=== PATIENT | female | born 1945 | race Caucasian/White ===

== ENCOUNTER 2016-04-24 08:49 | Outpatient (RCR) | payer MEDICARE ==
[~2016-04-24 08:49] MED LIST: CALC-404 PO; CALC-879 PO; D50KC PO; ERGO2000 PO; GABA-488 PO; Gabapentin; HYDR-3714 PO; LEVO137T2 PO; MAGN400C PO; MELO-195 PO; MELO15TA14 PO; Mobic; PANT40TA PO; PANT40TA2 PO; PNT40TEC PO; POTA10TA86 PO; SUCR1TAB36 PO; SULF-222 PO; SULF1TAB38 PO; SULF500T5 PO; levaquin
[2016-04-24 09:12] LABS: BASOPHILS # (AUTO) 0.1 10^3/uL (0.0-0.1); BASOPHILS % (AUTO) 1 % (0-10); EOSINOPHILS # (AUTO) 0.3 10^3/uL (0.0-0.3); EOSINOPHILS % (AUTO) 3 % (0-10); LYMPHOCYTES # (AUTO) 3.8 X 10^3 (1.0-4.0); LYMPHOCYTES % (AUTO) 42 % (12-44); MEAN CORPUSCULAR HEMOGLOBIN 30 PG (25-34); MEAN CORPUSCULAR HGB CONC 33 G/DL (32-36); MEAN CORPUSCULAR VOLUME 91 FL (80-99); MEAN PLATELET VOLUME 8.9 FL (7.4-10.4); MONOCYTES # (AUTO) 0.6 X 10^3 (0.0-1.0); MONOCYTES % (AUTO) 6 % (0-12); NEUTROPHILS # (AUTO) 4.3 X 10^3 (1.8-7.8); NEUTROPHILS % (AUTO) 48 % (42-75); PLATELET COUNT 310 10^3/uL (130-400); RED CELL DISTRIBUTION WIDTH 13.6 % (10.0-14.5)
[2016-04-24 10:24] LABS: ALANINE AMINOTRANSFERASE 36 U/L (0-55); ALBUMIN 3.9 G/DL (3.2-4.5); ANION GAP 6 MMOL/L (5-14); ASPARTATE AMINO TRANSFERASE 24 U/L (5-34); BILIRUBIN,TOTAL 0.2 MG/DL (0.1-1.0); BLOOD UREA NITROGEN 18 MG/DL (7-18); BUN/CREATININE RATIO 27; CALCIUM 8.3 MG/DL (8.5-10.1); CARBON DIOXIDE 28 MMOL/L (21-32); CHLORIDE 106 MMOL/L (98-107); CREATININE SERUM 0.67 MG/DL (0.60-1.30); GFR ESTIMATED > 60; GLUCOSE 92 MG/DL (70-105); LACTATE DEHYDROGENASE 243 U/L (125-220); POTASSIUM 4.3 MMOL/L (3.6-5.0); SODIUM 140 MMOL/L (135-145); TOTAL PROTEIN 6.8 G/DL (6.4-8.2)
== END 2016-07-23 | disposition home or self-care (01) ==
LOC: ONC 08:49
PROVIDERS: ATTEND Internal Medicine Hematology & Oncology
DX: C85.99 Non-Hodgkin lymphoma, unspecified, extranodal and solid organ sites (principal); C73 Malignant neoplasm of thyroid gland; Z79.899 Other long term (current) drug therapy
CPT/HCPCS: 36415; 80053; 83615; 85025; 99213

== ENCOUNTER 2016-10-22 08:43 | Outpatient (RCR) | payer MEDICARE ==
[2016-10-22 09:00] LABS: BASOPHILS # (AUTO) 0.1 10^3/uL (0.0-0.1); BASOPHILS % (AUTO) 1 % (0-10); EOSINOPHILS # (AUTO) 0.2 10^3/uL (0.0-0.3); EOSINOPHILS % (AUTO) 3 % (0-10); LYMPHOCYTES # (AUTO) 3.7 X 10^3 (1.0-4.0); LYMPHOCYTES % (AUTO) 42 % (12-44); MEAN CORPUSCULAR HEMOGLOBIN 30 PG (25-34); MEAN CORPUSCULAR HGB CONC 33 G/DL (32-36); MEAN CORPUSCULAR VOLUME 92 FL (80-99); MEAN PLATELET VOLUME 8.9 FL (7.4-10.4); MONOCYTES # (AUTO) 0.5 X 10^3 (0.0-1.0); MONOCYTES % (AUTO) 5 % (0-12); NEUTROPHILS # (AUTO) 4.3 X 10^3 (1.8-7.8); NEUTROPHILS % (AUTO) 49 % (42-75); PLATELET COUNT 284 10^3/uL (130-400); RED BLOOD COUNT 4.61 10^6/uL (4.35-5.85); RED CELL DISTRIBUTION WIDTH 14.4 % (10.0-14.5); WHITE BLOOD COUNT 8.8 10^3/uL (4.3-11.0)
[2016-10-22 09:42] LABS: ALANINE AMINOTRANSFERASE 37 U/L (0-55); ALBUMIN 3.9 G/DL (3.2-4.5); ANION GAP 8 MMOL/L (5-14); ASPARTATE AMINO TRANSFERASE 23 U/L (5-34); BILIRUBIN,TOTAL 0.3 MG/DL (0.1-1.0); BLOOD UREA NITROGEN 18 MG/DL (7-18); BUN/CREATININE RATIO 20; CALCIUM 8.5 MG/DL (8.5-10.1); CARBON DIOXIDE 29 MMOL/L (21-32); CHLORIDE 105 MMOL/L (98-107); CREATININE SERUM 0.88 MG/DL (0.60-1.30); GFR ESTIMATED > 60; GLUCOSE 103 MG/DL (70-105); LACTATE DEHYDROGENASE 221 U/L (125-220); POTASSIUM 4.4 MMOL/L (3.6-5.0); SODIUM 142 MMOL/L (135-145)
[2016-10-22 10:03] LABS: THYROID STIMULATING HORMONE 0.55 UIU/ML (0.35-4.94)
[2016-10-24 08:18] LABS: THYROGLOBULIN AUTOANTIBODY PT 0.03 Units (0.00-0.50); THYROGLOBULIN LEVELC <0.20 ng/mL (1.60-59.90)
== END 2017-01-20 | disposition home or self-care (01) ==
LOC: ONC 08:43
PROVIDERS: ATTEND Internal Medicine Hematology & Oncology
DX: C85.99 Non-Hodgkin lymphoma, unspecified, extranodal and solid organ sites (principal); C73 Malignant neoplasm of thyroid gland; Z79.899 Other long term (current) drug therapy
CPT/HCPCS: 36415; 80053; 83615; 84432; 84443; 85025; 86800; 99213

== ENCOUNTER 2017-07-08 09:45 | Outpatient (RCR) | payer MEDICARE ==
[2017-04-29 08:59] LABS: BASOPHILS # (AUTO) 0.1 10^3/uL (0.0-0.1); BASOPHILS % (AUTO) 1 % (0-10); EOSINOPHILS # (AUTO) 0.2 10^3/uL (0.0-0.3); EOSINOPHILS % (AUTO) 2 % (0-10); HEMATOCRIT 43 % (35-52); HEMOGLOBIN 14.4 G/DL (11.5-16.0); LYMPHOCYTES # (AUTO) 4.1 X 10^3 (1.0-4.0); LYMPHOCYTES % (AUTO) 37 % (12-44); MEAN CORPUSCULAR HEMOGLOBIN 30 PG (25-34); MEAN CORPUSCULAR HGB CONC 33 G/DL (32-36); MEAN CORPUSCULAR VOLUME 91 FL (80-99); MEAN PLATELET VOLUME 9.4 FL (7.4-10.4); MONOCYTES # (AUTO) 0.4 X 10^3 (0.0-1.0); MONOCYTES % (AUTO) 4 % (0-12); NEUTROPHILS # (AUTO) 6.2 X 10^3 (1.8-7.8); NEUTROPHILS % (AUTO) 57 % (42-75); PLATELET COUNT 248 10^3/uL (130-400); RED BLOOD COUNT 4.79 10^6/uL (4.35-5.85); RED CELL DISTRIBUTION WIDTH 14.2 % (10.0-14.5)
[2017-04-29 09:18] LABS: ALANINE AMINOTRANSFERASE 23 U/L (0-55); ALBUMIN 4.2 GM/DL (3.2-4.5); ALKALINE PHOSPHATASE 91 U/L (40-136); BILIRUBIN,TOTAL 0.4 MG/DL (0.1-1.0); BUN/CREATININE RATIO 17; CALCIUM 8.6 MG/DL (8.5-10.1); CARBON DIOXIDE 29 MMOL/L (21-32); CHLORIDE 101 MMOL/L (98-107); CREATININE SERUM 0.76 MG/DL (0.60-1.30); GFR ESTIMATED > 60; GLUCOSE 96 MG/DL (70-105); SODIUM 141 MMOL/L (135-145); TOTAL PROTEIN 7.3 GM/DL (6.4-8.2)
== END 2017-07-28 | disposition home or self-care (01) ==
LOC: ONC 09:45
PROVIDERS: ATTEND Internal Medicine Hematology & Oncology
DX: C85.99 Non-Hodgkin lymphoma, unspecified, extranodal and solid organ sites (principal); C73 Malignant neoplasm of thyroid gland; Z79.899 Other long term (current) drug therapy
CPT/HCPCS: 36415; 80053; 83615; 84443; 85025; 99213

== ENCOUNTER → 2017-07-25 | Outpatient (CLI) | payer MEDICARE ==
[2017-07-25 12:46] LABS: BASOPHILS # (AUTO) 0.1 10^3/uL (0.0-0.1); BASOPHILS % (AUTO) 1 % (0-10); EOSINOPHILS # (AUTO) 0.2 10^3/uL (0.0-0.3); EOSINOPHILS % (AUTO) 3 % (0-10); HEMATOCRIT 39 % (35-52); LYMPHOCYTES # (AUTO) 2.3 X 10^3 (1.0-4.0); LYMPHOCYTES % (AUTO) 39 % (12-44); MEAN CORPUSCULAR HEMOGLOBIN 30 PG (25-34); MEAN CORPUSCULAR HGB CONC 34 G/DL (32-36); MEAN CORPUSCULAR VOLUME 90 FL (80-99); MONOCYTES # (AUTO) 0.6 X 10^3 (0.0-1.0); MONOCYTES % (AUTO) 10 % (0-12); NEUTROPHILS # (AUTO) 2.7 X 10^3 (1.8-7.8); NEUTROPHILS % (AUTO) 47 % (42-75); PLATELET COUNT 211 10^3/uL (130-400); RED BLOOD COUNT 4.28 10^6/uL (4.35-5.85); RED CELL DISTRIBUTION WIDTH 14.9 % (10.0-14.5); WHITE BLOOD COUNT 5.8 10^3/uL (4.3-11.0)
[2017-07-25 13:12] LABS: ALANINE AMINOTRANSFERASE 39 U/L (0-55); ALBUMIN 3.8 GM/DL (3.2-4.5); ALKALINE PHOSPHATASE 82 U/L (40-136); BILIRUBIN,TOTAL 0.3 MG/DL (0.1-1.0); BUN/CREATININE RATIO 22; CALCIUM 8.5 MG/DL (8.5-10.1); CARBON DIOXIDE 30 MMOL/L (21-32); CHLORIDE 102 MMOL/L (98-107); CREATININE SERUM 0.76 MG/DL (0.60-1.30); GFR ESTIMATED > 60; GLUCOSE 95 MG/DL (70-105); POTASSIUM 4.1 MMOL/L (3.6-5.0); SODIUM 138 MMOL/L (135-145); TOTAL PROTEIN 7.3 GM/DL (6.4-8.2)
--- NOTE | 2017-07-25 13:53 | Diagnostic Imaging Report ---
INDICATION: DYSPNEA RO600, CHEST PAIN RO7.9 COMPARISON: None. FINDINGS: Frontal and lateral views of the chest demonstrate normal heart size and pulmonary vascularity. The lungs are clear. There are no signs of infiltrate, pleural effusions or pneumothoraces. The visualized osseous structures show no acute abnormalities. There is calcified aortic atherosclerosis. IMPRESSION: 1. No acute process. No signs of infiltrates, effusions or pneumothoraces. Report was called to Namita/front office director of Dr. Lovett by kathleen at 1:52 p.m. Dictated by: Dictated on workstation # [id number]
== END ==
LOC: LAB 12:28
PROVIDERS: ATTEND Internal Medicine
DX: R06.00 Dyspnea, unspecified (principal); R07.9 Chest pain, unspecified
CPT/HCPCS: 36415; 71046; 80053; 83880; 84443; 84484; 85025; 85379

== ENCOUNTER → 2017-07-25 | Outpatient (CLI) | payer MEDICARE ==
[~2017-07-25] MED LIST changes: +CATHETER FLUSH 10 ML SYR IV PRN; +IOHEXOL 350 MG/ML 150 ML (OMNIPAQUE 350) VIAL IV ONE; +NS 250 ML (IVPB) BAG IV ONE
--- NOTE | 2017-07-25 18:40 | Diagnostic Imaging Report ---
PROCEDURE: CT angiography of the chest with contrast. TECHNIQUE: Multiple contiguous axial images were obtained through the chest after uneventful bolus administration of intravenous contrast. Reconstructed CTA MIP acquisitions were also performed. INDICATION: Weakness for 2-3 weeks. COMPARISON: None available. FINDINGS: Vasculature: No pulmonary emboli. No CT evidence of pulmonary hypertension or right ventricular strain. Thoracic aorta is normal in caliber. No aortic dissection or pseudoaneurysm. Heart and mediastinum: Thyroidectomy. No supraclavicular lymphadenopathy. There are a few borderline enlarged bilateral axillary lymph nodes. The largest is on the right measuring 1.1 x 1.9 cm. Heart is enlarged without pericardial effusion. Pleura: No pleural effusion or pneumothorax. Lungs and airway: No endoluminal lesion in the trachea or central bronchi. No pulmonary mass, nodule or consolidation. Upper abdomen: Diffuse hypoattenuation of the liver suggests hepatic steatosis. There is a moderate-sized hiatus hernia that is unchanged since CT abdomen and pelvis of 02/04/2014. Musculoskeletal: No concerning osseous lesion. IMPRESSION: 1. No acute cardiopulmonary process. Specifically, no pulmonary emboli or acute aortic syndrome. 2. Incidental mode of borderline enlarged bilateral axillary lymph nodes which are likely reactive in nature. There is no intrathoracic lymphadenopathy. 3. Mild cardiomegaly. 4. Stable moderate-sized hiatus hernia and hepatic steatosis. Findings of no acute process were called to [facility] by Dr. Behzad Springer at 6:34 p.m. on 07/25/2017. Dictated by: Dictated on workstation # [id number]
== END ==
LOC: RAD 17:44
PROVIDERS: ATTEND Internal Medicine
DX: K44.9 Diaphragmatic hernia without obstruction or gangrene (principal); K76.0 Fatty (change of) liver, not elsewhere classified; I51.7 Cardiomegaly; R79.1 Abnormal coagulation profile
CPT/HCPCS: 71275

== ENCOUNTER → 2017-07-28 | Outpatient (CLI) | payer MEDICARE ==
[~2017-07-28] VITALS: Ht 167.6 cm; Wt 105.2 kg
[~2017-07-28] MED LIST changes: -IOHEXOL 350 MG/ML 150 ML (OMNIPAQUE 350) VIAL IV ONE; -NS 250 ML (IVPB) BAG IV ONE; +REGADENOSON 0.4 MG/5 ML SYR (LEXISCAN) IV ONE
[2017-07-28 08:02] VITALS: BP 128/66
--- NOTE | 2017-07-28 18:33 | STRESS TEST ---
DATE OF SERVICE: 07/28/2017 PROCEDURE: Resting and post regadenoson technetium-99m Tetrofosmin SPECT CT imaging. ORDERING PHYSICIAN: Gillian Epps APRN. PRIMARY PHYSICIAN: Dr. Lovett. CLINICAL DIAGNOSIS: Chest discomfort, shortness of breath. Baseline images were carried out after injection of 10.91 mCi of technetium-99m Tetrofosmin. This was followed by 0.4 mg regadenoson and 28.1 mCi of technetium-99m Tetrofosmin. The electrocardiographic portion of the study is reported separately by Dr. Lovett. Review of images at rest and following stress does not indicate significant perfusion defects consistent with significant myocardial ischemia or infarction. Gated images show normal global left ventricular systolic function with normal regional wall motion. Left ventricular ejection fraction is calculated to be 61%. Left ventricular end diastolic volume is 61 mL. TID is absent (1.08). CONCLUSIONS: 1. No evidence of significant myocardial ischemia or infarction on this study. 2. Normal regional wall motion with a calculated ejection fraction of 61%. Job ID: [id number] DocumentID: [id number] Dictated Date: 07/28/2017 13:06:54 Spreader Date: 07/28/2017 18:33:09 Dictated By: FELICIA HODGES MD, MA, FACP, FACC,
== END ==
LOC: CARD 06:50
PROVIDERS: ATTEND Nurse Practitioner Family
DX: R07.9 Chest pain, unspecified (principal); R06.00 Dyspnea, unspecified
CPT/HCPCS: 78452; 93017

== ENCOUNTER 2017-11-26 22:30 | Inpatient (IN) | payer MEDICARE ==
[~2017-11-26] VITALS: Ht 170.2 cm; Wt 105.2 kg
[~2017-11-26 22:30] MED LIST changes: -CATHETER FLUSH 10 ML SYR IV PRN; -REGADENOSON 0.4 MG/5 ML SYR (LEXISCAN) IV ONE
--- OUTSIDE RECORDS SUMMARY | 2017-11-26 22:42 | XMS REPORT | Continuity of Care Document ---
Author Author [facility] Organization [facility] Address Unknown Phone Unavailable Allergies Active Description Code Type Severity Reaction Onset Reported/Identified Relationship to Patient Clinical Status Yes promethazine [id number] Drug Allergy Unknown N/A 01/01/2006 Medications There is no data. Problems Date Dx Coded Attending Type Code Diagnosis Diagnosed By 12/29/2013 VANDANA CLARK MD Ot 530.11 REFLUX ESOPHAGITIS 12/29/2013 VANDANA CLARK MD Ot 535.50 UNSP GASTRITIS GASTRODUODENITIS W/O ME 12/29/2013 VANDANA CLARK MD Ot 553.3 DIAPHRAGMATIC HERNIA 02/09/2014 MARI PATEL MD Ot 719.06 JOINT EFFUSION-L/LEG 02/09/2014 MARI PATEL MD Ot 719.46 JOINT PAIN-L/LEG 02/10/2014 BENNETT VILLANUEVA, GALO Joshua Ot 193 MALIGN NEOPL THYROID 02/10/2014 BENNETT VILLANUEVA, GALO Joshua Ot 241.1 NONTOX MULTINODUL GOITER 02/10/2014 BENNETT VILLANUEVA, GALO Joshua Ot 266.2 B-COMPLEX DEFIC NEC 02/10/2014 BENNETT VILLANUEVA, GALO Joshua Ot 401.9 HYPERTENSION NOS 02/10/2014 BENNETT VILLANUEVA, GALO Joshua Ot 715.90 OSTEOARTHROS NOS-UNSPEC 02/10/2014 BENNETT VILLANUEVA, GALO Joshua Ot V03.82 PROPHYLACTIC VACC AGAINST STREPTOCOCCUS 02/10/2014 BENNETT VILLANUEVA, GALO Joshua Ot V15.82 HISTORY OF TOBACCO USE 03/31/2014 PASCUAL ALARCON DO Ot V76.12 05/02/2014 Ot 241.1 05/02/2014 Ot V49.81 05/02/2014 Ot V82.81 05/02/2014 Ot 241.0 05/02/2014 Ot 389.16 05/02/2014 Ot 553.3 05/02/2014 Ot 562.10 05/02/2014 Ot 571.8 05/02/2014 Ot 599.70 05/02/2014 Ot 789.09 05/02/2014 Ot 789.1 05/02/2014 Ot 721.2 05/02/2014 Ot 721.3 05/02/2014 Ot 737.8 05/02/2014 Ot 785.9 05/02/2014 Ot 789.00 05/02/2014 Ot 793.7 05/02/2014 Ot 724.9 05/02/2014 Ot V76.12 05/02/2014 Ot 610.0 05/02/2014 Ot 715.37 05/02/2014 IRIS JUWAN C CUPOLA REPAIRER Ot 719.41 05/02/2014 JOSÉ VILLANUEVA, AUDI Chung Ot 724.02 05/02/2014 EDUARDO VILLANUEVA, VANDANA Ot V72.84 05/02/2014 BENNETT VILLANUEVA, GALO Jsohua Ot 241.0 05/02/2014 BENNETT VILLANUEVA, GALO Joshua Ot V72.63 05/02/2014 BENNETT VILLANUEVA, GALO Joshua Ot V74.8 05/02/2014 DORI ALARCONIA L SIGNALS COLLECTOR/ANALYST Ot 562.10 05/02/2014 ALARCONDORI RINGIA L SIGNALS COLLECTOR/ANALYST Ot 571.8 05/02/2014 DORI ALARCONIA L SIGNALS COLLECTOR/ANALYST Ot 599.70 05/02/2014 DORI ALARCONIA L SIGNALS COLLECTOR/ANALYST Ot 724.5 05/02/2014 BENNETT VILLANUEVA, GALO Joshua Ot 242.90 05/02/2014 BENNETT VILLANUEVA, GALO Joshua Ot V67.09 05/02/2014 PASCUAL ALARCON DO Ot V76.12 05/02/2014 BRANDY HOOPER N Ot 202.80 05/02/2014 BRANDY HOOPER N Ot 623.8 05/02/2014 BRANDY HOOPER N Ot 627.1 05/02/2014 JOSE MORALES MD Ot 721.3 05/02/2014 JOSE MORALES MD Ot 722.52 05/02/2014 JOSE MORALES MD Ot 737.30 05/02/2014 JOSE MORALES MD Ot V58.69 05/02/2014 JOSE MORALES MD Ot 721.3 05/02/2014 JOSE MORALES MD Ot 722.52 05/02/2014 JOSE MORALES MD Ot 737.30 05/02/2014 JOSE MORALES MD Ot V58.69 05/03/2014 BRANDY HOOPER N Ot 202.80 05/03/2014 BRANDY HOOPER N Ot 623.8 05/03/2014 BRANDY HOOPER N Ot 627.1 05/03/2014 JOSE MORALES MD Ot 721.3 05/03/2014 JOSE MORALES MD Ot 722.52 05/03/2014 JOSE MORALES MD Ot 737.30 05/03/2014 JOSE MORALES MD Ot V58.69 05/09/2014 BIPIN HOOPERAN N Ot 202.80 05/09/2014 BRANDY HOOPER N Ot 623.8 05/09/2014 BRANDY HOOPER N Ot 627.1 06/02/2014 BIPIN HOOPERAN N Ot 729.81 06/06/2014 BIPIN HOOPERAN N Ot 202.80 06/06/2014 SANDIE, BOBAN N Ot 729.81 06/18/2014 SANDIE, BOBAN N Ot 202.80 06/18/2014 SANDIEBIPIN WERNERAN N Ot 729.81 06/29/2014 SANDEI, BOBAN N Ot 202.80 06/29/2014 SANDIE BOBAN N Ot 729.81 07/31/2014 SANDIE BOBAN N Ot 202.80 OTH LYMPHOMAS EXTRANODAL SOLID ORGAN U 07/31/2014 SANDIE BOBKAYCE N Ot 729.81 SWELLING OF LIMB 08/12/2014 Ot 721.3 08/12/2014 Ot 722.52 08/12/2014 Ot 737.30 08/12/2014 Ot V58.69 08/19/2014 Ot 721.3 08/19/2014 Ot 722.52 08/19/2014 Ot 737.30 08/19/2014 Ot V58.69 10/15/2014 JOSE MORALES MD Ot 721.3 10/15/2014 JOSE MORALES MD Ot 721.3 11/01/2014 Ot 241.1 11/01/2014 Ot V49.81 11/01/2014 Ot V82.81 11/01/2014 Ot 241.0 11/01/2014 Ot 389.16 11/01/2014 Ot 553.3 11/01/2014 Ot 562.10 11/01/2014 Ot 571.8 11/01/2014 Ot 599.70 11/01/2014 Ot 789.09 11/01/2014 Ot 789.1 11/01/2014 Ot 721.2 11/01/2014 Ot 721.3 11/01/2014 Ot 737.8 11/01/2014 Ot 785.9 11/01/2014 Ot 789.00 11/01/2014 Ot 793.7 11/01/2014 Ot 724.9 11/01/2014 Ot V76.12 11/01/2014 Ot 610.0 11/01/2014 Ot 715.37 11/01/2014 JUWAN SIMMONS APRN Ot 719.41 11/01/2014 JOSÉ VILLANUEVA, ADUI Chung Ot 724.02 11/01/2014 EDUARDO VILLANUEVA, VANDANA Ot V72.84 11/01/2014 BENNETT VILLANUEVA, GALO Joshua Ot 241.0 11/01/2014 BENNETT VILLANUEVA, GALO Joshua Ot V72.63 11/01/2014 BENNETT VILLANUEVA, GALO Joshua Ot V74.8 11/01/2014 JUWAN ALARCON L SIGNALS COLLECTOR/ANALYST Ot 562.10 11/01/2014 DORI ALARCONIA L SIGNALS COLLECTOR/ANALYST Ot 571.8 11/01/2014 DORI ALARCONIA L SIGNALS COLLECTOR/ANALYST Ot 599.70 11/01/2014 JUWAN ALARCON L SIGNALS COLLECTOR/ANALYST Ot 724.5 11/01/2014 BENNETT VILLANUEVA, GALO Joshua Ot 242.90 11/01/2014 BENNETT VILLANUEVA, GALO Joshua Ot V67.09 11/01/2014 PASCUAL ALARCON DO Ot V76.12 11/01/2014 BRANDY HOOPER Ot 202.80 11/01/2014 BRANDY HOOPER Ot 623.8 11/01/2014 BRANDY HOOPER Ot 627.1 11/01/2014 JOSE MORALES MD Ot 721.3 11/01/2014 JOSE MORALES MD Ot 722.52 11/01/2014 JOSE MORALES MD Ot 737.30 11/01/2014 JOSE MORALES MD Ot V58.69 11/01/2014 BRANDY HOOPER Víctor Ot 729.81 11/01/2014 Ot 721.3 11/01/2014 Ot 722.52 11/01/2014 Ot 737.30 11/01/2014 Ot V58.69 11/01/2014 SANDIEBIPINKAYCE Renee Ot 202.80 11/01/2014 SANDIEBIPINKAYCE Renee Ot 729.81 11/01/2014 JOSE MORALES MD Ot 721.3 11/01/2014 ANDREW ZHOU SIGNALS COLLECTOR/ANALYST Ot 202.80 11/21/2014 ANDREW ZHOU SIGNALS COLLECTOR/ANALYST Ot 202.80 11/24/2014 ZHOUANDREW Rodriguez SIGNALS COLLECTOR/ANALYST Ot 202.80 11/25/2014 PASCUAL ALARCON DO Ot 719.06 11/25/2014 PASCUAL ALARCON DO Ot 719.46 12/02/2014 PASCUAL ALARCON DO Ot 719.06 12/02/2014 PASCUAL ALARCON DO Ot 719.46 01/06/2015 BRANDY HOOPER Ot 202.80 01/06/2015 SANDIE BIPINKAYCE Renee Ot 729.81 01/09/2015 SANDIEBRANDY WERNER N Ot 202.80 01/09/2015 SANDIEBRANDY WERNER Ot 729.81 03/28/2015 SANDIEBRANDY WERNER Ot 202.80 03/28/2015 BRANDY HOOPER Ot 729.81 04/25/2015 MJ DAVALOS DO Ot K21.0 GASTRO-ESOPHAGEAL REFLUX DISEASE WITH ES 04/25/2015 MJ DAVALOS DO Ot K31.7 POLYP OF STOMACH AND DUODENUM 04/25/2015 MJ DAVALOS DO Ot K44.9 DIAPHRAGMATIC HERNIA WITHOUT OBSTRUCTION 04/25/2015 MJ DAVALOS DO Ot K57.90 DVRTCLOS OF INTEST, PART UNSP, W/O PERF 04/25/2015 MJ DAVALOS DO Ot Z12.11 ENCOUNTER FOR SCREENING FOR MALIGNANT NE 04/25/2015 MJ DAVALOS DO Ot Z86.010 PERSONAL HISTORY OF COLONIC POLYPS 04/26/2015 MJ DAVALOS DO Ot Z01.818 05/04/2015 BRANDY HOOPER Ot 202.80 05/04/2015 BRANDY HOOPER Ot 729.81 05/24/2015 BRANDY HOOPER Ot C85.99 05/24/2015 BRANDY HOOPER N Ot C85.99 07/02/2015 BRANDY HOOPER Ot 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, UNSP, EXTRANODAL A 09/28/2015 BRANDY HOOPER Ot 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, UNSP, EXTRANODAL A 10/06/2015 ANDREW ZHOU SIGNALS COLLECTOR/ANALYST Ot C73 MALIGNANT NEOPLASM OF THYROID GLAND 10/06/2015 ANDREW ZHOU S SIGNALS COLLECTOR/ANALYST Ot 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, UNSP, EXTRANODAL A 10/06/2015 ANDREW ZHOU S SIGNALS COLLECTOR/ANALYST Ot Z79.899 OTHER GROUP HOME (CURRENT) DRUG THERAPY 10/27/2015 ANDREW ZHOU SIGNALS COLLECTOR/ANALYST Ot C73 MALIGNANT NEOPLASM OF THYROID GLAND 10/27/2015 ANDREW ZHOU S SIGNALS COLLECTOR/ANALYST Ot 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, UNSP, EXTRANODAL A 10/27/2015 ANDREW ZHOU S SIGNALS COLLECTOR/ANALYST Ot Z79.899 OTHER READING ASSISTANT (CURRENT) DRUG THERAPY 11/08/2015 ANDREW ZHOU SIGNALS COLLECTOR/ANALYST Ot C73 MALIGNANT NEOPLASM OF THYROID GLAND 11/08/2015 ANDREW ZHOU S SIGNALS COLLECTOR/ANALYST Ot 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, UNSP, EXTRANODAL A 11/08/2015 ANDREW ZHOU S SIGNALS COLLECTOR/ANALYST Ot Z79.899 OTHER GROUP HOME (CURRENT) DRUG THERAPY 03/25/2016 Ot 241.1 NONTOX MULTINODUL GOITER 03/25/2016 Ot V49.81 ASYMPT POSTMENOPAUSAL STATUS (AGE-RELATE 03/25/2016 Ot V82.81 SCREENING FOR OSTEOPOROSIS 03/25/2016 Ot 241.0 NONTOX UNINODULAR GOITER 03/25/2016 Ot 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, ASYMMETRICAL 03/25/2016 Ot 553.3 DIAPHRAGMATIC HERNIA 03/25/2016 Ot 562.10 DIVERTICULOSIS COLON (W/O MENT OF HEMORR 03/25/2016 Ot 571.8 CHRONIC LIVER DIS NEC 03/25/2016 Ot 599.70 HEMATURIA, UNSPECIFIED 03/25/2016 Ot 789.09 ABDOMINAL PAIN, OTHER SPECIFIED SITE 03/25/2016 Ot 789.1 HEPATOMEGALY 03/25/2016 Ot 721.2 THORACIC SPONDYLOSIS 03/25/2016 Ot 721.3 LUMBOSACRAL SPONDYLOSIS 03/25/2016 Ot 737.8 CURVATURE OF SPINE NEC 03/25/2016 Ot 785.9 CARDIOVAS SYS SYMP NEC 03/25/2016 Ot 789.00 ABDOMINAL PAIN, UNSPECIFIED SITE 03/25/2016 Ot 793.7 NOSP (ABN) FINDINGS ON RADIOLOGICAL OT 03/25/2016 Ot 724.9 BACK DISORDER NOS 03/25/2016 Ot V76.12 OTH SCREEN MAMMO-MALIGN NEOPLASM OF ADONIS 03/25/2016 Ot 610.0 SOLITARY CYST OF BREAST 03/25/2016 Ot 715.37 LOC OSTEOARTH NOS-ANKLE 03/25/2016 JUWAN SIMMONS CUPOLA REPAIRER Ot 719.41 JOINT PAIN-SHLDER 03/25/2016 JOSÉ VILLANUEVA, AUDI Chung Ot 724.02 SPINAL STENOSIS, LUMBAR REG, W/OUT NEURO 03/25/2016 EDUARDO VILLANUEVA, VANDANA Ot V72.84 EXAM PRE-OPERATIVE NOS 03/25/2016 BENNETT VILLANUEVA, GALO Joshua Ot 241.0 NONTOX UNINODULAR GOITER 03/25/2016 BENNETT VILLANUEVA, GALO Joshua Ot V72.63 PRE-PROCEDURAL LABORATORY EXAMINATION 03/25/2016 BENNETT VILLANUEVA, GALO Joshua Ot V74.8 SCREEN-BACTERIAL DIS NEC 03/25/2016 JUWAN ALARCON SIGNALS COLLECTOR/ANALYST Ot 562.10 DIVERTICULOSIS COLON (W/O MENT OF HEMORR 03/25/2016 JUWAN ALARCON SIGNALS COLLECTOR/ANALYST Ot 571.8 CHRONIC LIVER DIS NEC 03/25/2016 JUWAN ALARCON SIGNALS COLLECTOR/ANALYST Ot 599.70 HEMATURIA, UNSPECIFIED 03/25/2016 JUWAN ALARCON SIGNALS COLLECTOR/ANALYST Ot 724.5 BACKACHE NOS 03/25/2016 BENNETT VILLANUEVA, GALO Joshua Ot 242.90 THYROTOX NOS NO CRISIS 03/25/2016 BENNETT VILLANUEVA, GALO Joshua Ot V67.09 SURGERY FOLLOW-UP, OTHER SURGERY 03/25/2016 PASCUAL ALARCON DO Ot V76.12 OTH SCREEN MAMMO-MALIGN NEOPLASM OF ADONIS 03/25/2016 BRANDY HOOPER Ot 202.80 OTH LYMPHOMAS EXTRANODAL SOLID ORGAN U 03/25/2016 BRANDY HOOPER N Ot 623.8 NONINFLAM DIS VAGINA NEC 03/25/2016 SANDIEBRANDY WERNER Ot 627.1 POSTMENOPAUSAL BLEEDING 03/25/2016 JOSE MORALES MD Ot 721.3 LUMBOSACRAL SPONDYLOSIS 03/25/2016 JOSE MORALES MD Ot 722.52 LUMB/LUMBOSAC DISC DEGEN 03/25/2016 JOSE MORALES MD Ot 737.30 IDIOPATHIC SCOLIOSIS 03/25/2016 JOSE MORALES MD Ot V58.69 OTH MED,LT,CURRENT USE 03/25/2016 SANDIE BRANDY Renee Ot 729.81 SWELLING OF LIMB 03/25/2016 Ot 721.3 LUMBOSACRAL SPONDYLOSIS 03/25/2016 Ot 722.52 LUMB/ LUMBOSAC DISC DEGEN 03/25/2016 Ot 737.30 IDIOPATHIC SCOLIOSIS 03/25/2016 Ot V58.69 OTH MED,LT, CURRENT USE 03/25/2016 JOSE MORALES MD Ot 721.3 LUMBOSACRAL SPONDYLOSIS 03/25/2016 ANDREW ZHOU Ot 202.80 OTH LYMPHOMAS EXTRANODAL SOLID ORGAN U 03/25/2016 PASCUAL ALARCON DO Ot 719.06 JOINT EFFUSION-L/LEG 03/25/2016 PASCUAL ALARCON DO Ot 719.46 JOINT PAIN-L/LEG 03/25/2016 MJ DAVALOS DO Ot Z01.818 ENCOUNTER FOR OTHER PREPROCEDURAL EXAMIN 03/25/2016 BRANDY HOOPER Ot 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, UNSP, EXTRANODAL A 03/25/2016 ANDREW ZHOU Ot C73 MALIGNANT NEOPLASM OF THYROID GLAND 03/25/2016 ANDREW ZHOU Ot 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, UNSP, EXTRANODAL A 03/25/2016 ANDREW ZHOU Ot Z79.899 OTHER GROUP HOME (CURRENT) DRUG THERAPY 03/26/2016 PASCUAL ALARCON DO Ot R07.9 CHEST PAIN, UNSPECIFIED 03/26/2016 PASCUAL ALARCON DO Ot Z12.31 ENCNTR SCREEN MAMMOGRAM FOR MALIGNANT NE 03/26/2016 PASCUAL ALARCON DO Ot R07.9 CHEST PAIN, UNSPECIFIED 03/26/2016 ALARCON DO, PASCUAL J Ot Z12.31 ENCNTR SCREEN MAMMOGRAM FOR MALIGNANT NE 04/16/2016 ALARCON DO, PASCUAL Chung Ot R07.9 CHEST PAIN, UNSPECIFIED 04/16/2016 ALARCON DO, PASCUAL J Ot Z12.31 ENCNTR SCREEN MAMMOGRAM FOR MALIGNANT NE 04/17/2016 ALARCON DO, PASCUAL J Ot R07.9 CHEST PAIN, UNSPECIFIED 04/17/2016 ALARCON DO, PASCUAL J Ot Z12.31 ENCNTR SCREEN MAMMOGRAM FOR MALIGNANT NE 04/23/2016 BIPIN HOOPERAN N Ot 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, UNSP, EXTRANODAL A 04/25/2016 SANDIE, BOBAN N Ot 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, UNSP, EXTRANODAL A 07/02/2016 SANDIE BIPINKAYCE N Ot C73 MALIGNANT NEOPLASM OF THYROID GLAND 07/02/2016 SANDIE BRANDY N Ot 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, UNSP, EXTRANODAL A 07/02/2016 SANDIE, BOBAN N Ot Z79.899 OTHER READING ASSISTANT (CURRENT) DRUG THERAPY 07/03/2016 SANDIE, BOBAN N Ot C73 MALIGNANT NEOPLASM OF THYROID GLAND 07/03/2016 SANDIE, BOBAN N Ot 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, UNSP, EXTRANODAL A 07/03/2016 SANDIE BOBAN N Ot Z79.899 OTHER GROUP HOME (CURRENT) DRUG THERAPY 07/23/2016 SANDIE, BRANDY N Ot C73 MALIGNANT NEOPLASM OF THYROID GLAND 07/23/2016 SANDIE, BOBAN N Ot 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, UNSP, EXTRANODAL A 07/23/2016 SANDIE, BOBAN N Ot Z79.899 OTHER READING ASSISTANT (CURRENT) DRUG THERAPY 10/06/2016 ANDREW ZHOU SIGNALS COLLECTOR/ANALYST Ot C73 MALIGNANT NEOPLASM OF THYROID GLAND 10/06/2016 ANDREW ZHOU SIGNALS COLLECTOR/ANALYST Ot 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, UNSP, EXTRANODAL A 10/06/2016 ANDREW ZHOU SIGNALS COLLECTOR/ANALYST Ot Z79.899 OTHER READING ASSISTANT (CURRENT) DRUG THERAPY 10/06/2016 ANDREW ZHOU SIGNALS COLLECTOR/ANALYST Ot C73 MALIGNANT NEOPLASM OF THYROID GLAND 10/06/2016 ANDREW ZHOU SIGNALS COLLECTOR/ANALYST Ot 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, UNSP, EXTRANODAL A 10/06/2016 ZHOUANDREW Rodriguez SIGNALS COLLECTOR/ANALYST Ot Z79.899 OTHER READING ASSISTANT (CURRENT) DRUG THERAPY 10/06/2016 ANDREW ZHOU SIGNALS COLLECTOR/ANALYST Ot C73 MALIGNANT NEOPLASM OF THYROID GLAND 10/06/2016 ANDREW ZHOU SIGNALS COLLECTOR/ANALYST Ot 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, UNSP, EXTRANODAL A 10/06/2016 ZHOUANDREW Rodriguez SIGNALS COLLECTOR/ANALYST Ot Z79.899 OTHER READING ASSISTANT (CURRENT) DRUG THERAPY 10/06/2016 ANDREW ZHOU SIGNALS COLLECTOR/ANALYST Ot C73 MALIGNANT NEOPLASM OF THYROID GLAND 10/06/2016 ANDREW ZHOU SIGNALS COLLECTOR/ANALYST Ot 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, UNSP, EXTRANODAL A 10/06/2016 ZHOUANDREW Rodriguez SIGNALS COLLECTOR/ANALYST Ot Z79.899 OTHER GROUP HOME (CURRENT) DRUG THERAPY 10/06/2016 ANDREW ZHOU SIGNALS COLLECTOR/ANALYST Ot C73 MALIGNANT NEOPLASM OF THYROID GLAND 10/06/2016 ANDREW ZHOU SIGNALS COLLECTOR/ANALYST Ot 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, UNSP, EXTRANODAL A 10/06/2016 ZHOUANDREW Rodriguez S SIGNALS COLLECTOR/ANALYST Ot Z79.899 OTHER GROUP HOME (CURRENT) DRUG THERAPY 11/21/2016 SANDIEBRANDY WERNER N Ot C73 MALIGNANT NEOPLASM OF THYROID GLAND 11/21/2016 SANDIE, BOBAN N Ot 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, UNSP, EXTRANODAL A 11/21/2016 SANDIE BOBAN N Ot Z79.899 OTHER GROUP HOME (CURRENT) DRUG THERAPY 12/13/2016 SANDIE, BOBAN N Ot C73 MALIGNANT NEOPLASM OF THYROID GLAND 12/13/2016 SANDIE, BOBAN N Ot 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, UNSP, EXTRANODAL A 12/13/2016 SANDIE BOBAN N Ot Z79.899 OTHER GROUP HOME (CURRENT) DRUG THERAPY 12/19/2016 SANDIE, BOBAN N Ot C73 MALIGNANT NEOPLASM OF THYROID GLAND 12/19/2016 SANDIE, BOBAN N Ot 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, UNSP, EXTRANODAL A 12/19/2016 SANDIE, BOBAN N Ot Z79.899 OTHER GROUP HOME (CURRENT) DRUG THERAPY 01/20/2017 BRANDY HOOPER N Ot C73 MALIGNANT NEOPLASM OF THYROID GLAND 01/20/2017 SANDIEBRANDY N Ot 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, UNSP, EXTRANODAL A 01/20/2017 SANDIEBRANDY N Ot Z79.899 OTHER READING ASSISTANT (CURRENT) DRUG THERAPY 05/01/2017 BRANDY HOOPER N Ot C73 MALIGNANT NEOPLASM OF THYROID GLAND 05/01/2017 SANDIEBRANDY N Ot 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, UNSP, EXTRANODAL A 05/01/2017 SANDIEBRANDY N Ot Z79.899 OTHER GROUP HOME (CURRENT) DRUG THERAPY 06/12/2017 BRANDY HOOPER N Ot C73 MALIGNANT NEOPLASM OF THYROID GLAND 06/12/2017 SANDIE BOBKAYCE N Ot 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, UNSP, EXTRANODAL A 06/12/2017 SANDIEBRANDY N Ot Z79.899 OTHER GROUP HOME (CURRENT) DRUG THERAPY 06/18/2017 BRANDY HOOPER N Ot C73 MALIGNANT NEOPLASM OF THYROID GLAND 06/18/2017 SANDIEBRANDY N Ot 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, UNSP, EXTRANODAL A 06/18/2017 SANDIEBRANDY N Ot Z79.899 OTHER READING ASSISTANT (CURRENT) DRUG THERAPY 07/26/2017 Ot V49.81 ASYMPT POSTMENOPAUSAL STATUS (AGE-RELATE 07/26/2017 Ot V82.81 SCREENING FOR OSTEOPOROSIS 07/26/2017 Ot 553.3 DIAPHRAGMATIC HERNIA 07/26/2017 Ot 562.10 DIVERTICULOSIS COLON (W/O MENT OF HEMORR 07/26/2017 Ot 571.8 CHRONIC LIVER DIS NEC 07/26/2017 Ot 599.70 HEMATURIA, UNSPECIFIED 07/26/2017 Ot 789.09 ABDOMINAL PAIN, OTHER SPECIFIED SITE 07/26/2017 Ot 789.1 HEPATOMEGALY 07/26/2017 Ot 721.2 THORACIC SPONDYLOSIS 07/26/2017 Ot 721.3 LUMBOSACRAL SPONDYLOSIS 07/26/2017 Ot 737.8 CURVATURE OF SPINE NEC 07/26/2017 Ot 785.9 CARDIOVAS SYS SYMP NEC 07/26/2017 Ot 789.00 ABDOMINAL PAIN, UNSPECIFIED SITE 07/26/2017 Ot 793.7 NOSP (ABN) FINDINGS ON RADIOLOGICAL OT 07/26/2017 Ot 724.9 BACK DISORDER NOS 07/26/2017 Ot V76.12 OTH SCREEN MAMMO-MALIGN NEOPLASM OF ADONIS 07/26/2017 Ot 610.0 SOLITARY CYST OF BREAST 07/26/2017 Ot 715.37 LOC OSTEOARTH NOS-ANKLE 07/26/2017 RIDINGS, JUWAN C CUPOLA REPAIRER Ot 719.41 JOINT PAIN-SHLDER 07/26/2017 JOSÉ VILLANUEVA, AUDI Chung Ot 724.02 SPINAL STENOSIS, LUMBAR REG, W/OUT NEURO 07/26/2017 EDUARDO VILLANUEVA, VANDANA Ot V72.84 EXAM PRE-OPERATIVE NOS 07/26/2017 BENNETT VILLANUEVA, GALO Joshua Ot 241.0 NONTOX UNINODULAR GOITER 07/26/2017 BENNETT VILLANUEVA, GALO Joshua Ot V72.63 PRE-PROCEDURAL LABORATORY EXAMINATION 07/26/2017 BENNETT VILLANUEVA, GALO Joshua Ot V74.8 SCREEN-BACTERIAL DIS NEC 07/26/2017 JUWAN ALARCON L SIGNALS COLLECTOR/ANALYST Ot 562.10 DIVERTICULOSIS COLON (W/O MENT OF HEMORR 07/26/2017 ALARCON, JUWAN L SIGNALS COLLECTOR/ANALYST Ot 571.8 CHRONIC LIVER DIS NEC 07/26/2017 DORI ALARCONIA L SIGNALS COLLECTOR/ANALYST Ot 599.70 HEMATURIA, UNSPECIFIED 07/26/2017 MANDEEP ALARCONRICIA L SIGNALS COLLECTOR/ANALYST Ot 724.5 BACKACHE NOS 07/26/2017 BENNETT VILLANUEVA, GALO Joshua Ot 242.90 THYROTOX NOS NO CRISIS 07/26/2017 BENNETT VILLANUEVA, GALO Joshua Ot V67.09 SURGERY FOLLOW-UP, OTHER SURGERY 07/26/2017 PASCUAL ALARCON DO Ot V76.12 OTH SCREEN MAMMO-MALIGN NEOPLASM OF ADONIS 07/26/2017 BRANDY HOOPER Ot 202.80 OTH LYMPHOMAS EXTRANODAL SOLID ORGAN U 07/26/2017 BRANDY HOOPER Ot 623.8 NONINFLAM DIS VAGINA NEC 07/26/2017 BRANDY HOOPER Ot 627.1 POSTMENOPAUSAL BLEEDING 07/26/2017 JOSE MORALES MD Ot 721.3 LUMBOSACRAL SPONDYLOSIS 07/26/2017 JOSE MORALES MD Ot 722.52 LUMB/LUMBOSAC DISC DEGEN 07/26/2017 JOSE MORALES MD Ot 737.30 IDIOPATHIC SCOLIOSIS 07/26/2017 JOSE MORALES MD Ot V58.69 OTH MED,LT,CURRENT USE 07/26/2017 BRANDY HOOPER Ot 729.81 SWELLING OF LIMB 07/26/2017 Ot 721.3 LUMBOSACRAL SPONDYLOSIS 07/26/2017 Ot 722.52 LUMB/ LUMBOSAC DISC DEGEN 07/26/2017 Ot 737.30 IDIOPATHIC SCOLIOSIS 07/26/2017 Ot V58.69 OTH MED,LT, CURRENT USE 07/26/2017 CARMEN VILLANUEVA, JOSE Chung Ot 721.3 LUMBOSACRAL SPONDYLOSIS 07/26/2017 ANDREW ZHOU Ot 202.80 OTH LYMPHOMAS EXTRANODAL SOLID ORGAN U 07/26/2017 PASCUAL ALARCON DO Ot 719.06 JOINT EFFUSION-L/LEG 07/26/2017 PASCUAL ALARCON DO Ot 719.46 JOINT PAIN-L/LEG 07/26/2017 MJ DAVALOS DO Ot Z01.818 ENCOUNTER FOR OTHER PREPROCEDURAL EXAMIN 07/26/2017 ANDREW ZHOU Ot C73 MALIGNANT NEOPLASM OF THYROID GLAND 07/26/2017 ANDREW ZHOU Ot 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, UNSP, EXTRANODAL A 07/26/2017 ANDREW ZHOU Ot Z79.899 OTHER GROUP HOME (CURRENT) DRUG THERAPY 07/26/2017 PASCUAL ALARCON DO Ot R07.9 CHEST PAIN, UNSPECIFIED 07/26/2017 PASCUAL ALARCON DO Ot Z12.31 ENCNTR SCREEN MAMMOGRAM FOR MALIGNANT NE 07/26/2017 BRANDY HOOPER Ot C73 MALIGNANT NEOPLASM OF THYROID GLAND 07/26/2017 BRANDY HOOPER Ot 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, UNSP, EXTRANODAL A 07/26/2017 BRANDY HOOPER Ot Z79.899 OTHER READING ASSISTANT (CURRENT) DRUG THERAPY 07/26/2017 PASCUAL ALARCON DO Ot R06.00 DYSPNEA, UNSPECIFIED 07/26/2017 Ot V49.81 ASYMPT POSTMENOPAUSAL STATUS (AGE-RELATE 07/26/2017 Ot V82.81 SCREENING FOR OSTEOPOROSIS 07/26/2017 Ot 553.3 DIAPHRAGMATIC HERNIA 07/26/2017 Ot 562.10 DIVERTICULOSIS COLON (W/O MENT OF HEMORR 07/26/2017 Ot 571.8 CHRONIC LIVER DIS NEC 07/26/2017 Ot 599.70 HEMATURIA, UNSPECIFIED 07/26/2017 Ot 789.09 ABDOMINAL PAIN, OTHER SPECIFIED SITE 07/26/2017 Ot 789.1 HEPATOMEGALY 07/26/2017 Ot 721.2 THORACIC SPONDYLOSIS 07/26/2017 Ot 721.3 LUMBOSACRAL SPONDYLOSIS 07/26/2017 Ot 737.8 CURVATURE OF SPINE NEC 07/26/2017 Ot 785.9 CARDIOVAS SYS SYMP NEC 07/26/2017 Ot 789.00 ABDOMINAL PAIN, UNSPECIFIED SITE 07/26/2017 Ot 793.7 NOSP (ABN) FINDINGS ON RADIOLOGICAL OT 07/26/2017 Ot 724.9 BACK DISORDER NOS 07/26/2017 Ot V76.12 OTH SCREEN MAMMO-MALIGN NEOPLASM OF ADONIS 07/26/2017 Ot 610.0 SOLITARY CYST OF BREAST 07/26/2017 Ot 715.37 LOC OSTEOARTH NOS-ANKLE 07/26/2017 RIDINGS, JUWAN C CUPOLA REPAIRER Ot 719.41 JOINT PAIN-SHLDER 07/26/2017 JOSÉ VILLANUEVA, AUDI Chung Ot 724.02 SPINAL STENOSIS, LUMBAR REG, W/OUT NEURO 07/26/2017 EDUARDO VILLANUEVA, VANDANA Ot V72.84 EXAM PRE-OPERATIVE NOS 07/26/2017 BENNETT VILLANUEVA, GALO Joshua Ot 241.0 NONTOX UNINODULAR GOITER 07/26/2017 BENNETT VILLANUEVA, GALO Joshua Ot V72.63 PRE-PROCEDURAL LABORATORY EXAMINATION 07/26/2017 BENNETT VILLANUEVA, GALO Joshua Ot V74.8 SCREEN-BACTERIAL DIS NEC 07/26/2017 ALARCON, JUWAN L SIGNALS COLLECTOR/ANALYST Ot 562.10 DIVERTICULOSIS COLON (W/O MENT OF HEMORR 07/26/2017 ALARCON, JUWAN L SIGNALS COLLECTOR/ANALYST Ot 571.8 CHRONIC LIVER DIS NEC 07/26/2017 ALARCON, JUWAN L SIGNALS COLLECTOR/ANALYST Ot 599.70 HEMATURIA, UNSPECIFIED 07/26/2017 ALARCON JUWAN L SIGNALS COLLECTOR/ANALYST Ot 724.5 BACKACHE NOS 07/26/2017 BENNETT VILLANUEVA, GALO Joshua Ot 242.90 THYROTOX NOS NO CRISIS 07/26/2017 BENNETT VILLANUEVA, GALO Joshua Ot V67.09 SURGERY FOLLOW-UP, OTHER SURGERY 07/26/2017 PASCUAL ALARCON DO Ot V76.12 OTH SCREEN MAMMO-MALIGN NEOPLASM OF ADONIS 07/26/2017 BRANDY HOOPER Ot 202.80 OTH LYMPHOMAS EXTRANODAL SOLID ORGAN U 07/26/2017 BRANDY HOOPER Ot 623.8 NONINFLAM DIS VAGINA NEC 07/26/2017 BRANDY HOOPER Ot 627.1 POSTMENOPAUSAL BLEEDING 07/26/2017 JOSE MORALES MD Ot 721.3 LUMBOSACRAL SPONDYLOSIS 07/26/2017 JOSE MORALES MD Ot 722.52 LUMB/LUMBOSAC DISC DEGEN 07/26/2017 JOSE MORALES MD Ot 737.30 IDIOPATHIC SCOLIOSIS 07/26/2017 JOSE MORALES MD Ot V58.69 OTH MED,LT,CURRENT USE 07/26/2017 BRANDY HOOPER Ot 729.81 SWELLING OF LIMB 07/26/2017 Ot 721.3 LUMBOSACRAL SPONDYLOSIS 07/26/2017 Ot 722.52 LUMB/ LUMBOSAC DISC DEGEN 07/26/2017 Ot 737.30 IDIOPATHIC SCOLIOSIS 07/26/2017 Ot V58.69 OTH MED,LT, CURRENT USE 07/26/2017 JOSE MORALES MD Ot 721.3 LUMBOSACRAL SPONDYLOSIS 07/26/2017 ANDREW ZHOU Ot 202.80 OTH LYMPHOMAS EXTRANODAL SOLID ORGAN U 07/26/2017 PASCUAL ALARCON DO Ot 719.06 JOINT EFFUSION-L/LEG 07/26/2017 PASCUAL ALARCON DO Ot 719.46 JOINT PAIN-L/LEG 07/26/2017 MJ DAVALOS DO Ot Z01.818 ENCOUNTER FOR OTHER PREPROCEDURAL EXAMIN 07/26/2017 ANDREW ZHOU Ot C73 MALIGNANT NEOPLASM OF THYROID GLAND 07/26/2017 ANDREW ZHOU Ot 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, UNSP, EXTRANODAL A 07/26/2017 ANDREW ZHOU Ot Z79.899 OTHER READING ASSISTANT (CURRENT) DRUG THERAPY 07/26/2017 ALARCON DO, PASCUAL Juliet Ot R07.9 CHEST PAIN, UNSPECIFIED 07/26/2017 ALARCON DO, PASCUAL Chung Ot Z12.31 ENCNTR SCREEN MAMMOGRAM FOR MALIGNANT NE 07/26/2017 BRANDY HOOPER Víctor Ot C73 MALIGNANT NEOPLASM OF THYROID GLAND 07/26/2017 BRANDY HOOPER Víctor Ot 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, UNSP, EXTRANODAL A 07/26/2017 BRANDY HOOPER Víctor Ot Z79.899 OTHER GROUP HOME (CURRENT) DRUG THERAPY 07/26/2017 ALARCON , PASCUAL Juliet Ot R06.00 DYSPNEA, UNSPECIFIED 07/28/2017 BRANDY HOOPER Víctor Ot C73 MALIGNANT NEOPLASM OF THYROID GLAND 07/28/2017 BRANDY HOOPER N Ot 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, UNSP, EXTRANODAL A 07/28/2017 BRANDY HOOPER Víctor Ot Z79.899 OTHER GROUP HOME (CURRENT) DRUG THERAPY 07/28/2017 ALARCON , PASCUAL Chung Ot R06.00 DYSPNEA, UNSPECIFIED 07/28/2017 ALARCON DO, PASCUAL Chung Ot R07.9 CHEST PAIN, UNSPECIFIED 07/28/2017 ALARCON DO, PASCUAL Chung Ot I51.7 CARDIOMEGALY 07/28/2017 ALARCONPASCUAL RING DO Ot K44.9 DIAPHRAGMATIC HERNIA WITHOUT OBSTRUCTION 07/28/2017 PASCUAL ALARCON DO Ot K76.0 FATTY (CHANGE OF) LIVER, NOT ELSEWHERE C 07/28/2017 ALARCONPASCUAL RING DO Ot R79.1 ABNORMAL COAGULATION PROFILE 07/28/2017 ALARCONPASCUAL COUCH DO Ot I51.7 CARDIOMEGALY 07/28/2017 ALARCON DOPASCUAL Ot K44.9 DIAPHRAGMATIC HERNIA WITHOUT OBSTRUCTION 07/28/2017 ALARCONPASCUAL COUCH DO Ot K76.0 FATTY (CHANGE OF) LIVER, NOT ELSEWHERE C 07/28/2017 PASCUAL ALARCON DO Ot R79.1 ABNORMAL COAGULATION PROFILE 07/28/2017 ALARCON DOPASCUAL Ot I51.7 CARDIOMEGALY 07/28/2017 ALARCONPASCUAL COUCH DO Ot K44.9 DIAPHRAGMATIC HERNIA WITHOUT OBSTRUCTION 07/28/2017 PASCUAL ALARCON DO Ot K76.0 FATTY (CHANGE OF) LIVER, NOT ELSEWHERE C 07/28/2017 PASCUAL ALARCON DO Ot R79.1 ABNORMAL COAGULATION PROFILE 07/29/2017 JUWAN ALARCON SIGNALS COLLECTOR/ANALYST Ot R06.00 DYSPNEA, UNSPECIFIED 07/29/2017 ALARCONDORI COUCHIA Theodora SIGNALS COLLECTOR/ANALYST Ot R07.9 CHEST PAIN, UNSPECIFIED 07/29/2017 BRANDY HOOPER Ot C73 MALIGNANT NEOPLASM OF THYROID GLAND 07/29/2017 BRANDY HOOPER Ot 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, UNSP, EXTRANODAL A 07/29/2017 BRANDY HOOPER Ot Z79.899 OTHER GROUP HOME (CURRENT) DRUG THERAPY 08/18/2017 PASCUAL ALARCON DO Ot R06.00 DYSPNEA, UNSPECIFIED 08/18/2017 PASCUAL ALARCON DO Ot R07.9 CHEST PAIN, UNSPECIFIED 08/19/2017 JUWAN ALARCONP Ot R06.00 DYSPNEA, UNSPECIFIED 08/19/2017 JUWAN ALARCONP Ot R07.9 CHEST PAIN, UNSPECIFIED 08/20/2017 PASCUAL ALARCON DO Ot I51.7 CARDIOMEGALY 08/20/2017 PASCUAL ALARCON DO Ot K44.9 DIAPHRAGMATIC HERNIA WITHOUT OBSTRUCTION 08/20/2017 PASCUAL ALARCON DO Ot K76.0 FATTY (CHANGE OF) LIVER, NOT ELSEWHERE C 08/20/2017 PASCUAL ALARCON DO Ot R79.1 ABNORMAL COAGULATION PROFILE 08/20/2017 PASCUAL ALARCON DO Ot R06.00 DYSPNEA, UNSPECIFIED 08/20/2017 PASCUAL ALARCON DO Ot R07.9 CHEST PAIN, UNSPECIFIED 08/21/2017 JUWAN ALARCON SIGNALS COLLECTOR/ANALYST Ot R06.00 DYSPNEA, UNSPECIFIED 08/21/2017 DORI ALARCONIA Theodora SIGNALS COLLECTOR/ANALYST Ot R07.9 CHEST PAIN, UNSPECIFIED 11/11/2017 JUWAN ALARCON SIGNALS COLLECTOR/ANALYST Ot Z12.31 ENCNTR SCREEN MAMMOGRAM FOR MALIGNANT NE Procedures Code Description Performed By Performed On 00.94 INTRA-OPERATIVE NEUROPHYSIOLOGIC MONITOR 02/09/2014 06.4 COMPLETE THYROIDECTOMY 02/09/2014 Results Test Result Range Complete blood count (CBC) with automated white blood cell (WBC) differential - 07/25/17 12:40 Blood leukocytes automated count (number/volume) 5.8 10*3/uL 4.3-11.0 Blood erythrocytes automated count (number/volume) 4.28 10*6/uL 4.35-5.85 Venous blood hemoglobin measurement (mass/volume) 13.0 g/dL 11.5-16.0 Blood hematocrit (volume fraction) 39 % 35-52 Automated erythrocyte mean corpuscular volume 90 [foz_us] 80-99 Automated erythrocyte mean corpuscular hemoglobin (mass per erythrocyte) 30 pg 25-34 Automated erythrocyte mean corpuscular hemoglobin concentration measurement ( mass/volume) 34 g/dL 32-36 Automated erythrocyte distribution width ratio 14.9 % 10.0-14.5 Automated blood platelet count (count/volume) 211 10*3/uL 130-400 Automated blood platelet mean volume measurement 9.0 [foz_us] 7.4-10.4 Automated blood neutrophils/100 leukocytes 47 % 42-75 Automated blood lymphocytes/100 leukocytes 39 % 12-44 Blood monocytes/100 leukocytes 10 % 0-12 Automated blood eosinophils/100 leukocytes 3 % 0-10 Automated blood basophils/100 leukocytes 1 % 0-10 Blood neutrophils automated count (number/volume) 2.7 10*3 1.8-7.8 Blood lymphocytes automated count (number/volume) 2.3 10*3 1.0-4.0 Blood monocytes automated count (number/volume) 0.6 10*3 0.0-1.0 Automated eosinophil count 0.2 10*3/uL 0.0-0.3 Automated blood basophil count (count/volume) 0.1 10*3/uL 0.0-0.1 Fibrin D-dimer FEU measurement in platelet poor plasma (mass/volume) - 12:40 Fibrin D-dimer FEU measurement in platelet poor plasma (mass/volume) 2.26 ug/mL 0.00-0.49 Comprehensive metabolic panel - 07/25/17 12:40 Serum or plasma sodium measurement (moles/volume) 138 mmol/L 135-145 Serum or plasma potassium measurement (moles/volume) 4.1 mmol/L 3.6-5.0 Serum or plasma chloride measurement (moles/volume) 102 mmol/L 98-107 Carbon dioxide 30 mmol/L 21-32 Serum or plasma anion gap determination (moles/volume) 6 mmol/L 5-14 Serum or plasma urea nitrogen measurement (mass/volume) 17 mg/dL 7-18 Serum or plasma creatinine measurement (mass/volume) 0.76 mg/dL 0.60-1.30 Serum or plasma urea nitrogen/creatinine mass ratio 22 NRG Serum or plasma creatinine measurement with calculation of estimated glomerular filtration rate > NRG Serum or plasma glucose measurement (mass/volume) 95 mg/dL 70-105 Serum or plasma calcium measurement (mass/volume) 8.5 mg/dL 8.5-10.1 Serum or plasma total bilirubin measurement (mass/volume) 0.3 mg/dL 0.1-1.0 Serum or plasma alkaline phosphatase measurement (enzymatic activity/volume) 82 U/L 40-136 Serum or plasma aspartate aminotransferase measurement (enzymatic activity/ volume) 26 U/L 5-34 Serum or plasma alanine aminotransferase measurement (enzymatic activity/volume ) 39 U/L 0-55 Serum or plasma protein measurement (mass/volume) 7.3 g/dL 6.4-8.2 Serum or plasma albumin measurement (mass/volume) 3.8 g/dL 3.2-4.5 Serum or plasma lithium measurement (moles/volume) - 07/25/17 12:40 BNP level 22.3 pg/mL <100.0 Serum or plasma troponin i.cardiac measurement (mass/volume) - 07/25/17 12:40 Serum or plasma troponin i.cardiac measurement (mass/volume) < ng/ mL <0.30 THYROID STIMULATING HORMONE - 07/25/17 12:40 THYROID STIMULATING HORMONE 4.00 u[iU]/mL 0.35-4.94 Encounters ACCT No. Visit Date/Time Discharge Status Pt. Type Provider Facility Loc./Unit Complaint [id number] 05/24/2014 08:31:05 05/24/2014 23:59:59 CLS Outpatient Alen Dee [facility] 11/03/2014 16:21:02 ACT Document Registration [id number] 11/10/2017 09:00:00 11/10/2017 23:59:59 CLS Outpatient JUWAN ALARCONP [facility] RAD SCREENING [id number] 07/29/2017 00:26:00 07/29/2017 23:59:59 CLS Preadmit BRANDY HOOPER Víctor [facility] ONC [id number] 07/28/2017 06:50:00 07/28/2017 23:59:59 CLS Outpatient JUWAN ALARCON [facility] CARD CHEST PAIN [id number] 07/08/2017 09:45:00 07/28/2017 00:01:00 DIS Outpatient BRANDY HOOPER Víctor [facility] ONC [id number] 07/25/2017 17:44:00 07/25/2017 23:59:59 CLS Outpatient AGNES AZAR PASCUAL Juliet [facility] RAD R06.00,R09.02,R79.1 [id number] 07/25/2017 12:28:00 07/25/2017 23:59:59 CLS Outpatient PASCUAL ALARCON DO [facility] RAD R06.00 [id number] 10/22/2016 08:43:00 01/20/2017 00:01:00 DIS Outpatient BRANDY HOOPER Víctor [facility] ONC [id number] 04/24/2016 08:49:00 07/23/2016 00:01:00 DIS Outpatient BRANDY HOOPER [facility] ONC [id number] 03/25/2016 06:48:00 03/25/2016 23:59:59 CLS Outpatient AGNES AZAR PASCUAL Juliet [facility] CARD R07.9 [id number] 10/05/2015 10:10:00 10/05/2015 23:59:59 CLS Outpatient ANDREW ZHOU [facility] ONC [id number] 04/03/2015 09:12:00 07/02/2015 00:01:00 DIS Outpatient BRANDY HOOPER Víctor [facility] ONC [id number] 04/25/2015 08:21:00 04/25/2015 11:00:00 DIS Outpatient MJ DAVALOS DO [facility] SDC SCREENING; REFLUX [id number] 04/24/2015 05:42:00 04/24/2015 23:59:59 CLS Outpatient MJ DAVALOS DO [facility] PREOP SCREENING; REFLUX [id number] 11/03/2014 16:20:00 11/03/2014 23:59:59 CLS Outpatient PASCUAL ALARCON DO [facility] RAD SWELLING, PAINFUL KNEE [id number] 10/24/2014 08:46:00 10/24/2014 23:59:59 CLS Outpatient ZHOU ANDREW Rodriguez SIGNALS COLLECTOR/ANALYST [facility] ONC [id number] 09/02/2014 07:53:00 09/02/2014 23:59:59 CLS Outpatient JOSE MORALSE MD [facility] CARD LUMBAR SPONDOLOYSIS [id number] 05/02/2014 11:02:00 05/02/2014 23:59:59 CLS Outpatient BRANDY HOOPER [facility] RAD SWELLING LEFT LOWER EXT [id number] 05/02/2014 08:59:00 05/02/2014 23:59:59 CLS Outpatient BRANDY HOOPER [facility] ONC [id number] 04/05/2014 07:43:00 04/05/2014 23:59:59 CLS Outpatient BRANDY HOOPER [facility] RAD LYMPHOMA [id number] 04/01/2014 08:52:00 04/01/2014 23:59:59 CLS Outpatient JOSE MORALES MD [facility] CARD DDD [id number] 03/09/2014 14:54:00 03/09/2014 23:59:59 CLS Outpatient PASCUAL ALARCON DO [facility] RAD SCREENING [id number] 03/03/2014 10:12:00 03/03/2014 23:59:59 CLS Outpatient GALO GUAJARDO MD [facility] LAB THY/HYPERTHYROID [id number] 02/09/2014 06:00:00 02/10/2014 14:20:00 DIS Inpatient GALO GUAJARDO MD [facility] SURGICAL THYROID NODULES [id number] 02/09/2014 04:35:00 02/09/2014 05:50:00 DIS Emergency MARI PATEL MD [facility] ER LEFT KNEE PAIN [id number] 02/04/2014 08:26:00 02/04/2014 23:59:59 CLS Outpatient ALARCONJUWAN COUCH SIGNALS COLLECTOR/ANALYST [facility] RAD BACK PAIN, HEMATURIA [id number] 02/03/2014 09:25:00 02/03/2014 23:59:59 CLS Outpatient GALO GUAJARDO MD [facility] PREOP THYROID NODULES [id number] 12/29/2013 08:47:00 12/29/2013 12:10:00 DIS Outpatient VANDANA CLARK MD [facility] SDC HISTORY BARRETTS [id number] 12/23/2013 07:35:00 12/23/2013 23:59:59 CLS Outpatient VANDANA CLARK MD [facility] PREOP HISTORY BARRETTS [id number] 11/04/2013 12:56:00 11/04/2013 23:59:59 CLS Outpatient AUDI KUMAR MD [facility] RAD LUMBAR STENOSIS [id number] 01/12/2013 10:34:00 01/12/2013 23:59:59 CLS Outpatient RIDINGSMANDEEPJUWANSHELLY Ashford APRN [facility] RAD LT SHOULDER PAIN [id number] 12/14/2012 18:03:00 12/14/2012 23:59:59 CLS Outpatient [id number] 11/26/2017 22:36:00 ACT Emergency MARI PATEL MD [facility] ER SYNCOPE [id number] 07/18/2014 13:53:00 Document Registration [id number] 08/14/2012 15:32:00 Document Registration [id number] 05/13/2012 10:00:00 Document Registration [id number] 04/06/2012 15:33:00 Document Registration [id number] 02/25/2012 16:42:00 Document Registration [id number] 02/13/2012 06:57:00 Document Registration [id number] 02/07/2012 11:00:00 Document Registration [id number] 02/05/2012 15:55:00 Document Registration [id number] 01/23/2012 08:30:00 Document Registration [id number] 01/22/2012 10:02:00 Document Registration [id number] 01/01/2012 15:53:00 Document Registration
[2017-11-26] MEDS ORDERED: NS IV 1000 ML 1,000 ML IV ONE (22:48)
[2017-11-26] MEDS ORDERED: ONDANSETRON 4 MG/2 ML (SDV) Z0FRAN ONE (22:57)
[2017-11-26 23:01] LABS: BASOPHILS % (AUTO) 0 % (0-10); EOSINOPHILS % (AUTO) 0 % (0-10); HEMATOCRIT 43 % (35-52); HEMOGLOBIN 14.1 G/DL (11.5-16.0); LYMPHOCYTES # (AUTO) 3.1 X 10^3 (1.0-4.0); LYMPHOCYTES % (AUTO) 39 % (12-44); MEAN CORPUSCULAR HEMOGLOBIN 30 PG (25-34); MEAN CORPUSCULAR HGB CONC 33 G/DL (32-36); MEAN CORPUSCULAR VOLUME 91 FL (80-99); MEAN PLATELET VOLUME 9.6 FL (7.4-10.4); MONOCYTES # (AUTO) 0.3 X 10^3 (0.0-1.0); MONOCYTES % (AUTO) 3 % (0-12); NEUTROPHILS # (AUTO) 4.5 X 10^3 (1.8-7.8); NEUTROPHILS % (AUTO) 57 % (42-75); PLATELET COUNT 255 10^3/uL (130-400); RED BLOOD COUNT 4.73 10^6/uL (4.35-5.85); RED CELL DISTRIBUTION WIDTH 14.6 % (10.0-14.5); WHITE BLOOD COUNT 7.9 10^3/uL (4.3-11.0)
[2017-11-26 23:13] LABS: ALANINE AMINOTRANSFERASE 20 U/L (0-55); ALBUMIN 4.3 GM/DL (3.2-4.5); ALKALINE PHOSPHATASE 85 U/L (40-136); BILIRUBIN,TOTAL 0.4 MG/DL (0.1-1.0); BUN/CREATININE RATIO 27; CALCIUM 8.7 MG/DL (8.5-10.1); CARBON DIOXIDE 26 MMOL/L (21-32); CHLORIDE 103 MMOL/L (98-107); CREATININE SERUM 0.91 MG/DL (0.60-1.30); GFR ESTIMATED > 60; GLUCOSE 140 MG/DL (70-105); MAGNESIUM 2.1 MG/DL (1.8-2.4); POTASSIUM 4.2 MMOL/L (3.6-5.0); SODIUM 141 MMOL/L (135-145); TOTAL PROTEIN 7.5 GM/DL (6.4-8.2)
[2017-11-26 23:34] LABS: FREE T4 (FREE THYROXINE) 1.23 NG/DL (0.70-1.48)
--- NOTE | 2017-11-26 23:43 | ED Syncope ---
General Chief Complaint: Dizziness/Syncope Stated Complaint: SYNCOPE Nursing Triage Note: PT BROUGHT TO ED VIA EMS. PT STATES SHE HAD EATEN AN UNRIPE PEACH AND THEN DEVELOPED SEVERE STOMACH PAIN AND FELT VERY SICK TO HER STOMACH. PT STATES SHE WENT TO THE BATHROOM AND TRIED TO THROW UP WHEN SHE PASSED OUT. PT STATES SHE WAS ON THE TOILET WHEN SHE PASSED OUT AND STATES THE PT HIT HER HEAD ON THE TILE FLOOR. PT BIT TONGUE DURING FALL. PT HAD POSITIVE LOC. EMS GAVE FENTANYL 50 MCG EN ROUTE. PT HAS HEMATOMA TO R SIDE OF HEAD. History of Present Illness Date Seen by Provider: Nov 26, 2017 Time Seen by Provider: 22:32 Initial Comments This 72-year-old woman presents to the emergency room via EMS after having a syncopal episode and fall in her home. She reports having nausea with a small amount of vomiting as well as some diarrhea just prior to the syncopal episode. She was on the stool in the bathroom when she fell and struck her forehead on the tile floor. She has a hematoma on the right frontal scalp. EMS reports blood sugar was 142. Patient is noted to have atrial fibrillation with RVR on the monitor during initial assessment. She denies any history of heart problems or arrhythmia. She is alert and oriented at this time. She arrives in c-collar and she does have some neck pain as well. Patient reports hypertension and recently starting medications for treatment of her blood pressure. Timing/Prior Episodes: No Prior History Symptoms Prior to Episode: Lightheadedness, Nausea Loss of Consciousness: Brief (Seconds) Allergies and Home Medications Allergies Coded Allergies: promethazine (Verified Allergy, Unknown, 01/01/06) Home Medications Calcium Cit/Mag/D3/Zn/Direct Marketing Analyst/Lanre 1 Each Tablet, 1 EACH PO DAILY, (Reported) Ergocalciferol 50,000 Units Cap, 50,000 UNITS PO WEEKLY, (Reported) TAKES ON WEDNESDAYS Levothyroxine Sodium 137 Mcg Tablet, 137 MCG PO DAILY, (Reported) Magnesium Oxide 400 Mg Capsule, 400 MG PO DAILY, (Reported) Meloxicam 15 Mg Tablet, 15 MG PO DAILY, (Reported) Pantoprazole Sodium 40 Mg Tablet.dr, 40 MG PO DAILY, (Reported) Sucralfate 1 Gm Tablet, 1 GM PO QID Prescribed by: MJ DAVALOS on 04/25/15 [id number] Patient Home Medication List Home Medication List Reviewed: Yes Constitutional: no symptoms reported EENTM: no symptoms reported Respiratory: no symptoms reported Cardiovascular: see HPI Gastrointestinal: see HPI Genitourinary: no symptoms reported : No Musculoskeletal: see HPI Skin: see HPI Psychiatric/Neurological: See HPI Past Fcgudxq-Zoixys-Ipzski Hx Past Med/Social Hx: Reviewed and Corrections made Patient Social History Recent Foreign Travel: No Contact w/Someone Who Travel: No Recent Infectious Disease Expo: No Past Medical History Surgeries: Yes (hemorrhoidectomy) Abdominal (Annabella fundoplication), Joint Replacement (bilateral knees), Orthopedic (left knee arthroscopically), Thyroidectomy Respiratory: No Cardiac: Yes Hypertension Neurological: No : No 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 Disorders: No Genitourinary: Yes Bladder Infection Gastrointestinal: Yes Gastroesophageal Reflux, Hartman's Esophagus Musculoskeletal: Yes Osteoporosis, Arthritis Endocrine: Yes Hypothyroidsim HEENT: Yes Cataract Cancer: Yes Skin, Thyroid Did You Recieve Any Treatments: Yes What Type of Treatment Did You: Surgical Intervention Psychosocial: No Integumentary: No Blood Disorders: No Adverse Reaction/Blood Tranf: No Family Medical History Abdominal aortic aneurysm 19 MOTHER G8 BROTHER Alzheimer's disease G8 SISTER Arthritis G8 SISTER Cardiovascular disease 19 MOTHER FH: lung cancer 19 FATHER FH: ovarian cancer G8 SISTER Hypertension G8 SISTER Prostate cancer G8 BROTHER Psychosocial problem Thyroid disease G8 SISTER No Family History of: AIDS [place]'s disease Alcoholism Colon cancer Completed stroke Dementia Diabetes mellitus Drug abuse Myocardial infarction Parkinson's disease Respiratory disorder Seizure disorder Severe allergy Physical Exam Vital Signs Vital Signs - First Documented 11/26/17 22:35 Temp 99.0 Pulse 117 Resp 33 B/P (MAP) 124/103 (110) Pulse Ox 87 O2 Delivery Room Air Capillary Refill : Less Than 3 Seconds Height, Weight, BMI Height: 5'7.00" Weight: 233lbs.0.0oz.105.367432yg; 37.5 BMI Method:Stated General Appearance: No Apparent Distress, WD/WN HEENT: PERRL/EOMI, Normal ENT Inspection, Pharynx Normal, Other (contusion to the tip of the tongue) Neck: Normal Inspection, Non Tender, Supple, Other (c-collar in place) Cardiovascular: No Edema, No Murmur, Irregularly Irregular, Tachycardia Respiratory: Lungs Clear, Normal Breath Sounds, No Accessory Muscle Use, No Respiratory Distress Gastrointestinal: Normal Bowel Sounds, Non Tender, Soft Extremities: Normal Capillary Refill, Normal Inspection, No Pedal Edema Neurologic/Psychiatric: Alert, Oriented x3, No Motor/Sensory Deficits, Normal Mood/Affect, grade setter II-XII Norm as Tested Cranial Nerves: Normal Hearing, Normal Speech, PERRL Motor/Sensory: No Motor Deficit, No Sensory Deficit Skin: Normal Color, Warm/Dry Progress/Results/Core Measures Results/Orders Lab Results Laboratory Tests Test 11/26/17 22:42 Range/Units White Blood Count 7.9 4.3-11.0 10^3/uL Red Blood Count 4.73 4.35-5.85 10^6/uL Hemoglobin 14.1 11.5-16.0 G/DL Hematocrit 43 35-52 % Mean Corpuscular Volume 91 80-99 FL Mean Corpuscular Hemoglobin 30 25-34 PG Mean Corpuscular Hemoglobin Concent 33 32-36 G/DL Red Cell Distribution Width 14.6 H 10.0-14.5 % Platelet Count 255 130-400 10^3/uL Mean Platelet Volume 9.6 7.4-10.4 FL Neutrophils (%) (Auto) 57 42-75 % Lymphocytes (%) (Auto) 39 12-44 % Monocytes (%) (Auto) 3 0-12 % Eosinophils (%) (Auto) 0 0-10 % Basophils (%) (Auto) 0 0-10 % Neutrophils # (Auto) 4.5 1.8-7.8 X 10^3 Lymphocytes # (Auto) 3.1 1.0-4.0 X 10^3 Monocytes # (Auto) 0.3 0.0-1.0 X 10^3 Eosinophils # (Auto) 0.0 0.0-0.3 10^3/uL Basophils # (Auto) 0.0 0.0-0.1 10^3/uL Sodium Level 141 135-145 MMOL/L Potassium Level 4.2 3.6-5.0 MMOL/L Chloride Level 103 98-107 MMOL/L Carbon Dioxide Level 26 21-32 MMOL/L Anion Gap 12 5-14 MMOL/L Blood Urea Nitrogen 25 H 7-18 MG/DL Creatinine 0.91 0.60-1.30 MG/DL Estimat Glomerular Filtration Rate > 60 BUN/Creatinine Ratio 27 Glucose Level 140 H 70-105 MG/DL Calcium Level 8.7 8.5-10.1 MG/DL Magnesium Level 2.1 1.8-2.4 MG/DL Total Bilirubin 0.4 0.1-1.0 MG/DL Aspartate Amino Transf (AST/SGOT) 18 5-34 U/L Alanine Aminotransferase (ALT/SGPT) 20 0-55 U/L Alkaline Phosphatase 85 40-136 U/L Troponin I < 0.30 <0.30 NG/ML Total Protein 7.5 6.4-8.2 GM/DL Albumin 4.3 3.2-4.5 GM/DL Thyroid Stimulating Hormone (TSH) 5.31 H 0.35-4.94 UIU/ML Free Thyroxine 1.23 0.70-1.48 NG/DL My Orders Orders - MARI PATEL MD Cbc With Automated Diff (11/26/17 22:48) Comprehensive Metabolic Panel (11/26/17 22:48) Magnesium (11/26/17 22:48) Thyroid Stimulating Hormone (11/26/17 22:48) Troponin I (11/26/17 22:48) Ua Culture If Indicated (11/26/17 22:48) Saline Lock/Iv-Start (11/26/17 22:48) Ekg Tracing (11/26/17 22:48) Monitor-Rhythm Ecg Trace Only (11/26/17 22:48) Ct Head/Cervical Spine Wo (11/26/17 22:48) Chest 1 View, Ap/Pa Only (11/26/17 22:48) Free T4 (Free Thyroxine) (11/26/17 22:48) Saline Lock/Iv-Start (11/26/17 22:48) Ns Iv 1000 Ml (Sodium Chloride 0.9%) (11/26/17 22:48) Ondansetron Injection (Zofran Injectio (11/26/17 22:57) D5w 100 Ml Ivpb (De... W/Diltiazem Injec (11/26/17 23:15) Enoxaparin Injection (Lovenox Injection) (11/27/17 00:45) Medications Given in ED Current Medications Medications Dose Ordered Sig/Josephine Route Start Time Stop Time Status Last Admin Dose Admin Enoxaparin Sodium 100 mg ONCE ONCE SC 11/27/17 00:45 11/27/17 00:46 DC 11/27/17 01:03 100 MG Ondansetron HCl 4 mg STK-MED ONCE .ROUTE 11/26/17 22:57 11/26/17 22:58 DC 11/26/17 22:58 4 MG Sodium Chloride 1,000 ml @ 0 mls/hr Q0M ONCE IV 11/26/17 22:48 11/26/17 22:52 DC 11/26/17 23:01 1,000 MLS/HR Vital Signs/I&O 11/26/17 22:35 Temp 99.0 Pulse 117 Resp 33 B/P (MAP) 124/103 (110) Pulse Ox 87 O2 Delivery Room Air Blood Pressure Mean: 110 Progress Progress Note #1: Time: 23:38 Progress Note Patient was seen and examined upon arrival. Report was received from EMS. Patient was noted to be in atrial fibrillation with RVR. At approximately 22: 57 patient began to retch from nausea. She was then noted to develop bradycardia on the monitor. Physical assessment was immediately performed. Patient was unresponsive and she was found to have no palpable radial or carotid pulse for 10-20 seconds. Patient appeared to be in PEA on the monitor at that time. Monitor did read "asystole" very briefly during this episode. I laid the patient's bed back in preparation for chest compressions when she suddenly regained consciousness. Rhythm was again noted to be atrial fibrillation with RVR and pulse returned. Case was discussed with Dr. peguero who recommended a Cardizem drip at no greater than 2.5 mg per hour. He believes patient should be assessed for possible pacemaker placement and recommended admission to the cardiac step down unit. He requested clearance from a trauma perspective a CT of the head and neck. If clear of bleed, he recommended Lovenox. He also requested a 2-D echocardiogram to be performed in the morning. Patient did spontaneously convert to normal sinus rhythm at 23: 09. Dr. Joiner was updated upon conversion to sinus rhythm. Atropine will remain at bedside in the code cart and pacing patches have been applied. C- collar did need to be removed while patient was retching to accommodate impending emesis. Manual C-spine precautions were observed. C-collar was reapplied when she was stable. Progress Note #2: Progress Note Patient remained in sinus rhythm throughout the rest of her ER stay. She did receive a Lovenox injection. She also received a liter of IV fluids. No further interventions were required in the ER. EKG #1: EKG Time: 22:47 Rate: 126 Rhythm: V.Fib ECG Impression: Atrial Fibrillation w/RVR Comment Atrial fibrillation with RVR with borderline ST depression. EKG #2: EKG Time: 22:59 Rate: 128 Rhythm: V.Fib ECG Impression: Atrial Fibrillation w/RVR Comment Atrial fibrillation with RVR. Borderline ST depression. No ST elevation. EKG #3: EKG Time: 23:09 Rate: 70 Rhythm: Normal Sinus Intervals: Normal ECG Impression: Normal Comment Normal sinus rhythm with no ST elevation or depression. No abnormal intervals or notable axis deviation. Diagnostic Imaging Diagonstic Imaging: Xray Plain Films/CT/US/NM/MRI: chest Comments Chest x-ray viewed by me. Report not yet available. There is borderline cardiomegaly with no other acute abnormalities appreciated. Diagonstic Imaging: CT Plain Films/CT/US/NM/MRI: c-spine, head Comments CT head and cervical spine viewed by me and [employer] report reviewed. No acute injuries were identified. Departure Communication (Admissions) Time/Spoke to Admitting Phy: 00:40 Dr. Batista Time/Spoke to Consulting Phy: 23:10 Dr. Joiner Impression Primary Impression: PEA (Pulseless electrical activity) Additional Impressions: Atrial fibrillation with RVR Syncope and collapse Scalp hematoma Qualified Codes: S00.03XA - Contusion of scalp, initial encounter Disposition: ADMITTED INPATIENT Condition: Improved Admissions Decision to Admit Reason: Admit from ER (General) Decision to Admit/Date: Nov 26, 2017 Time/Decision to Admit Time: 22:40 Departure-Patient Inst. Referrals: PASCUAL ALARCON DO (PCP) Primary Care Physician JUWAN ALARCON DNP (Family) Primary Care Physician MARI PATEL MD Nov 26, 2017 23:43
[2017-11-27] VITALS (23 sets, daily range): BP systolic 100–143; BP diastolic 46–89
[2017-11-27] MEDS ORDERED: ENOXAPARIN 100 MG/1 ML (LOVENOX) SYR SC ONE (00:45)
--- OUTSIDE RECORDS SUMMARY | 2017-11-27 01:31 | XMS REPORT | Continuity of Care Document ---
Author Author [facility] Organization [facility] Address Unknown Phone Unavailable Allergies Active Description Code Type Severity Reaction Onset Reported/Identified Relationship to Patient Clinical Status Yes promethazine [id number] Drug Allergy Unknown N/A 01/01/2006 Medications There [...] 05/02/2014 Ot 715.37 05/02/2014 IRIS JUWAN C GLYCERIN OPERATOR Ot 719.41 05/02/2014 JOSÉ VILLANUEVA, AUDI Chung Ot 724.02 05/02/2014 EDUARDO VILLANUEVA, VANDANA Ot V72.84 05/02/2014 BENNETT VILLANUEVA, GALO Joshua Ot 241.0 05/02/2014 BENNETT VILLANUEVA, GALO Joshua Ot V72.63 05/02/2014 BENNETT VILLANUEVA, GALO Joshua Ot V74.8 05/02/2014 DORI ALARCONIA L GUNCOTTON PACKER Ot 562.10 05/02/2014 ALARCONDORI RINGIA L [employer]OTTON PACKER Ot 571.8 05/02/2014 DORI ALARCONIA L GUNCOTTON PACKER Ot 599.70 05/02/2014 DORI ALARCONIA L GUNCOTTON PACKER Ot 724.5 05/02/2014 BENNETT VILLANUEVA, GALO Joshua [...] 06/18/2014 SANDIEBIPIN WERNERAN N Ot 729.81 06/29/2014 SANDIE, BOBAN N Ot 202.80 06/29/2014 SANDIE BOBAN [...] SIMMONS APRN Ot 719.41 11/01/2014 JOSÉ VILLANUEVA, AUDI Chung Ot 724.02 11/01/2014 EDUARDO VILLANUEVA, VANDANA Ot V72.84 11/01/2014 BENNETT VILLANUEVA, GALO Joshua Ot 241.0 11/01/2014 BENNETT VILLANUEVA, GALO Joshua Ot V72.63 11/01/2014 BENNETT VILLANUEVA, GALO Joshua Ot V74.8 11/01/2014 JUWAN ALARCON L GUNCOTTON PACKER Ot 562.10 11/01/2014 DORI ALARCONIA L GUNCOTTON PACKER Ot 571.8 11/01/2014 DORI ALARCONIA L GUNCOTTON PACKER Ot 599.70 11/01/2014 JUWAN ALARCON L GUNCOTTON PACKER Ot 724.5 11/01/2014 BENNETT VILLANUEVA, GALO Joshua [...] MORALES MD Ot 721.3 11/01/2014 ANDREW ZHOU GUNCOTTON PACKER Ot 202.80 11/21/2014 ANDREW ZHOU GUNCOTTON PACKER Ot 202.80 11/24/2014 ZHOUANDREW Rodriguez GUNCOTTON PACKER Ot 202.80 11/25/2014 PASCUAL ALARCON DO Ot [...] LYMPHOMA, UNSP, EXTRANODAL A 10/06/2015 ANDREW ZHOU GUNCOTTON PACKER Ot C73 MALIGNANT NEOPLASM OF THYROID GLAND 10/06/2015 ANDREW ZHOU S GUNCOTTON PACKER Ot 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, UNSP, EXTRANODAL A 10/06/2015 ANDREW ZHOU S GUNCOTTON PACKER Ot Z79.899 OTHER [facility] (CURRENT) DRUG THERAPY 10/27/2015 ANDREW ZHOU GUNCOTTON PACKER Ot C73 MALIGNANT NEOPLASM OF THYROID GLAND 10/27/2015 ANDREW ZHOU S GUNCOTTON PACKER Ot 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, UNSP, EXTRANODAL A 10/27/2015 ANDREW ZHOU S GUNCOTTON PACKER Ot Z79.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 THERAPY 11/08/2015 ANDREW ZHOU GUNCOTTON PACKER Ot C73 MALIGNANT NEOPLASM OF THYROID GLAND 11/08/2015 ANDREW ZHOU S GUNCOTTON PACKER Ot 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, UNSP, EXTRANODAL A 11/08/2015 ANDREW ZHOU S GUNCOTTON PACKER Ot Z79.899 OTHER [facility] (CURRENT) DRUG THERAPY 03/25/2016 Ot 241.1 NONTOX [...] 715.37 LOC OSTEOARTH NOS-ANKLE 03/25/2016 JUWAN SIMMONS GLYCERIN OPERATOR Ot 719.41 JOINT PAIN-SHLDER 03/25/2016 JOSÉ VILLANUEVA, AUDI Chung Ot 724.02 SPINAL STENOSIS, LUMBAR REG, W/OUT NEURO 03/25/2016 EDUARDO VILLANUEVA, VANDANA Ot V72.84 EXAM PRE-OPERATIVE NOS 03/25/2016 BENNETT VILLANUEVA, GAOL Joshua Ot 241.0 NONTOX UNINODULAR GOITER 03/25/2016 BENNETT VILLANUEVA, GALO Joshua Ot V72.63 PRE-PROCEDURAL LABORATORY EXAMINATION 03/25/2016 BENNETT VILLANUEVA, GALO Joshua Ot V74.8 SCREEN-BACTERIAL DIS NEC 03/25/2016 JUWAN ALARCON GUNCOTTON PACKER Ot 562.10 DIVERTICULOSIS COLON (W/O MENT OF HEMORR 03/25/2016 JUWAN ALARCON GUNCOTTON PACKER Ot 571.8 CHRONIC LIVER DIS NEC 03/25/2016 JUWAN ALARCON GUNCOTTON PACKER Ot 599.70 HEMATURIA, UNSPECIFIED 03/25/2016 JUWAN ALARCON GUNCOTTON PACKER Ot 724.5 BACKACHE NOS 03/25/2016 BENNETT VILLANUEVA, [...] A 03/25/2016 ANDREW ZHOU Ot Z79.899 OTHER [facility] (CURRENT) DRUG THERAPY 03/26/2016 PASCUAL ALARCON DO Ot R07.9 CHEST PAIN, UNSPECIFIED 03/26/2016 PASCUAL ALARCON DO Ot Z12.31 ENCNTR SCREEN MAMMOGRAM FOR MALIGNANT NE 03/26/2016 PASCUAL ALARCON DO Ot R07.9 CHEST PAIN, UNSPECIFIED 03/26/2016 ALARCON DO, PASCUAL J Ot Z12.31 ENCNTR SCREEN MAMMOGRAM FOR MALIGNANT NE 04/16/2016 ALARCON DO, PASCUAL Chung Ot R07.9 CHEST PAIN, UNSPECIFIED 04/16/2016 ALARCON DO, PACSUAL J Ot Z12.31 ENCNTR SCREEN MAMMOGRAM FOR [...] 07/02/2016 SANDIE, BOBAN N Ot Z79.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, UNSP, EXTRANODAL A 10/06/2016 ANDREW ZHOU GUNCOTTON PACKER Ot Z79.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 THERAPY 10/06/2016 ANDREW ZHOU GUNCOTTON PACKER Ot C73 MALIGNANT NEOPLASM OF THYROID GLAND 10/06/2016 ANDREW ZHOU GUNCOTTON PACKER Ot 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, UNSP, EXTRANODAL A 10/06/2016 ZHOUANDREW Rodriguez GUNCOTTON PACKER Ot Z79.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 THERAPY 10/06/2016 ANDREW ZHOU GUNCOTTON PACKER Ot C73 MALIGNANT NEOPLASM OF THYROID GLAND 10/06/2016 ANDREW ZHOU GUNCOTTON PACKER Ot 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, UNSP, EXTRANODAL A 10/06/2016 ZHOUANDREW Rodriguez GUNCOTTON PACKER Ot Z79.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 THERAPY 10/06/2016 ANDREW ZHOU GUNCOTTON PACKER Ot C73 MALIGNANT NEOPLASM OF THYROID GLAND 10/06/2016 ANDREW ZHOU GUNCOTTON PACKER Ot 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, UNSP, EXTRANODAL A 10/06/2016 ZHOUANDREW Rodriguez GUNCOTTON PACKER Ot Z79.899 OTHER [facility] (CURRENT) DRUG THERAPY 10/06/2016 ANDREW ZHOU GUNCOTTON PACKER Ot C73 MALIGNANT NEOPLASM OF THYROID GLAND 10/06/2016 ANDREW ZHOU GUNCOTTON PACKER Ot 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, UNSP, EXTRANODAL A 10/06/2016 ZHOUANDREW Rodriguez S GUNCOTTON PACKER Ot Z79.899 OTHER [facility] (CURRENT) DRUG THERAPY 11/21/2016 SANDIEBRANDY WERNER N Ot C73 MALIGNANT NEOPLASM OF THYROID GLAND 11/21/2016 SANDIE, BOBAN N Ot 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, UNSP, EXTRANODAL A 11/21/2016 SANDIE BOBAN N Ot Z79.899 OTHER [facility] (CURRENT) DRUG THERAPY 12/13/2016 SANDIE, BOBAN N Ot C73 MALIGNANT NEOPLASM OF THYROID GLAND 12/13/2016 SANDIE, BOBAN N Ot 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, UNSP, EXTRANODAL A 12/13/2016 SANDIE BOBAN N Ot Z79.899 OTHER [facility] (CURRENT) DRUG THERAPY 12/19/2016 SANDIE, BOBAN N Ot C73 MALIGNANT NEOPLASM OF THYROID GLAND 12/19/2016 SANDIE, BOBAN N Ot 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, UNSP, EXTRANODAL A 12/19/2016 SANDIE, BOBAN N Ot Z79.899 OTHER [facility] (CURRENT) DRUG THERAPY 01/20/2017 BRNADY HOOPER N Ot C73 MALIGNANT NEOPLASM OF THYROID GLAND 01/20/2017 SANDIEBRANDY N Ot 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, UNSP, EXTRANODAL A 01/20/2017 SANDIEBRANDY N Ot Z79.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 THERAPY 05/01/2017 BRANDY HOOPER N Ot C73 MALIGNANT NEOPLASM OF THYROID GLAND 05/01/2017 SANDIEBRANDY N Ot 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, UNSP, EXTRANODAL A 05/01/2017 SANDIEBRANDY N Ot Z79.899 OTHER [facility] (CURRENT) DRUG THERAPY 06/12/2017 BRANDY HOOPER N Ot C73 MALIGNANT NEOPLASM OF THYROID GLAND 06/12/2017 SANDIE BOBKAYCE N Ot 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, UNSP, EXTRANODAL A 06/12/2017 SANDIEBRANDY N Ot Z79.899 OTHER [facility] (CURRENT) DRUG THERAPY 06/18/2017 BRANDY HOOPER N Ot C73 MALIGNANT NEOPLASM OF THYROID GLAND 06/18/2017 SANDIEBRANDY N Ot 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, UNSP, EXTRANODAL A 06/18/2017 SANDIEBRANDY N Ot Z79.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 THERAPY 07/26/2017 Ot V49.81 ASYMPT [...] LOC OSTEOARTH NOS-ANKLE 07/26/2017 RIDINGS, JUWAN C GLYCERIN OPERATOR Ot 719.41 JOINT PAIN-SHLDER 07/26/2017 JOSÉ VILLANUEVA, AUDI Chung Ot 724.02 SPINAL STENOSIS, LUMBAR REG, W/OUT NEURO 07/26/2017 EDUARDO VILLANUEVA, VANDANA Ot V72.84 EXAM PRE-OPERATIVE NOS 07/26/2017 BENNETT VILLANUEVA, GALO Joshua Ot 241.0 NONTOX UNINODULAR GOITER 07/26/2017 BENNETT VILLANUEVA, GALO Joshua Ot V72.63 PRE-PROCEDURAL LABORATORY EXAMINATION 07/26/2017 BENNETT VILLANUEVA, GALO Joshua Ot V74.8 SCREEN-BACTERIAL DIS NEC 07/26/2017 JUWAN ALARCON L GUNCOTTON PACKER Ot 562.10 DIVERTICULOSIS COLON (W/O MENT OF HEMORR 07/26/2017 ALARCON, JUWAN L GUNCOTTON PACKER Ot 571.8 CHRONIC LIVER DIS NEC 07/26/2017 DORI ALARCONIA L GUNCOTTON PACKER Ot 599.70 HEMATURIA, UNSPECIFIED 07/26/2017 MANDEEP ALARCONRICIA L GUNCOTTON PACKER Ot 724.5 BACKACHE NOS 07/26/2017 BENNETT VILLANUEVA, GAOL Joshua Ot 242.90 THYROTOX NOS NO CRISIS [...] A 07/26/2017 ANDREW ZHOU Ot Z79.899 OTHER [facility] (CURRENT) DRUG THERAPY 07/26/2017 PASCUAL ALARCON DO Ot R07.9 CHEST PAIN, UNSPECIFIED 07/26/2017 PASCUAL ALARCON DO Ot Z12.31 ENCNTR SCREEN MAMMOGRAM FOR MALIGNANT NE 07/26/2017 BRANDY HOOPER Ot C73 MALIGNANT NEOPLASM OF THYROID GLAND 07/26/2017 BRANDY HOOPER Ot 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, UNSP, EXTRANODAL A 07/26/2017 BRANDY HOOPER Ot Z79.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 THERAPY 07/26/2017 PASCUAL ALARCON DO [...] LOC OSTEOARTH NOS-ANKLE 07/26/2017 RIDINGS, JUWAN C GLYCERIN OPERATOR Ot 719.41 JOINT PAIN-SHLDER 07/26/2017 JOSÉ VILLANUEVA, AUDI Chung Ot 724.02 SPINAL STENOSIS, LUMBAR REG, W/OUT NEURO 07/26/2017 EDUARDO VILLANUEVA, VANDANA Ot V72.84 EXAM PRE-OPERATIVE NOS 07/26/2017 BENNETT VILLANUEVA, GALO Joshua Ot 241.0 NONTOX UNINODULAR GOITER 07/26/2017 BENNETT VILLANUEVA, GALO Joshua Ot V72.63 PRE-PROCEDURAL LABORATORY EXAMINATION 07/26/2017 BENNETT VILLANUEVA, GALO Joshua Ot V74.8 SCREEN-BACTERIAL DIS NEC 07/26/2017 ALARCON, JUWAN L GUNCOTTON PACKER Ot 562.10 DIVERTICULOSIS COLON (W/O MENT OF HEMORR 07/26/2017 ALARCON, JUWAN L GUNCOTTON PACKER Ot 571.8 CHRONIC LIVER DIS NEC 07/26/2017 ALARCON, JUWAN L GUNCOTTON PACKER Ot 599.70 HEMATURIA, UNSPECIFIED 07/26/2017 ALARCON JUWAN L GUNCOTTON PACKER Ot 724.5 BACKACHE NOS 07/26/2017 BENNETT VILLANUEVA, [...] A 07/26/2017 ANDREW ZHOU Ot Z79.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 THERAPY 07/26/2017 ALARCON DO, PASCUAL Juliet Ot R07.9 CHEST PAIN, UNSPECIFIED 07/26/2017 ALARCON DO, PASCUAL Chung Ot Z12.31 ENCNTR SCREEN MAMMOGRAM FOR MALIGNANT NE 07/26/2017 BRANDY HOOPER Víctor Ot C73 MALIGNANT NEOPLASM OF THYROID GLAND 07/26/2017 BRANDY HOOPER Víctor Ot 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, UNSP, EXTRANODAL A 07/26/2017 BRANDY HOOPER Víctor Ot Z79.899 OTHER [facility] (CURRENT) DRUG THERAPY 07/26/2017 ALARCON , PASCUAL Juliet Ot R06.00 DYSPNEA, UNSPECIFIED 07/28/2017 BRANDY HOOPER Víctor Ot C73 MALIGNANT NEOPLASM OF THYROID GLAND 07/28/2017 BRANDY HOOPER N Ot 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, UNSP, EXTRANODAL A 07/28/2017 BRANDY HOOPER Víctor Ot Z79.899 OTHER [facility] (CURRENT) DRUG THERAPY 07/28/2017 ALARCON , PASCUAL [...] (CHANGE OF) LIVER, NOT ELSEWHERE C 07/28/2017 ALARCON DO, PASCUAL Juliet Ot R79.1 ABNORMAL COAGULATION PROFILE 07/29/2017 ALARCON, JUWAN L GUNCOTTON PACKER Ot R06.00 DYSPNEA, UNSPECIFIED 07/29/2017 ALARCON, JUWAN L GUNCOTTON PACKER Ot R07.9 CHEST PAIN, UNSPECIFIED 07/29/2017 BRANDY HOOPER Ot C73 MALIGNANT NEOPLASM OF THYROID GLAND 07/29/2017 BRANDY HOOPER Ot 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, UNSP, EXTRANODAL A 07/29/2017 BRANDY HOOPER Ot Z79.899 OTHER [facility] (CURRENT) DRUG THERAPY 08/18/2017 ALARCONPASCUAL RING DO Ot R06.00 DYSPNEA, UNSPECIFIED 08/18/2017 ALARCON DO, PASCUAL Juliet Ot R07.9 CHEST PAIN, UNSPECIFIED 08/19/2017 ALARCON, JUWAN L GUNCOTTON PACKER Ot R06.00 DYSPNEA, UNSPECIFIED 08/19/2017 ALARCONMANDEEP RINGRICIA L GUNCOTTON PACKER Ot R07.9 CHEST PAIN, UNSPECIFIED 08/20/2017 AGNES AZAR, PASCUAL Juliet Ot I51.7 CARDIOMEGALY 08/20/2017 AGNES AZAR PASCUAL Juliet Ot K44.9 DIAPHRAGMATIC HERNIA WITHOUT OBSTRUCTION 08/20/2017 AGNES AZAR PASCUAL Juliet Ot K76.0 FATTY (CHANGE OF) LIVER, NOT ELSEWHERE C 08/20/2017 AGNES AZAR PASCUAL Juliet Ot R79.1 ABNORMAL COAGULATION PROFILE 08/20/2017 ALARCON DO, PASCUAL Juliet Ot R06.00 DYSPNEA, UNSPECIFIED 08/20/2017 ALARCON DO, PASCUAL Juliet Ot R07.9 CHEST PAIN, UNSPECIFIED 08/21/2017 ALARCON, JUWAN L GUNCOTTON PACKER Ot R06.00 DYSPNEA, UNSPECIFIED 08/21/2017 ALARCON JUWAN L GUNCOTTON PACKER Ot R07.9 CHEST PAIN, UNSPECIFIED 11/11/2017 ALARCON, JUWAN L GUNCOTTON PACKER Ot Z12.31 ENCNTR SCREEN MAMMOGRAM FOR MALIGNANT NE 11/27/2017 Ot 715.37 LOC OSTEOARTH NOS-ANKLE 11/27/2017 JUWAN SIMMONS GLYCERIN OPERATOR Ot 719.41 JOINT PAIN-SHLDER 11/27/2017 AUDI KUMAR MD Ot 724.02 SPINAL STENOSIS, LUMBAR REG, W/OUT NEURO 11/27/2017 EDUARDO VILLANUEVA, VANDANA Ot V72.84 EXAM PRE-OPERATIVE NOS 11/27/2017 BENNETT VILLANUEVA, GALO Joshua Ot 241.0 NONTOX UNINODULAR GOITER 11/27/2017 BENNETT VILLANUEVA, GALO Joshua Ot V72.63 PRE-PROCEDURAL LABORATORY EXAMINATION 11/27/2017 BENNETT VILLANUEVA, GALO Joshua Ot V74.8 SCREEN-BACTERIAL DIS NEC 11/27/2017 JUWAN ALARCON GUNCOTTON PACKER Ot 562.10 DIVERTICULOSIS COLON (W/O MENT OF HEMORR 11/27/2017 JUWAN ALARCON GUNCOTTON PACKER Ot 571.8 CHRONIC LIVER DIS NEC 11/27/2017 JUWAN ALARCON GUNCOTTON PACKER Ot 599.70 HEMATURIA, UNSPECIFIED 11/27/2017 JUWAN ALARCON GUNCOTTON PACKER Ot 724.5 BACKACHE NOS 11/27/2017 BENNETT VILLANUEVA, GALO Joshua Ot 242.90 THYROTOX NOS NO CRISIS 11/27/2017 BENNETT VILLANUEVA, GALO Joshua Ot V67.09 SURGERY FOLLOW-UP, OTHER SURGERY 11/27/2017 PASCUAL ALARCON DO Ot V76.12 OTH SCREEN MAMMO-MALIGN NEOPLASM OF ADONIS 11/27/2017 BRANDY HOOPER Ot 202.80 OTH LYMPHOMAS EXTRANODAL SOLID ORGAN U 11/27/2017 BRANDY HOOPER Ot 623.8 NONINFLAM DIS VAGINA NEC 11/27/2017 BRANDY HOOPER Ot 627.1 POSTMENOPAUSAL BLEEDING 11/27/2017 JOSE MORALES MD Ot 721.3 LUMBOSACRAL SPONDYLOSIS 11/27/2017 JOSE MORALES MD Ot 722.52 LUMB/LUMBOSAC DISC DEGEN 11/27/2017 JOSE MORALES MD Ot 737.30 IDIOPATHIC SCOLIOSIS 11/27/2017 JOSE MORALES MD Ot V58.69 OTH MED,LT,CURRENT USE 11/27/2017 BRANDY HOOPER Ot 729.81 SWELLING OF LIMB 11/27/2017 Ot 721.3 LUMBOSACRAL SPONDYLOSIS 11/27/2017 Ot 722.52 LUMB/ LUMBOSAC DISC DEGEN 11/27/2017 Ot 737.30 IDIOPATHIC SCOLIOSIS 11/27/2017 Ot V58.69 OTH MED,LT, CURRENT USE 11/27/2017 JOSE MORALES MD Ot 721.3 LUMBOSACRAL SPONDYLOSIS 11/27/2017 ANDREW ZHOU Ot 202.80 OTH LYMPHOMAS EXTRANODAL SOLID ORGAN U 11/27/2017 PASCUAL ALARCON DO Ot 719.06 JOINT EFFUSION-L/LEG 11/27/2017 PASCUAL ALARCON DO Ot 719.46 JOINT PAIN-L/LEG 11/27/2017 MJ DAVALOS DO Ot Z01.818 ENCOUNTER FOR OTHER PREPROCEDURAL EXAMIN 11/27/2017 ANDREW ZHOU Ot C73 MALIGNANT NEOPLASM OF THYROID GLAND 11/27/2017 ANDREW ZHOU Ot 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, UNSP, EXTRANODAL A 11/27/2017 ANDREW ZHOU Ot Z79.899 OTHER [facility] (CURRENT) DRUG THERAPY 11/27/2017 PASCUAL ALARCON DO Ot R07.9 CHEST PAIN, UNSPECIFIED 11/27/2017 PASCUAL ALARCON DO Ot Z12.31 ENCNTR SCREEN MAMMOGRAM FOR MALIGNANT NE 11/27/2017 JUWAN ALARCON Ot R06.00 DYSPNEA, UNSPECIFIED 11/27/2017 JUWAN ALARCON Ot R07.9 CHEST PAIN, UNSPECIFIED 11/27/2017 PASCUAL ALARCON DO Ot R06.00 DYSPNEA, UNSPECIFIED 11/27/2017 PASCUAL ALARCON DO Ot R07.9 CHEST PAIN, UNSPECIFIED 11/27/2017 PASCUAL ALARCON DO Ot I51.7 CARDIOMEGALY 11/27/2017 PASCUAL ALARCON DO Ot K44.9 DIAPHRAGMATIC HERNIA WITHOUT OBSTRUCTION 11/27/2017 PASCUAL ALARCON DO Ot K76.0 FATTY (CHANGE OF) LIVER, NOT ELSEWHERE C 11/27/2017 PASCUAL ALARCON DO Ot R79.1 ABNORMAL COAGULATION PROFILE 11/27/2017 BRANDY HOOPER Ot C73 MALIGNANT NEOPLASM OF THYROID GLAND 11/27/2017 BRANDY HOOPER Ot 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, UNSP, EXTRANODAL A 11/27/2017 BRANDY HOOPER Víctor Ot Z79.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 11/27/2017 ALARCONJUWAN Theodora AUGUSTINEP Ot Z12.31 ENCNTR SCREEN MAMMOGRAM FOR MALIGNANT [...] 12:40 THYROID STIMULATING HORMONE 4.00 u[iU]/mL 0.35-4.94 Complete blood count (CBC) with automated white blood cell (WBC) differential - 11/26/17 22:42 Blood leukocytes automated count (number/volume) 7.9 10*3/uL 4.3-11.0 Blood erythrocytes automated count (number/volume) 4.73 10*6/uL 4.35-5.85 Venous blood hemoglobin measurement (mass/volume) 14.1 g/dL 11.5-16.0 Blood hematocrit (volume fraction) 43 % 35-52 Automated erythrocyte mean corpuscular volume 91 [foz_us] 80-99 Automated erythrocyte mean corpuscular hemoglobin (mass per erythrocyte) 30 pg 25-34 Automated erythrocyte mean corpuscular hemoglobin concentration measurement ( mass/volume) 33 g/dL 32-36 Automated erythrocyte distribution width ratio 14.6 % 10.0-14.5 Automated blood platelet count (count/volume) 255 10*3/uL 130-400 Automated blood platelet mean volume measurement 9.6 [foz_us] 7.4-10.4 Automated blood neutrophils/100 leukocytes 57 % 42-75 Automated blood lymphocytes/100 leukocytes 39 % 12-44 Blood monocytes/100 leukocytes 3 % 0-12 Automated blood eosinophils/100 leukocytes 0 % 0-10 Automated blood basophils/100 leukocytes 0 % 0-10 Blood neutrophils automated count (number/volume) 4.5 10*3 1.8-7.8 Blood lymphocytes automated count (number/volume) 3.1 10*3 1.0-4.0 Blood monocytes automated count (number/volume) 0.3 10*3 0.0-1.0 Automated eosinophil count 0.0 10*3/uL 0.0-0.3 Automated blood basophil count (count/volume) 0.0 10*3/uL 0.0-0.1 Comprehensive metabolic panel - 11/26/17 22:42 Serum or plasma sodium measurement (moles/volume) 141 mmol/L 135-145 Serum or plasma potassium measurement (moles/volume) 4.2 mmol/L 3.6-5.0 Serum or plasma chloride measurement (moles/volume) 103 mmol/L 98-107 Carbon dioxide 26 mmol/L 21-32 Serum or plasma anion gap determination (moles/volume) 12 mmol/L 5-14 Serum or plasma urea nitrogen measurement (mass/volume) 25 mg/dL 7-18 Serum or plasma creatinine measurement (mass/volume) 0.91 mg/dL 0.60-1.30 Serum or plasma urea nitrogen/creatinine mass ratio 27 NRG Serum or plasma creatinine measurement with calculation of estimated glomerular filtration rate > NRG Serum or plasma glucose measurement (mass/volume) 140 mg/dL 70-105 Serum or plasma calcium measurement (mass/volume) 8.7 mg/dL 8.5-10.1 Serum or plasma total bilirubin measurement (mass/volume) 0.4 mg/dL 0.1-1.0 Serum or plasma alkaline phosphatase measurement (enzymatic activity/volume) 85 U/L 40-136 Serum or plasma aspartate aminotransferase measurement (enzymatic activity/ volume) 18 U/L 5-34 Serum or plasma alanine aminotransferase measurement (enzymatic activity/volume ) 20 U/L 0-55 Serum or plasma protein measurement (mass/volume) 7.5 g/dL 6.4-8.2 Serum or plasma albumin measurement (mass/volume) 4.3 g/dL 3.2-4.5 Magnesium - 11/26/17 22:42 Magnesium 2.1 mg/dL 1.8-2.4 Serum or plasma troponin i.cardiac measurement (mass/volume) - 11/26/17 22:42 Serum or plasma troponin i.cardiac measurement (mass/volume) < ng/ mL <0.30 THYROID STIMULATING HORMONE - 11/26/17 22:42 THYROID STIMULATING HORMONE 5.31 u[iU]/mL 0.35-4.94 Serum or plasma thyroxine (T4) free measurement (mass/volume) - 11/26/17 22:42 Serum or plasma thyroxine (T4) free measurement (mass/volume) 1.23 ng/dL 0.70-1.48 Encounters ACCT No. Visit Date/Time Discharge Status Pt. Type Provider Facility Loc./Unit Complaint [id number] 05/24/2014 08:31:05 05/24/2014 23:59:59 CLS Outpatient Alen Dee [facility] 11/03/2014 16:21:02 ACT Document Registration [id number] 11/10/2017 09:00:00 11/10/2017 23:59:59 CLS Outpatient JUWAN ALARCON [facility] RAD SCREENING [id number] 07/29/2017 00:26:00 07/29/2017 23:59:59 CLS Preadmit BRANDY HOOPER [facility] ONC [id number] 07/28/2017 06:50:00 07/28/2017 23:59:59 CLS Outpatient ALARCONJUWAN Theodora [employer] PACKER [facility] CARD CHEST PAIN [id number] 07/08/2017 09:45:00 07/28/2017 00:01:00 DIS Outpatient BRANDY HOOPER [facility] ONC [id number] 07/25/2017 17:44:00 07/25/2017 23:59:59 CLS Outpatient PASCUAL ALARCON DO [facility] RAD R06.00,R09.02,R79.1 [id number] 07/25/2017 12:28:00 07/25/2017 23:59:59 CLS Outpatient PASCUAL ALARCON DO [facility] RAD R06.00 [id number] 10/22/2016 08:43:00 01/20/2017 00:01:00 DIS Outpatient BRANDY HOOPER Víctor [facility] ONC [id number] 04/24/2016 08:49:00 07/23/2016 00:01:00 DIS Outpatient BRANDY HOOPER Via [facility] ONC [id number] 03/25/2016 06:48:00 03/25/2016 23:59:59 CLS Outpatient PASCUAL ALARCON DO Via [facility] CARD R07.9 [id number] 10/05/2015 10:10:00 10/05/2015 23:59:59 CLS Outpatient ELIZABETH ZHOUTATO Jennifer GUNCOTTON PACKER [facility] ONC [id number] 04/03/2015 09:12:00 07/02/2015 00:01:00 DIS Outpatient BRANDY HOOPER [facility] ONC [id number] 04/25/2015 08:21:00 04/25/2015 11:00:00 DIS Outpatient MJ DAVALOS DO Via [facility] SDC SCREENING; REFLUX [id number] 04/24/2015 05:42:00 04/24/2015 23:59:59 CLS Outpatient MJ DAVALOS DO Via [facility] PREOP SCREENING; REFLUX [id number] 11/03/2014 16:20:00 11/03/2014 23:59:59 CLS Outpatient PASCUAL ALARCON DO Via [facility] RAD SWELLING, PAINFUL KNEE [id number] 10/24/2014 08:46:00 10/24/2014 23:59:59 CLS Outpatient ANDREW ZHOU [facility] ONC [id number] 09/02/2014 07:53:00 09/02/2014 23:59:59 CLS Outpatient JOSE MORALES MD Via [facility] CARD LUMBAR SPONDOLOYSIS [id number] 05/02/2014 11:02:00 05/02/2014 23:59:59 CLS Outpatient BRANDY HOOPER N [facility] RAD SWELLING LEFT LOWER EXT [id number] 05/02/2014 08:59:00 05/02/2014 23:59:59 CLS Outpatient BRANDY HOOPER N [facility] ONC [id number] 04/05/2014 07:43:00 04/05/2014 23:59:59 CLS Outpatient BRANDY HOOPER [facility] RAD LYMPHOMA [id number] 04/01/2014 08:52:00 04/01/2014 23:59:59 CLS Outpatient JOSE MORALES MD [facility] CARD DDD [id number] 03/09/2014 14:54:00 03/09/2014 23:59:59 CLS Outpatient PASCUAL ALARCON DO Via [facility] RAD SCREENING [id number] 03/03/2014 10:12:00 03/03/2014 23:59:59 CLS Outpatient GALO GUAJARDO MD Via [facility] LAB THY/HYPERTHYROID [id number] 02/09/2014 06:00:00 02/10/2014 14:20:00 DIS Inpatient GALO GUAJARDO MD [facility] SURGICAL THYROID NODULES [id number] 02/09/2014 04:35:00 02/09/2014 05:50:00 DIS Emergency AMANDA VILLANUEVA, MARI Patel [facility] ER LEFT KNEE PAIN [id number] 02/04/2014 08:26:00 02/04/2014 23:59:59 CLS Outpatient MANDEEP ALARCONSHELLY Yip GUNCOTTON PACKER [facility] RAD BACK PAIN, HEMATURIA [id number] 02/03/2014 09:25:00 02/03/2014 23:59:59 CLS Outpatient BENNETT VILLANUEVA, GALO Joshua [facility] PREOP THYROID NODULES [id number] 12/29/2013 08:47:00 12/29/2013 12:10:00 DIS Outpatient VANDANA CLARK MD [facility] SDC HISTORY BARRETTS [id number] 12/23/2013 07:35:00 12/23/2013 23:59:59 CLS Outpatient VANDANA CLARK MD [facility] PREOP HISTORY BARRETTS [id number] 11/04/2013 12:56:00 11/04/2013 23:59:59 CLS Outpatient AUDI KUMAR MD [facility] RAD LUMBAR STENOSIS [id number] 01/12/2013 10:34:00 01/12/2013 23:59:59 CLS Outpatient MYRONJUWAN SONI Dejon GLYCERIN OPERATOR [facility] RAD LT SHOULDER PAIN [id number] 12/14/2012 18:03:00 12/14/2012 23:59:59 CLS Outpatient [id number] 11/27/2017 00:50:00 ACT Inpatient ROLANDA ZUNIGA DO [facility] ICU PEA,A-FIB W/RVR,SYNCOPE,HEAD INJURY [id number] 07/18/2014 13:53:00 Document Registration [id number] 08/14/2012 15:32:00 Document Registration [id number] 05/13/2012 10:00:00 Document Registration [id number] 04/06/2012 15:33:00 Document Registration [id number] 02/25/2012 16:42:00 Document Registration [id number] 02/13/2012 06:57:00 Document Registration [id number] 02/07/2012 11:00:00 Document Registration [id number] 02/05/2012 15:55:00 Document Registration [id number] 01/23/2012 08:30:00 Document Registration [id number] 01/22/2012 10:02:00 Document Registration [id number] 01/01/2012 15:53:00 Document Registration
[2017-11-27 02:16] LABS: BILIRUBIN,URINE NEGATIVE (NEGATIVE); CLARITY,URINE CLEAR; COLOR,URINE YELLOW; GLUCOSE, URINE (UA) NEGATIVE (NEGATIVE); KETONES,URINE NEGATIVE (NEGATIVE); LEUKOCYTE ESTERASE ,URINE 1+ (NEGATIVE); NITRITE,URINE NEGATIVE (NEGATIVE); PH,URINE 6 (5-9); PROTEIN,URINE 1+ (NEGATIVE); UROBILINOGEN,URINE NORMAL (NORMAL)
[2017-11-27 02:25] LABS: BACTERIA,URINE NEGATIVE /HPF; RBC,URINE RARE /HPF
[2017-11-27] MEDS ORDERED: ATROPINE INJ 0.4 MG/ML SDV IV PRN (02:45)
[2017-11-27] MEDS ORDERED: ATROPINE INJECTION 1 MG/10 ML SYR (ABBOTT) ONE (03:11)
[2017-11-27] MEDS: DILTIAZEM INJECTION 125 MG in D5W 100 ML IVPB 100 ML IV SCH (03:37)
[2017-11-27] MEDS ORDERED: ACETAMINOPHEN 325 MG TABLET ONE (03:38)
[2017-11-27] MEDS: ACETAMINOPHEN 325 MG TABLET PO PRN ×2 (03:43→15:29)
[2017-11-27] MEDS: NS IV 1000 ML 1,000 ML IV SCH ×3 (03:43→23:00)
[2017-11-27 04:04] LABS: BASOPHILS % (AUTO) 0 % (0-10); EOSINOPHILS # (AUTO) 0.1 10^3/uL (0.0-0.3); EOSINOPHILS % (AUTO) 2 % (0-10); HEMATOCRIT 38 % (35-52); HEMOGLOBIN 12.9 G/DL (11.5-16.0); LYMPHOCYTES # (AUTO) 1.6 X 10^3 (1.0-4.0); LYMPHOCYTES % (AUTO) 24 % (12-44); MEAN CORPUSCULAR HEMOGLOBIN 31 PG (25-34); MEAN CORPUSCULAR HGB CONC 34 G/DL (32-36); MEAN CORPUSCULAR VOLUME 91 FL (80-99); MONOCYTES # (AUTO) 0.5 X 10^3 (0.0-1.0); MONOCYTES % (AUTO) 8 % (0-12); NEUTROPHILS # (AUTO) 4.4 X 10^3 (1.8-7.8); NEUTROPHILS % (AUTO) 66 % (42-75); PLATELET COUNT 209 10^3/uL (130-400); RED CELL DISTRIBUTION WIDTH 14.3 % (10.0-14.5); WHITE BLOOD COUNT 6.7 10^3/uL (4.3-11.0)
[2017-11-27 04:31] LABS: BUN/CREATININE RATIO 30; CALCIUM 7.9 MG/DL (8.5-10.1); CARBON DIOXIDE 26 MMOL/L (21-32); CHLORIDE 106 MMOL/L (98-107); CREATININE SERUM 0.76 MG/DL (0.60-1.30); GFR ESTIMATED > 60; GLUCOSE 110 MG/DL (70-105); PHOSPHORUS 3.6 MG/DL (2.3-4.7); POTASSIUM 4.5 MMOL/L (3.6-5.0); SODIUM 140 MMOL/L (135-145)
--- NOTE | 2017-11-27 06:29 | Pulmonary Consultation ---
History of Present Illness History of Present Illness Date of Consultation 11/27/17 06:23 Time Seen by Provider: 06:23 Date of Admission History of Present Illness 72yo presented to ED via EMS secondary to syncope while on toilet nausea, vomiting and abdominal pain.pt did hit head on floor. She has a hematoma on the right frontal scalp. pt was found to have Afib RVR upon admission. While in ED pt started to have nausea and then developed bradycardia. PT then became unresponsive for 10-20sec. Pt then went back into PEA. Cardiology is consulted for possible pacemaker. Echo is pending. I am consulted for ICU management. Allergies and Home Medications Allergies Coded Allergies: promethazine (Verified Allergy, Unknown, 01/01/06) Home Medications Calcium Cit/Mag/D3/Zn/Chain Machine Operator/Lanre 1 Each Tablet, 1 EACH PO DAILY, (Reported) Ergocalciferol 50,000 Units Cap, 50,000 UNITS PO WEEKLY, (Reported) TAKES ON WEDNESDAYS Levothyroxine Sodium 137 Mcg Tablet, 137 MCG PO DAILY, (Reported) Magnesium Oxide 400 Mg Capsule, 400 MG PO DAILY, (Reported) Meloxicam 15 Mg Tablet, 15 MG PO DAILY, (Reported) Pantoprazole Sodium 40 Mg Tablet.dr, 40 MG PO DAILY, (Reported) Sucralfate 1 Gm Tablet, 1 GM PO QID Prescribed by: MJ DAVALOS on 04/25/15 0947 Past Dvniyjv-Ktbbpw-Iwqfxp Hx Past Med/Social Hx: Reviewed and Corrections made Patient Social History Alcohol Use: Rarely Uses Number of Drinks Today: 0 Alcohol Beverage of Choice: Wine Recreational Drug Use: No Smoking Status: Former Smoker Type Used: Cigarettes Former Smoker, Quit: Nov 27, 1972 Recent Foreign Travel: No Contact w/Someone Who Travel: No Recent Infectious Disease Expo: No Recent Hopitalizations: No Immunizations Up To Date Date of Pneumonia Vaccine: Nov 27, 2013 Seasonal Allergies Seasonal Allergies: Yes Past Medical History Surgeries: Yes (hemorrhoidectomy) Abdominal (Annabella fundoplication), Joint Replacement (bilateral knees), Orthopedic (left knee arthroscopically), Thyroidectomy Respiratory: No Cardiac: Yes Hypertension Neurological: No : No 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 Disorders: No Genitourinary: Yes Bladder Infection Gastrointestinal: Yes Gastroesophageal Reflux, Hartman's Esophagus Musculoskeletal: Yes Osteoporosis, Arthritis Endocrine: Yes Hypothyroidsim HEENT: Yes Cataract Cancer: Yes Skin, Thyroid Did You Recieve Any Treatments: Yes What Type of Treatment Did You: Surgical Intervention Psychosocial: No Integumentary: No Blood Disorders: No Adverse Reaction/Blood Tranf: No Family Medical History Abdominal aortic aneurysm 19 MOTHER G8 BROTHER Alzheimer's disease G8 SISTER Arthritis G8 SISTER Cardiovascular disease 19 MOTHER FH: lung cancer 19 FATHER FH: ovarian cancer G8 SISTER Hypertension G8 SISTER Prostate cancer G8 BROTHER Psychosocial problem Thyroid disease G8 SISTER No Family History of: AIDS [place]'s disease Alcoholism Colon cancer Completed stroke Dementia Diabetes mellitus Drug abuse Myocardial infarction Parkinson's disease Respiratory disorder Seizure disorder Severe allergy Review of Systems Time Seen by Provider: 06:27 Constitutional: Sweats, Weakness, Malaise; No: Fever, Chills, Other Eyes: No: Pain, Vision change, Conjunctivae inflammation, Eyelid inflammation, Other, Redness ENT: No: Ear pain, Ear discharge, Nose pain, Nose discharge, Nose congestion, Mouth pain, Mouth swelling, Throat pain, Throat swelling, Other Cardiovascular: Lt Headedness Gastrointestinal: Nausea, Vomiting, Abdominal Pain, Diarrhea Neurological: Weakness, Incoordination, Confusion Sepsis Event Evaluation Height, Weight, BMI Height: 5'7.00" Weight: 233lbs.0.0oz.105.378036ox; 36.5 BMI Method:Stated Exam Exam Vital Signs Date Time Temp Pulse Resp B/P (MAP) Pulse Ox O2 Delivery O2 Flow Rate FiO2 11/27/17 06:00 62 10 106/51 (69) 92 Nasal Cannula 2.00 11/27/17 05:00 64 11 101/46 (64) 89 Nasal Cannula 2.00 11/27/17 04:00 67 18 103/48 (66) 96 Nasal Cannula 2.00 11/27/17 04:00 93 Nasal Cannula 2.00 11/27/17 03:30 72 15 100/48 (65) 93 Nasal Cannula 1.00 11/27/17 03:15 67 19 109/51 (70) 95 Nasal Cannula 1.00 11/27/17 03:00 78 12 143/62 (89) 90 Nasal Cannula 1.00 11/27/17 02:45 71 15 101/59 (73) 94 Nasal Cannula 1.00 11/27/17 02:30 70 19 119/53 (75) 94 Nasal Cannula 1.00 11/27/17 01:50 95 Nasal Cannula 2.00 11/27/17 01:45 97.8 68 13 123/55 97 Nasal Cannula 3.00 11/27/17 01:03 99.0 11/26/17 22:35 99.0 117 33 124/103 (110) 87 Room Air I & O 11/27/17 07:00 Intake Total 1000 ml Balance 1000 ml Height & Weight Height: 5'7.00" Weight: 233lbs.0.0oz.105.612233gv; 36.5 BMI Method:Stated General Appearance: No Apparent Distress, WD/WN HEENT: PERRL/EOMI, Normal ENT Inspection, Pharynx Normal, Other (contusion to the tip of the tongue) Neck: Normal Inspection, Non Tender, Supple, Other (c-collar in place) Respiratory: Lungs Clear, Normal Breath Sounds, No Accessory Muscle Use, No Respiratory Distress Cardiovascular: No Edema, No Murmur, Irregularly Irregular, Tachycardia Capillary Refill: Less Than 3 Seconds Extremity: Normal Capillary Refill, Normal Inspection, No Pedal Edema Neurologic/Psychiatric: Alert, Oriented x3, No Motor/Sensory Deficits, Normal Mood/Affect, cloth checker II-XII Norm as Tested Skin: Normal Color, Warm/Dry Results Lab Laboratory Tests 11/26/17 22:42 11/27/17 03:45 Assessment/Plan Assessment/Plan Syncope secondary to cardiac arrhythmia- probably sick sinus syndrome -Cardiology consulted -probable pacemaker today -HEad/NECK CT appear to be neg official results not posted yet. IVORY HACKETT DO Nov 27, 2017 06:29
--- NOTE | 2017-11-27 07:01 | Diagnostic Imaging Report ---
Portable erect AP chest at 1133 hours. INDICATION: Syncope. FINDINGS: The heart size is at the upper limits of normal but stable when compared to 07/25/2017. The lungs, where visualized are clear. The right lung is partially obscured by an external cardiac monitoring electrode pad. The mediastinum is not widened. The osseous structures are intact. Surgical clips are again seen on each side of the lower neck. IMPRESSION: There is no evidence for an acute cardiopulmonary abnormality. Dictated by: Dictated on workstation # [id number]
--- NOTE | 2017-11-27 08:03 | History & Physical-Hospitalist ---
History of Present Illness HPI/Chief Complaint Pt is a 72yoCF with a PMH hypothyroidism who presented to the ER after a syncopal episode. She reports that she felt well all day and then was eating a peach she thought was not ripe enough because it made her sick to her stomach. She went to the bathroom and vomited and then "blacked out" and hit her head. She was brought to the ER for evaluation and was found to be in a-fib with RVR. She states she "blacked out" again in the ER. This episode actually consisted of a pulseless episode with PEA on the monitor. She regained a pulse and consciousness just prior to the initiation of chest compressions. This last roughly 20 seconds per the ER note. She was admitted to the ICU for further monitoring and cardiac evaluation. Source: patient Date Seen 11/27/17 Time Seen by Provider: 07:35 Attending Physician Rebecca Batista DO PCP Romle Lovett DO Referring Physician Date of Admission Nov 27, 2017 at 00:50 Home Medications & Allergies Home Medications Reviewed patient Home Medication Reconciliation performed by pharmacy medication reconciliations site damage prevention technician and/or nursing. Patients Allergies have been reviewed. Allergies Allergies Coded Allergies promethazine (Verified Allergy, Unknown, 01/01/06) Past Wfpuroq-Rnggzs-Jntvla Hx Past Med/Social Hx: Reviewed and Corrections made Patient Social History Alcohol Use: Rarely Uses Number of Drinks Today: 0 Alcohol Beverage of Choice: Wine Recreational Drug Use: No Smoking Status: Former Smoker Former Smoker, Quit: Nov 27, 1972 Type Used: Cigarettes Physical Abuse Screen: No Sexual Abuse: No Recent Foreign Travel: No Contact w/other who traveled: No Recent Hopitalizations: No Recent Infectious Disease Expo: No Immunizations Up To Date Date of Pneumonia Vaccine: Nov 27, 2013 Seasonal Allergies Seasonal Allergies: Yes Past Medical History Surgeries: Abdominal (Annabella fundoplication), Joint Replacement (bilateral knees), Orthopedic (left knee arthroscopically), Thyroidectomy Cardiac: Hypertension : No 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: No Genitourinary: Bladder Infection Gastrointestinal: Gastroesophageal Reflux, Hartman's Esophagus Musculoskeletal: Osteoporosis, Arthritis Endocrine: Hypothyroidsim HEENT: Cataract Cancer: Skin, Thyroid Did You Recieve Any Treatments: Yes What Type of Treatment Did You: Surgical Intervention History of Blood Disorders: No Adverse Reaction to Blood [place]: No Family History Abdominal aortic aneurysm 19 MOTHER G8 BROTHER Alzheimer's disease G8 SISTER Arthritis G8 SISTER Cardiovascular disease 19 MOTHER FH: lung cancer 19 FATHER FH: ovarian cancer G8 SISTER Hypertension G8 SISTER Prostate cancer G8 BROTHER Psychosocial problem Thyroid disease G8 SISTER No Family History of: AIDS [place]'s disease Alcoholism Colon cancer Completed stroke Dementia Diabetes mellitus Drug abuse Myocardial infarction Parkinson's disease Respiratory disorder Seizure disorder Severe allergy Review of Systems Constitutional: No chills, No fever EENTM: No blurred vision, No double vision, No nose congestion, No throat pain Respiratory: No cough, No dyspnea on exertion, No short of breath Cardiovascular: see HPI; No chest pain, No edema; syncope Gastrointestinal: No abdominal pain, No constipation, No diarrhea; nausea, vomiting Genitourinary: No dysuria, No frequency Musculoskeletal: No joint pain, No muscle pain Skin: No lesions, No rash Psychiatric/Neurological: Denies Headache, Denies Numbness, Denies Tingling Physical Exam Physical Exam Vital Signs Vital Signs - First Documented 11/26/17 11/27/17 22:35 01:45 Temp 99.0 Pulse 117 Resp 33 B/P (MAP) 124/103 (110) Pulse Ox 87 O2 Delivery Room Air O2 Flow Rate 3.00 Capillary Refill : Less Than 3 Seconds Height, Weight, BMI Height: 5'7.00" Weight: 233lbs.0.0oz.105.667500bl; 36.5 BMI Method:Stated General Appearance: No Apparent Distress, WD/WN HEENT: PERRL/EOMI, Moist Mucous Membranes Neck: Non Tender, Supple Respiratory: Lungs Clear, No Respiratory Distress Cardiovascular: Regular Rate, Rhythm, No Murmur Gastrointestinal: Normal Bowel Sounds, Non Tender, Soft Extremity: Normal Capillary Refill, No Calf Tenderness Neurologic/Psychiatric: Alert, Oriented x3, Normal Mood/Affect Skin: Normal Color, Warm/Dry Results Results/Procedures Labs Laboratory Tests 11/26/17 22:42 11/27/17 03:45 Patient resulted labs reviewed. Imaging: Reviewed Imaging Report Assessment/Plan Admission Diagnosis PEA Admission Status: Inpatient Order (span 2 midnights) Reason for Inpatient Admission: ICU monitoring, Cardiology consultation Diagnosis/Problems Diagnosis/Problems (1) PEA (Pulseless electrical activity) Status: Acute Assessment & Plan: 20 second pulseless episode in ER- telemetry showed PEA ROSC before compressions started Cardiology consulted, appreciate recs Likely sick sinus syndrome (2) Atrial fibrillation with RVR Status: Acute Assessment & Plan: New onset Lovenox given in ER Further dose deferred for pacemaker placement (3) Hypothyroidism Assessment & Plan: TSH 5.31 with Normal T4 Will defer increasing Synthroid at this time given normal T4 Qualifiers: Hypothyroidism type: acquired Qualified Codes: E03.9 - Hypothyroidism, unspecified (4) Syncope and collapse Status: Acute Assessment & Plan: Likely due to arrhythmia Monitor on telemetry echo ordered Clinical Quality Measures DVT/VTE Risk/Contraindication: Risk Factor Score Per Nursin RFS Level Per Nursing on Admit: 2=Moderate LASHONDA YU MD Nov 27, 2017 8:03 am
--- NOTE | 2017-11-27 08:28 | Diagnostic Imaging Report ---
PROCEDURE: CT head and CT cervical spine without contrast. TECHNIQUE: Multiple contiguous axial images were obtained through the brain and cervical spine without the use of intravenous contrast. Sagittal and coronal reformations through the cervical spine were then performed. INDICATION: Syncopal episode, trauma to head, hematoma. CORRELATION STUDY: None FINDINGS: CT HEAD: Ventricles and sulci age-appropriate. Scattered areas of decreased attenuation nonspecific favor likely changes of small vessel ischemic disease. Basal ganglia calcification. No midline shift or mass effect. No intracranial hemorrhage. Basilar cisterns are maintained. Right frontal scalp contusion is noted intact. CT CERVICAL SPINE: Cervical spinal alignment demonstrates straightening that could be positional versus spasm. Multilevel disc space narrowing is noted. This is most severe at C5-C6 and C6-C7 levels but also involves additional levels. Minimal osseous encroachment on the foramina. Posterior elements intact and in normal alignment. Odontoid intact. No acute fracture. No traumatic subluxation. There are several scattered but non-pathologically enlarged cervical lymph nodes. Lung apices appearing unremarkable. IMPRESSION: CT HEAD: 1. Negative for acute traumatic intracranial abnormality. Right frontal scalp hematoma. CT CERVICAL SPINE: 1. Negative for acute fracture or traumatic subluxation. Multilevel cervical spondylosis. A preliminary report was provided by [employer]. Dictated by: Dictated on workstation # [id number]
[2017-11-27] MEDS ORDERED: LOSA50TA36 PO (10:34)
[2017-11-27] MEDS ORDERED: PANT40TA3 PO (10:34)
[2017-11-27] MEDS ORDERED: MAGN400T6 PO (10:34)
[2017-11-27] MEDS ORDERED: CALC-879 PO (10:34)
[2017-11-27] MEDS ORDERED: ALPR0.254 PO (10:40)
[2017-11-27] MEDS ORDERED: CNC1KV IM (10:40)
[2017-11-27] MEDS ORDERED: POTA10TA10 PO (10:40)
[2017-11-27] MEDS ORDERED: CHOL500049 PO (10:43)
--- NOTE | 2017-11-27 12:47 | Consultation-Cardiology ---
HPI-Cardiology Cardiology Consultation: Date of Consultation 11/27/17 Date of Admission Attending Physician Rebecca Batista DO Admitting Physician Romel Lovett DO Consulting Physician Josiane JOINER MD HPI: Time Seen by Provider: 09:45 Chief Complaint: Cardiac arrest This is a 72-year-old lady with history of hypothyroidism. She presented to the ER by EMS due to true syncope at home. She reported to have nausea and vomiting and abdominal discomfort before she passed out in her bathroom. She was not hypoglycemic. She was found to be in atrial fibrillation with rapid ventricular rate. She denies any past history of cardiac pathology. During her stay in the ER she had an episode of PEA, asystole, loss of consciousness but ROSC before CPR. There was also a hematoma due to head injury therefore I had recommended CT head to rule out any intracranial bleeding before we consider oral anticoagulation for atrial fibrillation. Also due to asystole and severe bradycardia for around 20 seconds, this could be secondary to severe sinus node dysfunction and will very likely require permanent pacemaker. The patient subsequently converted to sinus rhythm. Review of Systems-Cardiology Review of Systems Constitutional: As described under HPI; No As described under HPI, No no symptoms reported, No chills, No fever, No lightheadedness Eyes: No As described under HPI, No no symptoms reported, No blindness, No blurred vision, No contact lenses, No drainage, No decreased acuity, No foreign body sensation, No pain, No vision change Ears/Nose/Throat: No As described under HPI, No no symptoms reported, No chronic hearing loss, No ear discharge, No ear pain, No nasal drainage, No ulcerations Respiratory: No no symptoms reported; As described under HPI; No As described under HPI, No cough, No orthopnea, No shortness of breath, No SOB with excertion Cardiovascular: No no symptoms reported; As described under HPI; No As described under HPI, No chest pain, No edema; irregular heart rate; No lightheadedness, No palpitations; syncope Gastrointestinal: No no symptoms reported, No As described under HPI, No abdomen distended; abdominal pain; No blood streaked bowels, No constipation, No diarrhea; nausea, vomiting; No stool coloration changes Genitourinary: No As described under HPI, No burning, No dysuria, No discharge , No frequency, No flank pain, No hematuria, No urgency : No Musculoskeletal: No no symptoms reported, No As describe under HPI, No back pain, No gout, No joint pain, No joint swelling, No muscle pain, No muscle stiffness, No neck pain, No other Skin: No no symptoms reported, No As described under HPI, No change in color, No change in hair/nails, No dryness, No lesions, No lumps, No rash, No other, No skin related problems, No ulcerations, No rash on exposed areas, No ulcerations on exposed areas Psychiatric/Neurological: No anxiety, No depression, No seizure, No focal weakness, No syncope Hematologic: No bleeding abnormalities MWM-Jobxns-Zbovbh Hx Patient Social History Alcohol Use: Rarely Uses Recreational Drug Use: No Smoking Status: Former Smoker Former smoker/When Quit: Apr 18, 1973 Type Used: Cigarettes Recent Foreign Travel: No Recent Infectious Disease Expo: No Hospitalization with Isolation: Denies Physical Abuse Screen: No Sexual Abuse: No Immunizations Up To Date Date of Pneumonia Vaccine: Nov 27, 2013 Past Medical History PMH As described under Assessment. Family Medical History Family History: Abdominal aortic aneurysm 19 MOTHER G8 BROTHER Alzheimer's disease G8 SISTER Arthritis G8 SISTER Cardiovascular disease 19 MOTHER FH: lung cancer 19 FATHER FH: ovarian cancer G8 SISTER Hypertension G8 SISTER Prostate cancer G8 BROTHER Psychosocial problem Thyroid disease G8 SISTER No Family History of: AIDS Oxford's disease Alcoholism Colon cancer Completed stroke Dementia Diabetes mellitus Drug abuse Myocardial infarction Parkinson's disease Respiratory disorder Seizure disorder Severe allergy Allergies and Home Medications Allergies Coded Allergies: promethazine (Verified Allergy, Unknown, 01/01/06) Home Medications Alprazolam 0.25 Mg Tablet, 0.25 MG PO BID PRN for ANXIETY, (Reported) Cholecalciferol (Vitamin D3) 50,000 Unit Capsule, 50,000 UNIT PO Tu, (Reported) Cyanocobalamin 1,000 Mcg/Ml Inj, 1,000 MCG IM MONTHLY, (Reported) Levothyroxine Sodium 137 Mcg Tablet, 137 MCG PO DAILY, (Reported) Losartan Potassium 50 Mg Tablet, 50 MG PO DAILY, (Reported) Magnesium Oxide 400 Mg Tablet, 400 MG PO DAILY, (Reported) Pantoprazole Sodium 40 Mg Tablet.dr, 40 MG PO DAILY, (Reported) Potassium Chloride 10 Meq Tablet.er, 10 MEQ PO DAILY, (Reported) Patient Home Medication List Home Medication List Reviewed: Yes Physical Exam-Cardiology Physical Exam Vital Signs/I&O 11/27/17 11/27/17 11/27/17 11/27/17 03:00 03:15 03:30 04:00 Pulse 78 67 72 Resp 12 19 15 B/P (MAP) 143/62 (89) 109/51 (70) 100/48 (65) Pulse Ox 90 95 93 93 O2 Delivery Nasal Cannula Nasal Cannula Nasal Cannula Nasal Cannula O2 Flow Rate 2.00 2.00 2.00 2.00 11/27/17 11/27/17 11/27/17 11/27/17 04:00 04:00 05:00 06:00 Temp 98.3 Pulse 67 64 62 Resp 18 11 10 B/P (MAP) 103/48 (66) 101/46 (64) 106/51 (69) Pulse Ox 96 89 92 O2 Delivery Nasal Cannula Nasal Cannula Nasal Cannula O2 Flow Rate 2.00 2.00 2.00 11/27/17 11/27/17 11/27/17 11/27/17 07:00 07:00 07:00 07:06 Temp 98.4 Pulse 61 61 61 Resp 24 11 B/P (MAP) 127/56 (79) 104/48 (66) Pulse Ox 93 92 96 O2 Delivery Nasal Cannula Nasal Cannula Nasal Cannula O2 Flow Rate 2.00 2.00 2.00 11/27/17 11/27/17 11/27/17 11/27/17 08:00 08:00 09:00 10:00 Pulse 62 63 61 Resp 7 24 20 B/P (MAP) 110/51 (70) 116/47 (70) 121/66 (84) Pulse Ox 93 94 95 95 O2 Delivery Nasal Cannula Nasal Cannula Nasal Cannula Nasal Cannula O2 Flow Rate 2.00 2.00 2.00 2.00 11/27/17 11/27/17 11/27/17 11/27/17 11:00 12:00 12:00 13:00 Pulse 58 55 63 Resp 9 10 42 B/P (MAP) 102/68 (79) Pulse Ox 94 93 96 96 O2 Delivery Nasal Cannula Nasal Cannula Nasal Cannula Nasal Cannula O2 Flow Rate 2.00 2.00 2.00 2.00 11/27/17 11/27/17 13:00 14:00 Pulse 63 63 Resp 21 B/P (MAP) 131/89 (103) Pulse Ox 95 O2 Delivery Nasal Cannula O2 Flow Rate 2.00 Capillary Refill : Less Than 3 Seconds Constitutional: appears stated age, AAO x 3; No apparent distress; well- developed, well-nourished HEENT: PERRL; No normal ENT inspection, No TMs normal, No pharynx normal, No scleral icterus (R), No scleral icterus (L), No pale conjunctivae (R), No pale conjunctivae (L), No photophobia, No TM abnormal (R), No TM abnormal (L), No pharyngeal erythema, No tonsillar exudate, No other, No discharge, No EOMI; hearing is well preserved; No hard of hearing; oral hygience is good; No ulceration, No xanthelasmas are seen Neck: No non-tender, No full range of motion, No supple, No normal inspection, No carotid bruit, No limited range of motion, No lymphadenopathy (R), No lymphadenopathy (L), No tender lateral, No tender midline, No thyromegaly, No other; carotid pulses are 2 + bilaterally; No with good upstrokes Respiratory: chest is bilaterally symmetric, lungs clear to auscultation Cardiovascular: regular rate-rhythm; No irregularly irregular, No extra beats, No parasternal heave is noted, No JVD, No edema, No bradycardia, No tachycardia , No point of maximal impulse, No cardiac thrills are palpable; S1 and S2; No gallop/S3, No gallop/S4, No diastolic murmur, No systolic murmur, No friction rub, No click, No other Gastrointestinal: No tender, No soft, No round, No distended, No pulsatile mass , No organomegaly, No guarding, No rebound, No tenderness, No hernia, No mass, No audible bowel sounds, No abnormal bowel sounds, No abdominal bruits, No spleenomegaly, No other Rectal: deferred Extremities: No normal range of motion, No non-tender, No normal inspection, No pedal edema, No calf tenderness, No normal capillary refill, No pelvis stable , No calf tenderness, No inflammation, No pedal edema, No slow capillary refill , No swelling, No other, No abrasion, No clubbing, No cyanosis, No ecchymosis, No laceration, No no lower extremity edema bilateral, No significant edema, No tenderness, No wound Neurologic/Psychiatric: no motor/sensory deficits, alert, normal mood/affect, oriented x 3, power is 5/5 both on sides Skin: No normal color, No warm/dry, No cyanosis, No cool, No diaphoresis, No damp, No ecchymosis, No jaundice, No mottled, No pallor, No rash, No tattoos/ piercings, No ulcerations, No rash on exposed areas, No ulcerations on exposed areas, No other Data Review Labs Laboratory Tests 11/26/17 22:42: White Blood Count 7.9, Red Blood Count 4.73, Hemoglobin 14.1, Hematocrit 43, Mean Corpuscular Volume 91, Mean Corpuscular Hemoglobin 30, Mean Corpuscular Hemoglobin Concent 33, Red Cell Distribution Width 14.6H, Platelet Count 255, Mean Platelet Volume 9.6, Neutrophils (%) (Auto) 57, Lymphocytes (%) (Auto) 39, Monocytes (%) (Auto) 3, Eosinophils (%) (Auto) 0, Basophils (%) (Auto) 0, Neutrophils # (Auto) 4.5, Lymphocytes # (Auto) 3.1, Monocytes # (Auto) 0.3, Eosinophils # (Auto) 0.0, Basophils # (Auto) 0.0, Sodium Level 141, Potassium Level 4.2, Chloride Level 103, Carbon Dioxide Level 26, Anion Gap 12, Blood Urea Nitrogen 25H, Creatinine 0.91, Estimat Glomerular Filtration Rate > 60, BUN /Creatinine Ratio 27, Glucose Level 140H, Calcium Level 8.7, Magnesium Level 2.1 , Total Bilirubin 0.4, Aspartate Amino Transf (AST/SGOT) 18, Alanine Aminotransferase (ALT/SGPT) 20, Alkaline Phosphatase 85, Troponin I < 0.30, Total Protein 7.5, Albumin 4.3, Thyroid Stimulating Hormone (TSH) 5.31H, Free Thyroxine 1.23 11/27/17 02:07: Urine Color YELLOW, Urine Clarity CLEAR, Urine pH 6, Urine Specific [place] 1.015L, Urine Protein 1+H, Urine Glucose (UA) NEGATIVE, Urine Ketones NEGATIVE, Urine Nitrite NEGATIVE, Urine Bilirubin NEGATIVE, Urine Urobilinogen NORMAL, Urine Leukocyte Esterase 1+H, Urine RBC (Auto) 1+H, Urine RBC RARE, Urine WBC NONE, Urine Squamous Epithelial Cells 2-5, Urine Crystals NONE, Urine Bacteria NEGATIVE, Urine Casts NONE, Urine Mucus NEGATIVE, Urine Culture Indicated NO 11/27/17 03:45: White Blood Count 6.7, Red Blood Count 4.20L, Hemoglobin 12.9, Hematocrit 38, Mean Corpuscular Volume 91, Mean Corpuscular Hemoglobin 31, Mean Corpuscular Hemoglobin Concent 34, Red Cell Distribution Width 14.3, Platelet Count 209, Mean Platelet Volume 10.0, Neutrophils (%) (Auto) 66, Lymphocytes (%) (Auto) 24 , Monocytes (%) (Auto) 8, Eosinophils (%) (Auto) 2, Basophils (%) (Auto) 0, Neutrophils # (Auto) 4.4, Lymphocytes # (Auto) 1.6, Monocytes # (Auto) 0.5, Eosinophils # (Auto) 0.1, Basophils # (Auto) 0.0, Sodium Level 140, Potassium Level 4.5, Chloride Level 106, Carbon Dioxide Level 26, Anion Gap 8, Blood Urea Nitrogen 23H, Creatinine 0.76, Estimat Glomerular Filtration Rate > 60, BUN/ Creatinine Ratio 30, Glucose Level 110H, Calcium Level 7.9L, Magnesium Level 2.0 , Phosphorus Level 3.6 ECG Impression ECG Initial ECG Rhythm: Normal Sinus A/P-Cardiology Assessment/Admission Diagnosis Syncope, witnessed asystole/PEA in the ER with loss of consciousness, Atrial fibrillation with rapid ventricular rate, Hypothyroidism, Hypertension Plan Syncope, witnessed asystole/PEA in the ER with loss of consciousness- likely secondary to severe sinus node dysfunction. Will require a pacemaker. All risks and complication were discussed at length including bleeding, infection, cardiac perforation, pneumothorax. Once the patient and accepted all the risks and complications, informed consent was completed. We will plan to do it in the morning. Telemetry stable overnight. Strict bedrest with atropine at the bedside. External pacing pads. Echocardiogram. Atrial fibrillation with rapid ventricular rate, converted to sinus rhythm spontaneously overnight. No rate controlling agents at this point in time. I discussed at length with the patient and about atrial fibrillation. Stroke prevention is recommended. CHADSVASC score of 3 for gender, hypertension , age. We will start Eliquis after pacemaker is done. Hypothyroidism, mildly elevated TSH. Continue outpatient therapy. Hypertension, continue losartan from tomorrow. Thank you for your consultation. Please call me if you have any questions. Stephany Joiner MD, FACP, FACC, FSCAI, FHRS, CCDS Interventional Cardiology Cardiac Electrophysiology Vascular Medicine and Endovascular Interventions Clinical Quality Measures DVT/VTE Risk/Contraindication: Risk Factor Score Per Nursin RFS Level Per Nursing on Admit: 2=Moderate Josiane JOINER MD Nov 27, 2017 12:47 pm
[2017-11-28] VITALS (19 sets, daily range): BP systolic 83–144; BP diastolic 51–104
[2017-11-28] MEDS: DILTIAZEM INJECTION 125 MG in D5W 100 ML IVPB 100 ML IV SCH ×2 (00:32→23:15)
[2017-11-28 03:43] LABS: BASOPHILS % (AUTO) 0 % (0-10); EOSINOPHILS # (AUTO) 0.1 10^3/uL (0.0-0.3); EOSINOPHILS % (AUTO) 2 % (0-10); HEMATOCRIT 36 % (35-52); HEMOGLOBIN 11.7 G/DL (11.5-16.0); LYMPHOCYTES # (AUTO) 2.9 X 10^3 (1.0-4.0); LYMPHOCYTES % (AUTO) 50 % (12-44); MEAN CORPUSCULAR HEMOGLOBIN 30 PG (25-34); MEAN CORPUSCULAR HGB CONC 32 G/DL (32-36); MEAN CORPUSCULAR VOLUME 93 FL (80-99); MEAN PLATELET VOLUME 9.8 FL (7.4-10.4); MONOCYTES # (AUTO) 0.3 X 10^3 (0.0-1.0); MONOCYTES % (AUTO) 6 % (0-12); NEUTROPHILS # (AUTO) 2.4 X 10^3 (1.8-7.8); NEUTROPHILS % (AUTO) 42 % (42-75); PLATELET COUNT 199 10^3/uL (130-400); RED BLOOD COUNT 3.89 10^6/uL (4.35-5.85); RED CELL DISTRIBUTION WIDTH 14.6 % (10.0-14.5); WHITE BLOOD COUNT 5.8 10^3/uL (4.3-11.0)
[2017-11-28 04:06] LABS: BUN/CREATININE RATIO 20; CALCIUM 7.7 MG/DL (8.5-10.1); CARBON DIOXIDE 25 MMOL/L (21-32); CHLORIDE 110 MMOL/L (98-107); CREATININE SERUM 0.65 MG/DL (0.60-1.30); GFR ESTIMATED > 60; GLUCOSE 92 MG/DL (70-105); MAGNESIUM 2.1 MG/DL (1.8-2.4); PHOSPHORUS 3.4 MG/DL (2.3-4.7); POTASSIUM 4.2 MMOL/L (3.6-5.0); SODIUM 142 MMOL/L (135-145)
[2017-11-28] MEDS: MAGNESIUM 1 GM/100 ML IVPB 100 ML IV SCH (04:26)
[2017-11-28] MEDS: KCL 20 MEQ TAB (K-DUR) PO SCH (04:26)
[2017-11-28] MEDS: POTASSIUM CL 10MEQ/50ML IVPB 50 ML IV SCH (04:26)
--- NOTE | 2017-11-28 05:33 | Pulmonary Progress Note ---
Subjective Time Seen by Provider: 05:33 Subjective/Events-last exam Probable pacemaker today. Sepsis Event Evaluation Height, Weight, BMI Height: 5'7.00" Weight: 233lbs. 2.0oz. 105.838921yy; 36.5 BMI Method:Stated Exam Exam Vital Signs Date Time Temp Pulse Resp B/P (MAP) Pulse Ox O2 Delivery O2 Flow Rate FiO2 11/28/17 04:00 98.1 11/28/17 04:00 94 Nasal Cannula 2.00 11/28/17 03:00 58 18 105/59 (74) 98 Nasal Cannula 2.00 11/28/17 02:00 50 20 101/55 (70) 97 Nasal Cannula 2.00 11/28/17 01:00 47 11/28/17 01:00 47 15 90/59 (69) 99 Nasal Cannula 2.00 11/28/17 00:00 94 Nasal Cannula 2.00 11/28/17 00:00 98.3 11/28/17 00:00 65 21 109/54 (72) 97 Nasal Cannula 2.00 11/27/17 23:00 54 14 100/62 (75) 96 Nasal Cannula 2.00 11/27/17 22:00 52 10 105/60 (75) 96 Nasal Cannula 2.00 11/27/17 21:00 53 15 124/74 (91) 95 Nasal Cannula 2.00 11/27/17 20:00 94 Nasal Cannula 2.00 11/27/17 20:00 58 14 134/76 (95) Nasal Cannula 2.00 11/27/17 20:00 98.0 11/27/17 19:00 55 23 108/55 (72) 97 Nasal Cannula 2.00 11/27/17 19:00 55 11/27/17 18:00 59 10 113/65 (81) 97 Nasal Cannula 2.00 11/27/17 17:00 59 26 128/63 (84) 95 Nasal Cannula 2.00 11/27/17 16:00 64 18 119/87 (98) 95 Nasal Cannula 2.00 11/27/17 16:00 94 Nasal Cannula 2.00 11/27/17 15:00 64 26 114/63 (80) 94 Nasal Cannula 2.00 11/27/17 14:00 63 21 131/89 (103) 95 Nasal Cannula 2.00 11/27/17 13:00 63 11/27/17 13:00 63 42 96 Nasal Cannula 2.00 11/27/17 12:00 55 10 96 Nasal Cannula 2.00 11/27/17 12:00 93 Nasal Cannula 2.00 11/27/17 11:00 58 9 102/68 (79) 94 Nasal Cannula 2.00 11/27/17 10:00 61 20 121/66 (84) 95 Nasal Cannula 2.00 11/27/17 09:00 63 24 116/47 (70) 95 Nasal Cannula 2.00 11/27/17 08:00 62 7 110/51 (70) 94 Nasal Cannula 2.00 11/27/17 08:00 93 Nasal Cannula 2.00 11/27/17 07:06 96 Nasal Cannula 2.00 11/27/17 07:00 61 11/27/17 07:00 61 11 104/48 (66) 92 Nasal Cannula 2.00 11/27/17 07:00 98.4 61 24 127/56 (79) 93 Nasal Cannula 2.00 11/27/17 06:00 62 10 106/51 (69) 92 Nasal Cannula 2.00 I & O 11/28/17 07:00 Intake Total 270 ml Balance 270 ml Height & Weight Height: 5'7.00" Weight: 233lbs. 2.0oz. 105.476732sx; 36.5 BMI Method:Stated General Appearance: No Apparent Distress, WD/WN HEENT: PERRL/EOMI, Moist Mucous Membranes Neck: Non Tender, Supple Respiratory: Lungs Clear, No Respiratory Distress Cardiovascular: Regular Rate, Rhythm, No Murmur Capillary Refill: Less Than 3 Seconds Extremity: Normal Capillary Refill, No Calf Tenderness Neurologic/Psychiatric: Alert, Oriented x3, Normal Mood/Affect Skin: Normal Color, Warm/Dry Results Lab Laboratory Tests 11/26/17 22:42 11/27/17 03:45 11/28/17 03:20 Assessment/Plan Assessment/Plan Syncope secondary to cardiac arrhythmia- probably sick sinus syndrome -Cardiology consulted -probable pacemaker probably today -HEad/NECK CT appear to be neg official results not posted yet. IVORY HACKETT DO Nov 28, 2017 05:33
[2017-11-28] MEDS ORDERED: BACITRACIN INJECTION 50,000 UNIT, SODIUM CHLORIDE 0.9% IRRIGATIO 500 ML IR ONE ×2 (06:30)
[2017-11-28] MEDS ORDERED: HEParin (CATH LAB) 1,000 ML IV ONE (06:46)
[2017-11-28] MEDS ORDERED: LIDOCAINE 1% INJ 20 ML 20 ML VIAL ONE (06:46)
[2017-11-28] MEDS ORDERED: ceFAZolin 1,000 MG (ANCEF) VIAL IV NR (06:48)
[2017-11-28] MEDS ORDERED: MIDAZOLAM 5 MG/5 ML (VERSED) VIAL ONE ×2 (07:10→07:22)
[2017-11-28] MEDS ORDERED: fentaNYL INJECTION 100 MCG/2 ML AMP ONE ×2 (07:10→07:52)
[2017-11-28] MEDS ORDERED: NS IV 1000 ML 1,000 ML ONE (07:12)
[2017-11-28] MEDS ORDERED: ceFAZolin 1,000 MG (ANCEF) VIAL ONE (07:22)
[2017-11-28] MEDS: NS IV 1000 ML 1,000 ML IV SCH ×2 (07:57→18:54)
--- NOTE | 2017-11-28 08:07 | Diagnostic Imaging Report ---
INDICATION: Atrial fibrillation. COMPARISON: 11/26/2017 FINDINGS: Single frontal view of the chest demonstrates stable heart size and pulmonary vascularity. The lungs are well aerated and clear. No large pleural effusion or pneumothorax is seen. The visualized osseous structures show no acute abnormalities. IMPRESSION: 1. No acute cardiopulmonary process. Dictated by: Dictated on workstation # [id number]
[2017-11-28] MEDS ORDERED: meTOprolol 5 MG/5 ML (LOPRESSOR) VIAL ONE (08:32)
[2017-11-28] MEDS ORDERED: AMIODARONE 150 MG/3 ML (CORDARONE) AMP IV ONE (09:11)
--- NOTE | 2017-11-28 09:13 | Permanent Pacemaker Implant ---
Dual Chamber Pacemaker Implant PROCEDURE PHYSICIAN: Stephany Joiner MD DUAL CHAMBER PACEMAKER IMPLANTATION: DATE OF PROCEDURE: 11/28/17 INDICATION: Asystole, severe sinus node dysfunction, atrial fibrillation. PREOPERATIVE DIAGNOSIS: Asystole, severe sinus node dysfunction, atrial fibrillation. POSTOPERATIVE DIAGNOSIS: Recurrent perioperative Atrial fibrillation, status post successful dual-chamber permanent pacemaker implantation. HISTORY: This is a 72-year-old lady who had syncope at home and was brought to the ER via EMS. In the ER she was found to have atrial fibrillation with rapid ventricular rate. In the ER , She had a witnessed syncope and loss of consciousness for 10-20 seconds. Telemetry showed asystole and then atrial fibrillation with no pulse (PEA). However return of spontaneous circulation before CPR was started. Patient subsequently converted to sinus rhythm. Echocardiogram showed normal LV function. Dual-chamber permanent pacemaker was recommended. PROCEDURE PERFORMED: 1. Dual-chamber permanent pacemaker implantation. 2. Fluoroscopy. 3. Central venous access. ANESTHESIA: Local anesthesia, conscious sedation. COMPLICATIONS: None. ESTIMATED BLOOD LOSS:20 mL. SPECIMENS: None. ORAL ANTICOAGULATION: None. FLUOROSCOPY TIME: 5.9 minutes. FLUOROSCOPY DOSE: 75 mgy. CONTRAST DOSE: 0 PROCEDURE DETAILS: The patient is a 72 female and after all of the patients questions were answered, the patient was brought to the EP Lab. The patient's left chest was prepped and draped in sterile fashion. A 2 inch horizontal incision was made 1 cm below the clavicle and dissection carried down to the pectoralis fascia. Using the modified Seldinger technique and under fluoroscopy guidance, the anterior aspect of the left axillary vein was accessed 2 times. The J wires were secured to the drapes with a mosquito clamp. A 6-[place] sheath was introduced over one of the J-wires. The RV lead was then inserted. The RV lead was directed across the tricuspid valve to the apical septal portion of the right ventricle. The position was checked in SWAZI and RAM views. The screw was deployed and the lead connected to the clinical statistical programmer. Close sensing and pacing thresholds were obtained. Diaphragmatic pacing was ruled out. The lead was secured with 2-0 silk ties to the underlying muscle and fascia. Next, a 6-[place] sheath was introduced through the remaining J-wire. An atrial lead was then introduced and guided to the level of the right appendage. The screw was deployed and the lead was connected to the interrogator. Good sensing and pacing thresholds were obtained. Diaphragmatic pacing was ruled out. The leads were secured with 2-0 silk ties to the underlying muscle and fascia. The leads were connected to the device in a hermetic fashion. The device and leads were placed in the pocket. Aggressive irrigation with saline solution was done. The device was secured to the underlying muscle and fascia with a 2-0 silk tie. interrogation of the device revealed good integrity of all the leads and good connections. At this point in time the patient went into atrial fibrillation with rapid ventricular rate. Intracardiac electrocardiogram via device interrogator initially showed organized atrial flutter with degenerated to fine atrial fibrillation. The wound was then closed using 2 layers. The first layer was interrupted 2-0 absorbable Vicryl suture. The last layer was a single subcuticular layer with 4- 0 Vicryl suture. Half inch Steri-Strips and a small dressing were then applied to the wound. The patient tolerated the procedure well and was returned to the recovery room in stable condition with stable vital signs. DEVICE INFORMATION: Edora [address] DR Patel [employer]. Reference number [id number], serial number [id number], PID 70. RA LEAD: Solia S 53 [employer]. Reference number [id number], serial number [id number]. RV LEAD: Solia S 60, [employer], reference number 443506, serial number [id number] PER-OPERATIVE DEVICE INTERROGATION: RA sensing 4 mV, RV 9.8 mV. RA impedance 445 ohms. RV impedance 871 ohms. RA threshold 1.4 V at 0.4 ms. RV 1.2 towards at 0.4 ms. At this point in time the patient went into atrial fibrillation. IMMEDIATE POSTOPERATIVE DEVICE INTERROGATION: RA: Sensitivity 0.9 mV fine atrial fibrillation. Impedance 468. RV sensing 11.6 mV, impedance 780 ohms, threshold 0.8 towards at 0.4 ms. DDDR [id number]. PAV 200+110 ms. MACHO 180+110 ms. PLAN: The patient transferred to the ICU. We will continue with two more doses of IV antibiotics. We will check a chest x-ray and interrogate the device in the morning. The patient will continue on oral antibiotics for 5 days. Stephany Joiner MD, RS, CCDS Cardiac Electrophysiology Josiane JOINER MD Nov 28, 2017 9:13 am
--- NOTE | 2017-11-28 09:13 | Cardiac Procedure Note-CS/ASA ---
Pre-Procedure Note Pre-Op Procedure Note H&P Reviewed The H&P was reviewed, patient examined and no changes noted. Date H&P Reviewed: Nov 28, 2017 Time H&P Reviewed: 07:45 Conscious Sedation Pre-Proced Time Reviewed: 07:45 ASA Class: 3 Airway Mallampati Classification: ([place] appropriate class) I. II. III, IV Lungs Heart ASA score ASA 1: a normal healthy patient ASA 2: a patient with a mild systemic disease (mid diabetes, controlled hypertension, obesity ASA 3: a patient with a severe systemic disease that limits activity (angina , COPD, prior Myocardial infarction) ASA 4: a patient with an incapacitating disease that is a constant threat to life (CHF, renal failure) ASA 5: a moribund patient not expected to survive 24 hrs. (ruptured aneurysm) ASA 6: a declared brain patient whose organs are being harvested. For emergent operations, add the letter E after the classification Grade 1 Sedation Plan: Analgesia, Amnesia, Plan communicated to team members, Discussed options with patient/fam, Discussed risks with patient/fam Note The patient is an appropriate candidate to undergo the planned procedure, sedation, and anesthesia. The patient immediately re-assessed prior to indication. Josiane WHITTAKER MD Nov 28, 2017 9:13 am
[2017-11-28] MEDS ORDERED: NEO/POLY/BAC (NEOSPORIN) OINT 15 GM TUBE ONE (09:14)
[2017-11-28] MEDS ORDERED: NS IV 1000 ML 1,000 ML IV SCH (09:15)
[2017-11-28] MEDS ORDERED: PATIENT MAY USE OWN MEDS, ALL PO SCH (09:15)
[2017-11-28] MEDS ORDERED: AMIODARONE INJECTION 450 MG in D5W IV SOLUTION (EXCEL) 250 ML IV SCH (09:15)
--- NOTE | 2017-11-28 09:19 | Cardiology Progress Note ---
Cardiology SOAP Progress Note Subjective: no cardiac symptoms Objective: I&O/Vital Signs 11/27/17 11/27/17 11/28/17 11/28/17 22:00 23:00 00:00 00:00 Temp 98.3 Pulse 52 54 65 Resp 10 14 21 B/P (MAP) 105/60 (75) 100/62 (75) 109/54 (72) Pulse Ox 96 96 97 O2 Delivery Nasal Cannula Nasal Cannula Nasal Cannula O2 Flow Rate 2.00 2.00 2.00 11/28/17 11/28/17 11/28/17 11/28/17 00:00 01:00 01:00 02:00 Pulse 47 47 50 Resp 15 20 B/P (MAP) 90/59 (69) 101/55 (70) Pulse Ox 94 99 97 O2 Delivery Nasal Cannula Nasal Cannula Nasal Cannula O2 Flow Rate 2.00 2.00 2.00 11/28/17 11/28/17 11/28/17 11/28/17 03:00 04:00 04:00 04:00 Temp 98.1 Pulse 58 48 Resp 18 7 B/P (MAP) 105/59 (74) 107/51 (69) Pulse Ox 98 95 94 O2 Delivery Nasal Cannula Nasal Cannula Nasal Cannula O2 Flow Rate 2.00 2.00 2.00 11/28/17 11/28/17 11/28/17 05:00 06:00 07:00 Pulse 46 50 64 Resp 10 9 B/P (MAP) 103/56 (72) Pulse Ox 93 97 O2 Delivery Nasal Cannula Nasal Cannula O2 Flow Rate 2.00 2.00 11/28/17 00:00 Intake Total 120 ml Balance 120 ml Weight (Pounds): 233 Weight (Ounces): 2.0 Weight (Calculated Kilograms): 105.223988 Constitutional: appears stated age, AAO x 3; No apparent distress; well- developed, well-nourished Respiratory: chest is bilaterally symmetric, lungs clear to auscultation Cardiovascular: regular rate-rhythm; No irregularly irregular, No extra beats, No parasternal heave is noted, No JVD, No edema, No bradycardia, No tachycardia , No point of maximal impulse, No cardiac thrills are palpable; S1 and S2; No gallop/S3, No gallop/S4, No diastolic murmur, No systolic murmur, No friction rub, No click, No other Gastrointestional: No tender, No soft, No round, No distended, No pulsatile mass, No organomegaly, No guarding, No rebound, No tenderness, No hernia, No mass, No audible bowel sounds, No abnormal bowel sounds, No abdominal bruits, No spleenomegaly, No other Extremities: No normal range of motion, No non-tender, No normal inspection, No pedal edema, No calf tenderness, No normal capillary refill, No pelvis stable , No calf tenderness, No inflammation, No pedal edema, No slow capillary refill , No swelling, No other, No abrasion, No clubbing, No cyanosis, No ecchymosis, No laceration, No no lower extremity edema bilateral, No significant edema, No tenderness, No wound Neurologic/Psychiatric: no motor/sensory deficits, alert, normal mood/affect, oriented x 3, power is 5/5 both on sides Skin: No normal color, No warm/dry, No cyanosis, No cool, No diaphoresis, No damp, No ecchymosis, No jaundice, No mottled, No pallor, No rash, No tattoos/ piercings, No ulcerations, No rash on exposed areas, No ulcerations on exposed areas, No other Results/Procedures: Labs Laboratory Tests 11/28/17 03:20: White Blood Count 5.8, Red Blood Count 3.89L, Hemoglobin 11.7, Hematocrit 36, Mean Corpuscular Volume 93, Mean Corpuscular Hemoglobin 30, Mean Corpuscular Hemoglobin Concent 32, Red Cell Distribution Width 14.6H, Platelet Count 199, Mean Platelet Volume 9.8, Neutrophils (%) (Auto) 42, Lymphocytes (%) (Auto) 50H , Monocytes (%) (Auto) 6, Eosinophils (%) (Auto) 2, Basophils (%) (Auto) 0, Neutrophils # (Auto) 2.4, Lymphocytes # (Auto) 2.9, Monocytes # (Auto) 0.3, Eosinophils # (Auto) 0.1, Basophils # (Auto) 0.0, Sodium Level 142, Potassium Level 4.2, Chloride Level 110H, Carbon Dioxide Level 25, Anion Gap 7, Blood Urea Nitrogen 13, Creatinine 0.65, Estimat Glomerular Filtration Rate > 60, BUN/ Creatinine Ratio 20, Glucose Level 92, Calcium Level 7.7L, Phosphorus Level 3.4 , Magnesium Level 2.1 Microbiology 11/27/17 MRSA Screen - Final, Complete MRSA not isolated A/P: Assessment/Dx: Syncope, witnessed asystole in the ER with loss of consciousness, Atrial fibrillation with rapid ventricular rate, Hypothyroidism, Hypertension Plan: Syncope, witnessed asystole in the ER with loss of consciousness- likely secondary to severe sinus node dysfunction. PPM today . Echocardiogram shows normal LV function. Atrial fibrillation with rapid ventricular rate, converted to sinus rhythm spontaneously overnight. No rate controlling agents at this point in time. I discussed at length with the patient and about atrial fibrillation. Stroke prevention is recommended. CHADSVASC score of 3 for gender, hypertension , age. We will start Eliquis after pacemaker is done. Hypothyroidism, mildly elevated TSH. Continue outpatient therapy. Hypertension, continue losartan from tomorrow. Thank you for your consultation. Please call me if you have any questions. Stephany Joiner MD, FACP, FACC, FSCAI, FHRS, CCDS Interventional Cardiology Cardiac Electrophysiology Vascular Medicine and Endovascular Interventions Josiane JOINER MD Nov 28, 2017 9:19 am
--- NOTE | 2017-11-28 10:09 | Diagnostic Imaging Report ---
INDICATION: Fall with bruising of the right foot. TIME OF EXAM: 10:37 a.m. Three views of the right foot were obtained. There are acute appearing fractures identified at the base of the second, third and fourth proximal phalanges. Fractures are on the medial side and extend to the articular surface. Slight distraction is present. The metatarsals are intact. Midfoot demonstrates degenerative changes. There is a large plantar calcaneal spur. IMPRESSION: Acute fractures noted at the base of the proximal phalanges of the second, third and fourth toes. Dictated by: Dictated on workstation # [id number]
--- NOTE | 2017-11-28 10:09 | Diagnostic Imaging Report ---
Indication: Pacemaker insertion. Time of exam: 10:36 AM Correlation is made with prior study from earlier the same day. Dual-lead left subclavian cardiac pacemaker has been placed and has lead tips in the region of the right atrium and right ventricle. No pneumothorax is identified. No effusion is seen. Surgical clips in the neck. Impression: Pacemaker placement. No pneumothorax is identified. Dictated by: Dictated on workstation # [id number]
[2017-11-28] MEDS: ONDANSETRON 4 MG/2 ML (SDV) Z0FRAN IV PRN ×2 (10:47→15:41)
--- NOTE | 2017-11-28 11:41 | Progress Note-Hospitalist ---
Subjective HPI/CC On Admission Date Seen by Provider: Nov 28, 2017 Time Seen by Provider: 11:37 Pt is a 72yoCF with a PMH hypothyroidism who presented to the ER after a syncopal episode. She reports that she felt well all day and then was eating a peach she thought was not ripe enough because it made her sick to her stomach. She went to the bathroom and vomited and then "blacked out" and hit her head. She was brought to the ER for evaluation and was found to be in a-fib with RVR. She states she "blacked out" again in the ER. This episode actually consisted of a pulseless episode with PEA on the monitor. She regained a pulse and consciousness just prior to the initiation of chest compressions. This last roughly 20 seconds per the ER note. She was admitted to the ICU for further monitoring and cardiac evaluation. Subjective/Events-last exam Pt reports doing well. Had mild nausea following the pacemaker insertion but has now improved. No other complaints. Objective Exam Vital Signs Vital Signs Date Time Temp Pulse Resp B/P (MAP) Pulse Ox O2 Delivery O2 Flow Rate FiO2 11/28/17 11:00 89 8 102/66 (78) 93 Nasal Cannula 2.00 11/28/17 04:00 98.1 Capillary Refill : Less Than 3 Seconds General Appearance: No Apparent Distress, WD/WN Respiratory: Lungs Clear, No Respiratory Distress Cardiovascular: No Murmur, Irregularly Irregular Results/Procedures Lab Laboratory Tests 11/28/17 03:20 Patient resulted labs reviewed. 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 currently with rate controlled (2) Atrial fibrillation with RVR Status: Acute Assessment & Plan: New onset Will start on Eliquis when ok with cardiology Echo shows preserved EF with grade 1 diastolic dysfunction (3) Hypothyroidism Assessment & Plan: TSH 5.31 with Normal T4 Will defer increasing Synthroid at this time given normal T4 Qualifiers: Hypothyroidism type: acquired Qualified Codes: E03.9 - Hypothyroidism, unspecified (4) Syncope and collapse Status: Acute Assessment & Plan: Likely due to arrhythmia Monitor on telemetry Clinical Quality Measures DVT/VTE Risk/Contraindication: Risk Factor Score Per Nursin RFS Level Per Nursing on Admit: 2=Moderate LASHONDA YU MD Nov 28, 2017 11:41
[2017-11-28] MEDS ORDERED: meTOprolol TARTRATE 50 MG (LOPRESSOR) TAB PO ONE (12:00)
[2017-11-28] MEDS ORDERED: ALPRAZolam 0.25 MG (XANAX) TAB PO PRN (12:00)
[2017-11-28] MEDS: ACETAMINOPHEN 325 MG TABLET PO PRN (12:06)
[2017-11-28] MEDS: ceFAZolin INJECTION 1,000 MG in NS (IVPB) 50 ML IV SCH ×2 (15:41→23:01)
[2017-11-29] VITALS (9 sets, daily range): BP systolic 88–130; BP diastolic 49–65
[2017-11-29 03:56] LABS: BASOPHILS % (AUTO) 0 % (0-10); EOSINOPHILS # (AUTO) 0.1 10^3/uL (0.0-0.3); EOSINOPHILS % (AUTO) 1 % (0-10); HEMATOCRIT 36 % (35-52); HEMOGLOBIN 12.1 G/DL (11.5-16.0); LYMPHOCYTES # (AUTO) 3.3 X 10^3 (1.0-4.0); LYMPHOCYTES % (AUTO) 40 % (12-44); MEAN CORPUSCULAR HEMOGLOBIN 31 PG (25-34); MEAN CORPUSCULAR HGB CONC 34 G/DL (32-36); MEAN CORPUSCULAR VOLUME 92 FL (80-99); MONOCYTES # (AUTO) 0.4 X 10^3 (0.0-1.0); MONOCYTES % (AUTO) 5 % (0-12); NEUTROPHILS # (AUTO) 4.5 X 10^3 (1.8-7.8); NEUTROPHILS % (AUTO) 54 % (42-75); PLATELET COUNT 202 10^3/uL (130-400); RED BLOOD COUNT 3.87 10^6/uL (4.35-5.85); WHITE BLOOD COUNT 8.3 10^3/uL (4.3-11.0)
[2017-11-29 04:17] LABS: ALANINE AMINOTRANSFERASE 14 U/L (0-55); ALBUMIN 3.5 GM/DL (3.2-4.5); ALKALINE PHOSPHATASE 61 U/L (40-136); BILIRUBIN,TOTAL 0.3 MG/DL (0.1-1.0); BUN/CREATININE RATIO 13; CALCIUM 7.6 MG/DL (8.5-10.1); CARBON DIOXIDE 25 MMOL/L (21-32); CHLORIDE 105 MMOL/L (98-107); CREATININE SERUM 0.68 MG/DL (0.60-1.30); GFR ESTIMATED > 60; GLUCOSE 95 MG/DL (70-105); MAGNESIUM 2.2 MG/DL (1.8-2.4); PHOSPHORUS 3.4 MG/DL (2.3-4.7); POTASSIUM 3.7 MMOL/L (3.6-5.0); SODIUM 140 MMOL/L (135-145); TOTAL PROTEIN 6.3 GM/DL (6.4-8.2)
[2017-11-29] MEDS: ACETAMINOPHEN 325 MG TABLET PO PRN (04:52)
[2017-11-29] MEDS: ceFAZolin INJECTION 1,000 MG in NS (IVPB) 50 ML IV SCH (05:11)
[2017-11-29] MEDS: NS IV 1000 ML 1,000 ML IV SCH (05:12)
[2017-11-29] MEDS: POTASSIUM CL 10MEQ/50ML IVPB 50 ML IV SCH (06:18)
[2017-11-29] MEDS: MAGNESIUM 1 GM/100 ML IVPB 100 ML IV SCH (06:19)
[2017-11-29] MEDS: KCL 20 MEQ TAB (K-DUR) PO SCH (06:19)
[2017-11-29] MEDS ORDERED: LEVOTHYROXINE 25 MCG (LEVOTHROID) TAB PO SCH (06:30)
[2017-11-29] MEDS ORDERED: LEVOTHYROXINE 112 MCG (LEVOTHROID) TAB PO SCH (06:30)
[2017-11-29] MEDS ORDERED: APIX5TAB PO (07:24)
[2017-11-29] MEDS ORDERED: DILT120C82 PO (07:24)
--- NOTE | 2017-11-29 07:25 | Pulmonary Progress Note ---
Subjective Time Seen by Provider: 07:20 Subjective/Events-last exam Pt feels much better. She is s/p pacemaker insertion. Sepsis Event Evaluation Height, Weight, BMI Height: 5'67.00" Weight: 233lbs. 2.0oz. 105.155271qd; 36.5 BMI Method:Stated Exam Exam Vital Signs Date Time Temp Pulse Resp B/P (MAP) Pulse Ox O2 Delivery O2 Flow Rate FiO2 11/29/17 06:00 60 116/56 (76) Nasal Cannula 3.00 11/29/17 05:00 60 117/55 (75) Nasal Cannula 3.00 11/29/17 04:00 60 107/53 (71) Nasal Cannula 3.00 11/29/17 04:00 94 Nasal Cannula 11/29/17 03:00 60 100/51 (67) Nasal Cannula 3.00 11/29/17 02:00 60 88/59 (69) 93 Nasal Cannula 3.00 11/29/17 01:00 60 11/29/17 01:00 60 99/49 (66) 88 Room Air 11/29/17 00:00 94 Nasal Cannula 11/28/17 23:00 60 127/59 (81) 93 Room Air 11/28/17 21:00 60 112/104 (107) Room Air 11/28/17 20:00 60 18 144/68 (93) Room Air 11/28/17 20:00 94 Nasal Cannula 11/28/17 19:00 60 11/28/17 19:00 60 18 121/60 (80) Room Air 11/28/17 18:00 60 15 114/61 (78) 97 Nasal Cannula 2.00 11/28/17 17:00 60 18 113/75 (88) 99 Nasal Cannula 2.00 11/28/17 16:16 60 7 118/67 (84) 96 Nasal Cannula 2.00 11/28/17 16:00 96.8 11/28/17 16:00 94 Nasal Cannula 2.00 11/28/17 15:00 67 14 107/63 (78) 97 Nasal Cannula 2.00 11/28/17 14:00 71 9 83/59 (67) 96 Nasal Cannula 2.00 11/28/17 13:00 71 11/28/17 13:00 71 7 104/66 (79) 97 Nasal Cannula 2.00 11/28/17 12:00 94 Nasal Cannula 2.00 11/28/17 12:00 78 11 114/80 (91) 96 Nasal Cannula 2.00 11/28/17 12:00 97.6 11/28/17 11:00 89 8 102/66 (78) 93 Nasal Cannula 2.00 11/28/17 10:00 70 12 111/70 (84) 93 Nasal Cannula 2.00 11/28/17 09:40 96.8 11/28/17 08:00 94 Nasal Cannula 2.00 I & O 11/29/17 07:00 Intake Total 2150 ml Output Total 1950 ml Balance 200 ml Height & Weight Height: 5'67.00" Weight: 233lbs. 2.0oz. 105.746400sm; 36.5 BMI Method:Stated General Appearance: No Apparent Distress, WD/WN HEENT: PERRL/EOMI, Moist Mucous Membranes Neck: Non Tender, Supple Respiratory: Lungs Clear, No Respiratory Distress Cardiovascular: No Murmur, Irregularly Irregular Capillary Refill: Less Than 3 Seconds Extremity: Normal Capillary Refill, No Calf Tenderness Neurologic/Psychiatric: Alert, Oriented x3, Normal Mood/Affect Skin: Normal Color, Warm/Dry Results Lab Laboratory Tests 11/28/17 03:20 11/29/17 03:32 Assessment/Plan Assessment/Plan Syncope secondary to cardiac arrhythmia- probably sick sinus syndrome -Cardiology consulted -s/p pacemaker I am going to sign off. Please call with any questions or concerns. 232 IVORY HACKETT DO Nov 29, 2017 07:25
--- NOTE | 2017-11-29 07:37 | Discharge Summary-Hospitalist ---
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 (2) Atrial fibrillation with RVR Status: Acute Assessment & Plan: New onset Continue Eliquis Echo shows preserved EF with grade 1 diastolic dysfunction (3) Hypothyroidism Assessment & Plan: TSH 5.31 with Normal T4 Will defer increasing Synthroid at this time given normal T4 (4) Syncope and collapse Status: Acute Assessment & Plan: Likely due to arrhythmia Monitor on telemetry Discharge Summary Discharge Physical Exam Allergies: Coded Allergies: promethazine (Verified Allergy, Unknown, 01/01/06) Vitals & I&Os Vital Signs Date Time Temp Pulse Resp B/P (MAP) Pulse Ox O2 Delivery O2 Flow Rate FiO2 11/29/17 07:00 60 11/29/17 06:00 116/56 (76) Nasal Cannula 3.00 11/29/17 04:00 94 11/28/17 20:00 18 11/28/17 16:00 96.8 General Appearance: Alert, Oriented X3 Respiratory: Clear to Auscultation Cardiovascular: Regular Rate Psych/Mental Status: Mental Status NL Hospital Course Pt is a 72yo CF who presented to the ER after a syncopal episode and was found ot be in a-fib with RVR. In the ER she had another syncopal episode and telemetry revealed PEA during this time. She was admitted to the ICU for cardiology evaluation and permanent pacemaker was placed on 11/28. She tolerated the procedure well. She was sent home on Cardizem and Eliquis and her Losartan was stopped. Of note her TSH was elevated mildly with a normal T4. This should be rechecked in 4-6 weeks. I called and discussed this with her PCP FRIEND OF THE COURT Deidre Lovett. Labs (last 24 hrs) Laboratory Tests 11/29/17 03:32: White Blood Count 8.3, Red Blood Count 3.87L, Hemoglobin 12.1, Hematocrit 36, Mean Corpuscular Volume 92, Mean Corpuscular Hemoglobin 31, Mean Corpuscular Hemoglobin Concent 34, Red Cell Distribution Width 14.0, Platelet Count 202, Mean Platelet Volume 10.0, Neutrophils (%) (Auto) 54, Lymphocytes (%) (Auto) 40 , Monocytes (%) (Auto) 5, Eosinophils (%) (Auto) 1, Basophils (%) (Auto) 0, Neutrophils # (Auto) 4.5, Lymphocytes # (Auto) 3.3, Monocytes # (Auto) 0.4, Eosinophils # (Auto) 0.1, Basophils # (Auto) 0.0, Sodium Level 140, Potassium Level 3.7, Chloride Level 105, Carbon Dioxide Level 25, Anion Gap 10, Blood Urea Nitrogen 9, Creatinine 0.68, Estimat Glomerular Filtration Rate > 60, BUN/ Creatinine Ratio 13, Glucose Level 95, Calcium Level 7.6L, Phosphorus Level 3.4 , Magnesium Level 2.2, Total Bilirubin 0.3, Aspartate Amino Transf (AST/SGOT) 12 , Alanine Aminotransferase (ALT/SGPT) 14, Alkaline Phosphatase 61, Total Protein 6.3L, Albumin 3.5 Microbiology 11/27/17 MRSA Screen - Final, Complete MRSA not isolated Patient resulted labs reviewed. Pending Labs Laboratory Tests 11/29/17 03:32: White Blood Count 8.3, Red Blood Count 3.87, Hemoglobin 12.1, Hematocrit 36, Mean Corpuscular Volume 92, Mean Corpuscular Hemoglobin 31, Mean Corpuscular Hemoglobin Concent 34, Red Cell Distribution Width 14.0, Platelet Count 202, Mean Platelet Volume 10.0, Neutrophils (%) (Auto) 54, Lymphocytes (%) (Auto) 40 , Monocytes (%) (Auto) 5, Eosinophils (%) (Auto) 1, Basophils (%) (Auto) 0, Neutrophils # (Auto) 4.5, Lymphocytes # (Auto) 3.3, Monocytes # (Auto) 0.4, Eosinophils # (Auto) 0.1, Basophils # (Auto) 0.0, Sodium Level 140, Potassium Level 3.7, Chloride Level 105, Carbon Dioxide Level 25, Anion Gap 10, Blood Urea Nitrogen 9, Creatinine 0.68, Estimat Glomerular Filtration Rate > 60, BUN/ Creatinine Ratio 13, Glucose Level 95, Calcium Level 7.6, Phosphorus Level 3.4, Magnesium Level 2.2, Total Bilirubin 0.3, Aspartate Amino Transf (AST/SGOT) 12, Alanine Aminotransferase (ALT/SGPT) 14, Alkaline Phosphatase 61, Total Protein 6.3, Albumin 3.5 Imaging: Reviewed Imaging Report Discussion & Recommendations Discharge Planning: >30 minutes discharge planning Discharge Home Medications: Active Scripts Active Eliquis (Apixaban) 5 Mg Tablet 5 Mg PO BID Cardizem Cd (Diltiazem HCl) 120 Mg Cap.er.24h 120 Mg PO DAILY Reported Vitamin D3 (Cholecalciferol (Vitamin D3)) 50,000 Unit Capsule 50,000 Unit PO TU Alprazolam 0.25 Mg Tablet 0.25 Mg PO BID PRN Cyanocobalamin Injection (Cyanocobalamin) 1,000 Mcg/Ml Inj 1,000 Mcg IM MONTHLY Potassium Chloride 10 Meq Tablet.er 10 Meq PO DAILY Pantoprazole Sodium 40 Mg Tablet.dr 40 Mg PO DAILY Losartan Potassium 50 Mg Tablet 50 Mg PO DAILY Magnesium Oxide 400 Mg Tablet 400 Mg PO DAILY Levothyroxine Sodium 137 Mcg Tablet 137 Mcg PO DAILY Instructions to patient/family Please see electronic discharge instructions given to patient. Clinical Quality Measures DVT/VTE Risk/Contraindication: Risk Factor Score Per Nursin RFS Level Per Nursing on Admit: 2=Moderate Copy Copies To 1: PASCUAL LOVETT DO Problem Qualifiers (1) Hypothyroidism: Hypothyroidism type: acquired Qualified Codes: E03.9 - Hypothyroidism, unspecified LASHONDA YU MD Nov 29, 2017 07:37
--- NOTE | 2017-11-29 07:41 | Discharge Inst-Simple/Standard ---
Discharge Inst-Standard Discharge Medications New, Converted or Re-Newed RX: Transmitted to Pharmacy Patient Instructions/Follow Up Plan of Care/Instructions/FU: Plesae continue to take your medications as written. Please follow up as instructed. Activity as Tolerated: Yes Discharge Diet: Cardiac Diet Return to The Hospital For: SOB, Chest pain, syncope, palpitations, if you feel you are getting worse. LASHONDA YU MD Nov 29, 2017 07:41
--- NOTE | 2017-11-29 08:36 | Progress Note-Cardiology ---
Cardiology SOAP Progress Note Subjective: No cp or palp or syncope or discomfort at site or pacemaker insertion. Feels well and wishes to go home Objective: I&O/Vital Signs 11/28/17 11/28/17 11/29/17 11/29/17 21:00 23:00 00:00 01:00 Pulse 60 60 60 B/P (MAP) 112/104 (107) 127/59 (81) 99/49 (66) Pulse Ox 93 94 88 O2 Delivery Room Air Room Air Nasal Cannula Room Air 11/29/17 11/29/17 11/29/17 11/29/17 01:00 02:00 03:00 04:00 Pulse 60 60 60 B/P (MAP) 88/59 (69) 100/51 (67) Pulse Ox 93 94 O2 Delivery Nasal Cannula Nasal Cannula Nasal Cannula O2 Flow Rate 3.00 3.00 11/29/17 11/29/17 11/29/17 11/29/17 04:00 05:00 06:00 07:00 Pulse 60 60 60 60 B/P (MAP) 107/53 (71) 117/55 (75) 116/56 (76) O2 Delivery Nasal Cannula Nasal Cannula Nasal Cannula O2 Flow Rate 3.00 3.00 3.00 11/29/17 00:00 Intake Total 1900 ml Output Total 950 ml Balance 950 ml Weight (Pounds): 232 Weight (Ounces): 2.0 Weight (Calculated Kilograms): 105.959477 Device Insertion Site: without hematoma, no signs of inflammation, other ( moderate bruising) Constitutional: appears stated age, AAO x 3; No apparent distress; well- developed, well-nourished Respiratory: chest is bilaterally symmetric, lungs clear to auscultation Cardiovascular: regular rate-rhythm, S1 and S2, systolic murmur (soft NUNU at card base) Gastrointestional: No tender; soft; No guarding, No rebound; audible bowel sounds Extremities: No clubbing, No cyanosis, No significant edema Neurologic/Psychiatric: oriented x 3, grossly intact Skin: No cool, No diaphoresis, No rash, No ulcerations Results/Procedures: Labs Laboratory Tests 11/29/17 03:32: White Blood Count 8.3, Red Blood Count 3.87L, Hemoglobin 12.1, Hematocrit 36, Mean Corpuscular Volume 92, Mean Corpuscular Hemoglobin 31, Mean Corpuscular Hemoglobin Concent 34, Red Cell Distribution Width 14.0, Platelet Count 202, Mean Platelet Volume 10.0, Neutrophils (%) (Auto) 54, Lymphocytes (%) (Auto) 40 , Monocytes (%) (Auto) 5, Eosinophils (%) (Auto) 1, Basophils (%) (Auto) 0, Neutrophils # (Auto) 4.5, Lymphocytes # (Auto) 3.3, Monocytes # (Auto) 0.4, Eosinophils # (Auto) 0.1, Basophils # (Auto) 0.0, Sodium Level 140, Potassium Level 3.7, Chloride Level 105, Carbon Dioxide Level 25, Anion Gap 10, Blood Urea Nitrogen 9, Creatinine 0.68, Estimat Glomerular Filtration Rate > 60, BUN/ Creatinine Ratio 13, Glucose Level 95, Calcium Level 7.6L, Phosphorus Level 3.4 , Magnesium Level 2.2, Total Bilirubin 0.3, Aspartate Amino Transf (AST/SGOT) 12 , Alanine Aminotransferase (ALT/SGPT) 14, Alkaline Phosphatase 61, Total Protein 6.3L, Albumin 3.5 Microbiology 11/27/17 MRSA Screen - Final, Complete MRSA not isolated Laboratory Tests 11/28/17 03:20 11/29/17 03:32 A/P: Assessment: Syncope, witnessed asystole in the ER with loss of consciousness- likely secondary to severe sinus node dysfunction. Dual chamber Biotronik pacemaker implanted by Dr Joiner on 11/28/17 Echocardiogram shows normal LV function. PAF. Apixaban for stroke prophylaxis Hypothyroidism, mildly elevated TSH. Continue outpatient therapy. Hypertension, being treated Plan: * I reviewed her records, spoke with her and examined her * I discussed her case with Mar Cantu and Hilary in person, and with Dr Joiner on the phone * Have given her pacemaker care instructions and have advised outpat f/u with Dr Joiner * Pacemaker was interrogated this am and is functioning normally FELICIA HODGES MD FACP [facility] CCDS Nov 29, 2017 08:36
[2017-11-29] MEDS ORDERED: CEFU500T63 PO (08:57)
--- NOTE | 2017-11-29 09:23 | Diagnostic Imaging Report ---
INDICATION: Atrial fibrillation, cardiac pacemaker. 11/28/2017. Single view of the chest demonstrates stable cardiac enlargement without overt pulmonary edema. There is no pneumothorax or effusion. The pacemaker is in good position. There is no pneumothorax. IMPRESSION: 1. Cardiac enlargement without pulmonary edema or infiltrate. 2. No pneumothorax. Dictated by: Dictated on workstation # [id number]
== END 2017-11-29 14:00 | disposition home or self-care (01) | DRG 242 ==
LOC: EDUNIT# 22:30 → ER 22:36 → ICU 11-27 00:50
PROVIDERS: ADMIT Internal Medicine; ATTEND Internal Medicine
PROC: 0JH606Z Insertion of Pacemaker, Dual Chamber into Chest Subcutaneous Tissue and Fascia, Open Approach (ICD-10-PCS; principal; 2017-11-28)
PROC: 02H63JZ Insertion of Pacemaker Lead into Right Atrium, Percutaneous Approach (ICD-10-PCS; 2017-11-28)
PROC: 02HK3JZ Insertion of Pacemaker Lead into Right Ventricle, Percutaneous Approach (ICD-10-PCS; 2017-11-28)
DX: I49.5 Sick sinus syndrome (principal); I46.9 Cardiac arrest, cause unspecified; I48.0 Paroxysmal atrial fibrillation; S00.03XA Contusion of scalp, initial encounter; R00.1 Bradycardia, unspecified; E89.0 Postprocedural hypothyroidism; K21.9 Gastro-esophageal reflux disease without esophagitis; M81.0 Age-related osteoporosis without current pathological fracture; Z96.653 Presence of artificial knee joint, bilateral; W18.12XA Fall from or off toilet with subsequent striking against object, initial encounter; I10 Essential (primary) hypertension; Y92.012 Bathroom of single-family (private) house as the place of occurrence of the external cause; Z87.891 Personal history of nicotine dependence
CPT/HCPCS: 33208; 36415; 70450; 71045; 72125; 73630; 80048; 80053; 81000; 83735; 84100; 84439; 84443; 84484; 85025; 87081; 93005; 93041; 93306; 94762; 96361; 96372; 96374

== ENCOUNTER 2017-12-12 09:30 | Outpatient (CLI) | payer MEDICARE ==
[~2017-12-12 09:30] MED LIST changes: +ALPR0.254 PO; +APIX5TAB PO; +CEFU500T63 PO; +CHOL500049 PO; +CNC1KV IM; +DILT120C82 PO; +LOSA50TA36 PO; +MAGN400T6 PO; +PANT40TA3 PO; +POTA10TA10 PO
== END 2017-12-12 10:15 | disposition home or self-care (01) ==
LOC: SLEEP 09:30
PROVIDERS: ATTEND Internal Medicine
DX: G47.33 Obstructive sleep apnea (adult) (pediatric) (principal); G47.10 Hypersomnia, unspecified; I49.5 Sick sinus syndrome; Z95.0 Presence of cardiac pacemaker

== ENCOUNTER 2017-12-25 20:57 | Outpatient (CLI) | payer MEDICARE | END 2017-12-26 06:40 | disposition home or self-care (01) | LOC: SLEEP 20:57 | PROVIDERS: ATTEND Otolaryngology Otolaryngology/Facial Plastic Surgery | DX: G47.33 Obstructive sleep apnea (adult) (pediatric) (principal); R09.02 Hypoxemia | CPT/HCPCS: 95811 ==

== ENCOUNTER 2018-02-04 08:52 | Emergency (ER) | payer MEDICARE ==
[~2018-02-04] VITALS: Ht 167.6 cm; Wt 103.4 kg
[~2018-02-04 08:52] MED LIST changes: -LOSA50TA36 PO; +LOSA50TA7 PO
--- NOTE | 2018-02-04 09:51 | ED Cardiac General ---
History of Present Illness General Chief Complaint: General Problems/Pain Stated Complaint: WEAKNESS Nursing Triage Note: ROUGHLY ONE HOUR AGO THE PT BEGAN TO EXPERIENCE WEAKNESS AND FELT LIKE SHE MAY PASS OUT, PT HAD A PACE MAKER INSTALLED THE November AND STATES HER SYMPTOMS FEEL SIMILAR TO HER BOUTS OF A FIB. 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 DENIES FALLING OR LOSS OF CONSCIOUSNESS. Source: patient, spouse Exam Limitations: no limitations History of Present Illness Date Seen by Provider: Feb 04, 2018 Time Seen by Provider: 09:25 Initial Comments The patient presents to the ER by private conveyance with chief complaint that she was cleaning her house this morning and she had a spell where she felt kind of weak and lightheaded. She says she had one these episodes back in November and she had a syncopal episode and ended up falling face first bruising or face. This resulted in her getting a pacemaker placed. He concerned her given that she did not feel her pacemaker kicking. She called the nurse of her director independent Dr. Joiner and talked about it and they said that if she wanted checked out of the ER she could but she was probably fine. Patient does have some baseline anxiety. It lasted about an hour and she still having a little bit of weakness and tingling in her upper extremities. She's never had a heart attack and she's not having any chest pain or pressure. She's having no nausea or sweats like she had before. She thinks that maybe she is just scared of the recent episode that resulted in her syncope and that made this worse. He is not having any fevers chills shortness of breath cough, nausea, vomiting, sweats, diarrhea or constipation. She does not have hypertension, smoking, cholesterol problems but she does have borderline diabetes on Tradjenta. She took all of her medicines just prior to the episode occurring. Allergies and Home Medications Allergies Coded Allergies: promethazine (Verified Allergy, Unknown, 01/01/06) Home Medications Alprazolam 0.25 Mg Tablet, 0.25 MG PO BID PRN for ANXIETY, (Reported) Apixaban 5 Mg Tablet, 5 MG PO BID Prescribed by: LASHONDA YU on 11/29/17 0724 Cefuroxime Axetil 500 Mg Tablet, 500 MG PO BID Prescribed by: JOEL CASAREZ on 11/29/17 0857 Cholecalciferol (Vitamin D3) 50,000 Unit Capsule, 50,000 UNIT PO Tu, (Reported) Cyanocobalamin 1,000 Mcg/Ml Inj, 1,000 MCG IM MONTHLY, (Reported) Diltiazem HCl 120 Mg Cap.er.24h, 120 MG PO DAILY Prescribed by: LASHONDA YU on 11/29/17 0724 Levothyroxine Sodium 137 Mcg Tablet, 137 MCG PO DAILY, (Reported) Magnesium Oxide 400 Mg Tablet, 400 MG PO DAILY, (Reported) Patient Home Medication List Home Medication List Reviewed: Yes Review of Systems Review of Systems Constitutional: No chills, No diaphoresis; malaise, weakness EENTM: No Blurred Vision, No Double Vision Respiratory: Denies Cough, Denies Orthopnea Cardiovascular: Denies Chest Pain, Denies Edema, Denies Irregular Heart Rate; Lightheadedness; Denies Palpitations, Denies Syncope Gastrointestinal: Denies Abdomen Distended, Denies Abdominal Pain, Denies Constipated, Denies Diarrhea Genitourinary: Denies Burning, Denies Discharge Musculoskeletal: No back pain, No joint pain Skin: No dryness, No pruritus, No rash Psychiatric/Neurological: Anxiety; Denies Headache, Denies Numbness; Paresthesia Past Djapyai-Dvltfh-Tzkjqj Hx Patient Social History Alcohol Use: Denies Use Alcohol Beverage of Choice: Wine Recreational Drug Use: No Smoking Status: Former Smoker Type Used: Cigarettes Former Smoker, Quit: Nov 27, 1972 Recent Foreign Travel: No Contact w/Someone Who Travel: No Recent Infectious Disease Expo: No Recent Hopitalizations: No Immunizations Up To Date Date of Pneumonia Vaccine: Nov 27, 2013 Seasonal Allergies Seasonal Allergies: Yes Past Medical History Surgeries: Yes (hemorrhoidectomy) Abdominal, Joint Replacement, Orthopedic, Thyroidectomy Respiratory: No Cardiac: Yes Atrial Fibrillation, Hypertension Neurological: No : No 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 Disorders: No VALIDATION ARCHITECT History: Hysterectomy, Menopausal Genitourinary: Yes Bladder Infection Gastrointestinal: Yes Gastroesophageal Reflux, Hartman's Esophagus Musculoskeletal: Yes Osteoporosis, Arthritis Endocrine: Yes Hypothyroidsim HEENT: Yes Cataract Cancer: Yes Skin, Thyroid Did You Recieve Any Treatments: Yes What Type of Treatment Did You: Surgical Intervention Psychosocial: No Integumentary: No Blood Disorders: No Adverse Reaction/Blood Tranf: No Family Medical History Abdominal aortic aneurysm 19 MOTHER G8 BROTHER Alzheimer's disease G8 SISTER Arthritis G8 SISTER Cardiovascular disease 19 MOTHER FH: lung cancer 19 FATHER FH: ovarian cancer G8 SISTER Hypertension G8 SISTER Prostate cancer G8 BROTHER Psychosocial problem Thyroid disease G8 SISTER No Family History of: AIDS Frontenac's disease Alcoholism Colon cancer Completed stroke Dementia Diabetes mellitus Drug abuse Myocardial infarction Parkinson's disease Respiratory disorder Seizure disorder Severe allergy Physical Exam Vital Signs Vital Signs - First Documented 02/04/18 09:07 Temp 98.2 Pulse 62 Resp 20 B/P (MAP) 141/54 (83) Pulse Ox 94 O2 Delivery Room Air Capillary Refill : Less Than 3 Seconds Height, Weight, BMI Height: 5'6.00" Weight: 228lbs. 2.0oz. 103.959763jk; 36.5 BMI Method:Stated General Appearance: No Apparent Distress, WD/WN, Anxious HEENT: PERRL/EOMI, Pharynx Normal, Moist Mucous Membranes Neck: Full Range of Motion, Normal Inspection, Non Tender Respiratory: Chest Non Tender, Lungs Clear, Normal Breath Sounds, No Accessory Muscle Use, No Respiratory Distress Cardiovascular: Regular Rate, Rhythm, No Edema, No Murmur, Normal Peripheral Pulses Gastrointestinal: Non Tender, Soft Extremity: Normal Capillary Refill, Normal Inspection, Non Tender, No Calf Tenderness Neurologic/Psychiatric: Alert, Oriented x3 Skin: Normal Color, Warm/Dry Progress/Results/Core Measures Results/Orders My Orders Orders - FIDEL CONTRERAS Troponin I (02/04/18 09:41) Ekg Tracing (02/04/18 09:41) Monitor-Rhythm Ecg Trace Only (02/04/18 09:41) Accucheck Stat ONCE (02/04/18 09:41) Cbc With Automated Diff (02/04/18 09:41) Comprehensive Metabolic Panel (02/04/18 09:41) Vital Signs/I&O 02/04/18 09:07 Temp 98.2 Pulse 62 Resp 20 B/P (MAP) 141/54 (83) Pulse Ox 94 O2 Delivery Room Air Blood Pressure Mean: 83 Progress Progress Note #1: Time: 09:53 Progress Note Anxiety versus?. She is in a sinus rhythm on the monitor and on EKG. We will just check some basic labs looking for trouble give her a chance to just rest. Her symptoms improved. She's not having any pain in her neck to suggest why she is having the paresthesias other than an anxiety attack probably based on her ear of another syncopal event that was apparently quite traumatic for her. Progress Note #2: Time: 10:10 Progress Note Patient asked me back to the room and says that she thinks is more just her anxiety and her heart. Her symptoms have resolved. We discussed how her pacemaker works and how we'll keep her from getting too low but if she is still feeling low and having some problems with her heart she should follow-up in the next 1-[address] Joiner outpatient. She agrees to do this. She says she's been a ghost from here straight to go see Dr. Lovett who will do her labs. We are going to let her leave. Blood sugar was 79. She is declining any further laboratory workup. We discussed that I cannot rule out coronary issues without blood work and she accepts this. Initial ECG Impression Date: Feb 04, 2018 Initial ECG Impression Time: 09:29 Initial ECG Rate: 60 Initial ECG Rhythm: Normal Sinus Initial ECG Intervals: Normal Initial ECG Impression: Normal Initial ECG Comparisson: Unchanged Comment No ST elevation or depression. Atrial paced rhythm. Departure Impression Primary Impression: Malaise and fatigue Disposition: 01 HOME, SELF-CARE Condition: Stable Departure-Patient Inst. Decision time for Depature: 10:11 Referrals: PASCUAL LOVETT DO (PCP) Primary Care Physician JUWAN LOVETT DNP (Family) Primary Care Physician Josiane JOINER MD Patient Instructions: Pacemakers Add. Discharge Instructions: Please follow-up with your director independent in the next 1-2 days. If you're weakness and malaise returns or you have chest pain nausea or shortness of breath then you should return to the ER. You can also get a glucometer and check your blood sugar and see if it's below 70. If it is then get something to eat and present to the ER. Please follow-up with your primary care provider. All discharge instructions reviewed with patient and/or family. Voiced understanding. Copy Copies To 1: Josiane JOINER MD; PASCUAL LOVETT TITUS J Feb 04, 2018 09:51
[2018-02-04 11:03] VITALS: BP 141/54
== END 2018-02-04 11:03 | disposition home or self-care (01) ==
LOC: EDUNIT# 08:52 → ER 08:53
DX: R53.81 Other malaise (principal); R53.83 Other fatigue; I48.91 Unspecified atrial fibrillation; I10 Essential (primary) hypertension; M81.0 Age-related osteoporosis without current pathological fracture; E03.9 Hypothyroidism, unspecified; K21.9 Gastro-esophageal reflux disease without esophagitis; Z90.710 Acquired absence of both cervix and uterus; Z87.448 Personal history of other diseases of urinary system; Z85.828 Personal history of other malignant neoplasm of skin; Z85.850 Personal history of malignant neoplasm of thyroid; Z82.49 Family history of ischemic heart disease and other diseases of the circulatory system; Z80.1 Family history of malignant neoplasm of trachea, bronchus and lung; Z80.41 Family history of malignant neoplasm of ovary; Z87.19 Personal history of other diseases of the digestive system; Z88.8 Allergy status to other drugs, medicaments and biological substances; Z79.01 Long term (current) use of anticoagulants; Z95.0 Presence of cardiac pacemaker; Z87.891 Personal history of nicotine dependence; Z90.89 Acquired absence of other organs
CPT/HCPCS: 82962; 93005; 93041

== ENCOUNTER → 2018-03-20 | Outpatient (CLI) | payer MEDICARE ==
--- NOTE | 2018-03-20 14:06 | Diagnostic Imaging Report ---
INDICATION: Left hip pain. COMPARISON: None. FINDINGS: Two views of the left hip show no fractures, dislocations, or other acute bony abnormalities identified. Joint spaces are well maintained throughout. The soft tissues appear unremarkable. No radiopaque foreign bodies are identified. IMPRESSION: Unremarkable radiographic exam of the left hip. Dictated by: Dictated on workstation # [id number]
== END ==
LOC: RAD 12:26
PROVIDERS: ATTEND Nurse Practitioner Family
DX: M25.552 Pain in left hip (principal)
CPT/HCPCS: 73502

== ENCOUNTER 2018-06-04 12:19 | Emergency (ER) | payer MEDICARE ==
[~2018-06-04] VITALS: Ht 170.2 cm; Wt 107.1 kg
--- NOTE | 2018-06-04 12:30 | NUR ---
SEE LIST FOR CURRENT MEDS
[2018-06-04] MEDS ORDERED: ORPHENADRINE 60 MG/2 ML (NORFLEX) AMP IM ONE (12:45)
--- NOTE | 2018-06-04 13:27 | Diagnostic Imaging Report ---
INDICATION: Pain. TIME OF EXAM: 1:39 p.m. COMPARISON: Comparison is made with prior chest from 11/29/2017. FINDINGS: Heart size is stable. Cardiac pacemaker remains in place. The lungs are clear. No infiltrates are seen. No effusion or pneumothorax is identified. There appears to be a moderate-sized hiatal hernia. IMPRESSION: No acute cardiopulmonary process is detected. Dictated by: Dictated on workstation # [id number]
--- NOTE | 2018-06-04 13:28 | Diagnostic Imaging Report ---
PROCEDURE: CT head and CT cervical spine without contrast. TECHNIQUE: Multiple contiguous axial images were obtained through the brain and cervical spine without the use of intravenous contrast. Sagittal and coronal reformations through the cervical spine were then performed. INDICATION: Head injury with left-sided headache and left-sided neck pain. COMPARISON: Comparison is made with prior CT from 11/26/2017. FINDINGS: CT head: The ventricles and sulci are stable in appearance. No sulcal effacement, midline shift or hemorrhage is detected. Cisterns are patent. Visualized paranasal sinuses are clear. IMPRESSION: No acute intracranial process is detected. CT cervical spine: There is straightening of the normal cervical lordotic curvature. There is degenerative disc disease at C4-C5, C5-C6 and C6-C7 levels with disc space narrowing and marginal spurring. No fracture or subluxation is seen. The prevertebral tissues are within normal limits. The odontoid appears intact. IMPRESSION: Cervical spondylosis. No acute bony abnormality is identified. Dictated by: Dictated on workstation # [id number]
[2018-06-04] MEDS ORDERED: CYCL10TA9 PO (13:56)
--- NOTE | 2018-06-04 13:56 | ED Neck-Back Pain/Injury ---
General Chief Complaint: Trauma-Non Activation Stated Complaint: WANTS PACEMAKER CHECKED Nursing Triage Note: PT CO OF HITTING HEAD AND NECK HARD APPROX 2 WEEKS AGO, CURRENTLY HAS HEAD AND NECK PAIN RATES 6/10 AT THIS X. 10/10 LAST PM. DENIES LOC Nursing Sepsis Screen: No Definite Risk Source of Information: Patient Exam Limitations: No Limitations History of Present Illness Date Seen by Provider: Jun 04, 2018 Time Seen by Provider: 12:30 Initial Comments 72-year-old female who presents to the emergency room with complaints of head and neck pain after striking her head while getting into the her vehicle 2 weeks ago. She has had increasing pain over the past 2 weeks as causing the pain to radiate down into her neck. She reports pain with movement of neck. She' s also had a pacemaker put in over the summer and has an appointment on Friday of next week to have her pacemaker checked. Location: C-Spine Timing/Duration: Other Severity: Moderate (2 weeks) Pain/Injury Location: Head, Neck Associated Symptoms: denies symptoms Allergies and Home Medications Allergies Coded Allergies: promethazine (Verified Allergy, Unknown, 01/01/06) Home Medications Alprazolam 0.25 Mg Tablet, 0.25 MG PO BID PRN for ANXIETY, (Reported) Apixaban 5 Mg Tablet, 5 MG PO BID Prescribed by: LASHONDA YU on 11/29/17723 Cefuroxime Axetil 500 Mg Tablet, 500 MG PO BID Prescribed by: JOEL CASAREZ on 11/29/17 0857 Cholecalciferol (Vitamin D3) 50,000 Unit Capsule, 50,000 UNIT PO Tu, (Reported) Cyanocobalamin 1,000 Mcg/Ml Inj, 1,000 MCG IM MONTHLY, (Reported) Cyclobenzaprine HCl 10 Mg Tablet, 10 MG PO Q8H PRN for SPASMS Prescribed by: FERNY ROMAN on 06/04/18 1356 Diltiazem HCl 120 Mg Cap.er.24h, 120 MG PO DAILY Prescribed by: LASHONDA YU on 11/29/17723 Levothyroxine Sodium 137 Mcg Tablet, 137 MCG PO DAILY, (Reported) Magnesium Oxide 400 Mg Tablet, 400 MG PO DAILY, (Reported) Patient Home Medication List Home Medication List Reviewed: Yes Review of Systems Constitutional: no symptoms reported, see HPI Musculoskeletal: see HPI, neck pain Psychiatric/Neurological: See HPI, Headache All Other Systems Reviewed Negative Unless Noted: Yes Past Oybdcaa-Aotvvc-Qucvfy Hx Past Med/Social Hx: Reviewed Nursing Past Med/Soc Hx Patient Social History Alcohol Use: Denies Use Number of Drinks Today: Alcohol Beverage of Choice: Wine Recreational Drug Use: No Smoking Status: Former Smoker Type Used: Cigarettes Former Smoker, Quit: Nov 27, 1972 Recent Foreign Travel: No Contact w/Someone Who Travel: No Recent Infectious Disease Expo: No Recent Hopitalizations: No Immunizations Up To Date Date of Pneumonia Vaccine: Nov 27, 2013 Seasonal Allergies Seasonal Allergies: Yes Past Medical History Surgeries: Yes (hemorrhoidectomy) Abdominal, Joint Replacement, Orthopedic, Thyroidectomy Respiratory: No Cardiac: Yes Atrial Fibrillation, Hypertension Neurological: No 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 Disorders: 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, 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 Genitourinary: Yes Bladder Infection Gastrointestinal: Yes Gastroesophageal Reflux, Hartman's Esophagus Musculoskeletal: Yes Osteoporosis, Arthritis Endocrine: Yes Hypothyroidsim HEENT: Yes Cataract Cancer: Yes Skin, Thyroid Did You Recieve Any Treatments: Yes What Type of Treatment Did You: Surgical Intervention Psychosocial: No Integumentary: No Blood Disorders: No Adverse Reaction/Blood Tranf: No Family Medical History Reviewed Nursing Family Hx Abdominal aortic aneurysm 19 MOTHER G8 BROTHER Alzheimer's disease G8 SISTER Arthritis G8 SISTER Cardiovascular disease 19 MOTHER FH: lung cancer 19 FATHER FH: ovarian cancer G8 SISTER Hypertension G8 SISTER Prostate cancer G8 BROTHER Psychosocial problem Thyroid disease G8 SISTER No Family History of: AIDS Kittson's disease Alcoholism Colon cancer Completed stroke Dementia Diabetes mellitus Drug abuse Myocardial infarction Parkinson's disease Respiratory disorder Seizure disorder Severe allergy Physical Exam Vital Signs Vital Signs - First Documented 06/04/18 12:25 Temp 97.9 Pulse 68 Resp 18 B/P (MAP) 131/69 (89) Pulse Ox 92 Capillary Refill : Less Than 3 Seconds Height, Weight, BMI Height: 5'7.00" Weight: 236lbs. 2.0oz. 107.380045ez; 36.5 BMI Method:Stated General Appearance: No Apparent Distress, WD/WN HEENT: PERRL/EOMI, TMs Normal, Normal ENT Inspection, Pharynx Normal Neck: Supple, Limited Range of Motion, Tender Midline Cardiovascular: Regular Rate, Rhythm, No Edema, No Gallop, No JVD, No Murmur, Normal Peripheral Pulses Respiratory: Chest Non Tender, Lungs Clear, Normal Breath Sounds, No Accessory Muscle Use, No Respiratory Distress, Accessory Muscle Use Gastrointestinal: Normal Bowel Sounds, No Organomegaly, No Pulsatile Mass, Non Tender, Soft Extremity: Normal Capillary Refill Neurologic/Psychiatric: Alert, Oriented x3, Normal Mood/Affect Skin: Normal Color, Warm/Dry Progress/Results/Core Measures Results/Orders My Orders Orders - FERNY ROMAN Ct Head/Cervical Spine Wo (06/04/18 12:34) Orphenadrine Injection (Norflex Injectio (06/04/18 12:45) Chest Pa/Lat (2 View) (06/04/18 12:41) Medications Given in ED Vital Signs/I&O 06/04/18 06/04/18 12:25 13:58 Temp 97.9 Pulse 68 68 Resp 18 18 B/P (MAP) 131/69 (89) 131/69 (89) Pulse Ox 92 92 Blood Pressure Mean: 89 Progress Progress Note : Time: 13:54 Progress Note I have seen and evaluated the patient. I've informed her of her imaging studies. Her pain has resolved after medication administration. EKG and chest x- ray was reviewed. She agrees with plan of care, plans for discharge, return precautions were given. Initial ECG Impression Date: Jun 04, 2018 Initial ECG Impression Time: 12:30 Initial ECG Rate: 71 Initial ECG Rhythm: Normal Sinus Initial ECG Intervals: Normal Initial ECG Impression: Normal Initial ECG Comparisson: Unchanged Diagnostic Imaging Diagonstic Imaging: Xray, CT Plain Films/CT/US/NM/MRI: chest, c-spine, head Comments NAME[facility] REC#: [id number] PT STATUS: DEP ER : 1945 PHYSICIAN: FERNY ROMAN ADMIT DATE: 06/04/18/ER Signed Date of Exam: 06/04/18 CHEST PA/LAT (2 VIEW) INDICATION: Pain. TIME OF EXAM: 1:39 p.m. COMPARISON: Comparison is made with prior chest from 11/29/2017. FINDINGS: Heart size is stable. Cardiac pacemaker remains in place. The lungs are clear. No infiltrates are seen. No effusion or pneumothorax is identified. There appears to be a moderate-sized hiatal hernia. IMPRESSION: No acute cardiopulmonary process is detected. Dictated by: Dictated on workstation # [id number] Dict: 06/04/18 1324 Trans: 06/04/18 155 Interpreted by: PRISCILA JOHNSON MD Electronically signed by: PRISCILA JOHNSON MD 06/04/18 1557 NAME: ERICKSON B[facility] REC#: [id number] PT STATUS: DEP ER : 1945 PHYSICIAN: FERNY ROMAN ADMIT DATE: 06/04/18/ER Signed Date of Exam: 06/04/18 CT HEAD/CERVICAL SPINE WO PROCEDURE: CT head and CT cervical spine without contrast. TECHNIQUE: Multiple contiguous axial images were obtained through the brain and cervical spine without the use of intravenous contrast. Sagittal and coronal reformations through the cervical spine were then performed. INDICATION: Head injury with left-sided headache and left-sided neck pain. COMPARISON: Comparison is made with prior CT from 11/26/2017. FINDINGS: CT head: The ventricles and sulci are stable in appearance. No sulcal effacement, midline shift or hemorrhage is detected. Cisterns are patent. Visualized paranasal sinuses are clear. IMPRESSION: No acute intracranial process is detected. CT cervical spine: There is straightening of the normal cervical lordotic curvature. There is degenerative disc disease at C4-C5, C5-C6 and C6-C7 levels with disc space narrowing and marginal spurring. No fracture or subluxation is seen. The prevertebral tissues are within normal limits. The odontoid appears intact. IMPRESSION: Cervical spondylosis. No acute bony abnormality is identified. Dictated by: Dictated on workstation # [id number] Dict: 06/04/18 1318 Trans: 06/04/18 155 Interpreted by: PRISCILA JOHNSON MD Electronically signed by: PRISCILA JOHNSON MD 06/04/181555 Reviewed: Reviewed by Me Departure Impression Primary Impression: Sprain of cervical neck Disposition: HOME, SELF-CARE Condition: Stable/Unchanged Departure-Patient Inst. Decision time for Depature: 13:54 Referrals: PASCUAL LOVETT DO (PCP) Primary Care Physician JUWAN LOVETT DNP (Family) Primary Care Physician Patient Instructions: Neck Sprain (DC) Add. Discharge Instructions: Take medications as directed. You may use Tylenol and ibuprofen as directed by the bottle for pain relief. Alternate ice and heat at 20 minute intervals. Follow-up with Dr. Lovett within 1 week for recheck. Return back to the emergency room for any worsening symptoms or concerns as needed. All discharge instructions reviewed with patient and/or family. Voiced understanding. Scripts Cyclobenzaprine HCl (Cyclobenzaprine HCl) 10 Mg Tablet 10 MG PO Q8H PRN for SPASMS, #14 TAB Prov: FERNY ROMAN 06/04/18 FERNY ROMAN Jun 04, 2018 13:56
[2018-06-04 13:58] VITALS: BP 131/69
== END 2018-06-04 14:04 | disposition home or self-care (01) ==
LOC: EDUNIT# 12:19 → ER 12:20
DX: S13.4XXA Sprain of ligaments of cervical spine, initial encounter (principal); I48.91 Unspecified atrial fibrillation; I10 Essential (primary) hypertension; K21.9 Gastro-esophageal reflux disease without esophagitis; M81.0 Age-related osteoporosis without current pathological fracture; K22.719 Barrett's esophagus with dysplasia, unspecified; E03.9 Hypothyroidism, unspecified; Z85.828 Personal history of other malignant neoplasm of skin; Z85.850 Personal history of malignant neoplasm of thyroid; Z80.1 Family history of malignant neoplasm of trachea, bronchus and lung; Z80.49 Family history of malignant neoplasm of other genital organs; Z87.19 Personal history of other diseases of the digestive system; Z79.01 Long term (current) use of anticoagulants; Z95.0 Presence of cardiac pacemaker; Z87.891 Personal history of nicotine dependence; Z98.890 Other specified postprocedural states; W22.09XA Striking against other stationary object, initial encounter
CPT/HCPCS: 70450; 71046; 72125

== ENCOUNTER → 2018-08-31 | Outpatient (CLI) | payer MEDICARE ==
[~2018-08-31] MED LIST changes: +CYCL10TA9 PO; +LOSA50TA63 PO; -LOSA50TA7 PO
--- NOTE | 2018-08-31 15:39 | Diagnostic Imaging Report ---
PROCEDURE: CT lumbar spine without contrast. TECHNIQUE: Multiple contiguous axial images were obtained through the lumbar spine without the use of intravenous contrast. Sagittal and coronal reformations were then performed. Auto Exposure Controls were utilized during the CT exam to meet ALARA standards for radiation dose reduction. INDICATION: Low back pain and left hip pain. FINDINGS: There is S-shaped scoliotic curvature to the lumbar spine, convex to the right in the upper portion and convex to the left in the lower portion. There is normal lordotic curvature. There is minimal retrolisthesis of L1 on L2, L2 on L3, and L5 on S1. Multilevel degenerative disc disease is seen. There is near-complete loss of the disc space at all levels. There is marginal osteophyte formation present. Vacuum disc phenomenon at all levels is also noted. No acute bony abnormality is detected. The aorta is calcified but nonaneurysmal. There is sclerosis of the left SI joint suggestive of sacroiliitis. IMPRESSION: 1. Lumbar scoliosis and spondylosis. No acute bony abnormality is detected. 2. Sclerosis of the left SI joint suggestive of sacroiliitis. Dictated by: Dictated on workstation # [id number]
== END ==
LOC: RAD 13:39
PROVIDERS: ATTEND Nurse Practitioner Family
DX: M47.816 Spondylosis without myelopathy or radiculopathy, lumbar region (principal); M41.86 Other forms of scoliosis, lumbar region; M70.72 Other bursitis of hip, left hip; M53.3 Sacrococcygeal disorders, not elsewhere classified
CPT/HCPCS: 72131

== ENCOUNTER 2018-09-17 19:29 | Outpatient (CLI) | payer MEDICARE | END 2018-09-18 06:20 | disposition home or self-care (01) | LOC: SLEEP 19:29 | PROVIDERS: ATTEND Nurse Practitioner | DX: G47.33 Obstructive sleep apnea (adult) (pediatric) (principal); G47.31 Primary central sleep apnea; R09.02 Hypoxemia; G47.10 Hypersomnia, unspecified; I48.91 Unspecified atrial fibrillation | CPT/HCPCS: 95811 ==

== ENCOUNTER 2018-09-21 19:29 | Outpatient (CLI) | payer MEDICARE | END 2018-09-22 06:26 | disposition home or self-care (01) | LOC: SLEEP 19:29 | PROVIDERS: ATTEND Nurse Practitioner | DX: G47.33 Obstructive sleep apnea (adult) (pediatric) (principal); G47.10 Hypersomnia, unspecified; R06.83 Snoring | CPT/HCPCS: 95811 ==

== ENCOUNTER → 2018-10-07 | Outpatient (CLI) | payer MEDICARE ==
--- NOTE | 2018-10-07 12:45 | Diagnostic Imaging Report ---
Thoracic spine 11:49 a.m. INDICATION: Back pain. TECHNIQUE: AP, lateral and swimmer's views were obtained. FINDINGS: The lateral view shows the vertebral body heights and alignment to be similar to the prior chest exam of 06/04/2018. There is no fracture or acute bony abnormality evident. There is moderate degenerative disc disease throughout most of the thoracic spine. There is no sign of a paraspinal mass. IMPRESSION: There is no evidence for an acute bony abnormality. Dictated by: Dictated on workstation # [id number]
--- NOTE | 2018-10-07 13:02 | Diagnostic Imaging Report ---
EXAMINATION: Left ribs at 11:50 p.m. INDICATION: Rib pain. FINDINGS: Three views were obtained. There is no evidence for a displaced rib fracture. There is no sign of an injury to the underlying left lung either. When compared to the prior chest exam of 06/04/2018, there has been no significant change. IMPRESSION: There is no evidence for an acute bony abnormality. Dictated by: Dictated on workstation # [id number]
== END ==
LOC: RAD 11:24
PROVIDERS: ATTEND Internal Medicine
DX: R07.81 Pleurodynia (principal); M54.6 Pain in thoracic spine
CPT/HCPCS: 71100; 72072

== ENCOUNTER 2018-10-08 21:41 | Emergency (ER) | payer MEDICARE ==
[~2018-10-08] VITALS: Ht 170.2 cm; Wt 107.1 kg
[2018-10-08] MEDS: KETOROLAC 30 MG/ML VIAL IVP ONE ×2 (22:26→22:28)
[2018-10-08 22:27] LABS: BASOPHILS % (AUTO) 0 % (0-10); EOSINOPHILS # (AUTO) 0.1 10^3/uL (0.0-0.3); EOSINOPHILS % (AUTO) 1 % (0-10); HEMATOCRIT 38 % (35-52); LYMPHOCYTES # (AUTO) 5.2 X 10^3 (1.0-4.0); LYMPHOCYTES % (AUTO) 47 % (12-44); MEAN CORPUSCULAR HEMOGLOBIN 31 PG (25-34); MEAN CORPUSCULAR HGB CONC 34 G/DL (32-36); MEAN CORPUSCULAR VOLUME 91 FL (80-99); MEAN PLATELET VOLUME 9.4 FL (7.4-10.4); MONOCYTES # (AUTO) 0.6 X 10^3 (0.0-1.0); MONOCYTES % (AUTO) 6 % (0-12); NEUTROPHILS % (AUTO) 45 % (42-75); PLATELET COUNT 252 10^3/uL (130-400); RED CELL DISTRIBUTION WIDTH 14.1 % (10.0-14.5)
[2018-10-08 22:40] LABS: PROTHROMBIN TIME PATIENT 13.9 SEC (12.2-14.7)
[2018-10-08 22:46] LABS: ALANINE AMINOTRANSFERASE 93 U/L (0-55); ALBUMIN 4.4 GM/DL (3.2-4.5); ALKALINE PHOSPHATASE 86 U/L (40-136); AMYLASE 55 U/L (25-125); BILIRUBIN,TOTAL 0.3 MG/DL (0.1-1.0); BUN/CREATININE RATIO 22; CALCIUM 9.1 MG/DL (8.5-10.1); CARBON DIOXIDE 27 MMOL/L (21-32); CHLORIDE 104 MMOL/L (98-107); CREATINE KINASE 107 U/L (29-168); CREATININE SERUM 0.85 MG/DL (0.60-1.30); GFR ESTIMATED > 60; GLUCOSE 96 MG/DL (70-105); LIPASE 34 U/L (8-78); MAGNESIUM 2.5 MG/DL (1.8-2.4); POTASSIUM 4.5 MMOL/L (3.6-5.0); SODIUM 140 MMOL/L (135-145); TOTAL PROTEIN 7.4 GM/DL (6.4-8.2)
[2018-10-08] MEDS ORDERED: NS 250 ML (IVPB) BAG IV ONE (23:30)
[2018-10-08] MEDS ORDERED: HOLD METFORMIN - RECEIVED CONTRAST 20 ML VIAL IV SCH (23:30)
[2018-10-08] MEDS ORDERED: IOHEXOL 350 MG/ML 150 ML (OMNIPAQUE 350) VIAL IV ONE (23:30)
--- NOTE | 2018-10-08 23:33 | ED Back Pain ---
General Chief Complaint: Back Problems Stated Complaint: L SIDE PAIN Nursing Triage Note: PT AMB TO ROOM 10 A/0X3. C/O INTERMITTENT LEFT SIDED MIDDLE BACK PAIN THAT WRAPS AROUND TO SIDE OF ABDOMEN SINCE FRIDAY. PT DENIES SOB AT THIS TIME. PT STATES "I'M HOPING TO GET A CT SCAN TO RULE OUT BLOOD CLOT." Nursing Sepsis Screen: No Definite Risk Source of Information: Patient History of Present Illness Date Seen by Provider: October 08, 2018 Time Seen by Provider: 21:57 Initial Comments PT ARRIVES VIA POV FROM HOME STATS SHE WOKE UP ON FRIDAY WITH SEVERE PAIN TO LEFT POSTERIOR RIB AREA WENT TO [facility] ON FRIDAY AND IT WAS ALOT BETTER WOKE UP ON FRIDAY AND WAS FINE, THEN TURNED AND HAD SUDDEN SEVERE PAIN IN THE SAME AREA AGAIN WENT BACK TO [facility] OF FRIDAY AND IT WAS ALOT BETTER AGAIN YESTERDAY AFTER WAKING, SHE HAD THE SAME SEVERE PAIN SAW DR. ALARCON YESTERDAY AND HAD XRAYS DONE--STATES SHE WAS CONTACTED TODAY AND INFORMED THAT XRAYS WERE NORMAL. NO RX WAS GIVEN STATES PAIN HAS BEEN SEVERE TO TOUCH, TO TAKING A DEEP BREATH OR WITH CERTAIN MOVEMENTS HAS NOT TAKEN ANYTHING FOR PAIN AT ANY TIME, HAS NOT APPLIED HEAT OR ICE, ETC. STATES TODAY HER PAIN IS SIGNIFICANTLY BETTER AND IS NOT VERY BAD AT ALL TODAY STATES SHE CALLED HER NIECE, AND TOLD HER SHE NEEDED TO COME HERE TONIGHT "TO GET CHECKED FOR A BLOOD CLOT" "OR MAYBE SHINGLES" --PT DOES NOT HAVE A RASH PT TAKES ELIQUIS AND HAS A PACEMAKER PT DENIES ANY INJURY NO COUGH NO FEVER NO CHEST PAIN NO SHORTNESS OF BREATH AT THIS TIME, BUT STATES SHE IS ALWAYS A LITTLE SHORT OF BREATH NO PARESTHESIAS OR MOTOR DEFICITS NO ABDOMINAL PAIN NO NAUSEA/VOMITING NO URINARY SYMPTOMS PT HAS CHRONIC BACK PAIN AND HAD LUMBAR EPIDURAL STEROID INJECTION 1 WEEK AGO. NO PROBLEMS WITH THAT. Other Comments PCP: DR. ALARCON Allergies and Home Medications Allergies Coded Allergies: promethazine (Verified Allergy, Unknown, 01/01/06) Home Medications Alprazolam 0.25 Mg Tablet, 0.25 MG PO BID PRN for ANXIETY, (Reported) Apixaban 5 Mg Tablet, 5 MG PO BID Prescribed by: LASHONDA YU on 11/29/17 0724 Cefuroxime Axetil 500 Mg Tablet, 500 MG PO BID Prescribed by: JOEL CASAREZ on 11/29/17 0857 Cholecalciferol (Vitamin D3) 50,000 Unit Capsule, 50,000 UNIT PO Tu, (Reported) Cyanocobalamin 1,000 Mcg/Ml Inj, 1,000 MCG IM MONTHLY, (Reported) Cyclobenzaprine HCl 10 Mg Tablet, 10 MG PO Q8H PRN for SPASMS Prescribed by: FERNY ROMAN on 06/04/18 1356 Cyclobenzaprine HCl 10 Mg Tablet, 10 MG PO Q8H Prescribed by: JENNIFER BUCHANAN on 10/09/18 0007 Diltiazem HCl 120 Mg Cap.er.24h, 120 MG PO DAILY Prescribed by: LASHONDA YU on 11/29/17 0724 Levothyroxine Sodium 137 Mcg Tablet, 137 MCG PO DAILY, (Reported) Magnesium Oxide 400 Mg Tablet, 400 MG PO DAILY, (Reported) Patient Home Medication List Home Medication List Reviewed: Yes Review of Systems Constitutional: no symptoms reported; No chills, No diaphoresis, No dizziness, No fever EENTM: no symptoms reported Respiratory: no symptoms reported; No cough, No short of breath, No wheezing Cardiovascular: no symptoms reported; No chest pain, No edema, No palpitations, No syncope Gastrointestinal: no symptoms reported; No abdominal pain, No loss of appetite, No nausea, No vomiting Genitourinary: no symptoms reported Musculoskeletal: see HPI, back pain Skin: no symptoms reported; No rash Psychiatric/Neurological: No Symptoms Reported; Denies Numbness, Denies Paresthesia, Denies Tingling, Denies Weakness Past Tsjrynf-Tetfje-Duqrwl Hx Patient Social History Alcohol Use: Denies Use Number of Drinks Today: Alcohol Beverage of Choice: Wine Recreational Drug Use: No Smoking Status: Former Smoker Type Used: Cigarettes Former Smoker, Quit: Nov 27, 1972 Recent Foreign Travel: No Contact w/Someone Who Travel: No Recent Infectious Disease Expo: No Recent Hopitalizations: No Immunizations Up To Date Date of Pneumonia Vaccine: Nov 27, 2013 Seasonal Allergies Seasonal Allergies: Yes Past Medical History Surgeries: Yes (RIGHT OOPHORECTOMY 1994; RIGHT BREAST BIOPSY 1997; HIATAL HERNIA REPAIR 1999; HEMORRHOIDECTOMY 2000; CATARACTS; MULTIPLE EGD'S / CO LONOSCOPY; BILATERAL KNEE REPLACEMENT; LEFT KNEE ARTHROSCOPY) Abdominal, Eye Surgery, Joint Replacement, Oophorectomy, Orthopedic, Pacemaker, Rectal, Thyroidectomy Respiratory: No (NO PULMONARY DX BUT STATES SHE IS "ALWAYS A LITTLE SHORT OF BREATH" ) Cardiac: Yes (11/2017--SYNCOPAL EPISODES-A FIB WITH [facility]VR AND ALSO PEA; NOW HAS A PACEMAKER ) Atrial Fibrillation, Hypertension, Irregular Heartbeat, Syncope Neurological: No 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 Disorders: No 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 History: Hysterectomy, Menopausal Genitourinary: Yes Bladder Infection Gastrointestinal: Yes (DIVERTICULAR DISEASE NOTED ON SCREENING COLONOSCOPY) Gastroesophageal Reflux, Hartman's Esophagus, Diverticulosis, Hemorrhoids, Esophagitis, Hiatal Hernia Musculoskeletal: Yes (BILATERAL KNEE REPLACEMENTS; LEFT KNEE SCOPE; EPIDURAL STEROID INJECTIONS IN BACK) Osteoporosis, Arthritis, Chronic Back Pain Endocrine: Yes Hypothyroidsim HEENT: Yes (BILATERAL CATARACT SURGERY) Cataract Cancer: Yes Skin, Thyroid Did You Recieve Any Treatments: Yes What Type of Treatment Did You: Surgical Intervention Psychosocial: No Integumentary: No Blood Disorders: No Adverse Reaction/Blood Tranf: No Family Medical History Abdominal aortic aneurysm 19 MOTHER G8 BROTHER Alzheimer's disease G8 SISTER Arthritis G8 SISTER Cardiovascular disease 19 MOTHER FH: lung cancer 19 FATHER FH: ovarian cancer G8 SISTER Hypertension G8 SISTER Prostate cancer G8 BROTHER Psychosocial problem Thyroid disease G8 SISTER No Family History of: AIDS Woodford's disease Alcoholism Colon cancer Completed stroke Dementia Diabetes mellitus Drug abuse Myocardial infarction Parkinson's disease Respiratory disorder Seizure disorder Severe allergy Physical Exam Vital Signs Vital Signs - First Documented 10/08/18 21:52 Temp 97.8 Pulse 75 Resp 18 B/P (MAP) 143/78 (99) Pulse Ox 95 O2 Delivery Room Air Capillary Refill : Less Than 3 Seconds Height, Weight, BMI Height: 5'7.00" Weight: 236lbs. 2.0oz. [id number]; 36.5 BMI Method:Stated General Appearance: No Apparent Distress, WD/WN Neck: Full Range of Motion, Normal Inspection, Non Tender, Supple Cardiovascular: Regular Rate, Rhythm, No Edema, No JVD, No Murmur, Normal Peripheral Pulses Respiratory: Chest Non Tender, Normal Breath Sounds, No Accessory Muscle Use, No Respiratory Distress Gastrointestinal: Non Tender, Soft Back: No Vertebral Tenderness, CVA Tenderness (L), Other (TENDERNESS TO LEFT POSTERIOR MID AND LOWER RIB AREA. PT HAS RESOLVING ECCHYMOSIS DIRECTLY OVER THE AREA OF PAIN--APPEARS TO BE SEVERAL DAYS OLD. PT UNAWARE OF ANY INJURY. NO CREPITANCE OF SUB Q AIR. 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 Norm as Tested Skin: Normal Color, Warm/Dry; No Rash Progress/Results/Core Measures Results/Orders Lab Results Laboratory Tests Test 10/08/18 22:15 Range/Units White Blood Count 11.0 4.3-11.0 10^3/uL Red Blood Count 4.20 L 4.35-5.85 10^6/uL Hemoglobin 13.0 11.5-16.0 G/DL Hematocrit 38 35-52 % Mean Corpuscular Volume 91 80-99 FL Mean Corpuscular Hemoglobin 31 25-34 PG Mean Corpuscular Hemoglobin Concent 34 32-36 G/DL Red Cell Distribution Width 14.1 10.0-14.5 % Platelet Count 252 130-400 10^3/uL Mean Platelet Volume 9.4 7.4-10.4 FL Neutrophils (%) (Auto) 45 42-75 % Lymphocytes (%) (Auto) 47 H 12-44 % Monocytes (%) (Auto) 6 0-12 % Eosinophils (%) (Auto) 1 0-10 % Basophils (%) (Auto) 0 0-10 % Neutrophils # (Auto) 5.0 1.8-7.8 X 10^3 Lymphocytes # (Auto) 5.2 H 1.0-4.0 X 10^3 Monocytes # (Auto) 0.6 0.0-1.0 X 10^3 Eosinophils # (Auto) 0.1 0.0-0.3 10^3/uL Basophils # (Auto) 0.0 0.0-0.1 10^3/uL Prothrombin Time 13.9 12.2-14.7 SEC INR Comment 1.0 0.8-1.4 Activated Partial Thromboplast Time 33 24-35 SEC Sodium Level 140 135-145 MMOL/L Potassium Level 4.5 3.6-5.0 MMOL/L Chloride Level 104 98-107 MMOL/L Carbon Dioxide Level 27 21-32 MMOL/L Anion Gap 9 5-14 MMOL/L Blood Urea Nitrogen 19 H 7-18 MG/DL Creatinine 0.85 0.60-1.30 MG/DL Estimat Glomerular Filtration Rate > 60 BUN/Creatinine Ratio 22 Glucose Level 96 70-105 MG/DL Calcium Level 9.1 8.5-10.1 MG/DL Corrected Calcium 8.8 8.5-10.1 MG/DL Magnesium Level 2.5 H 1.8-2.4 MG/DL Total Bilirubin 0.3 0.1-1.0 MG/DL Aspartate Amino Transf (AST/SGOT) 46 H 5-34 U/L Alanine Aminotransferase (ALT/SGPT) 93 H 0-55 U/L Alkaline Phosphatase 86 40-136 U/L Total Creatine Kinase 107 29-168 U/L Creatine Kinase MB 2.0 <6.6 NG/ML Myoglobin 38.7 10.0-92.0 NG/ML Troponin I < 0.028 <0.028 NG/ML B-Type Natriuretic Peptide < 10.0 <100.0 PG/ML Total Protein 7.4 6.4-8.2 GM/DL Albumin 4.4 3.2-4.5 GM/DL Amylase Level 55 25-125 U/L Lipase 34 8-78 U/L My Orders Orders - CHANEL,JENNIFER K DO Cbc With Automated Diff (10/08/18 22:) Magnesium (10/08/18 22:06) Chest 1 View, Ap/Pa Only (10/08/18 22:06) Ekg Tracing (10/08/18 22:06) Cardiac Profile 1 (10/08/18 22:06) Comprehensive Metabolic Panel (10/08/18 22:) Myoglobin Serum (10/08/18 22:) Protime With Inr (10/08/18:) Partial Thromboplastin Time (10/08/18 22:06) O2 (10/08/18 22:06) Monitor-Rhythm Ecg Trace Only (10/08/18:) Lipid Panel (10/09/18 06:00) Ed Iv/Invasive Line Start (10/08/18:) Creatine Kinase (10/08/18 22:06) Creatine Kinase Mb (10/08/18 22:06) Lipase (10/08/18 22:06) Amylase (10/08/18 22:06) BNP (10/08/18 22:06) Ketorolac Injection (Toradol Injection) (10/08/18 22:15) Ct Angio Chest W (10/08/18 22:52) Iohexol Injection (Omnipaque 350 Mg/Ml 1 (10/08/18 23:30) Received Contrast (Hold Metformin- Contr (10/08/18 23:30) Ns (Ivpb) (Sodium Chloride 0.9%) (10/08/18 23:30) Rx-Cyclobenzaprine Tablet (Rx-Flexeril T (10/09/18 00:03) Rx-Tramadol Hcl (Rx-Ultram) (10/09/18 00:03) Medications Given in ED Current Medications Medications Dose Ordered Sig/Josephine Route Start Time Stop Time Status Last Admin Dose Admin Iohexol 150 ml ONCE ONCE IV 10/08/18 23:30 10/08/18 23:31 DC 10/08/18 23:19 125 ML Sodium Chloride 250 ml ONCE ONCE IV 10/08/18 23:30 10/08/18 23:31 DC 10/08/18 23:19 80 ML Vital Signs/I&O 10/08/18 21:52 Temp 97.8 Pulse 75 Resp 18 B/P (MAP) 143/78 (99) Pulse Ox 95 O2 Delivery Room Air Blood Pressure Mean: 99 Progress Progress Note : Progress Note SYMPTOMS IMPROVED AT DISMISSAL UNEVENTFUL ER STAY Initial ECG Impression Date: October 08, 2018 Initial ECG Impression Time: 22:34 Initial ECG Rate: 61 Comment ATRIAL PACED COMPLEXES Diagnostic Imaging Comments CXR--NO ACUTE PROCESS CT CHEST ANGIOGRAM--NO P.E., MILD GROUNDGLASS INTERSTITIAL OPACITIES, NO FOCAL CONSOLIDATION OR EFFUSION. MODERATE HIATAL HERNIA WITH POST OP CHANGES--PER [facility] VIA FAX @ [phone] Reviewed: Reviewed by Me Departure Impression Primary Impression: LEFT POSTERIOR RIB/CHEST WALL PAIN Additional Impression: LEFT POSTERIOR CHEST WALL CONTUSION Disposition: 01 HOME, SELF-CARE Condition: Improved Departure-Patient Inst. Referrals: PASCUAL ALARCON DO (PCP) Primary Care Physician JUWAN ALARCON, JENNIFER (Family) Primary Care Physician Patient Instructions: Bruised Rib (DC), Upper Back Pain (DC) Add. Discharge Instructions: ALTERNATE ICE AND HEAT TO AREA AT 20 MINUTE INTERVALS GET YOUR TRAMADOL REFILLED AND TAKE NEEDED FOR PAIN FOLLOW UP WITH YOUR DR IN 3-4 DAYS IF NO BETTER All discharge instructions reviewed with patient and/or family. Voiced understanding. Scripts Cyclobenzaprine HCl (Cyclobenzaprine HCl) 10 Mg Tablet 10 MG PO Q8H, #15 TAB Prov: JENNIFER BUCHANAN DO 10/09/18 Images Torso/Trunk 1 - Ecchymosis, Tenderness JENNIFER BUCHANAN DO October 08, 2018 23:33
[2018-10-09] MEDS ORDERED: RX-CYCLOBENZAPRINE 10 MG (FLEXERIL) TAB PPK#3 PO STA (00:03)
[2018-10-09] MEDS ORDERED: RX-TRAMADOL 50 MG (ULTRAM) TAB PPK#4 PO STA (00:03)
[2018-10-09] MEDS ORDERED: CYCL10TA9 PO (00:07)
[2018-10-09 00:16] VITALS: BP 121/66
--- NOTE | 2018-10-09 05:45 | Diagnostic Imaging Report ---
INDICATION: Left-sided back pain and rib pain. COMPARISON: CT chest from later same day. FINDINGS: Single frontal view of the chest demonstrates normal heart size and pulmonary vascularity. The lungs are well aerated and clear. No large pleural effusion or pneumothorax is seen. The visualized osseous structures show no acute abnormalities. There is calcified aortic atherosclerosis. Left-sided dual-lead pacemaker is also noted. IMPRESSION: 1. No acute cardiopulmonary process. Dictated by: Dictated on workstation # [id number]
--- NOTE | 2018-10-09 07:01 | Diagnostic Imaging Report ---
PROCEDURE: CT angiography of the chest with contrast. TECHNIQUE: Multiple contiguous axial images were obtained through the chest after uneventful bolus administration of intravenous contrast. 2D reconstructed CTA MIP acquisitions were also performed. Auto Exposure Controls were utilized during the CT exam to meet ALARA standards for radiation dose reduction. INDICATION: Chest pain COMPARISON: 07/25/2017 FINDINGS: Postsurgical changes are identified within the lower neck with nonvisualization of the thyroid gland. Pacer device is identified with a battery pack overlying the left chest, new since the prior CT from 2017. Mildly prominent lymph nodes are identified within the bilateral axillary regions, though these have slightly decreased in size since the prior examination. Prominent AP window lymph nodes are present appearing similar to the prior examination. No new adenopathy within the chest. Scattered vascular calcifications without aneurysmal dilatation of the thoracic aorta. The heart is borderline enlarged. No significant pericardial effusion. No pleural effusion. Mild elevation of the right hemidiaphragm. Moderate sized hiatal hernia. No pneumothorax. The lungs are clear of focal pulmonary opacity. However, minimal patchy groundglass interstitial opacities are noted bilaterally. The right main pulmonary artery measures up to 2.7 cm while the left main pulmonary artery measures up to 3.3 cm. The pulmonary arteries are mildly tortuous. No significant filling defect identified within the central or segmental pulmonary arteries. Postsurgical changes are noted at the GE junction. A moderate sized hiatal hernia was present and appears to be at least partially paraesophageal. Diffusely decreased density of the liver, related to fatty infiltration of the liver. Calcified splenic granuloma. Extensive vascular calcifications within the abdominal aorta. S-shaped curvature of the spine with associated scattered degenerative changes without acute osseous abnormality. IMPRESSION: Moderate sized hiatal hernia. Postsurgical changes are identified at the GE junction with the appearance of the hernia appearing to be at least partially paraesophageal. This is stable from the prior examination one year prior. No significant pulmonary embolus. Minimal groundglass interstitial opacities without consolidative opacities. Prominence of the pulmonary arteries with associated tortuosity of the pulmonary arteries. This can be seen with underlying pulmonary artery hypertension. Interval placement of a pacer device when compared to July 2017. Improved prominence of bilateral axillary lymph nodes when compared to the prior examination. Additional findings as described above. Agree with preliminary interpretation that there are no acute findings. However, there is a question of possible pulmonary artery hypertension based upon prominence of the pulmonary arteries. Dictated by: Dictated on workstation # [id number]
== END 2018-10-09 00:16 | disposition home or self-care (01) ==
LOC: EDUNIT# 21:41 → ER 21:42
DX: S20.222A Contusion of left back wall of thorax, initial encounter (principal); I48.91 Unspecified atrial fibrillation; I10 Essential (primary) hypertension; K21.0 Gastro-esophageal reflux disease with esophagitis; M81.0 Age-related osteoporosis without current pathological fracture; E03.9 Hypothyroidism, unspecified; Z79.01 Long term (current) use of anticoagulants; Z85.828 Personal history of other malignant neoplasm of skin; Z82.49 Family history of ischemic heart disease and other diseases of the circulatory system; Z80.1 Family history of malignant neoplasm of trachea, bronchus and lung; Z80.41 Family history of malignant neoplasm of ovary; Z85.850 Personal history of malignant neoplasm of thyroid; Z92.21 Personal history of antineoplastic chemotherapy; Z95.0 Presence of cardiac pacemaker; Z88.8 Allergy status to other drugs, medicaments and biological substances; Z87.891 Personal history of nicotine dependence; Z98.890 Other specified postprocedural states; Z96.653 Presence of artificial knee joint, bilateral; Z90.89 Acquired absence of other organs; Z90.710 Acquired absence of both cervix and uterus; Z87.448 Personal history of other diseases of urinary system; Z87.19 Personal history of other diseases of the digestive system; X58.XXXA Exposure to other specified factors, initial encounter
CPT/HCPCS: 36415; 71045; 71275; 80053; 82150; 82550; 82553; 83690; 83735; 83874; 83880; 84484; 85025; 85610; 85730; 93005; 93041

== ENCOUNTER → 2019-04-01 | Outpatient (CLI) | payer MEDICARE ==
--- NOTE | 2019-04-01 14:31 | Diagnostic Imaging Report ---
PROCEDURE: US Renal Bilateral. TECHNIQUE: Multiple real-time grayscale images were obtained over the kidneys in various projections bilaterally. INDICATION: Pyelonephritis. FINDINGS: The right kidney measures 11.8 x 5.0 x 5.9 cm and the left kidney measures 11.3 x 4.7 x 5.5 cm. The cortical thickness and echogenicity is normal. No calculi are seen. Cystic appearing structure in the mid right kidney is noted, indeterminate between cyst versus a slightly dilated renal pelvis. No renee hydronephrosis is identified. The bladder volume is approximately 400 mL. No bladder wall thickening or mass is identified. Bilateral ureteral jets were visualized. IMPRESSION: Questionable small cyst versus pelviectasis of the right kidney. The study is otherwise unremarkable. Dictated by: Dictated on workstation # [id number]
== END ==
LOC: RAD 11:44
PROVIDERS: ATTEND Nurse Practitioner Family
DX: N10 Acute pyelonephritis (principal)
CPT/HCPCS: 76770

== ENCOUNTER → 2020-01-07 | Outpatient (CLI) | payer MEDICARE ==
[~2020-01-07] MED LIST changes: -MAGN400T6 PO; +MAGN400T8 PO
--- NOTE | 2020-01-07 16:26 | Diagnostic Imaging Report ---
PROCEDURE: US Renal Bilateral. TECHNIQUE: Multiple real-time grayscale images were obtained over the kidneys in various projections bilaterally. INDICATION: Right renal cyst. FINDINGS: The previous renal ultrasound exam of 04/01/2019 raised a question of a small cyst versus pelvocaliectasis of the right kidney. On this exam, there is no clear evidence for a discrete cyst within the right kidney. The renal pelvis is perhaps somewhat prominent, but there is no sign of hydronephrosis. There is no evidence for hydronephrosis of the left kidney either. The kidneys are similar in size to the prior exam although I do feel that the length of the left kidney is over measured. There is no solid mass involving either kidney. The renal cortices are normal in thickness and echogenicity. The bladder is only partially filled and consequently not well evaluated. Both ureteral jets are noted. There is no obvious bladder abnormality evident. IMPRESSION: 1. There is no evidence for a solid renal mass or for an acute abnormality of either kidney. 2. The small hypoechoic area in the right kidney seen previously may be part of the renal pelvis. There is no discrete cyst identified. 3. The urinary bladder is grossly unremarkable. Dictated by: Dictated on workstation # [id number]
== END ==
LOC: CARD 11:00
PROVIDERS: ATTEND Nurse Practitioner Family
DX: N28.1 Cyst of kidney, acquired (principal); R03.0 Elevated blood-pressure reading, without diagnosis of hypertension
CPT/HCPCS: 76770; 93005

== ENCOUNTER 2020-02-01 20:38 | Emergency (ER) | payer MEDICARE ==
[~2020-02-01] VITALS: Ht 170.1 cm; Wt 102.0 kg
[2020-02-01] MEDS ORDERED: RX-CYCLOBENZAPRINE 10 MG (FLEXERIL) TAB PPK#3 PO STA (21:16)
[2020-02-01] MEDS ORDERED: CYCLOBENZAPRINE 10 MG (FLEXERIL) TAB PO STA (21:16)
[2020-02-01] MEDS ORDERED: HYDROcodone/APAP 7.5 MG/325 MG (LORTAB, LORCET PLUS) TABLET PO ONE (21:30)
--- NOTE | 2020-02-01 21:35 | ED Neck-Back Pain/Injury ---
General Chief Complaint: Head/Cervical Problems Stated Complaint: NECK PAIN Nursing Triage Note: PT IN PER POV, REPORTS PAIN IN HER NECK, BELIEVES DUE TO HER CPAP. DENIES INJURY. HAD ADJUSTMENT YESTERDAY AND FELT MUCH BETTER, THEN REPORTS IN CAR ALL DAY AND STIFFNESS RETURNED. Nursing Sepsis Screen: No Definite Risk History of Present Illness Date Seen by Provider: Feb 01, 2020 Time Seen by Provider: 20:50 Initial Comments 74-year-old female presents for neck pain. She thinks that the straps on her CPAP are causing the symptoms. She went to see her chiropractor, Dr. Guevara yesterday and today, after an adjustment her symptoms improved. She spent most of today in her car and thinks that flared it up more. History of degenerative disk disease, c spine Timing/Duration: 2-3 Days Pain/Injury Location: Neck Associated Symptoms: muscle spasms Allergies and Home Medications Allergies Coded Allergies: promethazine (Verified Allergy, Unknown, 01/01/06) Home Medications Alprazolam 0.25 Mg Tablet, 0.25 MG PO BID PRN for ANXIETY, (Reported) Apixaban 5 Mg Tablet, 5 MG PO BID Prescribed by: LASHONDA YU on 11/29/17723 Cefuroxime Axetil 500 Mg Tablet, 500 MG PO BID Prescribed by: JOEL CASAREZ on 11/29/17 0857 Cholecalciferol (Vitamin D3) 50,000 Unit Capsule, 50,000 UNIT PO Tu, (Reported) Cyanocobalamin 1,000 Mcg/Ml Inj, 1,000 MCG IM MONTHLY, (Reported) Cyclobenzaprine HCl 10 Mg Tablet, 10 MG PO Q8H PRN for SPASMS Prescribed by: FERNY ROMAN on 06/04/18 1356 Cyclobenzaprine HCl 10 Mg Tablet, 10 MG PO Q8H Prescribed by: JENNIFER BUCHANAN on 10/09/18 0007 Diltiazem HCl 120 Mg Cap.er.24h, 120 MG PO DAILY Prescribed by: LASHONDA YU on 11/29/17723 Levothyroxine Sodium 137 Mcg Tablet, 137 MCG PO DAILY, (Reported) Magnesium Oxide 400 Mg Tablet, 400 MG PO DAILY, (Reported) Patient Home Medication List Home Medication List Reviewed: Yes Review of Systems Constitutional: no symptoms reported, see HPI Musculoskeletal: see HPI, muscle cramps (cervical spine), neck pain All Other Systems Reviewed Negative Unless Noted: Yes Past Gchblqi-Mvejxe-Kwekkd Hx Past Med/Social Hx: Reviewed Nursing Past Med/Soc Hx Patient Social History Alcohol Use: Occasionally Uses Number of Drinks Today: Alcohol Beverage of Choice: Wine Recreational Drug Use: No Smoking Status: Former Smoker Type Used: Cigarettes Former Smoker, Quit: Nov 27, 1972 2nd Hand Smoke Exposure: No Recent Foreign Travel: No Contact w/Someone Who Travel: No Recent Infectious Disease Expo: No Recent Hopitalizations: No Physical Abuse: No Sexual Abuse: No Mistreated: No Fear: No Immunizations Up To Date Date of Pneumonia Vaccine: Nov 27, 2013 Seasonal Allergies Seasonal Allergies: Yes Past Medical History Surgeries: Yes Abdominal, Eye Surgery, Joint Replacement, Oophorectomy, Orthopedic, Pacemaker, Rectal, Thyroidectomy Respiratory: No (NO PULMONARY DX BUT STATES SHE IS "ALWAYS A LITTLE SHORT OF BREATH" ) Currently Using CPAP: Yes Cardiac: Yes Atrial Fibrillation, Hypertension, Irregular Heartbeat, Syncope Neurological: No 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 Disorders: No 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, 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 Genitourinary: Yes Bladder Infection Gastrointestinal: Yes (DIVERTICULAR DISEASE NOTED ON SCREENING COLONOSCOPY) Gastroesophageal Reflux, Hartman's Esophagus, Diverticulosis, Hemorrhoids, Esophagitis, Hiatal Hernia Musculoskeletal: Yes Osteoporosis, Arthritis, Chronic Back Pain Endocrine: Yes Hypothyroidsim HEENT: Yes (BILATERAL CATARACT SURGERY) Cataract Cancer: Yes Skin, Thyroid Did You Recieve Any Treatments: Yes What Type of Treatment Did You: Surgical Intervention Psychosocial: No Integumentary: No Blood Disorders: No Adverse Reaction/Blood Tranf: No Family Medical History Abdominal aortic aneurysm 19 MOTHER G8 BROTHER Alzheimer's disease G8 SISTER Arthritis G8 SISTER Cardiovascular disease 19 MOTHER FH: lung cancer 19 FATHER FH: ovarian cancer G8 SISTER Hypertension G8 SISTER Prostate cancer G8 BROTHER Psychosocial problem Thyroid disease G8 SISTER No Family History of: AIDS Phillips's disease Alcoholism Colon cancer Completed stroke Dementia Diabetes mellitus Drug abuse Myocardial infarction Parkinson's disease Respiratory disorder Seizure disorder Severe allergy Physical Exam Vital Signs Vital Signs - First Documented 02/01/20 20:43 Temp 36.9 Pulse 75 Resp 16 B/P (MAP) 175/92 (119) O2 Delivery Room Air Capillary Refill : Less Than 3 Seconds Height, Weight, BMI Height: 5'7.00" Weight: 236lbs. 2.0oz. 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 (02/01/20 21:30) Cyclobenzaprine Tablet (Flexeril Tablet) (02/01/20 21:16) Rx-Cyclobenzaprine Tablet (Rx-Flexeril T (02/01/20 21:16) Medications Given in ED Current Medications Medications Dose Ordered Sig/Josephine Route Start Time Stop Time Status Last Admin Dose Admin Acetaminophen/ Hydrocodone Bitart 1 ea ONCE ONCE PO 02/01/20 21:30 02/01/20 21:31 DC 02/01/20 21:24 1 EA Vital Signs/I&O 02/01/20 20:43 Temp 36.9 Pulse 75 Resp 16 B/P (MAP) 175/92 (119) O2 Delivery Room Air Blood Pressure Mean: 119 Departure Impression Primary Impression: Neck pain Additional Impressions: Cervical strain, acute Qualified Codes: S16.1XXA - Strain of muscle, fascia and tendon at neck level, initial encounter Degenerative joint disease of cervical spine Qualified Codes: M47.892 - Other spondylosis, cervical region Disposition: 01 HOME, SELF-CARE Condition: Improved Departure-Patient Inst. Decision time for Depature: 21:20 Referrals: PASCUAL ALARCON DO (PCP/Family) Primary Care Physician Patient Instructions: Cervical Muscle Strain (DC), Generalized Neck Pain (DC) Add. Discharge Instructions: Continue to alternate heat and ice to your neck. Take your tramadol every 6-8 hours as needed for pain. You may take the Flexeril one tablet every 8 hours for muscle spasms. Follow-up with Dr. Guevara tomorrow. Return to the emergency department for new, urgent health care needs. All discharge instructions reviewed with patient and/or family. Voiced under standing. SHIRA ELLIS Feb 01, 2020 21:35
[2020-02-01 21:43] VITALS: BP 175/92
== END 2020-02-01 21:46 | disposition home or self-care (01) ==
LOC: EDUNIT# 20:38 → ER 20:40
DX: S16.1XXA Strain of muscle, fascia and tendon at neck level, initial encounter (principal); M47.812 Spondylosis without myelopathy or radiculopathy, cervical region; I10 Essential (primary) hypertension; I48.91 Unspecified atrial fibrillation; E03.9 Hypothyroidism, unspecified; M81.0 Age-related osteoporosis without current pathological fracture; K21.9 Gastro-esophageal reflux disease without esophagitis; Z87.891 Personal history of nicotine dependence; Z99.89 Dependence on other enabling machines and devices; Z88.8 Allergy status to other drugs, medicaments and biological substances; Z80.1 Family history of malignant neoplasm of trachea, bronchus and lung; Z80.41 Family history of malignant neoplasm of ovary; Z80.42 Family history of malignant neoplasm of prostate; Z82.61 Family history of arthritis; X58.XXXA Exposure to other specified factors, initial encounter
CPT/HCPCS: 99283

== ENCOUNTER → 2020-07-14 | Outpatient (CLI) | payer MEDICARE ==
[~2020-07-14] MED LIST changes: +ALPR.25T PO; -ALPR0.254 PO; -PANT40TA3 PO; +PANT40TA52 PO
--- NOTE | 2020-07-14 14:52 | Diagnostic Imaging Report ---
INDICATION: Routine screening. COMPARISON: Prior mammogram from 11/10/2017 and 03/25/2016. EXAMINATION: 2D and 3D bilateral screening mammography was performed with CAD. 3D tomographic images were obtained and reviewed. The current study was also evaluated with a Computer Aided Detection (CAD) system. FINDINGS: Both breasts remain heterogeneously dense, limiting the sensitivity of mammography. Fibronodular parenchymal pattern is again noted. No spiculated mass or malignant appearing microcalcifications are seen. There are benign calcifications, bilaterally. The pacemaker battery pack is located in the left axilla. IMPRESSION: No mammographic features suspicious for malignancy are identified. ACR BI-RADS Category 2: Benign findings. Result letter will be mailed to the patient. Note: At least 10% of breast cancer is not imaged by mammography. Dictated by: Dictated on workstation # [id number]
== END ==
LOC: RAD 09:30
PROVIDERS: ATTEND Nurse Practitioner Family
DX: Z12.31 Encounter for screening mammogram for malignant neoplasm of breast (principal)
CPT/HCPCS: 77063; 77067

== ENCOUNTER 2020-07-21 08:51 | Outpatient (RCR) | payer MEDICARE, OTHER ==
[2020-07-21 09:47] LABS: HEMOGLOBIN 12.3 g/dL (11.5-16.0); WHITE BLOOD COUNT 10.6 10^3/uL (4.3-11.0)
[2020-07-21 09:48] LABS: BASOPHILS % (AUTO) 0 % (0-10); EOSINOPHILS # (AUTO) 0.1 10^3/uL (0.0-0.3); EOSINOPHILS % (AUTO) 1 % (0-10); HEMATOCRIT 38 % (35-52); LYMPHOCYTES # (AUTO) 5.9 10^3/uL (1.0-4.0); LYMPHOCYTES % (AUTO) 56 % (12-44); MEAN CORPUSCULAR HEMOGLOBIN 31 pg (25-34); MEAN CORPUSCULAR HGB CONC 33 g/dL (32-36); MEAN CORPUSCULAR VOLUME 94 fL (80-99); MEAN PLATELET VOLUME 9.2 fL (9.0-12.2); MONOCYTES # (AUTO) 0.7 10^3/uL (0.0-1.0); MONOCYTES % (AUTO) 6 % (0-12); NEUTROPHILS # (AUTO) 3.8 10^3/uL (1.8-7.8); NEUTROPHILS % (AUTO) 36 % (42-75); PLATELET COUNT 264 10^3/uL (130-400)
[2020-07-21 10:09] LABS: ALANINE AMINOTRANSFERASE 42 U/L (0-55); ALBUMIN 4.1 GM/DL (3.2-4.5); ALKALINE PHOSPHATASE 80 U/L (40-136); BILIRUBIN,TOTAL 0.3 MG/DL (0.1-1.0); BUN/CREATININE RATIO 19; CALCIUM 8.8 MG/DL (8.5-10.1); CARBON DIOXIDE 27 MMOL/L (21-32); CHLORIDE 102 MMOL/L (98-107); CREATININE SERUM 0.86 MG/DL (0.60-1.30); GFR ESTIMATED > 60; GLUCOSE 99 MG/DL (70-105); POTASSIUM 4.4 MMOL/L (3.6-5.0); SODIUM 140 MMOL/L (135-145); TOTAL PROTEIN 7.1 GM/DL (6.4-8.2)
[2020-07-27 13:39] LABS: IMMUNOFIX PATH REPORT NUMBER Complete (Complete)
[2020-08-10] MEDS ORDERED: MAGN500C15 PO (12:01)
[2020-08-10] MEDS ORDERED: BIOT10006 PO (12:01)
[2020-08-10] MEDS ORDERED: CHOL12502 PO (12:01)
[2020-08-10] MEDS ORDERED: TRAM50TA3 PO (12:01)
[2020-08-10] MEDS ORDERED: PANT40TA52 PO (12:01)
[2020-08-10] MEDS ORDERED: VITA-189 PO (12:01)
== END 2020-10-19 | disposition home or self-care (01) ==
LOC: ONC 08:51
PROVIDERS: ATTEND Internal Medicine Hematology & Oncology
DX: C82.80 Other types of follicular lymphoma, unspecified site (principal); I10 Essential (primary) hypertension; E03.9 Hypothyroidism, unspecified; I48.0 Paroxysmal atrial fibrillation
CPT/HCPCS: 80053; 82784 ×3; 83615; 83883; 84165; 84443; 85025; 86334; G0463; 84155; 99213

== ENCOUNTER 2020-08-10 05:58 | Outpatient (CLI) | payer MEDICARE ==
[~2020-08-10] VITALS: Ht 170.2 cm; Wt 109.4 kg
[2020-08-10] MEDS ORDERED: PANT40TA52 PO (12:01)
[2020-08-10] MEDS ORDERED: CHOL12502 PO (12:01)
[2020-08-10] MEDS ORDERED: BIOT10006 PO (12:01)
[2020-08-10] MEDS ORDERED: TRAM50TA3 PO (12:01)
[2020-08-10] MEDS ORDERED: MAGN500C15 PO (12:01)
[2020-08-10] MEDS ORDERED: VITA-189 PO (12:01)
== END 2020-08-10 13:51 | disposition home or self-care (01) ==
LOC: PREOP 05:58
PROVIDERS: ATTEND Internal Medicine
DX: Z01.818 Encounter for other preprocedural examination (principal)

== ENCOUNTER 2020-08-18 08:27 | Day surgery (SDC) | payer MEDICARE ==
[~2020-08-18] VITALS: Ht 170.2 cm; Wt 109.4 kg
[~2020-08-18 08:27] MED LIST changes: +BIOT10006 PO; +CHOL12502 PO; +MAGN500C15 PO; +TRAM50TA3 PO; +VITA-189 PO
[2020-08-18] MEDS ORDERED: LACTATED RINGERS 1,000 ML IV STA (08:39)
[2020-08-18] MEDS ORDERED: LIDOCAINE JELLY 2% 6 ML SYRINGE MM PRN (08:45)
[2020-08-18 09:22] VITALS: BP 129/64
[2020-08-18] MEDS ORDERED: PROPOFOL INJECTION 50 ML IV ONE ×2 (10:16→10:45)
[2020-08-18] MEDS ORDERED: MIDAZOLAM 2 MG/2 ML (VERSED) VIAL ONE (10:16)
[2020-08-18] MEDS ORDERED: LIDOCAINE JELLY 2% 6 ML SYRINGE ONE (10:18)
[2020-08-18] MEDS ORDERED: ONDANSETRON 4 MG/2 ML (SDV) Z0FRAN ONE (10:54)
[2020-08-18 11:10] VITALS: BP 127/58
--- NOTE | 2020-08-18 11:11 | Pre-Op Note & Conscious Sedat ---
Pre-Operative Progress Note H&P Reviewed The H&P was reviewed, patient examined and no changes noted. Date H&P Reviewed: Aug 18, 2020 Time H&P Reviewed: 10:00 Conscious Sedation Pre-Proced ASA Score 3 For ASA 3 and 4: Consider anesthesia and medical clearance. Also, for patients with a history of failed moderate sedation consider anesthesia. Airway Lungs Heart ASA score ASA 1: a normal healthy patient ASA 2: a patient with a mild systemic disease (mid diabetes, controlled hypertension, obesity ASA 3: a patient with a severe systemic disease that limits activity (angina, COPD, prior Myocardial infarction) ASA 4: a patient with an incapacitating disease that is a constant threat to life (CHF, renal failure) ASA 5: a moribund patient not expected to survive 24 hrs. (ruptured aneurysm) ASA 6: a declared brain- patient whose organs are being harvested. For emergent operations, add the letter E after the classification Mallampati Classification Grade 1 Sedation Plan Analgesia, Amnesia, Plan communicated to team members, Discussed options with patient/fam, Discussed risks with patient/fam The patient is an appropriate candidate to undergo the planned procedure, sedation, and anesthesia. The patient immediately re-assessed prior to indication. ANN-MARIE RODRIGUEZ MD Aug 18, 2020 11:11
[2020-08-18 11:18] VITALS: BP 136/66
[2020-08-18 11:20] VITALS: BP 132/65
[2020-08-18 11:50] VITALS: BP 126/60
--- NOTE | 2020-08-18 11:55 | Anesthesia-General Post-Op ---
MAC Patient Condition Mental Status/LOC: Same as Preop Cardiovascular: Satisfactory Nausea/Vomiting: Absent Respiratory: Satisfactory Pain: Controlled Complications: Absent Post Op Complications Complications None Follow Up Care/Instructions Patient Instructions None needed. Anesthesiology Discharge Order Discharge Order Patient is doing well, no complaints, stable vital signs, no apparent adverse anesthesia problems. No complications reported per nursing. KARINE SEWELL CRNA Aug 18, 2020 11:55
[2020-08-18 12:10] VITALS: BP 126/60
--- NOTE | 2020-08-18 17:52 | OPERATIVE REPORT ---
DATE OF SERVICE: 08/18/2020 COLONOSCOPY SUMMARY INDICATION FOR THE PROCEDURE: Positive Cologuard. DESCRIPTION OF PROCEDURE: The patient was placed in the left lateral decubitus position. Prior to undergoing colonoscopy, digital rectal evaluation was performed. Anal sphincter tone was normal and the perianal reflexes intact. No abnormalities were noted on digital inspection of anal canal or distal rectal vault. The colonoscope was inserted into the rectum and under direct visualization advanced to cecum. Cecum was identified by identification of ileocecal valve and cecal strap. Photographic documentation was obtained. Quality of prep was good. Procedure was done under Diprivan base anesthesia. FINDINGS: There was no evidence for internal or external hemorrhoids and the rectum was unremarkable. Moderate to severe diverticular disease mostly noted in the sigmoid colon, but scattered throughout. The remainder of the colon was noted without evidence for diverticulitis. A 3 to 4 mm sessile polyps were noted in the mid transverse colon and 2 adjacent in the proximal ascending colon with benign features. All were biopsied and ablated with no significant blood loss. No other abnormalities were noted on today's procedure. ASSESSMENT: 1. Three small polyps were removed today. Two adjacent in the proximal ascending colon and one in the mid transverse colon with no gross evidence to suggest malignancy. We will await histopathology report before making future surveillance colonoscopic recommendations weighing this patient's age, poor performance status to that of a positive Cologuard study. 2. Moderate to severe diverticular disease, most notably present in the sigmoid colon, but with diverticulum scattered throughout without overt evidence for diverticulitis. Job ID: [id number] DocumentID: [id number] Dictated Date: 08/18/2020 11:28:56 Box Feeder Date: 08/18/2020 17:52:32 Dictated By: ANN-MARIE RODRIGUEZ MD
== END 2020-08-18 12:10 | disposition home or self-care (01) ==
LOC: ENDO 08:27
PROVIDERS: ATTEND Internal Medicine
DX: D12.2 Benign neoplasm of ascending colon (principal); D12.3 Benign neoplasm of transverse colon; K57.30 Diverticulosis of large intestine without perforation or abscess without bleeding; I10 Essential (primary) hypertension; I48.91 Unspecified atrial fibrillation; G47.33 Obstructive sleep apnea (adult) (pediatric); K21.9 Gastro-esophageal reflux disease without esophagitis; E66.9 Obesity, unspecified; Z68.37 Body mass index [BMI] 37.0-37.9, adult; Z79.899 Other long term (current) drug therapy; Z88.8 Allergy status to other drugs, medicaments and biological substances
CPT/HCPCS: 88305

== ENCOUNTER 2020-11-16 11:40 | Emergency (ER) | payer MEDICARE ==
[~2020-11-16] VITALS: Ht 170.2 cm; Wt 104.3 kg
--- NOTE | 2020-11-16 12:10 | ED General ---
General Chief Complaint: Cardiac/General Problems Stated Complaint: LOW BP Nursing Triage Note: PT AMBULATE TO ROOM 06 WITH C/O HYPOTENSION. PT REPORTS SYSTOLIC BP IN THE LOW 80S. PT BP 152/55 UPON ARRIVAL Source of Information: Patient Exam Limitations: No Limitations History of Present Illness Date Seen by Provider: Nov 16, 2020 Time Seen by Provider: 11:55 Initial Comments Here with report of low blood pressure at home. This occurred after drinking a concoction of apple cider vinegar, orange juice with pulp and honey states that she did have some reflux although does have history of Niesen fundoplication after hiatal hernia. Patient states her blood pressure was down to 80/50 and she felt like she was going to . Denies chest pain with that. This lasted several minutes and then continued but is improving now. She is now much better on arrival. Does have history of pacemaker and home interrogation monitor noted pacemaker was okay. Denies diarrhea. Denies recent illness. She has had her Covid vaccination. Timing/Duration: 1 Hour Severity: Moderate Modifying Factors: improves with Rest Associated Systoms: No Chest Pain, No Cough, No Diaphoresis, No Fever/Chills, No Nausea/Vomiting, No Shortness of Air; Weakness Allergies and Home Medications Allergies Coded Allergies: promethazine (Verified Allergy, Unknown, 01/01/06) Home Medications Apixaban 5 Mg Tablet, 5 MG PO BID Prescribed by: LASHONDA YU on 11/29/17723 Biotin 10,000 Mcg Tab.rapdis, 10,000 MCG PO DAILY, (Reported) Cholecalciferol (Vitamin D3) 1,250 Mcg Capsule, 50,000 MCG PO WEEK, (Reported) Cyanocobalamin 1,000 Mcg/Ml Inj, 1,000 MCG IM MONTHLY, (Reported) Diltiazem HCl 120 Mg Cap.er.24h, 120 MG PO DAILY Prescribed by: LASHONDA YU on 11/29/17723 Levothyroxine Sodium 137 Mcg Tablet, 137 MCG PO DAILY, (Reported) Magnesium Oxide 500 Mg Capsule, 500 MG PO DAILY, (Reported) Pantoprazole Sodium 40 Mg Tablet.dr, 40 MG PO DAILY, (Reported) Tramadol HCl 50 Mg Tablet, 50 MG PO BID, (Reported) Vitamin B Complex 1 Each Tablet, 1 EACH PO DAILY, (Reported) Patient Home Medication List Home Medication List Reviewed: Yes Review of Systems Review of Systems Constitutional: see HPI; No chills, No fever EENTM: no symptoms reported Respiratory: no symptoms reported Cardiovascular: see HPI; No chest pain, No palpitations; syncope (Near syncope) Gastrointestinal: No abdominal pain, No nausea, No vomiting; other (Reflux) Genitourinary: no symptoms reported Musculoskeletal: back pain (Chronic left lower); No muscle pain Skin: no symptoms reported Psychiatric/Neurological: See HPI All Other Systems Reviewed Negative Unless Noted: Yes Past Phndsts-Hgddkq-Juteeg Hx Patient Social History Tobacco Use?: No Substance use?: No Alcohol Use?: No Pt feels they are or have been: No Seasonal Allergies Seasonal Allergies: Yes Past Medical History Surgeries: Yes Abdominal, Eye Surgery, Joint Replacement, Oophorectomy, Orthopedic, Pacemaker, Rectal, Thyroidectomy Respiratory: No (NO PULMONARY DX BUT STATES SHE IS "ALWAYS A LITTLE SHORT OF BREATH" ) Currently Using CPAP: Yes Cardiac: Yes Atrial Fibrillation, Hypertension, Irregular Heartbeat, Syncope Neurological: No 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, 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 Genitourinary: Yes Bladder Infection Gastrointestinal: Yes (DIVERTICULAR DISEASE NOTED ON SCREENING COLONOSCOPY) Gastroesophageal Reflux, Hartman's Esophagus, Diverticulosis, Hemorrhoids, Esophagitis, Hiatal Hernia Musculoskeletal: Yes Osteoporosis, Arthritis, Chronic Back Pain Endocrine: Yes Hypothyroidsim HEENT: Yes (BILATERAL CATARACT SURGERY) Cataract Cancer: Yes Skin, Thyroid Did You Recieve Any Treatments: Yes What Type of Treatment Did You: Surgical Intervention Psychosocial: No Integumentary: No Blood Disorders: No Adverse Reaction/Blood Tranf: No Family Medical History Reviewed Nursing Family Hx Abdominal aortic aneurysm 19 MOTHER G8 BROTHER Alzheimer's disease G8 SISTER Arthritis G8 SISTER Cardiovascular disease 19 MOTHER FH: lung cancer 19 FATHER FH: ovarian cancer G8 SISTER Hypertension G8 SISTER Prostate cancer G8 BROTHER Psychosocial problem Thyroid disease G8 SISTER Physical Exam Vital Signs Vital Signs - First Documented 11/16/20 11:46 Temp 36.2 Pulse 60 Resp 18 B/P (MAP) 152/55 (87) O2 Delivery Room Air Capillary Refill : Less Than 3 Seconds Height, Weight, BMI Height: 5'7.00" Weight: 236lbs. 2.0oz. 107.408221xu; 36.00 BMI Method:Stated General Appearance: No Apparent Distress, WD/WN HEENT: PERRL/EOMI, Pharynx Normal Neck: Non Tender, Supple Respiratory: Lungs Clear, Normal Breath Sounds Cardiovascular: Regular Rate, Rhythm, No Murmur, Other (Paced rhythm at 60 on the monitor) Gastrointestinal: Non Tender, Soft Back: Normal Inspection, No CVA Tenderness, No Vertebral Tenderness Extremity: Normal Range of Motion, Non Tender Neurologic/Psychiatric: Alert, Oriented x3 Skin: Normal Color, Warm/Dry Progress/Results/Core Measures Suspected Sepsis SIRS Temperature: Pulse: 60 Respiratory Rate: 18 Laboratory Tests 11/16/20 12:10: White Blood Count 8.7 Blood Pressure 152 /55 Mean: 87 Laboratory Tests 11/16/20 12:10: Creatinine 1.03, Platelet Count 198, Total Bilirubin 0.2 Results/Orders Lab Results Laboratory Tests Test 11/16/20 12:10 11/16/20 13:10 Range/Units White Blood Count 8.7 4.3-11.0 10^3/uL Red Blood Count 3.83 3.80-5.11 10^6/uL Hemoglobin 12.0 11.5-16.0 g/dL Hematocrit 37 35-52 % Mean Corpuscular Volume 97 80-99 fL Mean Corpuscular Hemoglobin 31 25-34 pg Mean Corpuscular Hemoglobin Concent 32 32-36 g/dL Red Cell Distribution Width 14.8 H 10.0-14.5 % Platelet Count 198 130-400 10^3/uL Mean Platelet Volume 9.2 9.0-12.2 fL Immature Granulocyte % (Auto) 1 % Neutrophils (%) (Auto) 35 L 42-75 % Lymphocytes (%) (Auto) 59 H 12-44 % Monocytes (%) (Auto) 4 0-12 % Eosinophils (%) (Auto) 1 0-10 % Basophils (%) (Auto) 0 0-10 % Neutrophils # (Auto) 3.0 1.8-7.8 10^3/uL Lymphocytes # (Auto) 5.1 H 1.0-4.0 10^3/uL Monocytes # (Auto) 0.4 0.0-1.0 10^3/uL Eosinophils # (Auto) 0.1 0.0-0.3 10^3/uL Basophils # (Auto) 0.0 0.0-0.1 10^3/uL Immature Granulocyte # (Auto) 0.1 0.0-0.1 10^3/uL Sodium Level 141 135-145 MMOL/L Potassium Level 4.2 3.6-5.0 MMOL/L Chloride Level 100 98-107 MMOL/L Carbon Dioxide Level 31 21-32 MMOL/L Anion Gap 10 5-14 MMOL/L Blood Urea Nitrogen 19 H 7-18 MG/DL Creatinine 1.03 0.60-1.30 MG/DL Estimat Glomerular Filtration Rate 52 BUN/Creatinine Ratio 18 Glucose Level 115 H 70-105 MG/DL Calcium Level 9.3 8.5-10.1 MG/DL Corrected Calcium 9.4 8.5-10.1 MG/DL Total Bilirubin 0.2 0.1-1.0 MG/DL Aspartate Amino Transf (AST/SGOT) 24 5-34 U/L Alanine Aminotransferase (ALT/SGPT) 29 0-55 U/L Alkaline Phosphatase 81 40-136 U/L Troponin I < 0.028 <0.028 NG/ML Total Protein 7.0 6.4-8.2 GM/DL Albumin 3.9 3.2-4.5 GM/DL Urine Color YELLOW Urine Clarity SL CLOUDY Urine pH 8.0 5-9 Urine Specific [place] 1.010 L 1.016-1.022 Urine Protein NEGATIVE NEGATIVE Urine Glucose (UA) NEGATIVE NEGATIVE Urine Ketones NEGATIVE NEGATIVE Urine Nitrite NEGATIVE NEGATIVE Urine Bilirubin NEGATIVE NEGATIVE Urine Urobilinogen 0.2 < = 1.0 MG/DL Urine Leukocyte Esterase NEGATIVE NEGATIVE Urine RBC (Auto) NEGATIVE NEGATIVE Urine RBC NONE /HPF Urine WBC NONE /HPF Urine Squamous Epithelial Cells 0-2 /HPF Urine Crystals PRESENT H /LPF Urine Amorphous Sediment MOD BRADLY PHOSPHATE H /LPF Urine Bacteria NEGATIVE /HPF Urine Casts NONE /LPF Urine Mucus NEGATIVE /LPF Urine Culture Indicated NO My Orders Orders - JOSE AJ MD Ed Iv/Invasive Line Start (11/16/20 12:03) Ekg Tracing (11/16/20 12:03) Cbc With Automated Diff (11/16/20 12:03) Comprehensive Metabolic Panel (11/16/20 12:03) Troponin I (11/16/20 12:03) Ua Culture If Indicated (11/16/20 12:03) Vital Signs/I&O 11/16/20 11:46 Temp 36.2 Pulse 60 Resp 18 B/P (MAP) 152/55 (87) O2 Delivery Room Air Capillary Refill : Less Than 3 Seconds Blood Pressure Mean: 87 Progress Note : Progress Note Seen and evaluated. Symptoms have resolved now. Patient states that she has been eating and drinking well and does not feel dehydrated. We will go ahead and check basic labs, EKG and UA. This was discussed with the patient and family who agreed. Monitor patient. 1357: Overall normal vital signs throughout stay without any symptoms. Labs do not show any significant abnormality. She will talk with cardiology about pacemaker interrogation and follow-up with them. Discharged home with return precautions. Patient and family verbalized understanding of instructions and agreement with plan. Patient feels comfortable going home and so does family. Departure Impression Primary Impression: Vasovagal near syncope Disposition: 01 HOME, SELF-CARE Condition: Improved Departure-Patient Inst. Decision time for Depature: 13:58 Referrals: PASCUAL ALARCON DO (PCP) Primary Care Physician JUWAN ALARCON DNP (Family) Primary Care Physician FELICIA HODGES MD [facility] Patient Instructions: Vasovagal Response (DC), Near Fainting (DC) Add. Discharge Instructions: All discharge instructions reviewed with patient and/or family. Voiced understanding. Continue to drink a normal amount of fluids and eat a normal diet. Avoid things that upset the stomach or cause diarrhea. Follow-up with cardiology for recheck and further evaluation. Follow-up with your doctor in the next few days as needed. Return for worse pain, fever, vomiting, weakness, breathing problems or other concerns as needed. If you ever begin to feel lightheaded or faint, immediately lay down and try to elevate your legs as this may prevent the episodes. Copy Copies To 1: FELICIA HODGES [facility] JOSE AJ MD Nov 16, 2020 12:10
[2020-11-16 12:17] LABS: BASOPHILS % (AUTO) 0 % (0-10); EOSINOPHILS # (AUTO) 0.1 10^3/uL (0.0-0.3); EOSINOPHILS % (AUTO) 1 % (0-10); HEMATOCRIT 37 % (35-52); LYMPHOCYTES # (AUTO) 5.1 10^3/uL (1.0-4.0); LYMPHOCYTES % (AUTO) 59 % (12-44); MEAN CORPUSCULAR HEMOGLOBIN 31 pg (25-34); MEAN CORPUSCULAR HGB CONC 32 g/dL (32-36); MEAN CORPUSCULAR VOLUME 97 fL (80-99); MEAN PLATELET VOLUME 9.2 fL (9.0-12.2); MONOCYTES # (AUTO) 0.4 10^3/uL (0.0-1.0); MONOCYTES % (AUTO) 4 % (0-12); NEUTROPHILS % (AUTO) 35 % (42-75); PLATELET COUNT 198 10^3/uL (130-400); WHITE BLOOD COUNT 8.7 10^3/uL (4.3-11.0)
[2020-11-16 12:27] LABS: ALBUMIN 3.9 GM/DL (3.2-4.5); CHLORIDE 100 MMOL/L (98-107); POTASSIUM 4.2 MMOL/L (3.6-5.0); SODIUM 141 MMOL/L (135-145)
[2020-11-16 12:29] LABS: CALCIUM 9.3 MG/DL (8.5-10.1)
[2020-11-16 12:30] LABS: GLUCOSE 115 MG/DL (70-105)
[2020-11-16 12:31] LABS: CARBON DIOXIDE 31 MMOL/L (21-32)
[2020-11-16 12:32] LABS: BILIRUBIN,TOTAL 0.2 MG/DL (0.1-1.0)
[2020-11-16 12:33] LABS: ALKALINE PHOSPHATASE 81 U/L (40-136); CREATININE SERUM 1.03 MG/DL (0.60-1.30); GFR ESTIMATED 52
[2020-11-16 12:35] LABS: BUN/CREATININE RATIO 18
[2020-11-16 12:36] LABS: ALANINE AMINOTRANSFERASE 29 U/L (0-55)
[2020-11-16 13:24] LABS: BILIRUBIN,URINE NEGATIVE (NEGATIVE); CLARITY,URINE SL CLOUDY; COLOR,URINE YELLOW; GLUCOSE, URINE (UA) NEGATIVE (NEGATIVE); KETONES,URINE NEGATIVE (NEGATIVE); LEUKOCYTE ESTERASE ,URINE NEGATIVE (NEGATIVE); NITRITE,URINE NEGATIVE (NEGATIVE); PROTEIN,URINE NEGATIVE (NEGATIVE)
[2020-11-16 13:39] LABS: BACTERIA,URINE NEGATIVE /HPF; SQUAMOUS EPITHELIAL CELL,UR 0-2 /HPF
[2020-11-16 13:40] LABS: AMORPHOUS SEDIMENT,UR MOD AMOR PHOSPHATE /LPF
[2020-11-16 14:03] VITALS: BP 128/57
== END 2020-11-16 14:07 | disposition home or self-care (01) ==
LOC: EDUNIT# 11:40 → ER 11:41
DX: R55 Syncope and collapse (principal); I10 Essential (primary) hypertension; I48.91 Unspecified atrial fibrillation; K21.9 Gastro-esophageal reflux disease without esophagitis; E03.9 Hypothyroidism, unspecified; Z79.890 Hormone replacement therapy; Z79.01 Long term (current) use of anticoagulants; Z79.899 Other long term (current) drug therapy
CPT/HCPCS: 36415; 80053; 81000; 84484; 85025; 93005

== ENCOUNTER → 2021-01-23 | Outpatient (CLI) | payer MEDICARE ==
[2021-01-23 09:32] LABS: BASOPHILS % (AUTO) 0 % (0-10); EOSINOPHILS # (AUTO) 0.1 10^3/uL (0.0-0.3); EOSINOPHILS % (AUTO) 1 % (0-10); HEMATOCRIT 38 % (35-52); HEMOGLOBIN 12.2 g/dL (11.5-16.0); LYMPHOCYTES # (AUTO) 7.1 10^3/uL (1.0-4.0); LYMPHOCYTES % (AUTO) 68 % (12-44); MEAN CORPUSCULAR HEMOGLOBIN 32 pg (25-34); MEAN CORPUSCULAR HGB CONC 32 g/dL (32-36); MEAN CORPUSCULAR VOLUME 99 fL (80-99); MEAN PLATELET VOLUME 9.2 fL (9.0-12.2); MONOCYTES # (AUTO) 0.5 10^3/uL (0.0-1.0); MONOCYTES % (AUTO) 5 % (0-12); NEUTROPHILS # (AUTO) 2.6 10^3/uL (1.8-7.8); NEUTROPHILS % (AUTO) 25 % (42-75); PLATELET COUNT 224 10^3/uL (130-400); WHITE BLOOD COUNT 10.4 10^3/uL (4.3-11.0)
[2021-01-23 09:53] LABS: ALBUMIN 4.1 GM/DL (3.2-4.5); BILIRUBIN,TOTAL 0.3 MG/DL (0.1-1.0); CALCIUM 9.6 MG/DL (8.5-10.1); CREATININE SERUM 0.8 MG/DL (0.60-1.30); POTASSIUM 4.2 MMOL/L (3.6-5.0); TOTAL PROTEIN 7.2 GM/DL (6.4-8.2)
== END ==
LOC: EDSTATUS 10-20 16:32 → ONC 09:20
PROVIDERS: ATTEND Internal Medicine Hematology & Oncology
DX: D72.820 Lymphocytosis (symptomatic) (principal); M81.0 Age-related osteoporosis without current pathological fracture; E03.9 Hypothyroidism, unspecified; I48.0 Paroxysmal atrial fibrillation; I10 Essential (primary) hypertension; I27.20 Pulmonary hypertension, unspecified; Z85.72 Personal history of non-Hodgkin lymphomas; Z85.850 Personal history of malignant neoplasm of thyroid; Z90.89 Acquired absence of other organs; Z96.653 Presence of artificial knee joint, bilateral; Z78.0 Asymptomatic menopausal state; Z95.0 Presence of cardiac pacemaker; Z98.890 Other specified postprocedural states
CPT/HCPCS: 80053; 83615; 84443; 85025; G0463; 99213

== ENCOUNTER → 2021-01-29 | Outpatient (CLI) | payer MEDICARE ==
[~2021-01-29] MED LIST changes: +BARIUM SUSPENSION 2.1% (VANILLA SILQ) 450 ML PO ONE; +CATHETER FLUSH 10 ML SYR IV PRN; +HOLD METFORMIN - RECEIVED CONTRAST 20 ML VIAL IV SCH; +IOHEXOL 350 MG/ML 100 ML (OMNIPAQUE 350) VIAL IV ONE; +NS 100 ML (IVPB) BAG IV ONE
--- NOTE | 2021-01-29 09:48 | Diagnostic Imaging Report ---
PROCEDURE: CT Neck, Chest Abdomen and Pelvis with contrast, Abdomen and Pelvis without. TECHNIQUE: Multiple contiguous axial images were obtained through the neck, chest, abdomen, and pelvis after the uneventful bolus administration of intravenous contrast. Precontrast acquisitions through the abdomen and pelvis were performed. Sagittal and coronal reformations are then performed. Auto Exposure Controls were utilized during the CT exam to meet ALARA standards for radiation dose reduction. INDICATION: Lymphoma. Comparison is made with CT chest study from 10/08/2018. CT neck: The visualized intracranial structures are unremarkable. There are enlarged lymph nodes in the sub-mandibular locations bilaterally. Lymph node on the right anterior to the right submandibular gland has short axis measurement of 1.4 cm. Lymph node on the left anterior to the left submandibular gland has a short axis measurement of 1.2 cm. There is some prominent lymph nodes in the jugulodigastric location on the right. Shotty lymph nodes in the posterior cervical chain are noted bilaterally. The parotid and submandibular glands are unremarkable. The posterior nasopharynx, oropharynx and larynx are unremarkable. Parapharyngeal fat planes are preserved. There are some enlarged lymph nodes in the right supraclavicular location. CT chest: There are prominent lymph nodes in the axillae bilaterally. Largest lymph node on the right measures 1.8 x 1.1 cm. There is enlarged right paratracheal lymph node with short axis measurement of 1.5 cm. No definite hilar lymphadenopathy is detected. No pericardial or pleural fluid is identified. The lungs are clear. No infiltrates are detected. THere is no nodule or mass. There is a moderate-sized hiatal hernia present. CT abdomen and pelvis: Imaging of the liver does show some generalized low density suggestive of hepatic steatosis. There is a circumscribed low-attenuation lesion left lobe measuring 1.4 cm. This is too small to accurately characterize but most likely represents a small cyst. The gallbladder is unremarkable. There is no biliary ductal dilatation. The pancreas and spleen are unremarkable. Spleen does contain several calcified granulomas. No adrenal mass is identified. Kidneys are unremarkable. No hydronephrosis. Aorta is heavily calcified but nonaneurysmal. There are multiple small central retroperitoneal lymph nodes present but no pathologically enlarged lymph nodes are identified. No definite mesenteric lymphadenopathy is detected. There are numerous shotty lymph nodes in the mesentery. There is a lymph node posterior to the inferior right lobe of the liver with short axis measurement of 10 mm. There is a right iliac chain lymphadenopathy. A conglomerate of lymph nodes adjacent to the right common iliac artery measure 2.1 cm in diameter. More inferiorly and along the right iliac chain is a 1.8 cm lymph node. There is a prominent obturator lymph node on the right as well. Prominent obturator lymph node on the left is noted. No definite inguinal lymphadenopathy is identified. The bowel loops are normal caliber. There is no evidence of obstruction. There is extensive diverticulosis of the descending and sigmoid colon but no evidence of acute diverticulitis. The bladder is unremarkable. There is no free fluid or free air. Bony structures demonstrates dense sclerosis along the left sacroiliac joint consistent with sacroiliitis. Bony structures are otherwise unremarkable. IMPRESSION: 1. Lymphadenopathy in the neck, chest, abdomen and pelvis, as described. 2. Uncomplicated diverticulosis. 3. Probable left lobe liver cyst. 4. No other significant abnormality is detected. Dictated by: Dictated on workstation # [id number]
== END ==
LOC: RAD 08:55
PROVIDERS: ATTEND Internal Medicine Hematology & Oncology
DX: C83.00 Small cell B-cell lymphoma, unspecified site (principal); K57.30 Diverticulosis of large intestine without perforation or abscess without bleeding
CPT/HCPCS: 70491; 71260; 74178

== ENCOUNTER → 2021-07-19 | Outpatient (CLI) | payer MEDICARE ==
[~2021-07-19] MED LIST changes: -BARIUM SUSPENSION 2.1% (VANILLA SILQ) 450 ML PO ONE; -CATHETER FLUSH 10 ML SYR IV PRN; +CYCL10TA25 PO; -CYCL10TA9 PO; -HOLD METFORMIN - RECEIVED CONTRAST 20 ML VIAL IV SCH; -IOHEXOL 350 MG/ML 100 ML (OMNIPAQUE 350) VIAL IV ONE; -MAGN400T8 PO; +MGX400T PO; -NS 100 ML (IVPB) BAG IV ONE
[2021-07-19 15:38] LABS: BASOPHILS % (AUTO) 0 % (0-10); EOSINOPHILS # (AUTO) 0.1 10^3/uL (0.0-0.3); EOSINOPHILS % (AUTO) 1 % (0-10); HEMATOCRIT 35 % (35-52); HEMOGLOBIN 11.8 g/dL (11.5-16.0); LYMPHOCYTES # (AUTO) 2.9 10^3/uL (1.0-4.0); LYMPHOCYTES % (AUTO) 51 % (12-44); MEAN CORPUSCULAR HEMOGLOBIN 32 pg (25-34); MEAN CORPUSCULAR HGB CONC 34 g/dL (32-36); MEAN CORPUSCULAR VOLUME 95 fL (80-99); MEAN PLATELET VOLUME 9.7 fL (9.0-12.2); MONOCYTES # (AUTO) 0.5 10^3/uL (0.0-1.0); MONOCYTES % (AUTO) 9 % (0-12); NEUTROPHILS # (AUTO) 2.2 10^3/uL (1.8-7.8); NEUTROPHILS % (AUTO) 38 % (42-75); PLATELET COUNT 194 10^3/uL (130-400); WHITE BLOOD COUNT 5.8 10^3/uL (4.3-11.0)
--- NOTE | 2021-07-19 15:48 | Diagnostic Imaging Report ---
INDICATION: Pneumonia. TECHNIQUE: PA and lateral views of the chest are obtained with comparison made to study of 06/04/2018. FINDINGS: Overall heart size and pulmonary vascularity are within normal limits. There is air trapping in the upper lobes. There has been development of airspace disease throughout the lower lobe of the right lung. No pneumothorax or pleural fluid is seen. IMPRESSION: Findings are compatible with right lower lobe pneumonia. Radiographic follow-up would be useful to document resolution. Dictated by: Dictated on workstation # [id number]
[2021-07-19 15:57] LABS: BAND NEUTROPHILS 5 %; BASOPHILS % (MANUAL) 0 %; EOSINOPHILS % (MANUAL) 0 %; LYMPHOCYTES % (MANUAL) 26 %; MONOCYTES % (MANUAL) 4 %; NEUTROPHILS % (MANUAL) 39 %; REACTIVE LYMPHOCYTES 26 %
[2021-07-19 15:58] LABS: RBC MORPH NORMAL
[2021-07-19 16:03] LABS: CREATININE SERUM 0.73 MG/DL (0.60-1.30); POTASSIUM 4.3 MMOL/L (3.6-5.0)
[2021-07-19 16:04] LABS: ALBUMIN 3.8 GM/DL (3.2-4.5); BILIRUBIN,TOTAL 0.4 MG/DL (0.1-1.0); CALCIUM 8.3 MG/DL (8.5-10.1); TOTAL PROTEIN 7.1 GM/DL (6.4-8.2)
== END ==
LOC: RAD 15:12
PROVIDERS: ATTEND Nurse Practitioner Family
DX: J15.8 Pneumonia due to other specified bacteria (principal)
CPT/HCPCS: 36415; 71046; 80053; 85007; 85025; 85027

== ENCOUNTER 2021-07-28 13:50 | Emergency (ER) | payer MEDICARE ==
[~2021-07-28] VITALS: Ht 172.7 cm; Wt 99.7 kg
--- NOTE | 2021-07-28 14:30 | ED Lower Extremity ---
General Chief Complaint: Lower Extremity Stated Complaint: BILAT LEG PAIN Nursing Triage Note: PT AMB TO [facility] WITH COMPLAINT OF BILATERAL HIP/LEG PAIN THAT STARTED YESTERDAY. Source: patient Exam Limitations: no limitations (KERRI MADRIGAL MED STUDENT) History of Present Illness Date Seen by Provider: Jul 28, 2021 Time Seen by Provider: 14:24 Initial Comments This is a 75 YO female with history of HTN, thyroidectomy, and Afib on Eliquis who presents to the ED with bilateral hip pain, right worse than left, since last night. States she has been taking Tylenol and Tramadol at home with no improvement. No known injury or trauma. Denies weakness or bowel/bladder dysfunction. Pt was diagnosed with pneumonia 9 days ago on 07/19 and was prescribed Prednisone 20 mg and an antibiotic that she does not remember the name of. She completed the steroid course yesterday, but stopped taking the antibiotic per her PCP's direction because she believed it was giving her a headache. Pt says she has had bursitis in the past and is requesting bursa injections for her pain. Onset: yesterday Modifying Factors: Worse With Movement (KERRI MADRIGAL MED STUDENT) Initial Comments She finished the course of steroids a few days ago. (MARI PATEL MD) Allergies and Home Medications Allergies Coded Allergies: promethazine (Verified Allergy, Unknown, 01/01/06) Patient Home Medication List Home Medication List Reviewed: Yes (MARI PATEL MD) Apixaban (Eliquis) 5 Mg Tablet, 5 MG PO BID Prescribed by: LASHONDA YU on 11/29/17 0724 Biotin (Biotin) 10,000 Mcg Tab.rapdis, 10,000 MCG PO DAILY, (Reported) Entered as Reported by: TEVIN MARTELL on 08/10/20 1201 Cholecalciferol (Vitamin D3) (Weekly-D) 1,250 Mcg Capsule, 50,000 MCG PO WEEK, (Reported) Entered as Reported by: TEVIN MARTELL on 08/10/20 1201 Cyanocobalamin (Cyanocobalamin Injection) 1,000 Mcg/Ml Inj, 1,000 MCG IM MONTHLY, (Reported) Entered as Reported by: EMIGDIO DICKSON on 11/27/17 1040 Diltiazem HCl (Cardizem Cd) 120 Mg Cap.er.24h, 120 MG PO DAILY Prescribed by: LASHONDA YU on 11/29/17 0724 Gabapentin (Neurontin) 300 Mg Capsule, 300 MG PO TID PRN for PAIN-BREAKTHROUGH Prescribed by: MARI JIMENEZ on 07/28/21 1622 Levothyroxine Sodium (Levothyroxine Sodium) 137 Mcg Tablet, 137 MCG PO DAILY, (Reported) Entered as Reported by: ELISEO GARBER on 04/24/15 1019 Magnesium Oxide (Magnesium) 500 Mg Capsule, 500 MG PO DAILY, (Reported) Entered as Reported by: TEVIN MARTELL on 08/10/20 1201 Oxycodone HCl/Acetaminophen (Percocet 5-325 mg Tablet) 1 Each Tablet, 1 TAB PO Q4H PRN for PAIN-MODERATE (5-7) Prescribed by: MARI JIMENEZ on 07/28/21 1622 Pantoprazole Sodium (Pantoprazole Sodium) 40 Mg Tablet.dr, 40 MG PO DAILY, (Reported) Entered as Reported by: TEVIN MARTELL on 08/10/20 1201 Tramadol HCl (Tramadol HCl) 50 Mg Tablet, 50 MG PO BID, (Reported) Entered as Reported by: TEVIN MARTELL on 08/10/20 1201 Vitamin B Complex (B Complex) 1 Each Tablet, 1 EACH PO DAILY, (Reported) Entered as Reported by: TEVIN MARTELL on 08/10/20 1201 Review of Systems Constitutional: No chills, No fever EENTM: No blurred vision, No double vision Respiratory: No cough, No short of breath Cardiovascular: No chest pain, No palpitations Gastrointestinal: No nausea, No vomiting Genitourinary: No dysuria, No incontinence Musculoskeletal: see HPI Skin: No pruritus, No rash Psychiatric/Neurological: Denies Numbness, Denies Paresthesia (KERRI MADRIGAL MED STUDENT) All Other Systems Reviewed Negative Unless Noted: Yes (Negative excepted noted.) (KERRI MADRIGAL MED STUDENT) Past Bayjlgw-Hufesd-Vamzhp Hx Patient Social History Tobacco Use?: No Use of E-Cig and/or Vaping dev: No Substance use?: No Alcohol Use?: No Pt feels they are or have been: No (KERRI MADRIGAL MED STUDENT) Immunizations Up To Date First/Initial COVID19 Vaccinat: YES Second COVID19 Vaccination [place]: 08/11/2020 Third COVID19 Vaccination Date: YES (KERRI MADRIGAL MED STUDENT) Seasonal Allergies Seasonal Allergies: Yes (KERRI MADRIGAL STUDENT) Past Medical History Surgeries: Yes Abdominal, Eye Surgery, Joint Replacement, Oophorectomy, Orthopedic, Pacemaker, Rectal, Thyroidectomy Respiratory: No (NO PULMONARY DX BUT STATES SHE IS "ALWAYS A LITTLE SHORT OF BREATH" ) Currently Using CPAP: Yes Cardiac: Yes Atrial Fibrillation, Hypertension, Irregular Heartbeat, Syncope Neurological: No 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 Disorders: No 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, Menopausal Genitourinary: Yes Bladder Infection Gastrointestinal: Yes (DIVERTICULAR DISEASE NOTED ON SCREENING COLONOSCOPY) Gastroesophageal Reflux, Hartman's Esophagus, Diverticulosis, Hemorrhoids, Esophagitis, Hiatal Hernia Musculoskeletal: Yes Osteoporosis, Arthritis, Chronic Back Pain Endocrine: Yes Hypothyroidsim HEENT: Yes (BILATERAL CATARACT SURGERY) Cataract Cancer: Yes Skin, Thyroid Did You Recieve Any Treatments: Yes What Type of Treatment Did You: Surgical Intervention Psychosocial: No Integumentary: No Blood Disorders: No Adverse Reaction/Blood Tranf: No (KERRI MADRIGAL STUDENT) Family Medical History Abdominal aortic aneurysm 19 MOTHER G8 BROTHER Alzheimer's disease G8 SISTER Arthritis G8 SISTER Cardiovascular disease 19 MOTHER FH: lung cancer 19 FATHER FH: ovarian cancer G8 SISTER Hypertension G8 SISTER Prostate cancer G8 BROTHER Psychosocial problem Thyroid disease G8 SISTER No Family History of: AIDS Oktibbeha's disease Alcoholism Colon cancer Completed stroke Dementia Diabetes mellitus Drug abuse Myocardial infarction Parkinson's disease Respiratory disorder Seizure disorder Severe allergy Physical Exam Vital Signs Vital Signs - First Documented 07/28/21 13:55 Temp 36.3 Pulse 95 Resp 20 B/P (MAP) 162/80 (107) Pulse Ox 92 O2 Delivery Room Air (MARI PATEL MD) Vital Signs Capillary Refill : Less Than 3 Seconds (KERRI MADRIGAL STUDENT) Height, Weight, BMI Height: 5'7.00" Weight: 236lbs. 2.0oz. 107.540335mn; 33.00 BMI Method:Stated General Appearance: WD/WN, mild distress, other (moving around the room, cannot get comfortable) HEENT: PERRL/EOMI, normal ENT inspection; No scleral icterus (R), No scleral icterus (L) Neck: supple, normal inspection Cardiovascular: regular rate, rhythm, no murmur Respiratory: no respiratory distress, no accessory muscle use, other (right lower lobe crackles) Gastrointestinal: non tender, soft; No distended, No guarding, No rebound Back: no CVA tenderness, no vertebral tenderness Neurologic/Tendon: normal motor functions Neurologic/Psychiatric: no motor/sensory deficits, alert, normal mood/affect, oriented x 3 Skin: normal color, warm/dry (KERRI MADRIGAL MED STUDENT) Progress/Results/Core Measures Results/Orders Lab Results Laboratory Tests Test 07/28/21 14:59 Range/Units White Blood Count 8.9 4.3-11.0 10^3/uL Red Blood Count 4.07 3.80-5.11 10^6/uL Hemoglobin 12.9 11.5-16.0 g/dL Hematocrit 39 35-52 % Mean Corpuscular Volume 96 80-99 fL Mean Corpuscular Hemoglobin 32 25-34 pg Mean Corpuscular Hemoglobin Concent 33 32-36 g/dL Red Cell Distribution Width 15.4 H 10.0-14.5 % Platelet Count 357 130-400 10^3/uL Mean Platelet Volume 8.6 L 9.0-12.2 fL Immature Granulocyte % (Auto) 1 % Neutrophils (%) (Auto) 34 L 42-75 % Lymphocytes (%) (Auto) 59 H 12-44 % Monocytes (%) (Auto) 5 0-12 % Eosinophils (%) (Auto) 1 0-10 % Basophils (%) (Auto) 0 0-10 % Neutrophils # (Auto) 3.0 1.8-7.8 X 10^3 Lymphocytes # (Auto) 5.3 H 1.0-4.0 X 10^3 Monocytes # (Auto) 0.5 0.0-1.0 X 10^3 Eosinophils # (Auto) 0.1 0.0-0.3 10^3/uL Basophils # (Auto) 0.0 0.0-0.1 10^3/uL Immature Granulocyte # (Auto) 0.1 0.0-0.1 10^3/uL Erythrocyte Sedimentation Rate 17 0-30 MM/HR Sodium Level 137 135-145 MMOL/L Potassium Level 4.3 3.6-5.0 MMOL/L Chloride Level 101 98-107 MMOL/L Carbon Dioxide Level 22 21-32 MMOL/L Anion Gap 14 5-14 MMOL/L Blood Urea Nitrogen 15 7-18 MG/DL Creatinine 0.82 0.60-1.30 MG/DL Estimat Glomerular Filtration Rate 75 BUN/Creatinine Ratio 18 Glucose Level 110 H 70-105 MG/DL Calcium Level 9.5 8.5-10.1 MG/DL Corrected Calcium 9.4 8.5-10.1 MG/DL Magnesium Level 2.4 1.6-2.4 MG/DL Total Bilirubin 0.3 0.1-1.0 MG/DL Aspartate Amino Transf (AST/SGOT) 18 5-34 U/L Alanine Aminotransferase (ALT/SGPT) 40 0-55 U/L Alkaline Phosphatase 63 40-136 U/L Total Creatine Kinase 32 29-168 U/L Myoglobin 19.8 10.0-92.0 NG/ML C-Reactive Protein High Sensitivity 0.73 H 0.00-0.50 MG/DL Total Protein 7.1 6.4-8.2 GM/DL Albumin 4.1 3.2-4.5 GM/DL Thyroid Stimulating Hormone (TSH) 0.36 0.35-4.94 UIU/ML Free Thyroxine 1.61 H 0.70-1.48 NG/DL Influenza Type A Antigen POSITIVE H NEGATIVE Influenza Type B Antigen NEGATIVE NEGATIVE (MARI PATEL MD) My Orders Orders - MARI PATEL MD Cbc With Automated Diff (07/28/21 14:43) Comprehensive Metabolic Panel (07/28/21 14:43) Creatine Kinase (07/28/21 14:43) Hs C Reactive Protein (07/28/21 14:43) Magnesium (07/28/21 14:43) Erythrocyte Sedimentation Rate (07/28/21 14:43) Myoglobin Serum (07/28/21 14:43) Ed Iv/Invasive Line Start (07/28/21 14:43) Chest Pa/Lat (2 View) (07/28/21 14:43) Fentanyl Inj (Sublimaze Injection) (07/28/21 14:45) Influenza A & B Antigens (07/28/21 14:43) Lactated Ringers (Lr 1000 Ml Iv Solution (07/28/21 15:00) Oxycodone/Apap 5/325mg Tablet (Percocet (3/12/22 15:30) Morphine Injection (Morphine Injection (07/28/21 15:27) Free T4 (Free Thyroxine) (07/28/21 16:24) Thyroid Stimulating Hormone (07/28/21 16:24) (MARI PATEL MD) Medications Given in ED (MARI PATEL MD) Vital Signs/I&O 07/28/21 07/28/21 13:55 16:39 Temp 36.3 Pulse 95 60 Resp 20 17 B/P (MAP) 162/80 (107) 143/68 Pulse Ox 92 93 O2 Delivery Room Air Room Air (MARI PATEL MD) Blood Pressure Mean: 107 Progress Progress Note : Time: 16:38 Progress Note Patient was found to have influenza A. In light of that diagnosis, I suspect her leg pain is largely due to viral illness. She also may be having some myalgia from steroids or even steroid withdrawal since she finished a couple days ago. She could also be having exacerbation of radiculopathy from her lower back pain. She did not exhibit any paralysis of the lower extremities, bowel or bladder dysfunction, or numbness of the groin. Pain was briefly improved with fentanyl. She was additionally treated with Percocet and morphine. Pain that was controlled but not completely gone at the time of discharge. Because she may have a neuropathic component to this pain, I am also allowing her a small prescription of gabapentin. I did warn her not to use Percocet and gabapentin in proximity with each other as they are both sedating. She is to use her oxygen when on these medications, and she is to use her CPAP with oxygen anytime she may fall asleep and especially at night. We had a discussion about these parameters. She was advised to use her oxygen 1 to 4 L/min to keep oxygen saturations above 92%. There was no evidence for active pneumonia. Therefore, no antibiotics were prescribed. She is also advised not to take Ultram while on gabapentin or Percocet. The Percocet will substitute for the Ultram. (MARI PATEL MD) Diagnostic Imaging Diagonstic Imaging: Xray Plain Films/CT/US/NM/MRI: chest Comments Chest x-ray viewed by me and report reviewed. Compared with prior. See report below: NAME: HIPFL,ERICKSON [facility] [employer] REC#: [id number] PT STATUS: REG ER : 1945 PHYSICIAN: MARI PATEL MD ADMIT DATE: 07/28/21/ER Draft Date of Exam:07/28/21 CHEST PA/LAT (2 VIEW) INDICATION: Pneumonia. TIME OF EXAM: 3:06 PM. COMPARISON: Correlation is made with prior chest from 07/19/2021. Heart size is stable. Dual-lead left subclavian cardiac pacer is in place. Lungs are clear. No infiltrates are identified. Patient appears to have a hiatal hernia. There is no effusion or pneumothorax. IMPRESSION: No acute cardiopulmonary process is detected. Dictated on workstation # [id number] Dict: 07/28/21 1521 Trans: 07/28/21 1523 [facility] [id number] Interpreted by: PRISCILA JOHNSON MD (MARI PATEL MD) Departure Impression Primary Impression: Influenza A Additional Impression: Bilateral thigh pain Disposition: 01 HOME, SELF-CARE Condition: Improved Departure-Patient Inst. Decision time for Depature: 16:18 (MARI PATEL MD) Referrals: PASCUAL ALARCON DO (PCP) Primary Care Physician JUWAN ALARCON DNP (Family) Primary Care Physician Patient Instructions: Flu, Adult ED Add. Discharge Instructions: Use your Percocet (oxycodone/APAP) as prescribed. Please monitor your oxygen saturations closely while on this medication as it may decrease your respiratory drive. Use your oxygen 1 to 4 L/min as necessary to keep your oxygen levels above 92%. If you are resting and may fall asleep please also use your BiPAP machine. Definitely always use your BiPAP machine at night when you are sleeping as well as your oxygen. If Percocet alone is not sufficient to control your pain, you may consider adding gabapentin. Use with caution as these medications may both cause drowsiness. Do not take gabapentin within 2 hours of taking Percocet. Do not add gabapentin if the Percocet has made you excessively drowsy. You may wish to take a stool softener such as Colace while on Percocet as Percocet may cause constipation. Follow-up with your primary care provider soon as possible. Call Friday for an appointment. We did check your thyroid function while in the ER. Results were pending at the time of discharge. If you do not hear from the ER regarding results of your thyroid test, please have your primary care provider check on them on Friday. Call the ER with questions or concerns, and return to the ER if you have worsening symptoms despite these instructions. Also return to the ER promptly if you develop difficulty controlling bowels or bladder, true weakness of your legs, or numbness in your groin region. All discharge instructions reviewed with patient and/or family. Voiced understanding. Scripts Gabapentin (Neurontin) 300 Mg Capsule 300 MG PO TID PRN for PAIN-BREAKTHROUGH, #10 CAP Prov: MARI PATEL MD 07/28/21 Oxycodone HCl/Acetaminophen (Percocet 5-325 mg Tablet) 1 Each Tablet 1 TAB PO Q4H PRN for PAIN-MODERATE (5-7) MDD 6 TABS, #15 TAB Prov: MARI PATEL MD 07/28/21 Copy Copies To 1: PASCUAL ALARCON CHRISTINE MED STUDENT Jul 28, 2021 14:29 MARI PATEL MD Jul 28, 2021 15:30
[2021-07-28] MEDS ORDERED: fentaNYL INJ 100 MCG/2 ML AMP IVP ONE (14:45)
[2021-07-28] MEDS ORDERED: LACTATED RINGERS 1,000 ML IV ONE (15:00)
[2021-07-28 15:15] LABS: BASOPHILS % (AUTO) 0 % (0-10); EOSINOPHILS # (AUTO) 0.1 10^3/uL (0.0-0.3); EOSINOPHILS % (AUTO) 1 % (0-10); HEMATOCRIT 39 % (35-52); HEMOGLOBIN 12.9 g/dL (11.5-16.0); LYMPHOCYTES # (AUTO) 5.3 X 10^3 (1.0-4.0); LYMPHOCYTES % (AUTO) 59 % (12-44); MEAN CORPUSCULAR HEMOGLOBIN 32 pg (25-34); MEAN CORPUSCULAR HGB CONC 33 g/dL (32-36); MEAN CORPUSCULAR VOLUME 96 fL (80-99); MEAN PLATELET VOLUME 8.6 fL (9.0-12.2); MONOCYTES # (AUTO) 0.5 X 10^3 (0.0-1.0); MONOCYTES % (AUTO) 5 % (0-12); NEUTROPHILS % (AUTO) 34 % (42-75); PLATELET COUNT 357 10^3/uL (130-400); WHITE BLOOD COUNT 8.9 10^3/uL (4.3-11.0)
[2021-07-28 15:17] LABS: ALBUMIN 4.1 GM/DL (3.2-4.5); POTASSIUM 4.3 MMOL/L (3.6-5.0)
[2021-07-28 15:18] LABS: CALCIUM 9.5 MG/DL (8.5-10.1)
[2021-07-28 15:19] LABS: TOTAL PROTEIN 7.1 GM/DL (6.4-8.2)
[2021-07-28 15:21] LABS: BILIRUBIN,TOTAL 0.3 MG/DL (0.1-1.0)
[2021-07-28 15:23] LABS: CREATININE SERUM 0.82 MG/DL (0.60-1.30)
--- NOTE | 2021-07-28 15:23 | Diagnostic Imaging Report ---
INDICATION: Pneumonia. TIME OF EXAM: 3:06 PM. COMPARISON: Correlation is made with prior chest from 07/19/2021. Heart size is stable. Dual-lead left subclavian cardiac pacer is in place. Lungs are clear. No infiltrates are identified. Patient appears to have a hiatal hernia. There is no effusion or pneumothorax. IMPRESSION: No acute cardiopulmonary process is detected. Dictated by: Dictated on workstation # [id number]
[2021-07-28 15:25] LABS: MAGNESIUM 2.4 MG/DL (1.6-2.4)
[2021-07-28] MEDS ORDERED: morphine INJ 10 MG/ML 1ML (SYR OR VIAL) IVP STA (15:27)
[2021-07-28] MEDS ORDERED: oxyCODONE/APAP 5/325MG (PERCOCET 5) TABLET PO ONE (15:30)
[2021-07-28 15:31] LABS: ERYTHROCYTE SEDIMENTATION RATE 17 MM/HR (0-30)
[2021-07-28] MEDS ORDERED: OXYC1TAB87 PO (16:22)
[2021-07-28] MEDS ORDERED: GABA300C PO (16:22)
[2021-07-28 16:39] VITALS: BP 143/68
[2021-07-28 17:02] LABS: FREE T4 (FREE THYROXINE) 1.61 NG/DL (0.70-1.48)
== END 2021-07-28 16:39 | disposition home or self-care (01) ==
LOC: EDUNIT# 13:50 → ER 13:51
DX: J10.1 Influenza due to other identified influenza virus with other respiratory manifestations (principal); M79.652 Pain in left thigh; M79.651 Pain in right thigh; I48.91 Unspecified atrial fibrillation; Z79.01 Long term (current) use of anticoagulants
CPT/HCPCS: 36415; 71046; 80053; 82550; 83735; 83874; 84439; 84443; 85025; 85652; 86141; 87804

== ENCOUNTER → 2021-08-28 | Outpatient (CLI) | payer MEDICARE ==
[~2021-08-28] MED LIST changes: +GABA300C PO; +OXYC1TAB87 PO
== END ==
LOC: ONC 09:49
PROVIDERS: ATTEND Internal Medicine Hematology & Oncology
DX: C91.10 Chronic lymphocytic leukemia of B-cell type not having achieved remission (principal)
CPT/HCPCS: 99213

== ENCOUNTER 2022-03-04 02:02 | Emergency (ER) | payer MEDICARE ==
[2022-03-04] MEDS ORDERED: LACTATED RINGERS 1,000 ML IV ONE (03:00)
--- NOTE | 2022-03-04 03:11 | ED General ---
General Chief Complaint: Abdominal/GI Problems Stated Complaint: WEAK,VOMITED Source of Information: Patient (EXTREMELY ANXIOUS) History of Present Illness Date Seen by Provider: Mar 04, 2022 Time Seen by Provider: 02:44 Initial Comments PT ARRIVES VIA POV FROM HOME WITH PT WALKS IN ON HER OWN WITHOUT DIFFICULTY STATES "I WOKE UP FROM A SLEEP AND FELT REALLY WEIRD--I CAN'T EXPLAIN IT" "I THOUGHT I WAS GOING TO " STATES "THEN I BROKE OUT IN A SWEAT AND MY WHOLE BODY JUST FELT SO DIFFERENT AND I THOUGHT I WAS DYING" STATES SHE VOMITED ONCE--"BUT IT WAS HUGE" --REPEATS "IT WAS SO MUCH ALL AT ONCE" "AND I WASN'T EVEN SICK". STATES SHE ATE [employer] FOR DINNER LAST NIGHT; DENIES ANY SUSPICIOUS FOOD OR SICK CONTACTS. ATE THE SAME AND HE IS NOT ILL. STATES THEN SHE STARTED FEELING BETTER STATES THIS BEGAN AROUND 0100 AND LASTED ABOUT 45 MINUTES. CALLED EMS, THEN REFUSED TRANSPORT. REPEATS "I'VE NEVER FELT LIKE THIS" "I THOUGHT I WAS DYING" "MY WHOLE BODY FELT WEIRD" "I CAN'T EXPLAIN IT" A MULTITUDE OF TIMES THROUGHOUT EXAM AND THROUGHOUT ER STAY. STATES SHE FEELS FINE NOW NO CHEST PAIN NO PALPITATIONS NO SHORTNESS OF BREATH NO HEADACHE NO VISION CHANGES NO DIZZINESS NO PARESTHESIAS OR MOTOR DEFICITS, NO DIFFICULTY TALKING OR WALKING. NO ABDOMINAL PAIN NO DIARRHEA NO FEVER OR RECENT ILLNESS NO COUGH NO URINARY SYMPTOMS PT DOES C/O CHRONIC BACK PAIN AND PAIN IS IN HER LEFT LOWER BACK NOW, AND HAS BEEN WORSE FOR THE LAST FEW DAYS PT REPEATS THAT SHE IS "REALLY HEALTHY AND I NEVER GET SICK" AND DENIES THAT SHE HAS ANY MEDICAL PROBLEMS SHE THEN GOES ON TO LIST HER MEDICATIONS AND THAT SHE HAS A PACEMAKER, WITH ATRIAL FIBRILLATION AND IS ON ELIQUIS SHE IS ALSO ON METFORMIN--INITIALLY STATES SHE IS NOT DIABETIC AND DOES NOT KNOW WHY SHE IS ON METFORMIN, THEN STATES THAT SHE IS "JUST A LITTLE BIT" DIABETIC ON DIRECT QUESTIONING. SHE ALSO HAS HYPOTHYROIDISM, ALONG WITH GERD, AND CHRONIC BACK PAIN SHE STATES SHE HAS HAD A "360 WRAP" --HIATAL HERNIA REPAIR NO OTHER ABDOMINAL SURGERIES DENIES ANY OTHER HISTORY OF GI PROBLEMS PCP: ZEUS ALARCON AT DR. ALARCON'S OFFICE Allergies and Home Medications Allergies Coded Allergies: promethazine (Verified Allergy, Unknown, 01/01/06) Patient Home Medication List Apixaban (Eliquis) 5 Mg Tablet, 5 MG PO BID Prescribed by: LASHONDA YU on 11/29/17 0724 Biotin (Biotin) 10,000 Mcg Tab.rapdis, 10,000 MCG PO DAILY, (Reported) Entered as Reported by: TEVIN MARTELL on 08/10/20 1201 Cholecalciferol (Vitamin D3) (Weekly-D) 1,250 Mcg Capsule, 50,000 MCG PO WEEK, (Reported) Entered as Reported by: TEVIN MARTELL on 08/10/20 120 Cyanocobalamin (Cyanocobalamin Injection) 1,000 Mcg/Ml Inj, 1,000 MCG IM MONTHLY, (Reported) Entered as Reported by: EMIGDIO DICKSON on 11/27/17 1040 Diltiazem HCl (Cardizem Cd) 120 Mg Cap.er.24h, 120 MG PO DAILY Prescribed by: LASHONDA YU on 11/29/17 0724 Gabapentin (Neurontin) 300 Mg Capsule, 300 MG PO TID PRN for PAIN-BREAKTHROUGH Prescribed by: MARI JIMENEZ on 07/28/21 1622 Levothyroxine Sodium (Levothyroxine Sodium) 137 Mcg Tablet, 137 MCG PO DAILY, (Reported) Entered as Reported by: ELISEO GARBER on 04/24/15 1019 Magnesium Oxide (Magnesium) 500 Mg Capsule, 500 MG PO DAILY, (Reported) Entered as Reported by: TEVIN MARTELL on 08/10/20 120 Oxycodone HCl/Acetaminophen (Percocet 5-325 mg Tablet) 1 Each Tablet, 1 TAB PO Q4H PRN for PAIN-MODERATE (5-7) Prescribed by: MARI JIMENEZ on 07/28/21 1622 Pantoprazole Sodium (Pantoprazole Sodium) 40 Mg Tablet.dr, 40 MG PO DAILY, (Rep orted) Entered as Reported by: TEVIN MARTELL on 08/10/20 120 Tramadol HCl (Tramadol HCl) 50 Mg Tablet, 50 MG PO BID, (Reported) Entered as Reported by: TEVIN MARTELL on 08/10/20 1201 Vitamin B Complex (B Complex) 1 Each Tablet, 1 EACH PO DAILY, (Reported) Entered as Reported by: TEVIN MARTELL on 08/10/20 1201 Review of Systems Review of Systems Constitutional: see HPI EENTM: no symptoms reported Respiratory: no symptoms reported; No cough, No short of breath Cardiovascular: no symptoms reported; No chest pain, No edema, No palpitations, No syncope, No vascular heart diseas Gastrointestinal: see HPI; No abdominal pain, No diarrhea; nausea, vomiting Genitourinary: no symptoms reported Musculoskeletal: see HPI, back pain Skin: no symptoms reported Psychiatric/Neurological: See HPI, Anxiety; Denies Headache, Denies Numbness, Denies Paresthesia, Denies Seizure, Denies Tingling, Denies Tremors, Denies Weakness Hematologic/Lymphatic: No Symptoms Reported Immunological/Allergic: no symptoms reported Past Fekvkaz-Ujeecn-Lulhtv Hx Patient Social History Tobacco Use?: No Smoking Status: Never a Smoker Smokeless Tobacco Frequency: Never a User Use of E-Cig and/or Vaping Abdiel: Never a User Substance use?: No Alcohol Use?: No Immunizations Up To Date First/Initial COVID19 Vaccinat: YES Second COVID19 Vaccination [place]: 08/11/2020 Third COVID19 Vaccination Date: YES Seasonal Allergies Seasonal Allergies: Yes Past Medical History Surgeries: Yes Abdominal, Eye Surgery, Joint Replacement, Oophorectomy, Orthopedic, Pacemaker, Rectal, Thyroidectomy Respiratory: No (NO PULMONARY DX BUT STATES SHE IS "ALWAYS A LITTLE SHORT OF BREATH" ) Currently Using CPAP: Yes Cardiac: Yes Atrial Fibrillation, Hypertension, Irregular Heartbeat, Syncope Neurological: No 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 Disorders: No 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, Menopausal Genitourinary: Yes Bladder Infection Gastrointestinal: Yes (DIVERTICULAR DISEASE NOTED ON SCREENING COLONOSCOPY) Gastroesophageal Reflux, Hartman's Esophagus, Diverticulosis, Hemorrhoids, Esophagitis, Hiatal Hernia Musculoskeletal: Yes Osteoporosis, Arthritis, Chronic Back Pain Endocrine: Yes Hypothyroidsim HEENT: Yes (BILATERAL CATARACT SURGERY) Cataract Cancer: Yes Skin, Thyroid Did You Recieve Any Treatments: Yes What Type of Treatment Did You: Surgical Intervention Psychosocial: No Integumentary: No Blood Disorders: No Adverse Reaction/Blood Tranf: No Family Medical History Abdominal aortic aneurysm 19 MOTHER G8 BROTHER Alzheimer's disease G8 SISTER Arthritis G8 SISTER Cardiovascular disease 19 MOTHER FH: lung cancer 19 FATHER FH: ovarian cancer G8 SISTER Hypertension G8 SISTER Prostate cancer G8 BROTHER Psychosocial problem Thyroid disease G8 SISTER No Family History of: AIDS [place]'s disease Alcoholism Colon cancer Completed stroke Dementia Diabetes mellitus Drug abuse Myocardial infarction Parkinson's disease Respiratory disorder Seizure disorder Severe allergy PAST SURGICAL HISTORY: -"360 WRAP" PER PT-- HIATAL HERNIA REPAIR -PACEMAKER -CATARACT SURGERY - COLONOSCOPY 08/18/[address] RODRIGUEZ: ASSESSMENT: 1. Three small polyps were removed today. Two adjacent in the proximal ascending colon and one in the mid transverse colon with no gross evidence to suggest malignancy. We will await histopathology report before making future surveillance colonoscopic recommendations weighing this patient's age, poor performance status to that of a positive Cologuard study. 2. Moderate to severe diverticular disease, most notably present in the sigmoid colon, but with diverticulum scattered throughout without overt evidence for diverticulitis. Physical Exam Vital Signs Vital Signs - First Documented 03/04/22 02:44 Temp 36.6 Pulse 60 Resp 16 B/P (MAP) 152/69 (96) Pulse Ox 97 O2 Delivery Room Air Capillary Refill : Height, Weight, BMI Height: 5'7.00" Weight: 236lbs. 2.0oz. [id number]; 33.00 BMI Method:Stated General Appearance: No Apparent Distress, WD/WN, Anxious, Obese HEENT: PERRL/EOMI, Normal ENT Inspection, Moist Mucous Membranes Neck: Normal Inspection; No Carotid Bruit Respiratory: Chest Non Tender, Normal Breath Sounds, No Accessory Muscle Use, No Respiratory Distress Cardiovascular: Regular Rate, Rhythm, No Edema, No JVD, No Murmur, Normal Peripheral Pulses Gastrointestinal: Normal Bowel Sounds, No Organomegaly, No Pulsatile Mass, Non Tender, Soft Back: Normal Inspection, No CVA Tenderness, No Vertebral Tenderness Extremity: Normal Capillary Refill, Normal Inspection, Normal Range of Motion, Non Tender, No Calf Tenderness, No Pedal Edema Neurologic/Psychiatric: Alert, Oriented x3, No Motor/Sensory Deficits, executive chairman II- XII Norm as Tested Skin: Normal Color, Warm/Dry Progress/Results/Core Measures Suspected Sepsis SIRS Temperature: Pulse: Respiratory Rate: Laboratory Tests 03/04/22 03:02: White Blood Count 11.0 Blood Pressure / Mean: Laboratory Tests 03/04/22 03:02: Creatinine 0.89, INR Comment 1.1, Platelet Count 203, Total Bilirubin 0.3 Results/Orders Lab Results Laboratory Tests Test 03/04/22 03:02 Range/Units White Blood Count 11.0 4.3-11.0 10^3/uL Red Blood Count 3.70 L 3.80-5.11 10^6/uL Hemoglobin 11.8 11.5-16.0 g/dL Hematocrit 36 35-52 % Mean Corpuscular Volume 96 80-99 fL Mean Corpuscular Hemoglobin 32 25-34 pg Mean Corpuscular Hemoglobin Concent 33 32-36 g/dL Red Cell Distribution Width 15.3 H 10.0-14.5 % Platelet Count 203 130-400 10^3/uL Mean Platelet Volume 8.8 L 9.0-12.2 fL Immature Granulocyte % (Auto) 0 % Neutrophils (%) (Auto) 25 L 42-75 % Lymphocytes (%) (Auto) 70 H 12-44 % Monocytes (%) (Auto) 4 0-12 % Eosinophils (%) (Auto) 1 0-10 % Basophils (%) (Auto) 0 0-10 % Neutrophils # (Auto) 2.8 1.8-7.8 10^3/uL Lymphocytes # (Auto) 7.7 H 1.0-4.0 10^3/uL Monocytes # (Auto) 0.5 0.0-1.0 10^3/uL Eosinophils # (Auto) 0.1 0.0-0.3 10^3/uL Basophils # (Auto) 0.0 0.0-0.1 10^3/uL Immature Granulocyte # (Auto) 0.0 0.0-0.1 10^3/uL Neutrophils % (Manual) 26 % Lymphocytes % (Manual) 68 % Monocytes % (Manual) 2 % Atypical Lymphocytes 4 % Stomatocytes SLIGHT Prothrombin Time 14.2 12.2-14.7 SEC INR Comment 1.1 0.8-1.4 Activated Partial Thromboplast Time 32 24-35 SEC Sodium Level 138 135-145 MMOL/L Potassium Level 4.1 3.6-5.0 MMOL/L Chloride Level 101 98-107 MMOL/L Carbon Dioxide Level 26 21-32 MMOL/L Anion Gap 11 5-14 MMOL/L Blood Urea Nitrogen 18 7-18 MG/DL Creatinine 0.89 0.60-1.30 MG/DL Estimat Glomerular Filtration Rate 68 BUN/Creatinine Ratio 20 Glucose Level 143 H 70-105 MG/DL Calcium Level 8.5 8.5-10.1 MG/DL Corrected Calcium 8.4 L 8.5-10.1 MG/DL Magnesium Level 2.1 1.6-2.4 MG/DL Total Bilirubin 0.3 0.1-1.0 MG/DL Aspartate Amino Transf (AST/SGOT) 22 5-34 U/L Alanine Aminotransferase (ALT/SGPT) 33 0-55 U/L Alkaline Phosphatase 76 40-136 U/L Troponin I < 0.028 <0.028 NG/ML Total Protein 6.9 6.4-8.2 GM/DL Albumin 4.1 3.2-4.5 GM/DL Amylase Level 77 25-125 U/L Lipase 33 8-78 U/L My Orders Orders - JENNIFER BUCHANAN DO Ekg Tracing (03/04/22 02:52) Ed Iv/Invasive Line Start (03/04/22 02:53) Monitor-Rhythm Ecg Trace Only (03/04/22 02:53) Amylase (03/04/22 02:53) Cbc With Automated Diff (03/04/22 02:53) Comprehensive Metabolic Panel (03/04/22 02:53) Lipase (03/04/22 02:53) Magnesium (03/04/22 02:53) Protime With Inr (03/04/22 02:53) Partial Thromboplastin Time (03/04/22 02:53) Ua Culture If Indicated (03/04/22 02:53) Troponin I Kend[place] (03/04/22 02:53) Ed Iv/Invasive Line Start (03/04/22 02:53) Lactated Ringers (Lr 1000 Ml Iv Solution (03/04/22 03:00) Manual Differential (03/04/22 03:02) Medications Given in ED Current Medications Medications Dose Ordered Sig/Josephine Route Start Time Stop Time Status Last Admin Dose Admin Lactated Ringer's 1,000 ml @ 0 mls/hr Q0M ONCE IV 03/04/22 03:00 03/04/22 03:01 DC 03/04/22 03:07 999 MLS/HR Vital Signs/I&O 03/04/22 03/04/22 02:44 02:44 Temp 36.6 Pulse 60 Resp 16 B/P (MAP) 152/69 (96) Pulse Ox 97 O2 Delivery Room Air Room Air Capillary Refill : Progress Note : Progress Note GIVEN IV FLUIDS PT HAD NO SYMPTOMS OF ANY KIND FOR ENTIRE ER STAY PT REMAINED IN 100% PACED RHYTHM AND HAD STABLE VITALS PT MISSED "HAT" TO COLLECT URINE, AND DID NOT WANT TO TRY TO GIVE ANOTHER SP ECIMEN IN A LITTLE BIT. 0400--PT AND NOW VERY ANXIOUS TO GO HOME. PT STATES SHE FEELS FINE. STRONGLY ADVISED THAT SHE STAY FOR REPEAT 3 HOUR TROPONIN AND SHE IS ADAMANT ABOUT GOING HOME. STATES SHE WILL SEE HER DR "FIRST THING THIS MORNING AND HE CAN JUST DO THE TESTS THERE". I STRONGLY ADVISED PT TO STAY AND SHE CONTINUES TO INSIST ON GOING HOME, AND INSISTS THAT SHE IS FINE NOW, AND FEELS MUCH BETTER. ECG Initial ECG Impression Date: Mar 04, 2022 Initial ECG Impression Time: 02:59 Initial ECG Rate: 60 Comment 100% ATRIAL PACED RHYTHM Departure Impression Primary Impression: Nausea and vomiting Disposition: 01 HOME, SELF-CARE Condition: Improved Departure-Patient Inst. Decision time for Depature: 04:36 Referrals: PASCUAL ALARCON DO (PCP) Primary Care Physician JUWAN ALARCON DNP (Family) Primary Care Physician Patient Instructions: Nausea and Vomiting, Adult Add. Discharge Instructions: HOME, REST CLEAR LIQUIDS--WATER, BROTH, JELLO, GATORAD BRATS DIET--BANANAS, RICE, APPLESAUCE, TOAST, SALTINES FOLLOW UP WITH DR. ALARCON'S OFFICE TODAY FOR FURTHER CARE, RETURN TO ER IF WORSE All discharge instructions reviewed with patient and/or family. Voiced understanding. JENNIFER BUCHANAN DO Mar 04, 2022 03:11
[2022-03-04 03:13] LABS: BASOPHILS % (AUTO) 0 % (0-10); EOSINOPHILS # (AUTO) 0.1 10^3/uL (0.0-0.3); EOSINOPHILS % (AUTO) 1 % (0-10); HEMATOCRIT 36 % (35-52); HEMOGLOBIN 11.8 g/dL (11.5-16.0); LYMPHOCYTES # (AUTO) 7.7 10^3/uL (1.0-4.0); LYMPHOCYTES % (AUTO) 70 % (12-44); MEAN CORPUSCULAR HEMOGLOBIN 32 pg (25-34); MEAN CORPUSCULAR HGB CONC 33 g/dL (32-36); MEAN CORPUSCULAR VOLUME 96 fL (80-99); MEAN PLATELET VOLUME 8.8 fL (9.0-12.2); MONOCYTES # (AUTO) 0.5 10^3/uL (0.0-1.0); MONOCYTES % (AUTO) 4 % (0-12); NEUTROPHILS # (AUTO) 2.8 10^3/uL (1.8-7.8); NEUTROPHILS % (AUTO) 25 % (42-75); PLATELET COUNT 203 10^3/uL (130-400)
[2022-03-04 03:26] LABS: ALBUMIN 4.1 GM/DL (3.2-4.5); INR 1.1 (0.8-1.4); PROTHROMBIN TIME PATIENT 14.2 SEC (12.2-14.7)
[2022-03-04 03:27] LABS: CHLORIDE 101 MMOL/L (98-107); POTASSIUM 4.1 MMOL/L (3.6-5.0); SODIUM 138 MMOL/L (135-145)
[2022-03-04 03:28] LABS: AMYLASE 77 U/L (25-125); CALCIUM 8.5 MG/DL (8.5-10.1)
[2022-03-04 03:29] LABS: GLUCOSE 143 MG/DL (70-105); TOTAL PROTEIN 6.9 GM/DL (6.4-8.2)
[2022-03-04 03:30] LABS: CARBON DIOXIDE 26 MMOL/L (21-32)
[2022-03-04 03:31] LABS: BILIRUBIN,TOTAL 0.3 MG/DL (0.1-1.0)
[2022-03-04 03:32] LABS: ALKALINE PHOSPHATASE 76 U/L (40-136)
[2022-03-04 03:33] LABS: CREATININE SERUM 0.89 MG/DL (0.60-1.30); GFR ESTIMATED 68
[2022-03-04 03:34] LABS: BUN/CREATININE RATIO 20
[2022-03-04 03:36] LABS: ALANINE AMINOTRANSFERASE 33 U/L (0-55); MAGNESIUM 2.1 MG/DL (1.6-2.4)
[2022-03-04 03:37] LABS: LIPASE 33 U/L (8-78)
[2022-03-04 04:16] LABS: ATYPICAL LYMPHOCYTES 4 %; LYMPHOCYTES % (MANUAL) 68 %; MONOCYTES % (MANUAL) 2 %; NEUTROPHILS % (MANUAL) 26 %
[2022-03-04 04:17] LABS: STOMATOCYTES SLIGHT
[2022-03-04 04:39] VITALS: BP 115/48
== END 2022-03-04 04:45 | disposition home or self-care (01) ==
LOC: EDUNIT# 02:02 → ER 02:05
DX: R11.2 Nausea with vomiting, unspecified (principal); E66.9 Obesity, unspecified; I48.91 Unspecified atrial fibrillation; E11.9 Type 2 diabetes mellitus without complications; Z68.33 Body mass index [BMI] 33.0-33.9, adult; Z79.01 Long term (current) use of anticoagulants; Z79.84 Long term (current) use of oral hypoglycemic drugs
CPT/HCPCS: 36415; 80053; 82150; 83690; 83735; 84484; 85007; 85027; 85610; 85730; 93005; 93041

== ENCOUNTER 2022-03-21 19:46 | Emergency (ER) | payer MEDICARE ==
[~2022-03-21] VITALS: Ht 170 cm; Wt 102.0 kg
--- NOTE | 2022-03-21 20:07 | ED Cough/URI ---
General Chief Complaint: Cough/Cold/Flu Symptoms Stated Complaint: COUGH,VOMITING FROM COUGH,WEAKNESS Nursing Triage Note: COUGH, WEAKNESS, LOW BACK PAIN SINUS INFECTION X2 WEEKS. (RUDY WELSH APRN) History of Present Illness Date Seen by Provider: Mar 21, 2022 Time Seen by Provider: 20:00 Initial Comments Patient comes to the emergency department tonight for cough, congestion generalized weakness, low back pain and sinus infection for the past few weeks. Reports that she did have COVID a few weeks ago. Timing/Duration: week Severity/Quality: moderate Associated Symptoms: cough, shortness of breath (RUDY WELSH APRN) Allergies and Home Medications Allergies Coded Allergies: promethazine (Verified Allergy, Unknown, 01/01/06) Patient Home Medication List Home Medication List Reviewed: Yes (RUDY WELSH APRN) Apixaban (Eliquis) 5 Mg Tablet, 5 MG PO BID Prescribed by: LASHONDA YU on 11/29/17 0724 Biotin (Biotin) 10,000 Mcg Tab.rapdis, 10,000 MCG PO DAILY, (Reported) Entered as Reported by: TEVIN MARTELL on 08/10/20 1201 Cholecalciferol (Vitamin D3) (Weekly-D) 1,250 Mcg Capsule, 50,000 MCG PO WEEK, (Reported) Entered as Reported by: TEVIN MARTELL on 08/10/20 1201 Cyanocobalamin (Cyanocobalamin Injection) 1,000 Mcg/Ml Inj, 1,000 MCG IM MONTHLY, (Reported) Entered as Reported by: EMIGDIO DICKSON on 11/27/17 1040 Diltiazem HCl (Cardizem Cd) 120 Mg Cap.er.24h, 120 MG PO DAILY Prescribed by: LASHONDA YU on 11/29/17 0724 Gabapentin (Neurontin) 300 Mg Capsule, 300 MG PO TID PRN for PAIN-BREAKTHROUGH Prescribed by: MARI JIMENEZ on 07/28/21 1622 Levothyroxine Sodium (Levothyroxine Sodium) 137 Mcg Tablet, 137 MCG PO DAILY, (Reported) Entered as Reported by: ELISEO GARBER on 04/24/15 1019 Magnesium Oxide (Magnesium) 500 Mg Capsule, 500 MG PO DAILY, (Reported) Entered as Reported by: TEVIN MARTELL on 08/10/20 1201 Oxycodone HCl/Acetaminophen (Percocet 5-325 mg Tablet) 1 Each Tablet, 1 TAB PO Q4H PRN for PAIN-MODERATE (5-7) Prescribed by: MARI JIMENEZ on 07/28/21 1622 Pantoprazole Sodium (Pantoprazole Sodium) 40 Mg Tablet.dr, 40 MG PO DAILY, (Reported) Entered as Reported by: TEVIN MARTELL on 08/10/20 120 Tramadol HCl (Tramadol HCl) 50 Mg Tablet, 50 MG PO BID, (Reported) Entered as Reported by: TEVIN MARTELL on 08/10/20 120 Vitamin B Complex (B Complex) 1 Each Tablet, 1 EACH PO DAILY, (Reported) Entered as Reported by: TEVIN MARTELL on 08/10/20 120 Review of Systems Review of Systems Constitutional: No chills, No dizziness, No fever; malaise EENTM: nose congestion Respiratory: cough, phlegm, short of breath Cardiovascular: No chest pain, No palpitations Gastrointestinal: No diarrhea, No nausea, No vomiting Musculoskeletal: back pain (left lower lateral back pain) Skin: no symptoms reported (RUDY WELSH APRN) All Other Systems Reviewed Negative Unless Noted: Yes (RUDY WELSH APRN) Past Cnlxugm-Khgzvw-Hjeldp Hx Patient Social History Tobacco Use?: No Substance use?: No Alcohol Use?: No Pt feels they are or have been: No (RUDY WELSH APRN) Immunizations Up To Date First/Initial COVID19 Vaccinat: YES Second COVID19 Vaccination [place]: 08/11/2020 Third COVID19 Vaccination Date: YES (RUDY WELSH APRN) Seasonal Allergies Seasonal Allergies: Yes (RUDY WELSH APRN) Past Medical History Surgery/Hospitalization HX: PPM, HYPOTHRYOID, AFIB, GERD Surgeries: Yes Abdominal, Eye Surgery, Joint Replacement, Oophorectomy, Orthopedic, Pacemaker, Rectal, Thyroidectomy Respiratory: No (NO PULMONARY DX BUT STATES SHE IS "ALWAYS A LITTLE SHORT OF BREATH" ) Currently Using CPAP: Yes Cardiac: Yes Atrial Fibrillation, Hypertension, Irregular Heartbeat, Syncope Neurological: No 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 Disorders: No [employer]IAN History: Hysterectomy, Menopausal Genitourinary: Yes Bladder Infection Gastrointestinal: Yes (DIVERTICULAR DISEASE NOTED ON SCREENING COLONOSCOPY) Gastroesophageal Reflux, Hartman's Esophagus, Diverticulosis, Hemorrhoids, Esophagitis, Hiatal Hernia Musculoskeletal: Yes Osteoporosis, Arthritis, Chronic Back Pain Endocrine: Yes Hypothyroidsim HEENT: Yes (BILATERAL CATARACT SURGERY) Cataract Cancer: Yes Skin, Thyroid Did You Recieve Any Treatments: Yes What Type of Treatment Did You: Surgical Intervention Psychosocial: No Integumentary: No Blood Disorders: No Adverse Reaction/Blood Tranf: No (RUDY WELSH APRN) Family Medical History Reviewed Nursing Family Hx (RUDY WELSH APRN) Abdominal aortic aneurysm 19 MOTHER G8 BROTHER Alzheimer's disease G8 SISTER Arthritis G8 SISTER Cardiovascular disease 19 MOTHER FH: lung cancer 19 FATHER FH: ovarian cancer G8 SISTER Hypertension G8 SISTER Prostate cancer G8 BROTHER Psychosocial problem Thyroid disease G8 SISTER No Family History of: AIDS [place]'s disease Alcoholism Colon cancer Completed stroke Dementia Diabetes mellitus Drug abuse Myocardial infarction Parkinson's disease Respiratory disorder Seizure disorder Severe allergy PAST SURGICAL HISTORY: -"360 WRAP" PER PT-- HIATAL HERNIA REPAIR -PACEMAKER -CATARACT SURGERY - COLONOSCOPY 08/18/[address] RODRIGUEZ: ASSESSMENT: 1. Three small polyps were removed today. Two adjacent in the proximal ascending colon and one in the mid transverse colon with no gross evidence to suggest malignancy. We will await histopathology report before making future surveillance colonoscopic recommendations weighing this patient's age, poor performance status to that of a positive Cologuard study. 2. Moderate to severe diverticular disease, most notably present in the sigmoid colon, but with diverticulum scattered throughout without overt evidence for diverticulitis. (RUDY WELSH APRN) Physical Exam Vital Signs - First Documented 03/21/22 19:54 Temp 37.1 Pulse 94 Resp 18 B/P (MAP) 152/85 (107) Pulse Ox 92 O2 Delivery Nasal Cannula O2 Flow Rate 2.00 (JENNIFER BUCHANAN DO) Capillary Refill : Less Than 3 Seconds (RUDY WELSH APRN) Height: 5'7.00" Weight: 236lbs. 2.0oz. [id number]; 35.00 BMI Method:Stated General Appearance: WD/WN, no apparent distress Neck: non-tender, full range of motion, supple, normal inspection Respiratory: chest non-tender, lungs clear, normal breath sounds, no respiratory distress, no accessory muscle use Cardiovascular: regular rate, rhythm, no edema Gastrointestinal: normal bowel sounds, non tender, soft Neurologic/Psychiatric: alert, normal mood/affect, oriented x 3 Skin: normal color, warm/dry (RUDY WELSH APRN) Progress/Results/Core Measures Suspected Sepsis SIRS Temperature: Pulse: 94 Respiratory Rate: 18 Laboratory Tests 03/21/22 20:10: White Blood Count 4.5 Blood Pressure 152 /85 Mean: 107 Laboratory Tests 03/21/22 20:10: Creatinine 0.80, Platelet Count 215, Total Bilirubin 0.6 (RUDY WELSH APRN) Results/Orders Lab Results Laboratory Tests Test 03/21/22 20:10 Range/Units White Blood Count 4.5 4.3-11.0 10^3/uL Red Blood Count 3.36 L 3.80-5.11 10^6/uL Hemoglobin 10.6 L 11.5-16.0 g/dL Hematocrit 31 L 35-52 % Mean Corpuscular Volume 92 80-99 fL Mean Corpuscular Hemoglobin 32 25-34 pg Mean Corpuscular Hemoglobin Concent 34 32-36 g/dL Red Cell Distribution Width 14.7 H 10.0-14.5 % Platelet Count 215 130-400 10^3/uL Mean Platelet Volume 9.6 9.0-12.2 fL Immature Granulocyte % (Auto) 1 % Neutrophils (%) (Auto) 49 42-75 % Lymphocytes (%) (Auto) 39 12-44 % Monocytes (%) (Auto) 9 0-12 % Eosinophils (%) (Auto) 2 0-10 % Basophils (%) (Auto) 0 0-10 % Neutrophils # (Auto) 2.2 1.8-7.8 10^3/uL Lymphocytes # (Auto) 1.8 1.0-4.0 10^3/uL Monocytes # (Auto) 0.4 0.0-1.0 10^3/uL Eosinophils # (Auto) 0.1 0.0-0.3 10^3/uL Basophils # (Auto) 0.0 0.0-0.1 10^3/uL Immature Granulocyte # (Auto) 0.0 0.0-0.1 10^3/uL Sodium Level 130 L 135-145 MMOL/L Potassium Level 4.2 3.6-5.0 MMOL/L Chloride Level 95 L 98-107 MMOL/L Carbon Dioxide Level 25 21-32 MMOL/L Anion Gap 10 5-14 MMOL/L Blood Urea Nitrogen 7 7-18 MG/DL Creatinine 0.80 0.60-1.30 MG/DL Estimat Glomerular Filtration Rate 77 BUN/Creatinine Ratio 9 Glucose Level 106 H 70-105 MG/DL Calcium Level 8.4 L 8.5-10.1 MG/DL Corrected Calcium 8.8 8.5-10.1 MG/DL Total Bilirubin 0.6 0.1-1.0 MG/DL Aspartate Amino Transf (AST/SGOT) 28 5-34 U/L Alanine Aminotransferase (ALT/SGPT) 44 0-55 U/L Alkaline Phosphatase 85 40-136 U/L B-Type Natriuretic Peptide 26.7 <100.0 PG/ML Total Protein 6.7 6.4-8.2 GM/DL Albumin 3.5 3.2-4.5 GM/DL (JENNIFER BUCHANAN DO) Vital Signs/I&O 03/21/22 03/21/22 03/21/22 03/21/22 19:54 19:56 20:37 21:24 Temp 37.1 Pulse 94 77 Resp 18 17 B/P (MAP) 152/85 (107) 142/77 Pulse Ox 92 94 86 92 O2 Delivery Nasal Cannula Nasal Cannula Room Air Nasal Cannula O2 Flow Rate 2.00 2.00 2.00 2.00 (JENNIFER BUCHANAN DO) Vital Signs/I&O Capillary Refill : Less Than 3 Seconds (RUDY WELSH APRN) Blood Pressure Mean: 107 Progress Note : Progress Note Offered admission to the patient as she was requiring oxygen to keep her oxygen saturations about 90%. She does have oxygen at home that she wears only at night. CXR did show possible pulmonary edema. I told her that we could give her a little bit of lasix to see if that would help her breathing and pull a little of the extra fluid off her. Again made sure that she was comfortable going home versus being admitted and again she wanted to try. I instructed that if symptoms worsen then she needs to return to the ER immediately. She verbalized understanding. (RUDY WELSH APRN) ECG Initial ECG Impression Date: Mar 21, 2022 Initial ECG Impression Time: 20:20 Initial ECG Rate: 77 Initial ECG Rhythm: Normal Sinus Initial ECG Intervals: Normal Initial ECG Impression: Normal (RUDY WELSH APRN) Diagnostic Imaging Diagonstic Imaging: Xray Plain Films/CT/US/NM/MRI: chest Comments NAME: ERICKSON BOWMAN [facility] REC#: [id number] PT STATUS: REG ER : 1945 PHYSICIAN: RUDY WELSH APRN ADMIT DATE: 03/21/22/ER Draft Date of Exam:03/21/22 CHEST 1 VIEW, AP/PA ONLY INDICATION: Shortness of air. COMPARISON: 07/28/2021. FINDINGS: Single frontal radiographic view of the chest was obtained and demonstrates normal cardia silhouette. Pulmonary vasculature however is moderately prominent. Lungs also show diffuse coarse prominence interstitium. There are subtle scattered areas of alveolar opacification as well. These are new when compared to 07/28/2021. No large effusion or pneumothorax is seen. Left-sided dual-lead pacemaker is noted. Osseous structures show no gross acute abnormalities. IMPRESSION: Interval development of multiple scattered alveolar opacities. Given the pulmonary vascular congestion and diffuse prominence of the interstitium, findings are suspect for mixed interstitial and alveolar pulmonary edema. Clinical correlation and follow-up to resolution is recommended. Dictated on workstation # [id number] Dict: 03/21/222026 Trans: 03/21/222031 [facility] [id number] Interpreted by: THADDEUS ELIZONDO MD Electronically signed by: (RUDY WELSH APRN) Departure Impression Primary Impression: Post-COVID chronic cough Additional Impressions: Pulmonary edema Qualified Codes: J81.0 - Acute pulmonary edema Hypoxia Disposition: 01 HOME, SELF-CARE Condition: Stable Departure-Patient Inst. Decision time for Depature: 21:04 (RUDY WELSH APRN) Referrals: PASCUAL ALARCON DO (PCP) Primary Care Physician JUWAN ALARCON, JENNIFER (Family) Primary Care Physician Patient Instructions: COVID-19 Overview Add. Discharge Instructions: 1. Home and rest. 2. Continue medications as directed 3. Follow up with PCP as needed. 4. Continue to wear oxygen all day instead of just at night. 5. Return here if worse or concerns. All discharge instructions reviewed with patient and/or family. Voiced understanding. ATTENDING PHYSICIAN NOTE: I WAS PHYSICALLY PRESENT ER PHYSICIAN, BUT I WAS NOT INVOLVED IN ANY DECISION MAKING OR ANY CARE OF THIS PATIENT, AND I AM NOT COLLABORATING PHYSICIAN. (JENNIFER BUCHANAN DO) RUDY WELSH APRN Mar 21, 2022 20:07 JENNIFER BUCHANAN DO Mar 24, 2022 11:08
[2022-03-21] MEDS ORDERED: methylPREDNISolone 125 MG (Solu-MEDROL) VIAL IV STA (20:08)
[2022-03-21] MEDS ORDERED: RT-ALBUTEROL/IPRATROPIUM 3 ML (DUONEB) VIAL INH ONE (20:15)
[2022-03-21 20:20] LABS: BASOPHILS % (AUTO) 0 % (0-10); EOSINOPHILS # (AUTO) 0.1 10^3/uL (0.0-0.3); EOSINOPHILS % (AUTO) 2 % (0-10); HEMATOCRIT 31 % (35-52); HEMOGLOBIN 10.6 g/dL (11.5-16.0); LYMPHOCYTES # (AUTO) 1.8 10^3/uL (1.0-4.0); LYMPHOCYTES % (AUTO) 39 % (12-44); MEAN CORPUSCULAR HEMOGLOBIN 32 pg (25-34); MEAN CORPUSCULAR HGB CONC 34 g/dL (32-36); MEAN CORPUSCULAR VOLUME 92 fL (80-99); MEAN PLATELET VOLUME 9.6 fL (9.0-12.2); MONOCYTES # (AUTO) 0.4 10^3/uL (0.0-1.0); MONOCYTES % (AUTO) 9 % (0-12); NEUTROPHILS # (AUTO) 2.2 10^3/uL (1.8-7.8); NEUTROPHILS % (AUTO) 49 % (42-75); PLATELET COUNT 215 10^3/uL (130-400); WHITE BLOOD COUNT 4.5 10^3/uL (4.3-11.0)
[2022-03-21 20:27] LABS: ALBUMIN 3.5 GM/DL (3.2-4.5)
[2022-03-21 20:28] LABS: POTASSIUM 4.2 MMOL/L (3.6-5.0)
[2022-03-21 20:29] LABS: CALCIUM 8.4 MG/DL (8.5-10.1)
[2022-03-21 20:30] LABS: TOTAL PROTEIN 6.7 GM/DL (6.4-8.2)
[2022-03-21 20:32] LABS: BILIRUBIN,TOTAL 0.6 MG/DL (0.1-1.0)
--- NOTE | 2022-03-21 20:32 | Diagnostic Imaging Report ---
INDICATION: Shortness of air. COMPARISON: 07/28/2021. FINDINGS: Single frontal radiographic view of the chest was obtained and demonstrates normal cardia silhouette. Pulmonary vasculature however is moderately prominent. Lungs also show diffuse coarse prominence interstitium. There are subtle scattered areas of alveolar opacification as well. These are new when compared to 07/28/2021. No large effusion or pneumothorax is seen. Left-sided dual-lead pacemaker is noted. Osseous structures show no gross acute abnormalities. IMPRESSION: Interval development of multiple scattered alveolar opacities. Given the pulmonary vascular congestion and diffuse prominence of the interstitium, findings are suspect for mixed interstitial and alveolar pulmonary edema. Clinical correlation and follow-up to resolution is recommended. Dictated by: Dictated on workstation # [id number]
[2022-03-21 20:33] LABS: CREATININE SERUM 0.8 MG/DL (0.60-1.30)
[2022-03-21] MEDS ORDERED: FUROSEMIDE 40 MG/4 ML INJ (LASIX) IVP ONE (21:00)
[2022-03-21 21:24] VITALS: BP 142/77
== END 2022-03-21 21:24 | disposition home or self-care (01) ==
LOC: EDUNIT# 19:46 → ER 19:49
DX: R05.3 Chronic cough (principal); U09.9 Post COVID-19 condition, unspecified; J81.1 Chronic pulmonary edema; R09.02 Hypoxemia
CPT/HCPCS: 36415; 71045; 80053; 83880; 85025; 93005; 93041; 94640

== ENCOUNTER → 2022-03-28 | Outpatient (CLI) | payer MEDICARE ==
[2022-03-28 11:11] LABS: BASOPHILS % (AUTO) 1 % (0-10); EOSINOPHILS # (AUTO) 0.2 10^3/uL (0.0-0.3); EOSINOPHILS % (AUTO) 2 % (0-10); HEMATOCRIT 36 % (35-52); HEMOGLOBIN 11.5 g/dL (11.5-16.0); LYMPHOCYTES # (AUTO) 3.8 10^3/uL (1.0-4.0); LYMPHOCYTES % (AUTO) 55 % (12-44); MEAN CORPUSCULAR HEMOGLOBIN 31 pg (25-34); MEAN CORPUSCULAR HGB CONC 32 g/dL (32-36); MEAN CORPUSCULAR VOLUME 96 fL (80-99); MEAN PLATELET VOLUME 9.4 fL (9.0-12.2); MONOCYTES # (AUTO) 0.3 10^3/uL (0.0-1.0); MONOCYTES % (AUTO) 5 % (0-12); NEUTROPHILS # (AUTO) 2.5 10^3/uL (1.8-7.8); NEUTROPHILS % (AUTO) 37 % (42-75); PLATELET COUNT 347 10^3/uL (130-400); WHITE BLOOD COUNT 6.9 10^3/uL (4.3-11.0)
--- NOTE | 2022-03-28 11:13 | Diagnostic Imaging Report ---
INDICATION: Exertional dyspnea. COMPARISON: 03/21/2022. FINDINGS: Heart size has decreased since the previous exam with decrease in pulmonary vasculature. There is less infiltrate in the perihilar regions. There continues to be mild prominence of the interstitial markings bilaterally with mild patchy infiltrate noted in the right upper and lower lobes peripherally. No pneumothorax or pleural effusion is demonstrated. IMPRESSION: Overall appearance does show improvement with decreasing cardiomegaly and decreasing pulmonary edema. Mild interstitial infiltrates and a few patchy alveolar infiltrates remain. Dr. Springer left a message with Becka Lewis. Message with findings left on the nurses line at 11:10 AM 03/28/2022/cb Dictated by: Dictated on workstation # [id number]
[2022-03-28 11:16] LABS: ALBUMIN 3.7 GM/DL (3.2-4.5); POTASSIUM 4.4 MMOL/L (3.6-5.0)
[2022-03-28 11:17] LABS: CALCIUM 10.3 MG/DL (8.5-10.1)
[2022-03-28 11:20] LABS: BILIRUBIN,TOTAL 0.4 MG/DL (0.1-1.0)
[2022-03-28 11:22] LABS: CREATININE SERUM 1.02 MG/DL (0.60-1.30)
[2022-03-28 11:28] LABS: SMEAR SCAN COMMENT YES
[2022-03-28 11:47] LABS: ERYTHROCYTE SEDIMENTATION RATE 51 MM/HR (0-30)
== END ==
LOC: RAD 10:07
PROVIDERS: ATTEND Nurse Practitioner Family
DX: I51.7 Cardiomegaly (principal); J18.9 Pneumonia, unspecified organism; R06.9 Unspecified abnormalities of breathing
CPT/HCPCS: 36415; 71046; 80053; 83880; 84443; 85025; 85652; 86738

== ENCOUNTER 2022-04-12 12:17 | Inpatient (IN) | payer MEDICARE ==
[~2022-04-12] VITALS: Ht 174 cm; Wt 104.2 kg
[2022-04-12] MEDS ORDERED: dilTIAZem DRIP PRE-MIX 125 ML IV SCH ×2 (13:30→19:30)
[2022-04-12] MEDS ORDERED: ACETAMINOPHEN 500 MG TAB (TYLENOL) PO ONE (13:30)
[2022-04-12] MEDS ORDERED: LACTATED RINGERS 1,000 ML IV ONE (13:30)
[2022-04-12 14:31] LABS: BASOPHILS % (AUTO) 1 % (0-10); EOSINOPHILS # (AUTO) 0.3 10^3/uL (0.0-0.3); EOSINOPHILS % (AUTO) 3 % (0-10); HEMATOCRIT 30 % (35-52); HEMOGLOBIN 9.4 g/dL (11.5-16.0); LYMPHOCYTES % (AUTO) 35 % (12-44); MEAN CORPUSCULAR HEMOGLOBIN 31 pg (25-34); MEAN CORPUSCULAR HGB CONC 32 g/dL (32-36); MEAN CORPUSCULAR VOLUME 97 fL (80-99); MEAN PLATELET VOLUME 9.9 fL (9.0-12.2); MONOCYTES # (AUTO) 0.2 X 10^3 (0.0-1.0); MONOCYTES % (AUTO) 3 % (0-12); NEUTROPHILS # (AUTO) 4.9 X 10^3 (1.8-7.8); NEUTROPHILS % (AUTO) 57 % (42-75); PLATELET COUNT 289 10^3/uL (130-400); WHITE BLOOD COUNT 8.5 10^3/uL (4.3-11.0)
[2022-04-12 14:41] LABS: ALBUMIN 3.1 GM/DL (3.2-4.5); INR 1.4 (0.8-1.4); POTASSIUM 4.2 MMOL/L (3.6-5.0); PROTHROMBIN TIME PATIENT 17.6 SEC (12.2-14.7)
[2022-04-12 14:42] LABS: CALCIUM 8.5 MG/DL (8.5-10.1)
--- NOTE | 2022-04-12 14:42 | Diagnostic Imaging Report ---
INDICATION: Fever. COMPARISON: 03/21/2022. FINDINGS: There has been marked improvement in patchy bilateral interstitial infiltrates present on the previous with stable heart size. No vascular congestion. No effusion. IMPRESSION: Resolving multifocal bilateral interstitial densities, either resolving edema or pneumonia. No adverse development. Dictated by: Dictated on workstation # [id number]
[2022-04-12 14:44] LABS: TOTAL PROTEIN 6.4 GM/DL (6.4-8.2)
[2022-04-12 14:45] LABS: BILIRUBIN,TOTAL 0.3 MG/DL (0.1-1.0)
[2022-04-12 14:47] LABS: CREATININE SERUM 0.64 MG/DL (0.60-1.30)
[2022-04-12 14:57] LABS: BILIRUBIN,URINE NEGATIVE (NEGATIVE); CLARITY,URINE CLEAR; COLOR,URINE YELLOW; GLUCOSE, URINE (UA) NEGATIVE (NEGATIVE); KETONES,URINE NEGATIVE (NEGATIVE); LEUKOCYTE ESTERASE ,URINE NEGATIVE (NEGATIVE); NITRITE,URINE NEGATIVE (NEGATIVE); PH,URINE 7.5 (5-9); PROTEIN,URINE NEGATIVE (NEGATIVE)
[2022-04-12 15:06] LABS: BACTERIA,URINE NEGATIVE /HPF; RBC,URINE RARE /HPF; SQUAMOUS EPITHELIAL CELL,UR 0-2 /HPF; WBC,URINE RARE /HPF
[2022-04-12] MEDS ORDERED: IOHEXOL 350 MG/ML 100 ML (OMNIPAQUE 350) VIAL IV ONE (16:00)
[2022-04-12] MEDS ORDERED: HOLD METFORMIN - RECEIVED CONTRAST 20 ML VIAL IV SCH (16:00)
[2022-04-12] MEDS ORDERED: NS 100 ML (IVPB) BAG IV ONE (16:00)
--- NOTE | 2022-04-12 16:34 | Diagnostic Imaging Report ---
PROCEDURE: CT abdomen and pelvis with contrast. TECHNIQUE: Multiple contiguous axial images were obtained through the abdomen and pelvis after administration of intravenous contrast. Auto Exposure Controls were utilized during the CT exam to meet ALARA standards for radiation dose reduction. All CT scans use one or more of the following dose optimizing techniques: automated exposure control, MA and/or KvP adjustment based on patient size and exam type or iterative reconstruction. INDICATION: Lower abdominal pain, worsening. Left groin lump and pain, fever. COMPARISON: CT from 02/04/2014, 01/29/2021 FINDINGS: Lung bases demonstrate mild scarring. The heart is normal in size. There is no pericardial effusion. The liver has an enhancing lesion in segment 7 which measures 6 mm, may represent a flash filling hemangioma. There is a cyst in the left lobe. Cholecystectomy clips are noted. The spleen is mildly large and has calcified granulomas. The pancreas appears normal. The adrenal glands are normal. The kidneys demonstrate no enhancing lesions. There is no hydronephrosis. There is a cyst on the right kidney measuring 1.1 cm. There are postsurgical changes at the GE junction with a small hiatal hernia. The bowel loops are nondistended without obstruction. The appendix appears normal. There is diverticulosis of the sigmoid colon and descending colon without diverticulitis. There are a few small mildly prominent lymph nodes posterior to the inferior right liver. These have slightly increased in size since the prior study. There are multiple enlarged retroperitoneal lymph nodes. A marker caval lymph node measures 1.8 cm in the short axis (image 80 series 2). A marker lymph node at the aortic bifurcation on the left measures 2.3 cm in the short axis (image 77 series 2). There are additional iliac chain lymph nodes which are enlarged, and left inguinal lymphadenopathy. The conglomeration of lymph nodes along the left pelvic wall measures up to 4.3 x 8 cm in size (image 126 series 2). A marker left inguinal lymph node measures 3.9 x 2.2 cm (image 152 series 2). These lymph nodes have markedly increased in size since 01/29/2021. There are advanced degenerative changes throughout the lumbar spine. No acute osseous abnormality is seen. There is sclerosis about the left SI joint which is similar to 2014. IMPRESSION: 1. Marked left inguinal, left iliac, and retroperitoneal lymphadenopathy concerning for malignancy. Lymph nodes have significantly increased in size since 01/29/2021. 2. Mild splenomegaly. 3. Hiatal hernia. Dictated by: Dictated on workstation # [id number]
[2022-04-12] MEDS ORDERED: fentaNYL INJ 100 MCG/2 ML AMP IVP ONE (17:45)
--- NOTE | 2022-04-12 17:51 | ED General ---
General Chief Complaint: Abdominal/GI Problems Stated Complaint: ABD PAIN | DIARRHEA Nursing Triage Note: PT TO TRIAGE VIA WC W REPORTS OF LOWER ABD PAIN THAT HAS BEEN ONGOING, WORSE TODAY. PT WAS RECENTLY TREATED FOR CELLULITIS OF LOWER ABD AND LEG, BELIEVES SHE MAY HAVE A UTI TODAY. PT ALSO C/O DECREASED APPETITE, FEVER, AND DIARRHEA. Source of Information: Patient Exam Limitations: No Limitations History of Present Illness Date Seen by Provider: Apr 12, 2022 Time Seen by Provider: 13:03 Initial Comments This is 76-year-old woman presents to the emergency room with fever, tachycardia, and left lower abdominal pain. Pain in the left lower abdomen and groin area began earlier this month. She was seen by Dr. REYNOLDS. She states he was under the impression she had some type of gynecological cancer. She also had an erythematous rash for which she was prescribed Keflex on April 03. She was additionally prescribed a steroid from Dr. REYNOLDS's office on February 07. Symptoms had improved until 2 or 3 days ago when she developed her present symptoms. In addition to these complaints, she appears to be in atrial fibrillation with RVR. She is anticoagulated on Eliquis. She was diagnosed with COVID-19 during the first week in February. She believes she has recovered from that illness. She has had recent diarrhea, possibly related to antibiotic use. Allergies and Home Medications Allergies Coded Allergies: promethazine (Verified Allergy, Unknown, 01/01/06) Patient Home Medication List Home Medication List Reviewed: Yes Apixaban (Eliquis) 5 Mg Tablet, 5 MG PO BID Prescribed by: LASHONDA YU on 11/29/17 0724 Biotin (Biotin) 10,000 Mcg Tab.rapdis, 10,000 MCG PO DAILY, (Reported) Entered as Reported by: TEVIN MARTELL on 08/10/20 1201 Cholecalciferol (Vitamin D3) (Weekly-D) 1,250 Mcg Capsule, 50,000 MCG PO WEEK, (Reported) Entered as Reported by: TEVIN MARTELL on 08/10/20 1201 Cyanocobalamin (Cyanocobalamin Injection) 1,000 Mcg/Ml Inj, 1,000 MCG IM MONTHLY, (Reported) Entered as Reported by: EMIGDIO DICKSON on 11/27/17 1040 Diltiazem HCl (Cardizem Cd) 120 Mg Cap.er.24h, 120 MG PO DAILY Prescribed by: LASHONDA YU on 11/29/17 0724 Gabapentin (Neurontin) 300 Mg Capsule, 300 MG PO TID PRN for PAIN-BREAKTHROUGH Prescribed by: MARI JIMENEZ on 07/28/21 1622 Levothyroxine Sodium (Levothyroxine Sodium) 137 Mcg Tablet, 137 MCG PO DAILY, (Reported) Entered as Reported by: ELISEO GARBER on 04/24/15 1019 Magnesium Oxide (Magnesium) 500 Mg Capsule, 500 MG PO DAILY, (Reported) Entered as Reported by: TEVIN MARTELL on 08/10/20 1201 Oxycodone HCl/Acetaminophen (Percocet 5-325 mg Tablet) 1 Each Tablet, 1 TAB PO Q4H PRN for PAIN-MODERATE (5-7) Prescribed by: MARI JIMENEZ on 07/28/21 1622 Pantoprazole Sodium (Pantoprazole Sodium) 40 Mg Tablet.dr, 40 MG PO DAILY, (Reported) Entered as Reported by: TEVIN MARTELL on 08/10/20 1201 Tramadol HCl (Tramadol HCl) 50 Mg Tablet, 50 MG PO BID, (Reported) Entered as Reported by: TEVIN MARTELL on 08/10/20 1201 Vitamin B Complex (B Complex) 1 Each Tablet, 1 EACH PO DAILY, (Reported) Entered as Reported by: TEVIN MARTELL on 08/10/20 1201 Review of Systems Review of Systems Constitutional: see HPI EENTM: no symptoms reported Respiratory: cough (Slight dry cough) Cardiovascular: see HPI (A. 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 Genitourinary: Yes Bladder Infection Gastrointestinal: Yes (DIVERTICULAR DISEASE NOTED ON SCREENING COLONOSCOPY) Gastroesophageal Reflux, Hartman's Esophagus, Diverticulosis, Hemorrhoids, Esophagitis, Hiatal Hernia Musculoskeletal: Yes Osteoporosis, Arthritis, Chronic Back Pain Endocrine: Yes Hypothyroidsim HEENT: Yes (BILATERAL CATARACT SURGERY) Cataract Cancer: Yes Skin, Thyroid Did You Recieve Any Treatments: Yes What Type of Treatment Did You: Surgical Intervention Psychosocial: No Integumentary: No Blood Disorders: No Adverse Reaction/Blood Tranf: No Family Medical History Abdominal aortic aneurysm 19 MOTHER G8 BROTHER Alzheimer's disease G8 SISTER Arthritis G8 SISTER Cardiovascular disease 19 MOTHER FH: lung cancer 19 FATHER FH: ovarian cancer G8 SISTER Hypertension G8 SISTER Prostate cancer G8 BROTHER Psychosocial problem Thyroid disease G8 SISTER No Family History of: AIDS Marshall's disease Alcoholism Colon cancer Completed stroke Dementia Diabetes mellitus Drug abuse Myocardial infarction Parkinson's disease Respiratory disorder Seizure disorder Severe allergy PAST SURGICAL HISTORY: -"360 WRAP" PER PT-- HIATAL HERNIA REPAIR -PACEMAKER -CATARACT SURGERY - COLONOSCOPY 08/18/[address] RODRIGUEZ: ASSESSMENT: 1. Three small polyps were removed today. Two adjacent in the proximal ascending colon and one in the mid transverse colon with no gross evidence to suggest malignancy. We will await histopathology report before making future surveillance colonoscopic recommendations weighing this patient's age, poor performance status to that of a positive Cologuard study. 2. Moderate to severe diverticular disease, most notably present in the sigmoid colon, but with diverticulum scattered throughout without overt evidence for diverticulitis. Physical Exam-Suspected Sepsis Physical Exam Vital Signs Vital Signs - First Documented 04/12/22 12:30 Temp 38.0 Pulse 133 Resp 20 B/P (MAP) 133/89 (104) Pulse Ox 95 O2 Delivery Room Air Capillary Refill : Less Than 3 Seconds Blood Pressure Mean: 117 Height, Weight, BMI Height: 5'7.00" Weight: 236lbs. 2.0oz. 107.336503gl; 34.00 BMI Method:Stated General Appearance: No Apparent Distress, WD/WN, Obese HEENT: PERRL/EOMI, Normal ENT Inspection Neck: Normal Inspection; No JVD Respiratory: Lungs Clear, Normal Breath Sounds, No Accessory Muscle Use, No Respiratory Distress Cardiovascular: No Edema, No Murmur, Irregularly Irregular, Tachycardia Gastrointestinal: Normal Bowel Sounds, Non Tender, Soft Genital/Rectal: Other (No evidence of genital or groin cellulitis at this time. Large, mildly tender lymph nodes noted in the groin. There was a small flaky skin lesion on the left labia without inflammation. 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 Norm as Tested Skin: normal color, warm/dry Lymphatic: Inguinal Node Tender (L) (Tender, large lymph node in the left groin) Focused Exam Lactate Level 04/12/22 14:18: Lactic Acid Level 1.49 Lactic Acid Level Progress/Results/Core Measures Suspected Sepsis SIRS Temperature: Pulse: 135 Respiratory Rate: 20 Laboratory Tests 04/12/22 14:18: White Blood Count 8.5 Blood Pressure 145 /103 Mean: 117 04/12/22 14:18: Lactic Acid Level 1.49 Laboratory Tests 04/12/22 14:18: Creatinine 0.64, INR Comment 1.4, Platelet Count 289, Total Bilirubin 0.3 Results/Orders Lab Results Laboratory Tests Test 04/12/22 13:31 04/12/22 14:18 04/12/22 14:50 Range/Units Influenza Type A (RT-PCR) Not Detected Not Detecte Influenza Type B (RT-PCR) Not Detected Not Detecte SARS-CoV-2 RNA (RT-PCR) Detected H Not Detecte White Blood Count 8.5 4.3-11.0 10^3/uL Red Blood Count 3.05 L 3.80-5.11 10^6/uL Hemoglobin 9.4 L 11.5-16.0 g/dL Hematocrit 30 L 35-52 % Mean Corpuscular Volume 97 80-99 fL Mean Corpuscular Hemoglobin 31 25-34 pg Mean Corpuscular Hemoglobin Concent 32 32-36 g/dL Red Cell Distribution Width 15.6 H 10.0-14.5 % Platelet Count 289 130-400 10^3/uL Mean Platelet Volume 9.9 9.0-12.2 fL Immature Granulocyte % (Auto) 2 % Neutrophils (%) (Auto) 57 42-75 % Lymphocytes (%) (Auto) 35 12-44 % Monocytes (%) (Auto) 3 0-12 % Eosinophils (%) (Auto) 3 0-10 % Basophils (%) (Auto) 1 0-10 % Neutrophils # (Auto) 4.9 1.8-7.8 X 10^3 Lymphocytes # (Auto) 3.0 1.0-4.0 X 10^3 Monocytes # (Auto) 0.2 0.0-1.0 X 10^3 Eosinophils # (Auto) 0.3 0.0-0.3 10^3/uL Basophils # (Auto) 0.0 0.0-0.1 10^3/uL Immature Granulocyte # (Auto) 0.1 0.0-0.1 10^3/uL Prothrombin Time 17.6 H 12.2-14.7 SEC INR Comment 1.4 0.8-1.4 Activated Partial Thromboplast Time 34 24-35 SEC Sodium Level 131 L 135-145 MMOL/L Potassium Level 4.2 3.6-5.0 MMOL/L Chloride Level 97 L 98-107 MMOL/L Carbon Dioxide Level 23 21-32 MMOL/L Anion Gap 11 5-14 MMOL/L Blood Urea Nitrogen 11 7-18 MG/DL Creatinine 0.64 0.60-1.30 MG/DL Estimat Glomerular Filtration Rate 92 BUN/Creatinine Ratio 17 Glucose Level 104 70-105 MG/DL Lactic Acid Level 1.49 0.50-2.00 MMOL/L Calcium Level 8.5 8.5-10.1 MG/DL Corrected Calcium 9.2 8.5-10.1 MG/DL Total Bilirubin 0.3 0.1-1.0 MG/DL Aspartate Amino Transf (AST/SGOT) 24 5-34 U/L Alanine Aminotransferase (ALT/SGPT) 57 H 0-55 U/L Alkaline Phosphatase 81 40-136 U/L C-Reactive Protein High Sensitivity 12.45 H 0.00-0.50 MG/DL Total Protein 6.4 6.4-8.2 GM/DL Albumin 3.1 L 3.2-4.5 GM/DL Procalcitonin 0.12 H <0.10 NG/ML Urine Color YELLOW Urine Clarity CLEAR Urine pH 7.5 5-9 Urine Specific [place] 1.015 L 1.016-1.022 Urine Protein NEGATIVE NEGATIVE Urine Glucose (UA) NEGATIVE NEGATIVE Urine Ketones NEGATIVE NEGATIVE Urine Nitrite NEGATIVE NEGATIVE Urine Bilirubin NEGATIVE NEGATIVE Urine Urobilinogen 1.0 < = 1.0 MG/DL Urine Leukocyte Esterase NEGATIVE NEGATIVE Urine RBC (Auto) NEGATIVE NEGATIVE Urine RBC RARE /HPF Urine WBC RARE /HPF Urine Squamous Epithelial Cells 0-2 /HPF Urine Crystals NONE /LPF Urine Bacteria NEGATIVE /HPF Urine Casts NONE /LPF Urine Mucus NEGATIVE /LPF Urine Culture Indicated CULTURE PENDING My Orders Orders - MARI PATEL MD Cbc With Automated Diff (04/12/22 13:03) Comprehensive Metabolic Panel (04/12/22 13:03) Blood Culture (04/12/22 13:03) Sputum Culture (04/12/22 13:03) Urinalysis (04/12/22 13:03) Urine Culture (04/12/22 13:03) Protime With Inr (04/12/22 13:03) Partial Thromboplastin Time (04/12/22 13:03) Chest 1 View, Ap/Pa Only (04/12/22 13:03) Ed Iv/Invasive Line Start (04/12/22 13:03) Vital Signs Adult Sepsis Patie Q15M (04/12/22 13:03) O2 (04/12/22 13:03) Remove Rings In Anticipation O (04/12/22 13:03) Lactic Acid Analyzer (04/12/22 13:03) Covid 19 Inhouse Test (04/12/22 13:03) Influenza A And B By Pcr (04/12/22 13:03) Hs C Reactive Protein (04/12/22 13:05) Procalcitonin (Pct) (04/12/22 13:05) Lactated Ringers (Lr 1000 Ml Iv Solution (04/12/22 13:30) Acetaminophen Tablet (Tylenol Tablet) (04/12/22 13:30) Diltiazem Injection (Cardizem Injection) (04/12/22 13:30) Diltiazem Drip Pre-Mix (Cardizem Drip Pr (04/12/22 13:30) Monitor-Rhythm Ecg Trace Only (04/12/22 13:25) Ct Abdomen/Pelvis W (04/12/22 15:38) Iohexol Injection (Omnipaque 350 Mg/Ml 1 (04/12/22 16:00) Received Contrast (Hold Metformin- Contr (04/12/22 16:00) Ns (Ivpb) (Sodium Chloride 0.9% Ivpb Bag (04/12/22 16:00) Fentanyl Inj (Sublimaze Injection) (04/12/22 17:45) Piperacillin Sodium/Tazobactam (Zosyn Vi (04/12/22 18:00) Code/Resuscitation (04/12/22 18:14) Thyroid Stimulating Hormone (04/12/22 18:14) Free T4 (Free Thyroxine) (04/12/22 18:14) Vancomycin Injection (Vancomycin Injecti (04/12/22 18:15) Ed Admission (Communication) (04/12/22 18:17) Normal Saline 1l Bolus (04/12/22 18:30) Medications Given in ED Current Medications Medications Dose Ordered Sig/Josephine Route Start Time Stop Time Status Last Admin Dose Admin Acetaminophen 1,000 mg ONCE ONCE PO 04/12/22 13:30 04/12/22 13:31 DC 04/12/22 13:36 1,000 MG Diltiazem HCl 10 mg ONCE ONCE IVP 04/12/22 13:30 04/12/22 13:31 DC 04/12/22 13:39 10 MG Fentanyl Citrate 50 mcg ONCE ONCE IVP 04/12/22 17:45 04/12/22 17:46 DC 04/12/22 18:02 50 MCG Iohexol 100 ml ONCE ONCE IV 04/12/22 16:00 04/12/22 16:01 DC 04/12/22 16:09 80 ML Lactated Ringer's 1,000 ml @ 0 mls/hr Q0M ONCE IV 04/12/22 13:30 04/12/22 13:31 DC 04/12/22 13:39 999 MLS/HR Piperacillin Sod/ Tazobactam Sod 4.5 gm/Sodium Chloride 100 ml @ 200 mls/hr ONCE ONCE IV 04/12/22 18:00 04/12/22 18:29 04/12/22 18:15 200 MLS/HR Sodium Chloride 100 ml ONCE ONCE IV 04/12/22 16:00 04/12/22 16:01 DC 04/12/22 16:09 80 ML Vital Signs/I&O 04/12/22 04/12/22 04/12/22 12:30 13:38 13:39 Temp 38.0 Pulse 133 131 135 Resp 20 B/P (MAP) 133/89 (104) 145/103 145/103 Pulse Ox 95 O2 Delivery Room Air Capillary Refill : Less Than 3 Seconds Blood Pressure Mean: 117 Progress Note #1: Time: 18:26 Progress Note Patient was hydrated with a liter of IV fluid and started on a Cardizem drip. This did help control her rate. She was also treated with Tylenol. There was no obvious evidence of recurrent cellulitis on her skin exam, but there was a lump in the left groin. CT scan was obtained which revealed lymphadenopathy involving multiple lymph nodes. There is also inflammation around the groin lymph node where she is having pain. Although this is not a definite source of infection and SIRS, a developing recurrent cellulitis or unresolved cellulitis could be an etiology. Patient did test positive for COVID-19 again, but it seems very unlikely that COVID-19 is the cause of SIRS at this time. Patient was asymptomatic for several weeks after her prior positive test and she does not have any lymphopenia on her CBC. By my judgment, she should not be considered positive for active COVID infection at this time. The presence of lymphadenopathy is confusing. With the history of possible neoplasm identified by Dr. REYNOLDS as well as possible recent cellulitis, the etiology of the lymphadenopathy is not determined at this time. Case was discussed with Dr. Watts. He is agreeable to admission to the ICU for control of A. fib RVR on Cardizem drip as well as antibiotic therapy for a possible bacterial infection related to recent cellulitis. Patient is being empirically treated with Zosyn and vancomycin. Dr. Andre was consulted for surgical opinion regarding the ly mphadenopathy. CODE STATUS was discussed with patient, and she selects full code. Progress Note #2: Time: 18:40 Progress Note Report given to eICU. Diagnostic Imaging Diagonstic Imaging: Xray Plain Films/CT/US/NM/MRI: chest Comments NAME: ERICKSON BOWMAN [facility] REC#: [id number] PT STATUS: REG ER : 1945 PHYSICIAN: MARI PATEL MD ADMIT DATE: 04/12/22/ER Signed Date of Exam:04/12/22 CHEST 1 VIEW, AP/PA ONLY INDICATION: Fever. COMPARISON: 03/21/2022. FINDINGS: There has been marked improvement in patchy bilateral interstitial infiltrates present on the previous with stable heart size. No vascular congestion. No effusion. IMPRESSION: Resolving multifocal bilateral interstitial densities, either resolving edema or pneumonia. No adverse development. Dictated by: Dictated on workstation # [id number] Dict: 04/12/22 1427 Trans: 04/12/22 1454 [facility] [id number] Interpreted by: STEVE VAREAL Electronically signed by: STEVE VARELA 04/12/22 1454 Diagonstic Imaging: CT Plain Films/CT/US/NM/MRI: abdomen, pelvis Comments CT scan viewed by me and report reviewed. See report below: NAME: ERICKSON BOWMAN [facility] REC#: [id number] PT STATUS: REG ER : 1945 PHYSICIAN: MARI PATEL MD ADMIT DATE: 04/12/22/ER Signed Date of Exam:04/12/22 CT ABDOMEN/PELVIS W PROCEDURE: CT abdomen and pelvis with contrast. TECHNIQUE: Multiple contiguous axial images were obtained through the abdomen and pelvis after administration of intravenous contrast. Auto Exposure Controls were utilized during the CT exam to meet ALARA standards for radiation dose reduction. All CT scans use one or more of the following dose optimizing techniques: automated exposure control, MA and/or KvP adjustment based on patient size and exam type or iterative reconstruction. INDICATION: Lower abdominal pain, worsening. Left groin lump and pain, fever. COMPARISON: CT from 02/04/2014, 01/29/2021 FINDINGS: Lung bases demonstrate mild scarring. The heart is normal in size. There is no pericardial effusion. The liver has an enhancing lesion in segment 7 which measures 6 mm, may represent a flash filling hemangioma. There is a cyst in the left lobe. Cholecystectomy clips are noted. The spleen is mildly large and has calcified granulomas. The pancreas appears normal. The adrenal glands are normal. The kidneys demonstrate no enhancing lesions. There is no hydronephrosis. There is a cyst on the right kidney measuring 1.1 cm. There are postsurgical changes at the GE junction with a small hiatal hernia. The bowel loops are nondistended without obstruction. The appendix appears normal. There is diverticulosis of the sigmoid colon and descending colon without diverticulitis. There are a few small mildly prominent lymph nodes posterior to the inferior right liver. These have slightly increased in size since the prior study. There are multiple enlarged retroperitoneal lymph nodes. A marker caval lymph node measures 1.8 cm in the short axis (image 80 series 2). A marker lymph node at the aortic bifurcation on the left measures 2.3 cm in the short axis (image 77 series 2). There are additional iliac chain lymph nodes which are enlarged, and left inguinal lymphadenopathy. The conglomeration of lymph nodes along the left pelvic wall measures up to 4.3 x 8 cm in size (image 126 series 2). A marker left inguinal lymph node measures 3.9 x 2.2 cm (image 152 series 2). These lymph nodes have markedly increased in size since 01/29/2021. There are advanced degenerative changes throughout the lumbar spine. No acute osseous abnormality is seen. There is sclerosis about the left SI joint which is similar to 2014. IMPRESSION: 1. Marked left inguinal, left iliac, and retroperitoneal lymphadenopathy concerning for malignancy. Lymph nodes have significantly increased in size since 01/29/2021. 2. Mild splenomegaly. 3. Hiatal hernia. Dictated by: Dictated on workstation # [id number] Dict: 04/12/22 1617 Trans: 04/12/22 1633 [facility] [id number] Interpreted by: JOSE LUIS PUAL MD Electronically signed by: JOSE LUIS PAUL MD 04/12/22 1633 Departure Communication (Admissions) Time/Spoke to Admitting Phy: 18:15 Dr. Mac Stearns 18:20 Dr. Andre 18:25 Impression Primary Impression: Atrial fibrillation with RVR Additional Impressions: SIRS (systemic inflammatory response syndrome) Lymphadenopathy History of cellulitis Recent Cellulitis Disposition: HOME, SELF-CARE (ERASED) Condition: Improved Admissions Decision to Admit Reason: Admit from ER (General) Decision to Admit/Date: Apr 12, 2022 Time/Decision to Admit Time: 18:15 Departure-Patient Inst. Referrals: PASCUAL ALARCON DO (PCP) Primary Care Physician JUWAN ALARCON DNP (Family) Primary Care Physician Copy Copies To 1: PASCUAL ALARCON DO Copies To 2: BHARGAVI REYNOLDS JOSHUA T MD Apr 12, 2022 17:51
[2022-04-12] MEDS ORDERED: PIPERACILLIN SODIUM/TAZOBACTAM 4.5 GM in NS (IVPB) 100 ML IV ONE (18:00)
[2022-04-12] MEDS ORDERED: NS IV 1000 ML 1,000 ML IV SCH (18:30)
[2022-04-12 18:58] LABS: FREE T4 (FREE THYROXINE) 1.38 NG/DL (0.70-1.48)
[2022-04-12] MEDS ORDERED: MILK OF MAGNESIA 400 MG/5 ML 30 ML UDC PO PRN (19:30)
[2022-04-12] MEDS ORDERED: ONDANSETRON 4 MG (ZOFRAN) ORAL DISSOLVE TAB PO PRN (19:30)
[2022-04-12] MEDS ORDERED: LACTULOSE SYRUP 10GM/15ML (ENULOSE) 30ML UDC PO PRN (19:30)
[2022-04-12] MEDS ORDERED: ONDANSETRON 4 MG/2 ML (SDV) Z0FRAN IV PRN (19:30)
[2022-04-12] MEDS ORDERED: ANTACID SUSP 30 ML UDC (MYLANTA) PO PRN (19:30)
[2022-04-12] MEDS ORDERED: BISACODYL 10 MG SUPP (DULCOLAX) PR PRN (19:30)
[2022-04-12] MEDS ORDERED: NS IV 500 ML 500 ML IV PRN (19:30)
[2022-04-12] MEDS ORDERED: ACETAMINOPHEN 325 MG TABLET PO PRN (19:30)
[2022-04-12] MEDS ORDERED: CALCIUM CARBONATE 500 MG (TUMS) TAB.CHEW PO PRN (19:30)
[2022-04-12] MEDS ORDERED: MELATONIN 3 MG TABLET PO PRN (19:30)
[2022-04-12] MEDS ORDERED: polyethylene glycoL POWDER 17 GM (MIRALAX) PACK PO PRN (19:30)
[2022-04-12] MEDS: VANCOMYCIN INJECTION 1,000 MG in NS (IVPB) 250 ML IV SCH ×2 (19:58→21:01)
[2022-04-12] MEDS: NS IV 1000 ML 1,000 ML IV SCH (19:58)
[2022-04-12] MEDS: SENNOSIDES 8.6 MG (SENOKOT) TAB PO SCH (20:06)
[2022-04-12] MEDS: DOCUSATE SODIUM 100 MG (COLACE) CAP PO SCH (20:06)
[2022-04-12] MEDS: APIXABAN 5 MG (ELIQUIS) TABLET PO SCH (20:10)
--- NOTE | 2022-04-12 20:43 | Tele-ICU Consult ---
Progress Note (Tele-ICU Physician, consultation) Available chart/ vitals / labs / Images reviewed H&P is from ER notes Patient's information available about PMH, allergy reviewed in EMR. ROS as per chart and RN report Video assessment done using teleICU camera, rest of exam as per RN Discussed with RN. Consultants: Cardiology Hospital course: 76 yo M history of Gynecologic malignancy, cellulitis admitted with sepsis, Afib with RVR. COVID +. Video assessment in NAD on RA. Chart reviewed. Vancomycin, Zosyn Rec'd -- cultures ?ordered/rec'd per staff but not in EMR Diltiazem gtt A/P Sepsis, COVID19, Afib RVR Lines: (Central Line Necessity Reviewed) Rosen: N/A OG: N/A Nutrition: PO Analgesia: N/A VTE Prophylaxis: AC plan per Tax Adjuster Stress Ulcer Prophylaxis: N/A Plans in collaboration with bedside consultants and Primary MD. RN to reach out if any questions or concerns SAVI ESCOBAR MD Apr 12, 2022 20:43
[2022-04-12 22:24] VITALS: BP 106/65
[2022-04-13] MEDS: PIPERACILLIN SODIUM/TAZOBACTAM 4.5 GM in NS (IVPB) 100 ML IV SCH ×2 (00:35→08:34)
[2022-04-13 05:29] LABS: BASOPHILS % (AUTO) 0 % (0-10); EOSINOPHILS # (AUTO) 0.3 10^3/uL (0.0-0.3); EOSINOPHILS % (AUTO) 4 % (0-10); HEMATOCRIT 29 % (35-52); HEMOGLOBIN 9.7 g/dL (11.5-16.0); LYMPHOCYTES # (AUTO) 2.2 10^3/uL (1.0-4.0); LYMPHOCYTES % (AUTO) 33 % (12-44); MEAN CORPUSCULAR HEMOGLOBIN 31 pg (25-34); MEAN CORPUSCULAR HGB CONC 33 g/dL (32-36); MEAN CORPUSCULAR VOLUME 94 fL (80-99); MEAN PLATELET VOLUME 9.7 fL (9.0-12.2); MONOCYTES # (AUTO) 0.2 10^3/uL (0.0-1.0); MONOCYTES % (AUTO) 3 % (0-12); NEUTROPHILS # (AUTO) 3.9 10^3/uL (1.8-7.8); NEUTROPHILS % (AUTO) 58 % (42-75); PLATELET COUNT 255 10^3/uL (130-400); WHITE BLOOD COUNT 6.7 10^3/uL (4.3-11.0)
[2022-04-13 05:56] LABS: CALCIUM 7.5 MG/DL (8.5-10.1); CREATININE SERUM 0.66 MG/DL (0.60-1.30); MAGNESIUM 1.8 MG/DL (1.6-2.4)
[2022-04-13] MEDS ORDERED: MAGNESIUM 1 GM/100 ML IVPB 100 ML IV SCH (06:00)
[2022-04-13] MEDS ORDERED: KCL 20 MEQ TAB (K-DUR) PO SCH (06:00)
[2022-04-13] MEDS ORDERED: POTASSIUM CL 10MEQ/50ML IVPB 50 ML IV SCH (06:00)
[2022-04-13] MEDS ORDERED: LEVOTHYROXINE 150 MCG (LEVOTHROID) TAB PO SCH (06:30)
[2022-04-13] MEDS ORDERED: FLU QUAD HIGH DOSE 240 MCG/0.7 ML 2022-23 (FLUZONE) IM ONE (07:00)
[2022-04-13] MEDS: NS IV 1000 ML 1,000 ML IV SCH (07:30)
[2022-04-13] MEDS: APIXABAN 5 MG (ELIQUIS) TABLET PO SCH (08:34)
[2022-04-13] MEDS ORDERED: PANTOPRAZOLE 40 MG (PROTONIX) TAB PO SCH (09:00)
--- NOTE | 2022-04-13 09:31 | Tele-ICU Progress Note ---
Progress Note video rounds completed 76 y/o female admitted with cellulitis and sepsis Hx of a fib on apixaban Covid Positive CT abd shows extensive lymphadenopathy PLAN: awaiting cardiology eval Focused Exam Lactate Level 04/12/22 14:18: Lactic Acid Level 1.49 Height, Weight, BMI Height: 5'7.00" Weight: 236lbs. 2.0oz. 107.701243dj; 34.41 BMI Method:Stated Labs Laboratory Tests 04/12/22 14:18 04/13/22 05:08 Results Results/Procedures Labs Laboratory Tests 04/12/22 14:18 04/13/22 05:08 Patient resulted labs reviewed. Results Labs Labs Laboratory Tests 04/12/22 13:31: Influenza Type A (RT-PCR) Not Detected, Influenza Type B (RT-PCR) Not Detected, SARS-CoV-2 RNA (RT-PCR) DetectedH 04/12/22 14:18: White Blood Count 8.5, Red Blood Count 3.05L, Hemoglobin 9.4L, Hematocrit 30L, Mean Corpuscular Volume 97, Mean Corpuscular Hemoglobin 31, Mean Corpuscular Hemoglobin Concent 32, Red Cell Distribution Width 15.6H, Platelet Count 289, Mean Platelet Volume 9.9, Immature Granulocyte % (Auto) 2, Neutrophils (%) (Auto) 57, Lymphocytes (%) (Auto) 35, Monocytes (%) (Auto) 3, Eosinophils (%) (Auto) 3, Basophils (%) (Auto) 1, Neutrophils # (Auto) 4.9, Lymphocytes # (Auto) 3.0, Monocytes # (Auto) 0.2, Eosinophils # (Auto) 0.3, Basophils # (Auto) 0.0, Immature Granulocyte # (Auto) 0.1, Prothrombin Time 17.6H, INR Comment 1.4, Activated Partial Thromboplast Time 34, Sodium Level 131L, Potassium Level 4.2, Chloride Level 97L, Carbon Dioxide Level 23, Anion Gap 11, Blood Urea Nitrogen 11, Creatinine 0.64, Estimat Glomerular Filtration Rate 92, BUN/Creatinine Ratio 17, Glucose Level 104, Lactic Acid Level 1.49, Calcium Level 8.5, Corrected Calcium 9.2, Total Bilirubin 0.3, Aspartate Amino Transf (AST/SGOT) 24, Alanine Aminotransferase (ALT/SGPT) 57H, Alkaline Phosphatase 81, C-Reactive Protein High Sensitivity 12.45H, Total Protein 6.4, Albumin 3.1L, Procalcitonin 0.12H, Thyroid Stimulating Hormone (TSH) 0.31L, Free Thyroxine 1.38 04/12/22 14:50: Urine Color YELLOW, Urine Clarity CLEAR, Urine pH 7.5, Urine Specific [place] 1.015L, Urine Protein NEGATIVE, Urine Glucose (UA) NEGATIVE, Urine Ketones NEGA TIVE, Urine Nitrite NEGATIVE, Urine Bilirubin NEGATIVE, Urine Urobilinogen 1.0, Urine Leukocyte Esterase NEGATIVE, Urine RBC (Auto) NEGATIVE, Urine RBC RARE, Urine WBC RARE, Urine Squamous Epithelial Cells 0-2, Urine Crystals NONE, Urine Bacteria NEGATIVE, Urine Casts NONE, Urine Mucus NEGATIVE, Urine Culture Indicated CULTURE PENDING 04/13/22 05:08: White Blood Count 6.7, Red Blood Count 3.12L, Hemoglobin 9.7L, Hematocrit 29L, Mean Corpuscular Volume 94, Mean Corpuscular Hemoglobin 31, Mean Corpuscular Hemoglobin Concent 33, Red Cell Distribution Width 15.8H, Platelet Count 255, Mean Platelet Volume 9.7, Immature Granulocyte % (Auto) 3, Neutrophils (%) (Auto) 58, Lymphocytes (%) (Auto) 33, Monocytes (%) (Auto) 3, Eosinophils (%) (Auto) 4, Basophils (%) (Auto) 0, Neutrophils # (Auto) 3.9, Lymphocytes # (Auto) 2.2, Monocytes # (Auto) 0.2, Eosinophils # (Auto) 0.3, Basophils # (Auto) 0.0, Immature Granulocyte # (Auto) 0.2H, Sodium Level 134L, Potassium Level 4.0, Chloride Level 100, Carbon Dioxide Level 23, Anion Gap 11, Blood Urea Nitrogen 7, Creatinine 0.66, Estimat Glomerular Filtration Rate 91, BUN/Creatinine Ratio 11, Glucose Level 94, Calcium Level 7.5L, Magnesium Level 1.8 VITA RAMOS MD Apr 13, 2022 09:31
[2022-04-13] MEDS: SENNOSIDES 8.6 MG (SENOKOT) TAB PO SCH (09:36)
[2022-04-13] MEDS: DOCUSATE SODIUM 100 MG (COLACE) CAP PO SCH (09:36)
--- NOTE | 2022-04-13 09:53 | History & Physical-Hospitalist ---
History of Present Illness HPI/Chief Complaint Nivia is a 76 yo female who was admitted to ICU for Afib with RVR and suspected sepsis. Pt has pmhx of Afib, DAGOBERTO, hypothyroidism, GERD, diverticulosis, back pain and recent COVID infection in February. Pt reports she was having fever and left groin pain. She has been seen by Dr. Chong for lower abdominal pain and erythematous rash on groin and was put on Keflex and steroids. Pt reports the pain in her groin has become annoying and she is taking tylenol and tramadol to relieve it. Gen surg has been consulted. Pt reports she is not having any symptoms from her Afib with RVR. Heart rate has decreased since admission with cardizem drip. She denies SOA, CP, palpitations, sweating, N/V. Her only concern is about her LAD. Of note, pt reports she normally wears a CPAP at night, but her machine was recalled and she is using a loaner, which has been causing her a lot of sleep difficulties. Pt was diagnosed with COVID in February and has sloughing of skin on her hands from this. Source: patient Exam Limitations: no limitations Date Seen 04/13/22 Time Seen by a Provider: 09:00 Attending Physician Romel Lovett DO PCP Admitting Physician: Selina Watts MD Attending Physician: Selina Watts MD Referring Physician Date of Admission Apr 12, 2022 at 18:18 Home Medications & Allergies Home Medications Reviewed patient Home Medication Reconciliation performed by pharmacy medication reconciliations electrician technician and/or nursing. Patients Allergies have been reviewed. Allergies Allergies Coded Allergies promethazine (Verified Allergy, Unknown, 01/01/06) Past [id number]-[id number] Hx Patient Social History Tobacco Use?: No Smoking Status: Former Smoker Smokeless Tobacco Frequency: Never a User Use of E-Cig and/or Vaping dev: No Substance use?: No Alcohol Use?: Yes Alcohol type: Wine Alcohol Frequency: Rarely Pt feels they are or have been: No Immunizations Up To Date Date of Influenza Vaccine: Mar 12, 2020 First/Initial COVID19 Vaccinat: 2020 Second COVID19 Vaccination [place]: 08/11/2020 Tetanus Booster (TDap): Unknown Hepatitis A: No Hepatitis B: No Date of Pneumonia Vaccine: Nov 27, 2013 Seasonal Allergies Seasonal Allergies: Yes Current Status status: No status: No Advance Directives: No Communicates: Verbally Primary Language: Marshallese Preferred Spoken Language: Marshallese Is interpretation needed?: No Implanted or Applied Medical D: BiPAP, Pacemaker Past Medical History Surgeries: Abdominal, Eye Surgery, Joint Replacement, Oophorectomy, Orthopedic, Pacemaker, Rectal, Thyroidectomy Currently Using CPAP: Yes Atrial Fibrillation, Hypertension, Irregular Heartbeat, Syncope [employer] History: Hysterectomy, Menopausal Bladder Infection Gastroesophageal Reflux, Hartman's Esophagus, Diverticulosis, Hemorrhoids, Esophagitis, Hiatal Hernia Osteoporosis, Arthritis, Chronic Back Pain Hypothyroidsim Cataract Skin, Thyroid Did You Recieve Any Treatments: Yes What Type of Treatment Did You: Surgical Intervention Blood Disorders: No Adverse Reaction/Blood Tranf: No Family Medical History Abdominal aortic aneurysm 19 MOTHER G8 BROTHER Alzheimer's disease G8 SISTER Arthritis G8 SISTER Cardiovascular disease 19 MOTHER FH: lung cancer 19 FATHER FH: ovarian cancer G8 SISTER Hypertension G8 SISTER Prostate cancer G8 BROTHER Psychosocial problem Thyroid disease G8 SISTER No Family History of: AIDS Marshall's disease Alcoholism Colon cancer Completed stroke Dementia Diabetes mellitus Drug abuse Myocardial infarction Parkinson's disease Respiratory disorder Seizure disorder Severe allergy PAST SURGICAL HISTORY: -"360 WRAP" PER PT-- HIATAL HERNIA REPAIR -PACEMAKER -CATARACT SURGERY - COLONOSCOPY 08/18/[address] RODRIGUEZ: ASSESSMENT: 1. Three small polyps were removed today. Two adjacent in the proximal ascending colon and one in the mid transverse colon with no gross evidence to suggest malignancy. We will await histopathology report before making future surveillance colonoscopic recommendations weighing this patient's age, poor performance status to that of a positive Cologuard study. 2. Moderate to severe diverticular disease, most notably present in the sigmoid colon, but with diverticulum scattered throughout without overt evidence for diverticulitis. Review of Systems Constitutional: No chills, No fever EENTM: No blurred vision, No double vision Respiratory: No cough, No short of breath Cardiovascular: No chest pain, No palpitations; other (pacemaker) Gastrointestinal: No constipation, No diarrhea, No nausea, No vomiting Genitourinary: No dysuria, No frequency Musculoskeletal: other (left inguinal pain) Skin: lumps (L inguinal) Psychiatric/Neurological: No Symptoms Reported Physical Exam Physical Exam Vital Signs Vital Signs - First Documented 04/12/22 04/12/22 12:30 23:29 Temp 38.0 Pulse 133 Resp 20 B/P (MAP) 133/89 (104) Pulse Ox 95 O2 Delivery Room Air O2 Flow Rate 2.00 Capillary Refill : Less Than 3 Seconds Height, Weight, BMI Height: 5'7.00" Weight: 236lbs. 2.0oz. 107.030726bw; 34.41 BMI Method:Stated General Appearance: No Apparent Distress, Obese HEENT: PERRL/EOMI, Pharynx Normal, Moist Mucous Membranes Neck: Full Range of Motion, Normal Inspection Respiratory: Chest Non Tender, Lungs Clear Cardiovascular: No Murmur, Irregularly Irregular Gastrointestinal: Normal Bowel Sounds, Non Tender Extremity: Normal Capillary Refill, No Pedal Edema Neurologic/Psychiatric: Alert, Oriented x3, Normal Mood/Affect Skin: Normal Color, Warm/Dry Lymphatic: Inguinal Node Tender (L) Results Results/Procedures Labs Laboratory Tests 04/12/22 14:18 04/13/22 05:08 Patient resulted labs reviewed. Assessment/Plan Admission Diagnosis Afib with RVR and SIRS Admission Status: Observation Assessment and Plan Afib with RVR SIRS Oxygen use Left inguinal, iliac and retroperitoneal LAD Hypothyroidism GERD Back Pain DAGOBERTO Afib with RVR and pacemaker placement -Follows with Dr. Stearns -Cardizem drip stopped, switched to oral cardizem -Heart rate improving -Eliquis SIRS -CXR and UA wnl -No leukocytosis -Fever upon admission, but none since -Zosyn and Vanc stopped as no source of infection identified Oxygen use -Pt never hypoxic on RA, will wean off O2 today Left inguinal, iliac and retroperitoneal LAD -Possibly from cellulitis, can't r/o malignancy -Needs further work up Hypothyroidism -Synthroid from home meds GERD -Protonix Back Pain -Tramadol and Tylenol DAGOBERTO -CPAP at night GEORGES FINLEY A MED STUDENT Apr 13, 2022 09:53
--- NOTE | 2022-04-13 10:38 | Consultation - Surgery ---
CHRISTIANNE MONTANO 04/13/22 1038: History of Present Illness History of Present Illness Patient Consulted On(chris/time) 04/13/22 10:32 Date Seen by Provider: Apr 13, 2022 Time Seen by Provider: 09:00 History of Present Illness Patient consulted by Dr. Watts for possible groin cellulitis/abscess 76 year old female with a Past MedHx of Afib, DAGOBERTO, HTN, HLD, Thyroid CA presented to [facility] ER with a chief complaint of L groin pain and swelling. Patient was subsequently found to be in Afib w/ RVR. Patient was admitted for New onset Afib, possible groin cellulitis with possible sepsis. Patient states that a couple of weeks ago she noticed a boil on her left labia. She states she has had these before and started some triple abx ointment. Two days later it had a white tip, so she tried to pop it. After popping it, the erythema, pain, and swelling spread to her groin. She then decided to go to Dr. Chong's office. Patient saw ELISABET Siegel who prescribed her some steroids. Patient states she started the cephalexin and steroids and things began to improve until 2 days ago. Then the pain and swelling came back worse, radiated to her groin and then the pain began spreading down her leg. Patient does state she was running a fever at home and had decreased appetite and hasn't had any food in several days. Patient had COVID in early February that was mostly asymptomatic, however, patient has had some sequelae of COVID. Including oral lesions and skin sloughing of palms and soles of feet. When I came into the room, patient was about to eat breakfast and state she feels much better this morning. Also states that the pain in her groin is much improved w/ pain medications. Does still have some tenderness w/ movement and pain with movement of left leg. Currently denies Chest pain, Dyspnea, Fever, nausea, vomiting, abdominal pain, constipation, dysuria, frequency of urination, peripheral edema. Allergies and Home Medications Allergies Coded Allergies: promethazine (Verified Allergy, Unknown, 01/01/06) Patient Home Medication List Home Medication List Reviewed: Yes Apixaban (Eliquis) 5 Mg Tablet, 5 MG PO BID Prescribed by: LASHONDA YU on 11/29/17 0724 Biotin (Biotin) 10,000 Mcg Tab.rapdis, 10,000 MCG PO DAILY, (Reported) Entered as Reported by: TEVIN MARTELL on 08/10/20 120 Cholecalciferol (Vitamin D3) (Weekly-D) 1,250 Mcg Capsule, 50,000 MCG PO WEEK, (Reported) Entered as Reported by: TEVIN MARTELL on 08/10/20 120 Cyanocobalamin (Cyanocobalamin Injection) 1,000 Mcg/Ml Inj, 1,000 MCG IM MONTHLY, (Reported) Entered as Reported by: EMIGDIO DICKSON on 11/27/17 1040 Diltiazem HCl (Cardizem Cd) 120 Mg Cap.er.24h, 120 MG PO DAILY Prescribed by: LASHONDA YU on 11/29/17 0724 Gabapentin (Neurontin) 300 Mg Capsule, 300 MG PO TID PRN for PAIN-BREAKTHROUGH Prescribed by: MARI JIMENEZ on 07/28/21 162 Levothyroxine Sodium (Levothyroxine Sodium) 137 Mcg Tablet, 137 MCG PO DAILY, (Reported) Entered as Reported by: ELISEO GARBER on 04/24/15 1019 Magnesium Oxide (Magnesium) 500 Mg Capsule, 500 MG PO DAILY, (Reported) Entered as Reported by: TEVIN MARTELL on 08/10/20 120 Oxycodone HCl/Acetaminophen (Percocet 5-325 mg Tablet) 1 Each Tablet, 1 TAB PO Q4H PRN for PAIN-MODERATE (5-7) Prescribed by: MARI JIMENEZ on 07/28/21 1622 Pantoprazole Sodium (Pantoprazole Sodium) 40 Mg Tablet.dr, 40 MG PO DAILY, (Reported) Entered as Reported by: TEVIN MARTELL on 08/10/20 120 Tramadol HCl (Tramadol HCl) 50 Mg Tablet, 50 MG PO BID, (Reported) Entered as Reported by: TEVIN MARTELL on 08/10/20 120 Vitamin B Complex (B Complex) 1 Each Tablet, 1 EACH PO DAILY, (Reported) Entered as Reported by: TEVIN MARTELL on 08/10/20 120 Past Buhxbta-Fmbico-Ffxldb Hx Patient Social History Smoking Status: Former Smoker (5 years when younger ) Former Smoker, Quit: Aug 10, 1972 Type Used: Cigarettes 2nd Hand Smoke Exposure: No Recent Hopitalizations: No Alcohol Use?: Yes Have you traveled recently?: No Immunizations Up To Date Date of Pneumonia Vaccine: Nov 27, 2013 Date of Influenza Vaccine: Mar 12, 2020 Seasonal Allergies Seasonal Allergies: Yes Surgeries History of Surgeries: Yes Surgeries: Abdominal (esophageal wrap ), Eye Surgery, Hysterectomy (SANDER BSO), Joint Replacement, Oophorectomy, Orthopedic, Pacemaker, Rectal, Thyroidectomy Respiratory History of Respiratory Disorde: Yes (DAGOBERTO) Cardiovascular History of Cardiac Disorders: Yes Cardiac Disorders: Atrial Fibrillation, Hypertension, Irregular Heartbeat, Syncope Neurological History of Neurological Disord: No 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 System : No Hx 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 Disorders: No 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, 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 Genitourinary History of Genitourinary Disor: Yes Genitourinary Disorders: Bladder Infection Gastrointestinal History of Gastrointestinal Di: Yes (DIVERTICULAR DISEASE NOTED ON SCREENING COLONOSCOPY) Gastrointestinal Disorders: Gastroesophageal Reflux, Hartman's Esophagus, Diverticulosis, Hemorrhoids, Esophagitis, Hiatal Hernia Musculoskeletal History of Musculoskeletal Dis: Yes Musculoskeletal Disorders: Osteoporosis, Arthritis, Chronic Back Pain Endocrine History of Endocrine Disorders: Yes (Thyroidectomy 2/2 Thyroid CA) Endocrine Disorders: Hypothyroidsim HEENT History of HEENT Disorders: Yes (BILATERAL CATARACT SURGERY) HEENT Disorders: Cataract Cancer History of Cancer: Yes Cancer: Skin, Thyroid Psychosocial History of Psychiatric Problem: No Integumentary History of Skin or Integumenta: No Blood Transfusions History of Blood Disorders: No Adverse Reaction to a Blood Tr: No Family Medical History Significant Family History: Heart Disease, Other Conditions/Hx (2x sisters w/ alzheimers ) Family Medial History: Abdominal aortic aneurysm 19 MOTHER G8 BROTHER Alzheimer's disease G8 SISTER Arthritis G8 SISTER Cardiovascular disease 19 MOTHER FH: lung cancer 19 FATHER FH: ovarian cancer G8 SISTER Hypertension G8 SISTER Prostate cancer G8 BROTHER Psychosocial problem Thyroid disease G8 SISTER No Family History of: AIDS Alexander's disease Alcoholism Colon cancer Completed stroke Dementia Diabetes mellitus Drug abuse Myocardial infarction Parkinson's disease Respiratory disorder Seizure disorder Severe allergy Review of Systems-General Constitutional: No chills, No diaphoresis, No fever EENTM: hearing loss (chronic); No ear pain Respiratory: No cough, No dyspnea on exertion Cardiovascular: No chest pain, No palpitations Gastrointestinal: No abdominal pain, No constipation, No diarrhea, No dysphagia; loss of appetite (has returned as of this AM ); No nausea, No vomiting Genitourinary: No discharge, No dysuria, No frequency Musculoskeletal: back pain (chronic), joint pain (chronic ) Skin: No change in color; lesions (on labia majora ) Psychiatric/Neurological: Denies Anxiety, Denies Depressed Physical Exam-General Problems Physical Exam Vital Signs Vital Signs - First Documented 04/12/22 04/12/22 12:30 23:29 Temp 38.0 Pulse 133 Resp 20 B/P (MAP) 133/89 (104) Pulse Ox 95 O2 Delivery Room Air O2 Flow Rate 2.00 Capillary Refill : Less Than 3 Seconds General Appearance: WD/WN, no apparent distress HEENT: PERRL/EOMI Neck: non-tender, supple Respiratory: chest non-tender, lungs clear, no respiratory distress, no accessory muscle use, decreased breath sounds Gastrointestinal: non tender, soft Rectal: deferred Genital/Rectal: other (Site of boil of anterior left labia majora w/ some flaky skin where healing. Non-tender, not warm to touch, suprapubic region is very mildly erythematous. Non-tender everywhere except and left inguinal region. Large, irritated lymph node palpable in this region. Groin creases C/D/I. ) Extremities: non-tender, no calf tenderness, pedal edema (trace bilaterally ) Neurologic/Psychiatric: alert, normal mood/affect, oriented x 3 Skin: normal color, warm/dry Data Review Labs Laboratory Tests 04/12/22 13:31: Influenza Type A (RT-PCR) Not Detected, Influenza Type B (RT-PCR) Not Detected, SARS-CoV-2 RNA (RT-PCR) DetectedH 04/12/22 14:18: White Blood Count 8.5, Red Blood Count 3.05L, Hemoglobin 9.4L, Hematocrit 30L, Mean Corpuscular Volume 97, Mean Corpuscular Hemoglobin 31, Mean Corpuscular Hemoglobin Concent 32, Red Cell Distribution Width 15.6H, Platelet Count 289, Mean Platelet Volume 9.9, Immature Granulocyte % (Auto) 2, Neutrophils (%) (Auto) 57, Lymphocytes (%) (Auto) 35, Monocytes (%) (Auto) 3, Eosinophils (%) (Auto) 3, Basophils (%) (Auto) 1, Neutrophils # (Auto) 4.9, Lymphocytes # (Auto) 3.0, Monocytes # (Auto) 0.2, Eosinophils # (Auto) 0.3, Basophils # (Auto) 0.0, Immature Granulocyte # (Auto) 0.1, Prothrombin Time 17.6H, INR Comment 1.4, Activated Partial Thromboplast Time 34, Sodium Level 131L, Potassium Level 4.2, Chloride Level 97L, Carbon Dioxide Level 23, Anion Gap 11, Blood Urea Nitrogen 11, Creatinine 0.64, Estimat Glomerular Filtration Rate 92, BUN/Creatinine Ratio 17, Glucose Level 104, Lactic Acid Level 1.49, Calcium Level 8.5, Corrected Calcium 9.2, Total Bilirubin 0.3, Aspartate Amino Transf (AST/SGOT) 24, Alanine Aminotransferase (ALT/SGPT) 57H, Alkaline Phosphatase 81, C-Reactive Protein High Sensitivity 12.45H, Total Protein 6.4, Albumin 3.1L, Procalcitonin 0.12H, Thyroid Stimulating Hormone (TSH) 0.31L, Free Thyroxine 1.38 04/12/22 14:50: Urine Color YELLOW, Urine Clarity CLEAR, Urine pH 7.5, Urine Specific Ruth 1.015L, Urine Protein NEGATIVE, Urine Glucose (UA) NEGATIVE, Urine Ketones NEGATIVE, Urine Nitrite NEGATIVE, Urine Bilirubin NEGATIVE, Urine Urobilinogen 1.0, Urine Leukocyte Esterase NEGATIVE, Urine RBC (Auto) NEGATIVE, Urine RBC RARE, Urine WBC RARE, Urine Squamous Epithelial Cells 0-2, Urine Crystals NONE, Urine Bacteria NEGATIVE, Urine Casts NONE, Urine Mucus NEGATIVE, Urine Culture Indicated CULTURE PENDING 04/13/22 05:08: White Blood Count 6.7, Red Blood Count 3.12L, Hemoglobin 9.7L, Hematocrit 29L, Mean Corpuscular Volume 94, Mean Corpuscular Hemoglobin 31, Mean Corpuscular Hemoglobin Concent 33, Red Cell Distribution Width 15.8H, Platelet Count 255, Mean Platelet Volume 9.7, Immature Granulocyte % (Auto) 3, Neutrophils (%) (Auto) 58, Lymphocytes (%) (Auto) 33, Monocytes (%) (Auto) 3, Eosinophils (%) (Auto) 4, Basophils (%) (Auto) 0, Neutrophils # (Auto) 3.9, Lymphocytes # (Auto) 2.2, Monocytes # (Auto) 0.2, Eosinophils # (Auto) 0.3, Basophils # (Auto) 0.0, Immature Granulocyte # (Auto) 0.2H, Sodium Level 134L, Potassium Level 4.0, Chloride Level 100, Carbon Dioxide Level 23, Anion Gap 11, Blood Urea Nitrogen 7, Creatinine 0.66, Estimat Glomerular Filtration Rate 91, BUN/Creatinine Ratio 11, Glucose Level 94, Calcium Level 7.5L, Magnesium Level 1.8 Radiology [place], [place] NAME: ERICKSON BOWMAN [facility] REC#: [id number] PT STATUS: REG ER : 1945 PHYSICIAN: MARI PATEL MD ADMIT DATE: 04/12/22/ER Signed Date of Exam:04/12/22 CT ABDOMEN/PELVIS W PROCEDURE: CT abdomen and pelvis with contrast. TECHNIQUE: Multiple contiguous axial images were obtained through the abdomen and pelvis after administration of intravenous contrast. Auto Exposure Controls were utilized during the CT exam to meet ALARA standards for radiation dose reduction. All CT scans use one or more of the following dose optimizing techniques: automated exposure control, MA and/or KvP adjustment based on patient size and exam type or iterative reconstruction. INDICATION: Lower abdominal pain, worsening. Left groin lump and pain, fever. COMPARISON: CT from 02/04/2014, 01/29/2021 FINDINGS: Lung bases demonstrate mild scarring. The heart is normal in size. There is no pericardial effusion. The liver has an enhancing lesion in segment 7 which measures 6 mm, may represent a flash filling hemangioma. There is a cyst in the left lobe. Cholecystectomy clips are noted. The spleen is mildly large and has calcified granulomas. The pancreas appears normal. The adrenal glands are normal. The kidneys demonstrate no enhancing lesions. There is no hydronephrosis. There is a cyst on the right kidney measuring 1.1 cm. There are postsurgical changes at the GE junction with a small hiatal hernia. The bowel loops are nondistended without obstruction. The appendix appears normal. There is diverticulosis of the sigmoid colon and descending colon without diverticulitis. There are a few small mildly prominent lymph nodes posterior to the inferior right liver. These have slightly increased in size since the prior study. There are multiple enlarged retroperitoneal lymph nodes. A marker caval lymph node measures 1.8 cm in the short axis (image 80 series 2). A marker lymph node at the aortic bifurcation on the left measures 2.3 cm in the short axis (image 77 series 2). There are additional iliac chain lymph nodes which are enlarged, and left inguinal lymphadenopathy. The conglomeration of lymph nodes along the left pelvic wall measures up to 4.3 x 8 cm in size (image 126 series 2). A marker left inguinal lymph node measures 3.9 x 2.2 cm (image 152 series 2). These lymph nodes have markedly increased in size since 01/29/2021. There are advanced degenerative changes throughout the lumbar spine. No acute osseous abnormality is seen. There is sclerosis about the left SI joint which is similar to 2014. IMPRESSION: 1. Marked left inguinal, left iliac, and retroperitoneal lymphadenopathy concerning for malignancy. Lymph nodes have significantly increased in size since 01/29/2021. 2. Mild splenomegaly. 3. Hiatal hernia. Dictated by: Dictated on workstation # [id number] Dict: 04/12/22 1617 Trans: 04/12/22 1633 [facility] [id number] Interpreted by: JOSE LUIS PAUL MD Electronically signed by: JOSE LUIS PAUL MD 04/12/22 1633 [facility], [place] NAME: ERICKSON BOWMAN [facility] REC#: [id number] PT STATUS: REG ER : 1945 PHYSICIAN: MARI PATEL MD ADMIT DATE: 04/12/22/ER Signed Date of Exam:04/12/22 CHEST 1 VIEW, AP/PA ONLY INDICATION: Fever. COMPARISON: 03/21/2022. FINDINGS: There has been marked improvement in patchy bilateral interstitial infiltrates present on the previous with stable heart size. No vascular congestion. No effusion. IMPRESSION: Resolving multifocal bilateral interstitial densities, either resolving edema or pneumonia. No adverse development. Dictated by: Dictated on workstation # [id number] Dict: 04/12/22 1427 Trans: 04/12/22 1454 [facility] [id number] Interpreted by: STEVE VARELA Electronically signed by: STEVE VARELA 04/12/22 1454 Assessment/Plan Assessment/Plan Assessment/Plan Groin Mass, unknown origin - suspect lymphadenopathy w/ underlying B cell lymphoma (dx in 2014) vs reactive lymphadenopathy Labia Majora lesion AFib w/ RVR DAGOBERTO HTN HLD Hypothyroidism Plan Concern for cellulitis less likely at this time. No leukocytosis, fever, dyspnea, or other systemic symptoms. Suspect this has something to do with underlying B cell lymphoma or possible reactive lymphadenopathy from previous COVID infx. No abscess identified on CT. Patient will need further workup in the outpatient setting to determine source of and extent of lymphadenopathy. Believe Abx could be de-esculated at this time per primary team. Continue to trend labs. Will continue to monitor groin region for any progression of/concerns for cellulitis. AUDIE FERRARI DO 04/13/22 1230: History of Present Illness History of Present Illness Time Seen by Provider: 11:31 History of Present Illness Surgery asked to consult regarding possible lymphadenopathy. Pt is a 76o female who has been treated as outpt for left groin pain, cellulitis and mass. She got better, but then also got a rash from ABX. She came in last night to the ER because of groin pain and was found to be in Afib with RVR. Admitted for the Afib and possible cellulitis with sepsis. When I spoke to her this am, she said the pain was better, swelling almost gone and no longer "draining in the groin". She did say at home she was treating it with antibiotic ointment and "poked it with a needle". She has had B-Cell Lymphoma since 2014 and had mass on vagina that was diagnosed as B-Cell mass. Allergies and Home Medications Allergies Coded Allergies: promethazine (Verified Allergy, Unknown, 01/01/06) Patient Home Medication List Home Medication List Reviewed: Yes Apixaban (Eliquis) 5 Mg Tablet, 5 MG PO BID Prescribed by: LASHONDA YU on 11/29/17 0724 Biotin (Biotin) 10,000 Mcg Tab.rapdis, 10,000 MCG PO DAILY, (Reported) Entered as Reported by: TEVIN MARTELL on 08/10/20 1201 Cholecalciferol (Vitamin D3) (Weekly-D) 1,250 Mcg Capsule, 50,000 MCG PO WEEK, (Reported) Entered as Reported by: TEVIN MARTELL on 08/10/20 1201 Cyanocobalamin (Cyanocobalamin Injection) 1,000 Mcg/Ml Inj, 1,000 MCG IM MONTHLY, (Reported) Entered as Reported by: EMIGDIO DICKSON on 11/27/17 1040 Diltiazem HCl (Cardizem Cd) 120 Mg Cap.er.24h, 120 MG PO DAILY Prescribed by: LASHONDA YU on 11/29/17 0724 Gabapentin (Neurontin) 300 Mg Capsule, 300 MG PO TID PRN for PAIN-BREAKTHROUGH Prescribed by: MARI JIMNEEZ on 07/28/21 1622 Levothyroxine Sodium (Levothyroxine Sodium) 137 Mcg Tablet, 137 MCG PO DAILY, (Reported) Entered as Reported by: ELISEO GARBER on 04/24/15 1019 Magnesium Oxide (Magnesium) 500 Mg Capsule, 500 MG PO DAILY, (Reported) Entered as Reported by: TEVIN MARTELL on 08/10/20 1201 Oxycodone HCl/Acetaminophen (Percocet 5-325 mg Tablet) 1 Each Tablet, 1 TAB PO Q4H PRN for PAIN-MODERATE (5-7) Prescribed by: MARI JIMENEZ on 07/28/21 1622 Pantoprazole Sodium (Pantoprazole Sodium) 40 Mg Tablet.dr, 40 MG PO DAILY, (Reported) Entered as Reported by: TEVIN MARTELL on 08/10/20 1201 Tramadol HCl (Tramadol HCl) 50 Mg Tablet, 50 MG PO BID, (Reported) Entered as Reported by: TEVIN MARTELL on 08/10/20 1201 Vitamin B Complex (B Complex) 1 Each Tablet, 1 EACH PO DAILY, (Reported) Entered as Reported by: TEVIN MARTELL on 08/10/20 1201 Past Foowqoq-Cjbcvh-Jnrymn Hx Patient Social History Smoking Status: Former Smoker (5 years when younger ) Alcohol Use?: No Surgeries History of Surgeries: Yes Surgeries: Abdominal (esophageal wrap ), Eye Surgery, Hysterectomy (SANDER BSO), Joint Replacement, Oophorectomy, Orthopedic, Pacemaker, Rectal, Thyroidectomy Respiratory History of Respiratory Disorde: Yes (DAGOBERTO) Cardiovascular History of Cardiac Disorders: Yes Cardiac Disorders: Atrial Fibrillation, High Cholesterol, Hypertension Neurological History of Neurological Disord: No Genitourinary History of Genitourinary Disor: Yes (mass on vagina) Gastrointestinal History of Gastrointestinal Di: Yes (hx of Lap Annabella) Gastrointestinal Disorders: Gastroesophageal Reflux, Diverticulosis, Polyps Musculoskeletal History of Musculoskeletal Dis: Yes Musculoskeletal Disorders: Degenerate Disk Disease Endocrine History of Endocrine Disorders: Yes (Thyroidectomy 2/2 Thyroid CA) Endocrine Disorders: Hypothyroidsim HEENT History of HEENT Disorders: Yes HEENT Disorders: Cataract Hearing Impairment: Hard of Hearing Cancer History of Cancer: Yes Cancer: Leukemia, Thyroid Psychosocial History of Psychiatric Problem: No Family Medical History Significant Family History: Heart Disease, Cancer, Hypertension, Other Conditions/Hx (2x sisters w/ alzheimers ) Family Medial History: Abdominal aortic aneurysm 19 MOTHER G8 BROTHER Alzheimer's disease G8 SISTER Arthritis G8 SISTER Cardiovascular disease 19 MOTHER FH: lung cancer 19 FATHER FH: ovarian cancer G8 SISTER Hypertension G8 SISTER Prostate cancer G8 BROTHER Psychosocial problem Thyroid disease G8 SISTER Review of Systems-General Constitutional: No chills, No diaphoresis, No fever EENTM: hearing loss (chronic); No ear pain Respiratory: No cough, No dyspnea on exertion Cardiovascular: No chest pain, No palpitations Gastrointestinal: No abdominal pain, No constipation, No diarrhea, No dysphagia; loss of appetite (has returned as of this AM ); No nausea, No vom iting Genitourinary: No discharge, No dysuria, No frequency Musculoskeletal: back pain (chronic), joint pain (chronic ) Skin: No change in color; lesions (on labia majora ) Psychiatric/Neurological: Denies Anxiety, Denies Depressed Physical Exam-General Problems Physical Exam General Appearance: no apparent distress, obese Eyes: Bilateral Eye PERRL, Bilateral Eye EOMI HEENT: pharynx normal; No scleral icterus (R), No scleral icterus (L) Neck: non-tender, supple Respiratory: chest non-tender, lungs clear, no respiratory distress, no accessory muscle use, decreased breath sounds Cardiovascular: no murmur, irregularly irregular Gastrointestinal: non tender, soft, hernia (umbilical), other (mass in LLQ/groin area - examined with nurse in the room) Rectal: deferred Genital/Rectal: other (Site of boil of anterior left labia majora w/ some flaky skin where healing. Non-tender, not warm to touch, suprapubic region is very mildly erythematous. Non-tender everywhere except and left inguinal region. Large, irritated lymph node palpable in this region. Groin creases C/D/I. ) Extremities: non-tender, no calf tenderness Neurologic/Psychiatric: alert, normal mood/affect, oriented x 3 Skin: normal color, warm/dry Lymphatic: inguinal node tender (L) Assessment/Plan Assessment/Plan Assessment/Plan Groin Mass, unknown origin - suspect lymphadenopathy w/ underlying B cell lymphoma (dx in 2013) vs reactive lymphadenopathy Labia Majora lesion AFib w/ RVR DAGOBERTO HTN HLD Hypothyroidism Plan Concern for cellulitis less likely at this time. No leukocytosis, fever, dyspnea, or other systemic symptoms. Suspect this has something to do with underlying B cell lymphoma or possible reactive lymphadenopathy from previous COVID infx. No abscess identified on CT. Patient will need further workup in the outpatient setting to determine source of and extent of lymphadenopathy. Believe Abx could be de-esculated at this time per primary team. Continue to trend labs. Will continue to monitor groin region for any progression of/concerns for cellulitis. Pt probably needs a biopsy of the left groin/abdominal mass as an outpt. It was not there on CT from Jan 2021. Supervisory-Addendum Brief Verification & Attestation Participated in pt care: history, MDM, physical Personally performed: exam, history, MDM, supervision of care Care discussed with: Medical Student Procedures: n/a Verification and Attestation of Medical Student E/M Service A medical student performed and documented this service. I then reviewed and verified all information documented by the medical student and made modificatio ns to such information, when appropriate. I personally performed a physical exam, medical decision making and then discussed any differences between the notes and made revisions as necessary to create one note. Audie Ferrari , 04/13/22 , 12:34 CHRISTIANNE MONTANO Apr 13, 2022 10:38 AUDIE FERRARI DO Apr 13, 2022 12:30
--- NOTE | 2022-04-13 12:22 | Discharge Summary ---
GEORGES FINLEY A MED STUDENT 04/13/22 1222: Diagnosis/Chief Complaint Date of Admission Apr 12, 2022 at 18:18 Date of Discharge Discharge Date: Apr 13, 2022 Admission Diagnosis Afib with RVR and suspected sepsis Primary Care Gillian Lovett,[facility] Discharge Diagnosis Afib with RVR (1) Atrial fibrillation with rapid ventricular response Status: Chronic Assessment & Plan: Continue cardizem on d/c Continue eliquis F.u with cardiology (2) SIRS (systemic inflammatory response syndrome) Status: Acute Assessment & Plan: WBC remained normal throughout stay, no sign of infection No need for abx on d/c (3) History of cellulitis Status: Resolved (4) Inguinal lymphadenopathy Status: Acute Assessment & Plan: F.u with Dr. Lovett and Dr. Chong for work up of lymphadenopathy. Could be infectious vs. cancerous cause (5) Iliac lymphadenopathy Status: Acute (6) Retroperitoneal lymphadenopathy Status: Acute Discharge Summary Discharge Physical Exam Allergies: Coded Allergies: promethazine (Verified Allergy, Unknown, 01/01/06) Vitals & I&Os Vital Signs Date Time Temp Pulse Resp B/P (MAP) Pulse Ox O2 Delivery O2 Flow Rate FiO2 04/13/22 11:26 36.7 04/13/22 11:00 95 12 90/53 (65) 91 Nasal Cannula 2.00 General Appearance: No Apparent Distress, WD/WN HEENT: PERRL/EOMI, Pharynx Normal, Moist Mucous Membranes Respiratory: Chest Non Tender, Lungs Clear, No Accessory Muscle Use, No Respiratory Distress Cardiovascular: No Murmur, Irregularly Irregular Gastrointestinal: Normal Bowel Sounds, Mass (left inguinal LAD), Tenderness (left groin) Extremity: Normal Capillary Refill, Normal Inspection, No Pedal Edema Skin: Normal Color, Warm/Dry Neurologic/Psychiatric: Alert, Oriented x3, Normal Mood/Affect Hospital Course Nivia is a 76 yo female who was admitted to ICU for Afib with RVR and suspected sepsis. Pt has pmhx of Afib, DAGOBERTO, hypothyroidism, GERD, diverticulosis, back pain and recent COVID infection in February. Pt reported she was having fever and left groin pain. She had been seen by Dr. Chong for lower abdominal pain and erythematous rash on groin and was put on Keflex and steroids. Pt reports the pain in her groin has become annoying and she is taking tylenol and tramadol to relieve it. Gen surg was consulted, they felt no need for surgical intervention at this time. Pt reported she is not having any symptoms from her Afib with RVR. Heart rate has decreased since admission with cardizem drip. Cardizem drip was stopped and oral cardizem started. Pt was on 2LNC, but this was decreased and pt had adequate oxygen saturation. There was suspicion for sepsis on admission, but CXR and UA were wnl and there was no leukocytosis. Pt did meet SIRS criteria d/t fever, tachycardia and tachypnea. Was started on vanc and zosyn d/t hx of cellulitis, but this was d/c'd. No need for abx upon d/c. CT reveal inguinal, iliac and retroperitoneal LAD. Recommended further work up of this. Pt stable for d/c. Labs (last 24 hrs) Laboratory Tests 04/12/22 13:31: Influenza Type A (RT-PCR) Not Detected, Influenza Type B (RT-PCR) Not Detected, SARS-CoV-2 RNA (RT-PCR) DetectedH 04/12/22 14:18: White Blood Count 8.5, Red Blood Count 3.05L, Hemoglobin 9.4L, Hematocrit 30L, Mean Corpuscular Volume 97, Mean Corpuscular Hemoglobin 31, Mean Corpuscular Hemoglobin Concent 32, Red Cell Distribution Width 15.6H, Platelet Count 289, Mean Platelet Volume 9.9, Immature Granulocyte % (Auto) 2, Neutrophils (%) (Auto) 57, Lymphocytes (%) (Auto) 35, Monocytes (%) (Auto) 3, Eosinophils (%) (Auto) 3, Basophils (%) (Auto) 1, Neutrophils # (Auto) 4.9, Lymphocytes # (Auto) 3.0, Monocytes # (Auto) 0.2, Eosinophils # (Auto) 0.3, Basophils # (Auto) 0.0, Immature Granulocyte # (Auto) 0.1, Prothrombin Time 17.6H, INR Comment 1.4, Activated Partial Thromboplast Time 34, Sodium Level 131L, Potassium Level 4.2, Chloride Level 97L, Carbon Dioxide Level 23, Anion Gap 11, Blood Urea Nitrogen 11, Creatinine 0.64, Estimat Glomerular Filtration Rate 92, BUN/Creatinine Ratio 17, Glucose Level 104, Lactic Acid Level 1.49, Calcium Level 8.5, Corrected Arvin cium 9.2, Total Bilirubin 0.3, Aspartate Amino Transf (AST/SGOT) 24, Alanine Aminotransferase (ALT/SGPT) 57H, Alkaline Phosphatase 81, C-Reactive Protein High Sensitivity 12.45H, Total Protein 6.4, Albumin 3.1L, Procalcitonin 0.12H, Thyroid Stimulating Hormone (TSH) 0.31L, Free Thyroxine 1.38 04/12/22 14:50: Urine Color YELLOW, Urine Clarity CLEAR, Urine pH 7.5, Urine Specific [place] 1.015L, Urine Protein NEGATIVE, Urine Glucose (UA) NEGATIVE, Urine Ketones NEGATIVE, Urine Nitrite NEGATIVE, Urine Bilirubin NEGATIVE, Urine Urobilinogen 1.0, Urine Leukocyte Esterase NEGATIVE, Urine RBC (Auto) NEGATIVE, Urine RBC R ARE, Urine WBC RARE, Urine Squamous Epithelial Cells 0-2, Urine Crystals NONE, Urine Bacteria NEGATIVE, Urine Casts NONE, Urine Mucus NEGATIVE, Urine Culture Indicated CULTURE PENDING 04/13/22 05:08: White Blood Count 6.7, Red Blood Count 3.12L, Hemoglobin 9.7L, Hematocrit 29L, Mean Corpuscular Volume 94, Mean Corpuscular Hemoglobin 31, Mean Corpuscular Hemoglobin Concent 33, Red Cell Distribution Width 15.8H, Platelet Count 255, Mean Platelet Volume 9.7, Immature Granulocyte % (Auto) 3, Neutrophils (%) (Auto) 58, Lymphocytes (%) (Auto) 33, Monocytes (%) (Auto) 3, Eosinophils (%) (Auto) 4, Basophils (%) (Auto) 0, Neutrophils # (Auto) 3.9, Lymphocytes # (Auto) 2.2, Monocytes # (Auto) 0.2, Eosinophils # (Auto) 0.3, Basophils # (Auto) 0.0, Immature Granulocyte # (Auto) 0.2H, Sodium Level 134L, Potassium Level 4.0, Chloride Level 100, Carbon Dioxide Level 23, Anion Gap 11, Blood Urea Nitrogen 7, Creatinine 0.66, Estimat Glomerular Filtration Rate 91, BUN/Creatinine Ratio 11, Glucose Level 94, Calcium Level 7.5L, Magnesium Level 1.8 Patient resulted labs reviewed. Pending Labs Laboratory Tests 04/13/22 05:08: White Blood Count 6.7, Red Blood Count 3.12, Hemoglobin 9.7, Hematocrit 29, Mean Corpuscular Volume 94, Mean Corpuscular Hemoglobin 31, Mean Corpuscular Hemoglobin Concent 33, Red Cell Distribution Width 15.8, Platelet Count 255, Mean Platelet Volume 9.7, Immature Granulocyte % (Auto) 3, Neutrophils (%) (Auto) 58, Lymphocytes (%) (Auto) 33, Monocytes (%) (Auto) 3, Eosinophils (%) (Auto) 4, Basophils (%) (Auto) 0, Neutrophils # (Auto) 3.9, Lymphocytes # (Auto) 2.2, Monocytes # (Auto) 0.2, Eosinophils # (Auto) 0.3, Basophils # (Auto) 0.0, Immature Granulocyte # (Auto) 0.2, Sodium Level 134, Potassium Level 4.0, Chloride Level 100, Carbon Dioxide Level 23, Anion Gap 11, Blood Urea Nitrogen 7, Creatinine 0.66, Estimat Glomerular Filtration Rate 91, BUN/Creatinine Ratio 11, Glucose Level 94, Calcium Level 7.5, Magnesium Level 1.8 Imaging: Reviewed Imaging Report Discharge Home Medications: Active Scripts Active Neurontin (Gabapentin) 300 Mg Capsule 300 Mg PO TID PRN Percocet 5-325 mg Tablet (Oxycodone HCl/Acetaminophen) 1 Each Tablet 1 Tab PO Q4H PRN MDD 6 TABS Eliquis (Apixaban) 5 Mg Tablet 5 Mg PO BID Cardizem Cd (Diltiazem HCl) 120 Mg Cap.er.24h 120 Mg PO DAILY Reported Biotin 10,000 Mcg Tab.rapdis 10,000 Mcg PO DAILY Pantoprazole Sodium 40 Mg Tablet.dr 40 Mg PO DAILY Weekly-D (Cholecalciferol (Vitamin D3)) 1,250 Mcg Capsule 50,000 Mcg PO WEEK Magnesium (Magnesium Oxide) 500 Mg Capsule 500 Mg PO DAILY B Complex (Vitamin B Complex) 1 Each Tablet 1 Each PO DAILY Tramadol HCl 50 Mg Tablet 50 Mg PO BID Cyanocobalamin Injection (Cyanocobalamin) 1,000 Mcg/Ml Inj 1,000 Mcg IM MONTHLY Levothyroxine Sodium 137 Mcg Tablet 137 Mcg PO DAILY Instructions to patient/family Please see electronic discharge instructions given to patient. Copy Copies To 1: BHARAGVI CHONG DO; PASCUAL LOVETT JARIN M MD 04/13/22 1333: Diagnosis/Chief Complaint Discharge Time: 13:28 Discharge Diagnosis (1) Atrial fibrillation with rapid ventricular response Status: Chronic Assessment & Plan: Continue cardizem on d/c Continue eliquis F.u with cardiology (2) SIRS (systemic inflammatory response syndrome) Status: Acute Assessment & Plan: WBC remained normal throughout stay, no sign of infection No need for abx on d/c (3) History of cellulitis Status: Resolved (4) Inguinal lymphadenopathy Status: Acute Assessment & Plan: F.u with Dr. Lovett and Dr. Chong for work up of lymphadenopathy. Likely infectious, but possibly other etiology (malignancy) (5) Iliac lymphadenopathy Status: Acute (6) Retroperitoneal lymphadenopathy Status: Acute Discharge Summary Discharge Physical Exam Allergies: Coded Allergies: promethazine (Verified Allergy, Unknown, 01/01/06) Hospital Course Was the Problem List Reviewed?: Yes Admitted with AFib with RVR. Cardiology consulted and assisted with her care. Started on IV Cardizem and rates improved. Continued on Cartia and Eliquis. SI RS+ on arrival, no infectious source identified, antibiotics discontinued. Lymphadenopathy in left groin possibly reactive with recent cellulitis and infection, though malignancy would be high on the differential. Would recommend close follow up, monitoring, and biopsy if needed. She incidentally tested COVID positive though she had COVID a little over a month ago. Infection control was consulted and this was thought to be a persistent positive without true active infection. She was discharged home in stable condition. Imaging: Reviewed Imaging Films, Reviewed Imaging Report Discussion & Recommendations Discharge Planning: >30 minutes discharge planning Discharge Condition at discharge Improved, stable Copy Copies To 1: BHARGAVI CHONG DO; PASCUAL LOVETT DO Supervisory-Addendum Brief Verification & Attestation Participated in pt care: history, MDM, physical Personally performed: exam, history, MDM, supervision of care Care discussed with: Medical Student Procedures: n/a Results interpretation: Verified all documentation A medical student performed and documented this service in my presence. I reviewed and verified all information documented by the medical student and made modifications to such information, when appropriate. I personally performed the physical exam and medical decision making. GEORGES FINLEY MED STUDENT Apr 13, 2022 12:22 KADIE BURNS MD Apr 13, 2022 13:33
--- NOTE | 2022-04-13 12:29 | Consultation-Cardiology ---
HPI-Cardiology Cardiology Consultation: Date of Consultation 04/13/22 Time Seen by a Provider: 11:30 Date of Admission Attending Physician Romel Lovett DO Admitting Physician Admitting Physician: Selina Watts MD Attending Physician: Selina Watts MD Consulting Physician FELICIA HODGES MD, MA, FACP, FACC, FSCAI, CCDS Physician requesting consult: Dr Watts HPI: Chief Complaint: Reason for Card consult: H/o SSS and A Fib 76 you woman admitted with L groin discomfort and gen malaise to Dr Watts's ospitalist svce on 04/12/22. Is reported to have been febrile at time of admission. Does not currently report groin pain. Denies cp or palp or syncope or shortness of breath or swelling. Denies n/v/d Review of Systems-Cardiology Review of Systems Constitutional: malaise; No weight loss, No weight gain Eyes: No vision change Ears/Nose/Throat: No ear discharge, No nasal drainage, No recent hearing loss Respiratory: As described under HPI Cardiovascular: As described under HPI Gastrointestinal: As described under HPI Genitourinary: No dysuria, No hematuria : No Musculoskeletal: No back pain, No joint pain Skin: No rash, No ulcerations Psychiatric/Neurological: No seizure, No focal weakness, No syncope Hematologic: No bleeding abnormalities [id number] Hx Patient Social History Smoking Status: Former Smoker (5 years when younger ) Former smoker/When Quit: Apr 18, 1973 2nd Hand Smoke Exposure: No Have you traveled recently?: No Alcohol Use?: Yes Pt feels they are or have been: No Immunizations Up To Date Date of Pneumonia Vaccine: Nov 27, 2013 Date of Influenza Vaccine: Mar 12, 2020 Past Medical History PMH As described under Assessment. Family Medical History Family History: Abdominal aortic aneurysm 19 MOTHER G8 BROTHER Alzheimer's disease G8 SISTER Arthritis G8 SISTER Cardiovascular disease 19 MOTHER FH: lung cancer 19 FATHER FH: ovarian cancer G8 SISTER Hypertension G8 SISTER Prostate cancer G8 BROTHER Psychosocial problem Thyroid disease G8 SISTER No Family History of: AIDS Darlington's disease Alcoholism Colon cancer Completed stroke Dementia Diabetes mellitus Drug abuse Myocardial infarction Parkinson's disease Respiratory disorder Seizure disorder Severe allergy Allergies and Home Medications Allergies Coded Allergies: promethazine (Verified Allergy, Unknown, 01/01/06) Patient Home Medication List Home Medication List Reviewed: Yes Apixaban (Eliquis) 5 Mg Tablet, 5 MG PO BID Prescribed by: LASHONDA YU on 11/29/17 0724 Biotin (Biotin) 10,000 Mcg Tab.rapdis, 10,000 MCG PO DAILY, (Reported) Entered as Reported by: TEVIN MARTELL on 08/10/20 120 Cholecalciferol (Vitamin D3) (Weekly-D) 1,250 Mcg Capsule, 50,000 MCG PO WEEK, (Reported) Entered as Reported by: TEVIN MARTELL on 08/10/20 120 Cyanocobalamin (Cyanocobalamin Injection) 1,000 Mcg/Ml Inj, 1,000 MCG IM MONTHLY, (Reported) Entered as Reported by: EMIGDIO DICKSON on 11/27/17 1040 Diltiazem HCl (Cardizem Cd) 120 Mg Cap.er.24h, 120 MG PO DAILY Prescribed by: LASHONDA YU on 11/29/17 0724 Gabapentin (Neurontin) 300 Mg Capsule, 300 MG PO TID PRN for PAIN-BREAKTHROUGH Prescribed by: MARI JIMENEZ on 07/28/21 162 Levothyroxine Sodium (Levothyroxine Sodium) 137 Mcg Tablet, 137 MCG PO DAILY, (Reported) Entered as Reported by: ELISEO GARBER on 04/24/15 1019 Magnesium Oxide (Magnesium) 500 Mg Capsule, 500 MG PO DAILY, (Reported) Entered as Reported by: TEVIN MARTELL on 08/10/20 120 Oxycodone HCl/Acetaminophen (Percocet 5-325 mg Tablet) 1 Each Tablet, 1 TAB PO Q4H PRN for PAIN-MODERATE (5-7) Prescribed by: MARI JIMENEZ on 07/28/21 1622 Pantoprazole Sodium (Pantoprazole Sodium) 40 Mg Tablet.dr, 40 MG PO DAILY, (Reported) Entered as Reported by: TEVIN MARTELL on 08/10/20 120 Tramadol HCl (Tramadol HCl) 50 Mg Tablet, 50 MG PO BID, (Reported) Entered as Reported by: TEVIN MARTELL on 08/10/20 120 Vitamin B Complex (B Complex) 1 Each Tablet, 1 EACH PO DAILY, (Reported) Entered as Reported by: TEVIN MARTELL on 08/10/20 1201 Physical Exam-Cardiology Physical Exam Vital Signs/I&O 04/13/22 04/13/22 04/13/22 04/13/22 01:00 01:00 02:00 03:00 Pulse 90 96 89 92 Resp 16 12 19 B/P (MAP) 99/51 (67) 105/54 (71) 104/53 (70) Pulse Ox 99 99 96 O2 Delivery Nasal Cannula Nasal Cannula Nasal Cannula O2 Flow Rate 2.00 2.00 2.00 04/13/22 04/13/22 04/13/22 04/13/22 04:00 04:00 05:00 06:00 Pulse 91 92 87 Resp 22 19 23 B/P (MAP) 106/47 (66) 104/53 (70) 91/47 (62) Pulse Ox 98 95 96 96 O2 Delivery Nasal Cannula Nasal Cannula Nasal Cannula Nasal Cannula O2 Flow Rate 2.00 2.00 2.00 2.00 04/13/22 04/13/22 04/13/22 04/13/22 07:00 07:00 08:00 08:00 Temp 36.8 Pulse 93 102 96 Resp 12 18 B/P (MAP) 101/62 (75) 95/59 (71) Pulse Ox 96 96 O2 Delivery Nasal Cannula Nasal Cannula O2 Flow Rate 2.00 2.00 04/13/22 04/13/22 04/13/22 04/13/22 08:00 09:00 10:00 11:00 Pulse 84 106 95 Resp 13 15 12 B/P (MAP) 102/65 (77) 96/53 (67) 90/53 (65) Pulse Ox 98 97 96 91 O2 Delivery Nasal Cannula Nasal Cannula Nasal Cannula Nasal Cannula O2 Flow Rate 2.00 2.00 2.00 2.00 04/13/22 11:26 Temp 36.7 04/13/22 00:00 Intake Total 3025 ml Output Total 0 ml Balance 3025 ml Capillary Refill : Less Than 3 Seconds Constitutional: AAO x 3, well-developed, well-nourished HEENT: EOMI, hearing is well preserved; No xanthelasmas are seen Neck: carotid pulses are 2 + bilaterally, with good upstrokes Respiratory: No accessory muscle use; other (good, bilateral air entry) Cardiovascular: irregularly irregular, S1 and S2, systolic murmur (soft NUNU at card base) Gastrointestinal: No tender, No guarding, No rebound; audible bowel sounds Genital/Rectal: other (Site of boil of anterior left labia majora w/ some flaky skin where healing. Non-tender, not warm to touch, suprapubic region is very mildly erythematous. Non-tender everywhere except and left inguinal region. Large, irritated lymph node palpable in this region. Groin creases C/D/I. ) Extremities: No clubbing, No cyanosis, No significant edema Neurologic/Psychiatric: oriented x 3, other (moves all limbs equally) Skin: normal color, warm/dry Data Review Labs Laboratory Tests 04/12/22 13:31: Influenza Type A (RT-PCR) Not Detected, Influenza Type B (RT-PCR) Not Detected, SARS-CoV-2 RNA (RT-PCR) DetectedH 04/12/22 14:18: White Blood Count 8.5, Red Blood Count 3.05L, Hemoglobin 9.4L, Hematocrit 30L, Mean Corpuscular Volume 97, Mean Corpuscular Hemoglobin 31, Mean Corpuscular Hemoglobin Concent 32, Red Cell Distribution Width 15.6H, Platelet Count 289, Mean Platelet Volume 9.9, Immature Granulocyte % (Auto) 2, Neutrophils (%) (Auto) 57, Lymphocytes (%) (Auto) 35, Monocytes (%) (Auto) 3, Eosinophils (%) (Auto) 3, Basophils (%) (Auto) 1, Neutrophils # (Auto) 4.9, Lymphocytes # (Auto) 3.0, Monocytes # (Auto) 0.2, Eosinophils # (Auto) 0.3, Basophils # (Auto) 0.0, Immature Granulocyte # (Auto) 0.1, Prothrombin Time 17.6H, INR Comment 1.4, Activated Partial Thromboplast Time 34, Sodium Level 131L, Potassium Level 4.2, Chloride Level 97L, Carbon Dioxide Level 23, Anion Gap 11, Blood Urea Nitrogen 11, Creatinine 0.64, Estimat Glomerular Filtration Rate 92, BUN/Creatinine Ratio 17, Glucose Level 104, Lactic Acid Level 1.49, Calcium Level 8.5, Corrected Calcium 9.2, Total Bilirubin 0.3, Aspartate Amino Transf (AST/SGOT) 24, Alanine Aminotransferase (ALT/SGPT) 57H, Alkaline Phosphatase 81, C-Reactive Protein High Sensitivity 12.45H, Total Protein 6.4, Albumin 3.1L, Procalcitonin 0.12H, Thyroid Stimulating Hormone (TSH) 0.31L, Free Thyroxine 1.38 04/12/22 14:50: Urine Color YELLOW, Urine Clarity CLEAR, Urine pH 7.5, Urine Specific [place] 1.015L, Urine Protein NEGATIVE, Urine Glucose (UA) NEGATIVE, Urine Ketones NEGATIVE, Urine Nitrite NEGATIVE, Urine Bilirubin NEGATIVE, Urine Urobilinogen 1.0, Urine Leukocyte Esterase NEGATIVE, Urine RBC (Auto) NEGATIVE, Urine RBC RARE, Urine WBC RARE, Urine Squamous Epithelial Cells 0-2, Urine Crystals NONE, Urine Bacteria NEGATIVE, Urine Casts NONE, Urine Mucus NEGATIVE, Urine Culture Indicated CULTURE PENDING 04/13/22 05:08: White Blood Count 6.7, Red Blood Count 3.12L, Hemoglobin 9.7L, Hematocrit 29L, Mean Corpuscular Volume 94, Mean Corpuscular Hemoglobin 31, Mean Corpuscular Hemoglobin Concent 33, Red Cell Distribution Width 15.8H, Platelet Count 255, Mean Platelet Volume 9.7, Immature Granulocyte % (Auto) 3, Neutrophils (%) (Auto) 58, Lymphocytes (%) (Auto) 33, Monocytes (%) (Auto) 3, Eosinophils (%) (Auto) 4, Basophils (%) (Auto) 0, Neutrophils # (Auto) 3.9, Lymphocytes # (Auto) 2.2, Monocytes # (Auto) 0.2, Eosinophils # (Auto) 0.3, Basophils # (Auto) 0.0, Immature Granulocyte # (Auto) 0.2H, Sodium Level 134L, Potassium Level 4.0, Chloride Level 100, Carbon Dioxide Level 23, Anion Gap 11, Blood Urea Nitrogen 7, Creatinine 0.66, Estimat Glomerular Filtration Rate 91, BUN/Creatinine Ratio 11, Glucose Level 94, Calcium Level 7.5L, Magnesium Level 1.8 Laboratory Tests 04/12/22 14:18 04/13/22 05:08 A/P-Cardiology Assessment/Admission Diagnosis L groin discomfort and groin mass and labia majora lesion, unknown origin - managed by the Surgical and Hospitalist services H/o severe symptomatic sinus node dysfunction/asystole: - Status post dual chamber permanent pacemaker (Biotronik) on 11/28/[address] Joiner. Device interrogation on 11-28-21 shows normal device function P. A-fib - Eliquis for stroke prophylaxis - Echo of 11/28/19: LVEF 65-70%, RVSP 36 mmHg, dilated LA, mod TR DAGOBERTO - treated with CPAP with which she is compliant HTN - controlled Carotid dz - carotid ultrasound done on 05/17/20 shows mild bilateral stenosis Hypothyroidism - managed by PCP H/o Lymphoma - managed by her pcp and oncologist Discussion and Recomendations * Had presented with AF with RVR during fever and groin pain. These symptoms have improved and are being managed by the Hospitalist and Surgical services * We recommend continuation of oral long-acting diltiazem for vent rate control * We recommend continuation of OAC for stroke prophylaxis * Monitor labs * Outpt cardiac f/u advised post-discharge * Discussed with Dr Watts of Hospitalist FELICIA Gardner MD [facility] CCDS Apr 13, 2022 12:29
[2022-04-13] MEDS ORDERED: DILT180C54 PO (13:23)
[2022-04-13] MEDS ORDERED: LEVO150T6 PO (13:23)
[2022-04-13] MEDS ORDERED: VANCOMYCIN INJECTION 1,500 MG in NS IV 500 ML 500 ML IV SCH (20:00)
== END 2022-04-13 14:30 | disposition home or self-care (01) | DRG 308 ==
LOC: EDUNIT# 12:17 → ER 12:19 → ICU 18:18 → OBSVTOIN 18:18
PROVIDERS: ADMIT Internal Medicine; ATTEND Internal Medicine
PROC: 8E0ZXY6 Isolation (ICD-10-PCS; principal; 2022-04-12)
DX: I48.91 Unspecified atrial fibrillation (principal); U07.1 COVID-19; R65.10 Systemic inflammatory response syndrome (SIRS) of non-infectious origin without acute organ dysfunction; R59.1 Generalized enlarged lymph nodes; G47.33 Obstructive sleep apnea (adult) (pediatric); I10 Essential (primary) hypertension; E78.5 Hyperlipidemia, unspecified; C73 Malignant neoplasm of thyroid gland; Z79.01 Long term (current) use of anticoagulants; Z87.891 Personal history of nicotine dependence; Z95.0 Presence of cardiac pacemaker; K21.9 Gastro-esophageal reflux disease without esophagitis; K57.90 Diverticulosis of intestine, part unspecified, without perforation or abscess without bleeding; M81.0 Age-related osteoporosis without current pathological fracture; M19.90 Unspecified osteoarthritis, unspecified site; G89.29 Other chronic pain; M54.9 Dorsalgia, unspecified; E03.9 Hypothyroidism, unspecified
CPT/HCPCS: 36415; 71045; 74177; 80048; 80053; 81000; 82607; 82728; 82746; 83540; 83550; 83605; 83735; 84145; 84439; 84443; 85025; 85610; 85730; 86141; 87040; 87081; 87088; 87636; 93041

== ENCOUNTER 2022-04-21 19:05 | Emergency (ER) | payer MEDICARE ==
[~2022-04-21] VITALS: Ht 172.7 cm; Wt 99.3 kg
[~2022-04-21 19:05] MED LIST changes: +DILT180C54 PO; +LEVO150T6 PO
--- NOTE | 2022-04-21 20:46 | Diagnostic Imaging Report ---
INDICATION: Swelling. COMPARISON: None available. TECHNIQUE: Two radiographs of the left ankle dated April 21, 2022. FINDINGS: No acute fracture or dislocation. No destructive osseous process. Significant degenerative changes are identified within the midfoot. Small plantar calcaneal enthesophyte. Diffuse soft tissue swelling about the ankle. IMPRESSION: No acute osseous abnormality with soft tissue swelling about the ankle. Significant degenerative changes involving the midfoot. Dictated by: Dictated on workstation # [id number]
--- NOTE | 2022-04-21 20:55 | ED Lower Extremity ---
General Chief Complaint: Lower Extremity Stated Complaint: LEFT ANKLE SWOLLEN Nursing Triage Note: PT TO FT 1 WITH CC OF L ANKLE SWELLING SINCE 04/19. PT STATES INCREASED BP MEDS EARLIER IN THE WEEK AND HAS TAKEN 2 LAXIS PILLS TODAY FOR SWELLING. DENIES INJURY. Source: patient Exam Limitations: no limitations (IVORY REILLY APRN) History of Present Illness Date Seen by Provider: Apr 21, 2022 Time Seen by Provider: 19:50 Initial Comments Patient is a 76-year-old female who presents to the emergency department for evaluation of left ankle swelling that began 2 days ago. Patient denies any trauma or pain to the area. Denies any swelling anywhere else in the leg. Denies any calf pain. Patient is currently on twice daily Eliquis due to history of atrial fibrillation. Her Cardizem was increased earlier this week. Patient states she took 2 Lasix pills yesterday for the swelling. She is not currently prescribed Lasix but had some lying around from a previous prescription. (IVORY REILLY APRN) Allergies and Home Medications Allergies Coded Allergies: promethazine (Verified Allergy, Unknown, 01/01/06) Patient Home Medication List Home Medication List Reviewed: Yes (IVORY REILLY APRN) Apixaban (Eliquis) 5 Mg Tablet, 5 MG PO BID Prescribed by: LASHONDA YU on 11/29/17 0724 Biotin (Biotin) 10,000 Mcg Tab.rapdis, 10,000 MCG PO DAILY, (Reported) Entered as Reported by: TEVIN MARTELL on 08/10/20 1201 Cholecalciferol (Vitamin D3) (Weekly-D) 1,250 Mcg Capsule, 50,000 MCG PO WEEK, (Reported) Entered as Reported by: TEVIN MARTELL on 08/10/20 1201 Cyanocobalamin (Cyanocobalamin Injection) 1,000 Mcg/Ml Inj, 1,000 MCG IM MONTHLY, (Reported) Entered as Reported by: EMIGDIO DICKSON on 11/27/17 1040 Diltiazem HCl (Cartia Xt) 180 Mg Cap.er.24h, 180 MG PO DAILY, (Reported) Entered as Reported by: KADIE BURNS on 04/13/22 1323 Gabapentin (Neurontin) 300 Mg Capsule, 300 MG PO TID PRN for PAIN-BREAKTHROUGH Prescribed by: MARI JIMENEZ on 07/28/21 1622 Levothyroxine Sodium (Levothyroxine Sodium) 150 Mcg Tablet, 150 MCG PO, (Reported) Entered as Reported by: KADIE BURNS on 04/13/22 1323 Magnesium Oxide (Magnesium) 500 Mg Capsule, 500 MG PO DAILY, (Reported) Entered as Reported by: TEVIN MARTELL on 08/10/20 1201 Pantoprazole Sodium (Pantoprazole Sodium) 40 Mg Tablet.dr, 40 MG PO DAILY, (Reported) Entered as Reported by: TEVIN MARTELL on 08/10/20 1201 Tramadol HCl (Tramadol HCl) 50 Mg Tablet, 50 MG PO BID, (Reported) Entered as Reported by: TEVIN MARTELL on 08/10/20 1201 Vitamin B Complex (B Complex) 1 Each Tablet, 1 EACH PO DAILY, (Reported) Entered as Reported by: TEVIN MARTELL on 08/10/20 1201 Review of Systems Constitutional: no symptoms reported EENTM: no symptoms reported Respiratory: no symptoms reported Cardiovascular: see HPI, edema Gastrointestinal: no symptoms reported Genitourinary: no symptoms reported Musculoskeletal: see HPI Skin: no symptoms reported Psychiatric/Neurological: No Symptoms Reported (IVROY REILLY APRN) Past Gtwphcx-Jwqfaq-Xwwlww Hx Patient Social History Tobacco Use?: No Substance use?: No Alcohol Use?: No Pt feels they are or have been: No (IVORY REILLY APRN) Immunizations Up To Date First/Initial COVID19 Vaccinat: 2020 Second COVID19 Vaccination [place]: 08/11/2020 Third COVID19 Vaccination Date: 2021 (IVORY REILLY APRN) Seasonal Allergies Seasonal Allergies: Yes (IVORY REILLY APRN) Past Medical History Surgery/Hospitalization HX: THYROIDECTOMY,HYSTERECTOMY,DENIS,BILAT KNEE REPLACEMENT,PACEMAKER/AICD Surgeries: Yes Abdominal, Eye Surgery, Hysterectomy, Joint Replacement, Oophorectomy, Orthopedic, Pacemaker, Rectal, Thyroidectomy Respiratory: Yes (DAGOBERTO) Currently Using CPAP: Yes Cardiac: Yes Atrial Fibrillation, High Cholesterol, Hypertension Neurological: No 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 Disorders: No 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, 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 Genitourinary: Yes (mass on vagina) Bladder Infection Gastrointestinal: Yes (hx of Lap Denis) Gastroesophageal Reflux, Diverticulosis, Polyps Musculoskeletal: Yes Degenerate Disk Disease Endocrine: Yes (Thyroidectomy 2/2 Thyroid CA) Hypothyroidsim HEENT: Yes Cataract Hearing Impairment: Hard of Hearing Cancer: Yes Leukemia, Thyroid Did You Recieve Any Treatments: Yes What Type of Treatment Did You: Surgical Intervention Psychosocial: No Integumentary: No Blood Disorders: No Adverse Reaction/Blood Tranf: No (IVORY REILLY APRN) Family Medical History Abdominal aortic aneurysm 19 MOTHER G8 BROTHER Alzheimer's disease G8 SISTER Arthritis G8 SISTER Cardiovascular disease 19 MOTHER FH: lung cancer 19 FATHER FH: ovarian cancer G8 SISTER Hypertension G8 SISTER Prostate cancer G8 BROTHER Psychosocial problem Thyroid disease G8 SISTER No Family History of: AIDS Marshall's disease Alcoholism Colon cancer Completed stroke Dementia Diabetes mellitus Drug abuse Myocardial infarction Parkinson's disease Respiratory disorder Seizure disorder Severe allergy Heart Disease, Cancer, Hypertension, Other Conditions/Hx PAST SURGICAL HISTORY: -"360 WRAP" PER PT-- HIATAL HERNIA REPAIR -PACEMAKER -CATARACT SURGERY - COLONOSCOPY 08/18/[address] RODRIGUEZ: ASSESSMENT: 1. Three small polyps were removed today. Two adjacent in the proximal ascending colon and one in the mid transverse colon with no gross evidence to suggest malignancy. We will await histopathology report before making future surveillance colonoscopic recommendations weighing this patient's age, poor performance status to that of a positive Cologuard study. 2. Moderate to severe diverticular disease, most notably present in the sigmoid colon, but with diverticulum scattered throughout without overt evidence for diverticulitis. (IVORY REILLY APRN) Physical Exam Vital Signs Vital Signs - First Documented 04/21/22 19:19 Temp 36.8 Pulse 115 Resp 20 B/P (MAP) 149/77 (101) Pulse Ox 94 O2 Delivery Room Air (MARI PATEL MD) Vital Signs Capillary Refill : Less Than 3 Seconds (IVORY REILLY APRN) Height, Weight, BMI Height: 5'7.00" Weight: 236lbs. 2.0oz. 107.371584dr; 33.00 BMI Method:Stated General Appearance: WD/WN, no apparent distress HEENT: PERRL/EOMI, normal ENT inspection, TMs normal, pharynx normal Neck: non-tender, full range of motion, supple, normal inspection Cardiovascular: regular rate, rhythm Respiratory: chest non-tender, lungs clear, normal breath sounds, no respiratory distress, no accessory muscle use Gastrointestinal: normal bowel sounds, non tender, soft Ankles: left ankle non-tender, left ankle normal range of motion, left ankle swelling (IVORY REILLY APRN) Progress/Results/Core Measures Results/Orders Vital Signs/I&O 04/21/22 04/21/22 19:19 21:02 Temp 36.8 Pulse 115 115 Resp 20 20 B/P (MAP) 149/77 (101) 149/77 Pulse Ox 94 94 O2 Delivery Room Air Room Air (MARI PATEL MD) Blood Pressure Mean: 101 Progress Progress Note : Progress Note Patient is nontoxic and well-hydrated on exam. Vital signs are reassuring. Very low suspicion for DVT at this time as there is only focal swelling in the ankle without any redness, calf pain, or diffuse swelling. Homans' sign is negative. Pretest probability for any DVT is very low. Patient has full range of motion of the affected ankle without provocation of pain. X-rays were obtained that are acutely negative for osseous injury. Discussed supportive care and anticipatory guidance. Follow-up with PCP for persistent symptoms. Return precautions for urgent symptomology discussed. Patient verbalized understanding. (IVORY REILLY APRN) Departure Impression Primary Impression: Left ankle swelling Disposition: HOME, SELF-CARE Condition: Stable Departure-Patient Inst. Decision time for Depature: 20:50 (IVORY REILLY APRN) Referrals: PASCUAL ALARCON DO (PCP) Primary Care Physician JUWAN ALARCON DNP (Family) Primary Care Physician Patient Instructions: Swelling ATTENDING PHYSICIAN NOTE: I was physically present as attending physician in the emergency department during the care of this patient, but I was not directly involved in the decision making or delivery of care for this patient. (MARI PATEL MD) IVORY REILLY APRN Apr 21, 2022 20:55 MARI PATEL MD Apr 26, 2022 01:04
[2022-04-21 21:02] VITALS: BP 149/77
== END 2022-04-21 21:02 | disposition home or self-care (01) ==
LOC: EDUNIT# 19:05 → ER 19:08
DX: M25.472 Effusion, left ankle (principal); I48.91 Unspecified atrial fibrillation; G47.33 Obstructive sleep apnea (adult) (pediatric); Z99.89 Dependence on other enabling machines and devices; Z79.01 Long term (current) use of anticoagulants
CPT/HCPCS: 73600

== ENCOUNTER → 2022-07-17 | Outpatient (CLI) | payer MEDICARE ==
--- NOTE | 2022-07-18 11:32 | Diagnostic Imaging Report ---
Indication: Routine screening. Comparison is made with prior mammograms from 07/14/2020 and 11/10/2017. 2-D and 3-D bilateral screening mammography was performed with CAD. Scattered fibroglandular densities are identified bilaterally. The fibronodular parenchymal pattern appears stable. No new mass or malignant-appearing microcalcifications are seen. There are scattered benign parenchymal and vascular calcifications bilaterally. Pacemaker battery pack overlies the left axilla. IMPRESSION: BI-RADS Category 2 No mammographic features suspicious for malignancy are identified. ACR BI-RADS Category 2: Benign findings. Result letter will be mailed to the patient. Note: At least 10% of breast cancer is not imaged by mammography. Dictated by: Dictated on workstation # [id number]
== END ==
LOC: RAD 14:51
PROVIDERS: ATTEND Obstetrics & Gynecology
DX: Z12.31 Encounter for screening mammogram for malignant neoplasm of breast (principal)
CPT/HCPCS: 77063; 77067

== ENCOUNTER → 2022-08-07 | Outpatient (CLI) | payer MEDICARE | LOC: CARD 08:18 | PROVIDERS: ATTEND Internal Medicine Cardiovascular Disease | DX: I48.91 Unspecified atrial fibrillation (principal) | CPT/HCPCS: 93225; 93226 ==

== ENCOUNTER → 2022-09-02 | Outpatient (CLI) | payer MEDICARE | LOC: CARD 11:10 | PROVIDERS: ATTEND Nurse Practitioner Family | DX: I51.7 Cardiomegaly (principal); I34.0 Nonrheumatic mitral (valve) insufficiency | CPT/HCPCS: 93306 ==

== ENCOUNTER → 2022-09-03 | Outpatient (CLI) | payer MEDICARE ==
[2022-09-03 10:20] LABS: BASOPHILS % (AUTO) 0 % (0-10); EOSINOPHILS # (AUTO) 0.1 10^3/uL (0.0-0.3); EOSINOPHILS % (AUTO) 1 % (0-10); HEMATOCRIT 37 % (35-52); HEMOGLOBIN 12.3 g/dL (11.5-16.0); LYMPHOCYTES # (AUTO) 4.6 10^3/uL (1.0-4.0); LYMPHOCYTES % (AUTO) 62 % (12-44); MEAN CORPUSCULAR HEMOGLOBIN 31 pg (25-34); MEAN CORPUSCULAR HGB CONC 33 g/dL (32-36); MEAN CORPUSCULAR VOLUME 93 fL (80-99); MEAN PLATELET VOLUME 9.4 fL (9.0-12.2); MONOCYTES # (AUTO) 0.7 10^3/uL (0.0-1.0); MONOCYTES % (AUTO) 10 % (0-12); NEUTROPHILS # (AUTO) 1.9 10^3/uL (1.8-7.8); NEUTROPHILS % (AUTO) 26 % (42-75); PLATELET COUNT 189 10^3/uL (130-400); WHITE BLOOD COUNT 7.4 10^3/uL (4.3-11.0)
[2022-09-03 10:43] LABS: BILIRUBIN,TOTAL 0.3 MG/DL (0.1-1.0); CALCIUM 8.7 MG/DL (8.5-10.1); CREATININE SERUM 0.87 MG/DL (0.60-1.30); TOTAL PROTEIN 7.3 GM/DL (6.4-8.2)
== END ==
LOC: ONC 09:28
PROVIDERS: ATTEND Internal Medicine Hematology & Oncology
DX: I48.0 Paroxysmal atrial fibrillation (principal); I10 Essential (primary) hypertension; I65.23 Occlusion and stenosis of bilateral carotid arteries; G47.33 Obstructive sleep apnea (adult) (pediatric); E11.9 Type 2 diabetes mellitus without complications; E03.9 Hypothyroidism, unspecified; D64.9 Anemia, unspecified; M54.50 Low back pain, unspecified; Z96.653 Presence of artificial knee joint, bilateral; Z95.0 Presence of cardiac pacemaker; Z85.72 Personal history of non-Hodgkin lymphomas; Z79.01 Long term (current) use of anticoagulants
CPT/HCPCS: 36415; 80053; 83615; 85025

== ENCOUNTER → 2022-09-26 | Outpatient (CLI) | payer MEDICARE ==
--- NOTE | 2022-09-26 11:40 | Diagnostic Imaging Report ---
PROCEDURE: US Venous Lower Ext Roni. TECHNIQUE: Multiple real-time grayscale images were obtained over the lower extremities in various projections, bilaterally. Additional duplex Doppler and color Doppler images were also obtained. INDICATION: Bilateral leg swelling. There is no evidence of right or left lower extremity DVT. Both lower extremity deep venous systems demonstrate normal compressibility with normal response augmentation and Valsalva. No fluid collection is identified. There is a slightly prominent lymph node in the left groin measuring 2.6 x 1.8 x 2.2 cm, indeterminate. IMPRESSION: 1. No evidence of right or left lower extremity DVT. 2. Prominent left groin lymph node. Dictated by: Dictated on workstation # [id number]
== END ==
LOC: RAD 07:44
PROVIDERS: ATTEND Internal Medicine Cardiovascular Disease
DX: M79.89 Other specified soft tissue disorders (principal)
CPT/HCPCS: 93970

== ENCOUNTER → 2022-10-11 | Outpatient (CLI) | payer MEDICARE ==
[~2022-10-11] MED LIST changes: +CATHETER FLUSH 10 ML SYR IVP PRN; +REGADENOSON 0.4 MG/5 ML SYR (LEXISCAN) IV ONE
[2022-10-11 09:15] VITALS: BP 131/53
== END ==
LOC: CARD 07:35
PROVIDERS: ATTEND Internal Medicine Cardiovascular Disease
DX: I48.0 Paroxysmal atrial fibrillation (principal)
CPT/HCPCS: 78452; 93017; A9502

== ENCOUNTER 2022-10-31 17:01 | Emergency (ER) | payer MEDICARE ==
[~2022-10-31] VITALS: Ht 170 cm; Wt 99.3 kg
[~2022-10-31 17:01] MED LIST changes: -CATHETER FLUSH 10 ML SYR IVP PRN; -REGADENOSON 0.4 MG/5 ML SYR (LEXISCAN) IV ONE
--- NOTE | 2022-10-31 17:20 | ED Lower Extremity ---
General Chief Complaint: Lower Extremity Stated Complaint: LEG PAIN Nursing Triage Note: PT TO RM 6 BY EMS WITH C/O L LEG PAIN STARTING YESTERDAY. PT HAD OUTPATIENT CT RECENTLY AND WAS TOLD TO FOLLOW UP WITH [facility] Source: patient Exam Limitations: no limitations (NATHANAEL FERRER MD) History of Present Illness Date Seen by Provider: Oct 31, 2022 Time Seen by Provider: 17:03 Initial Comments Patient is a 77-year-old female who presents to the emergency department with a chief complaint of left leg pain onset yesterday. She describes pain all the way around her knee. She is status post bilateral knee replacements remotely. She denies radiation of the pain up or down her leg. No recent traumas or falls. She states as long as she is still and not moving the knee does not hurt but as soon as she tries to bend it it becomes exquisitely painful. She states the leg is "swollen" .she denies any associated symptoms. Her HPI is a little disjointed. She has a history of cancer but cannot delineate exactly what kind of cancer. She states she has not really gotten any answers. Apparently she had a CT scan of the leg done 2 weeks ago. History on this is very unclear. There is no immediate family available for further history at this moment. Per review of medicine reconciliation she has been on cefdinir for the last week but denies any recent illnesses, dysuria, cough, congestion. She states she had 1 episode of diarrhea within the last week but it spontaneously resolved. She denies any skin wounds, injections or immunizations recently. She is anticoagulated on xareloto; h/o Afib. on Multaq Onset: yesterday Severity: severe Pain/Injury Location: left knee Method of Injury: unknown Modifying Factors: Improves With Immobilization; Worse With Movement; Improves With Pain Medication (tramadol), Improves With Rest (NATHANAEL FERRER MD) Allergies and Home Medications Allergies Coded Allergies: promethazine (Verified Allergy, Unknown, 01/01/06) Patient Home Medication List Home Medication List Reviewed: Yes (NATHANAEL FERRER MD) Apixaban (Eliquis) 5 Mg Tablet, 5 MG PO BID Prescribed by: LASHONDA YU on 11/29/17 0724 Biotin (Biotin) 10,000 Mcg Tab.rapdis, 10,000 MCG PO DAILY, (Reported) Entered as Reported by: TEVIN MARTELL on 08/10/20 120 Cholecalciferol (Vitamin D3) (Weekly-D) 1,250 Mcg Capsule, 50,000 MCG PO WEEK, (Reported) Entered as Reported by: TEVIN MARTELL on 08/10/20 120 Cyanocobalamin (Cyanocobalamin Injection) 1,000 Mcg/Ml Inj, 1,000 MCG IM MO NTHLY, (Reported) Entered as Reported by: EMIGDIO DICKSON on 11/27/17 1040 Diltiazem HCl (Cartia Xt) 180 Mg Cap.er.24h, 180 MG PO DAILY, (Reported) Entered as Reported by: KADIE BURNS on 04/13/22 1323 Gabapentin (Neurontin) 300 Mg Capsule, 300 MG PO TID PRN for PAIN-BREAKTHROUGH Prescribed by: MARI JIMENEZ on 07/28/21 1622 Levothyroxine Sodium (Levothyroxine Sodium) 150 Mcg Tablet, 150 MCG PO, (Reported) Entered as Reported by: KADIE BURNS on 04/13/22 1323 Magnesium Oxide (Magnesium) 500 Mg Capsule, 500 MG PO DAILY, (Reported) Entered as Reported by: TEVIN MARTELL on 08/10/20 120 Pantoprazole Sodium (Pantoprazole Sodium) 40 Mg Tablet.dr, 40 MG PO DAILY, (Reported) Entered as Reported by: TEVIN MARTELL on 08/10/201200 Tramadol HCl (Tramadol HCl) 50 Mg Tablet, 50 MG PO BID, (Reported) Entered as Reported by: TEVIN MARTELL on 08/10/20 120 Vitamin B Complex (B Complex) 1 Each Tablet, 1 EACH PO DAILY, (Reported) Entered as Reported by: TEVIN MARTELL on 08/10/201200 Review of Systems Constitutional: see HPI EENTM: no symptoms reported Respiratory: no symptoms reported Cardiovascular: no symptoms reported Gastrointestinal: no symptoms reported Genitourinary: no symptoms reported Musculoskeletal: joint pain (left knee) Skin: no symptoms reported (NATHANAEL FERRER MD) All Other Systems Reviewed Negative Unless Noted: Yes (NATHANAEL FERRER MD) Past Kbqnvta-Fkjyua-Etpddk Hx Patient Social History Tobacco Use?: No Smoking Status: Former Smoker Substance use?: No Alcohol Use?: No Pt feels they are or have been: No (NATHANAEL FERRER MD) Immunizations Up To Date First/Initial COVID19 Vaccinat: 2020 Second COVID19 Vaccination [place]: 08/11/2020 Third COVID19 Vaccination Date: 2021 (NATHANAEL FERRER MD) Seasonal Allergies Seasonal Allergies: Yes (NATHANAEL FERRER MD) Past Medical History Surgery/Hospitalization HX: THYROIDECTOMY,HYSTERECTOMY,DENIS,BILAT KNEE REPLACEMENT,PACEMAKER/AICD, AFIB Surgeries: Yes Abdominal, Eye Surgery, Hysterectomy, Joint Replacement, Oophorectomy, Orthopedic, Pacemaker, Rectal, Thyroidectomy Respiratory: Yes (DAGOBERTO) Currently Using CPAP: Yes Cardiac: Yes Atrial Fibrillation, High Cholesterol, Hypertension Neurological: No 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 Disorders: No 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, 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 Genitourinary: Yes (mass on vagina) Bladder Infection Gastrointestinal: Yes (hx of Lap Denis) Gastroesophageal Reflux, Diverticulosis, Polyps Musculoskeletal: Yes Degenerate Disk Disease Endocrine: Yes (Thyroidectomy 2/2 Thyroid CA) Hypothyroidsim HEENT: Yes Cataract Hearing Impairment: Hard of Hearing Cancer: Yes Leukemia, Thyroid Did You Recieve Any Treatments: Yes What Type of Treatment Did You: Surgical Intervention Psychosocial: No Integumentary: No Blood Disorders: No Adverse Reaction/Blood Tranf: No (NATHANAEL FERRER MD) Family Medical History Abdominal aortic aneurysm 19 MOTHER G8 BROTHER Alzheimer's disease G8 SISTER Arthritis G8 SISTER Cardiovascular disease 19 MOTHER FH: lung cancer 19 FATHER FH: ovarian cancer G8 SISTER Hypertension G8 SISTER Prostate cancer G8 BROTHER Psychosocial problem Thyroid disease G8 SISTER No Family History of: AIDS Marshall's disease Alcoholism Colon cancer Completed stroke Dementia Diabetes mellitus Drug abuse Myocardial infarction Parkinson's disease Respiratory disorder Seizure disorder Severe allergy Heart Disease, Cancer, Hypertension, Other Conditions/Hx PAST SURGICAL HISTORY: -"360 WRAP" PER PT-- HIATAL HERNIA REPAIR -PACEMAKER -CATARACT SURGERY - COLONOSCOPY 08/18/[address] RODRIGUEZ: ASSESSMENT: 1. Three small polyps were removed today. Two adjacent in the proximal ascending colon and one in the mid transverse colon with no gross evidence to suggest malignancy. We will await histopathology report before making future surveillance colonoscopic recommendations weighing this patient's age, poor performance status to that of a positive Cologuard study. 2. Moderate to severe diverticular disease, most notably present in the sigmoid colon, but with diverticulum scattered throughout without overt evidence for diverticulitis. (NATHANAEL FERRER MD) Physical Exam Vital Signs Vital Signs - First Documented 10/31/22 17:06 Temp 37.2 Pulse 115 Resp 20 B/P (MAP) 122/65 (84) Pulse Ox 94 O2 Delivery Room Air (CHANEL,JENNIFER K DO) Vital Signs Capillary Refill : (NATHANAEL FERRER MD) Height, Weight, BMI Height: 5'7.00" Weight: 236lbs. 2.0oz. 107.010416ta; 34.00 BMI Method:Stated General Appearance: WD/WN, other (slightly anxious/agitated with a little pressured speech) HEENT: PERRL/EOMI Cardiovascular: irregularly irregular (HR = 110) Respiratory: lungs clear, normal breath sounds, no respiratory distress, no accessory muscle use Gastrointestinal: non tender, soft Legs: left leg swelling (mild LLE swelling; no palpable cords or calf tenderness; 2+ DP and PT pulses) Knees: left knee joint effusion, left knee pain (painful to left knee flexion), left knee swelling, left knee other (increased warmth) Ankles: left ankle normal inspection Feet: left foot normal inspection Neurologic/Psychiatric: no motor/sensory deficits, alert, oriented x 3 Skin: normal color, warm/dry (NATHANAEL FERRER MD) Progress/Results/Core Measures Results/Orders Lab Results Laboratory Tests Test 10/31/22 17:35 10/31/22 18:20 Range/Units White Blood Count 6.2 4.3-11.0 10^3/uL Red Blood Count 3.23 L 3.80-5.11 10^6/uL Hemoglobin 10.2 L 11.5-16.0 g/dL Hematocrit 30 L 35-52 % Mean Corpuscular Volume 92 80-99 fL Mean Corpuscular Hemoglobin 32 25-34 pg Mean Corpuscular Hemoglobin Concent 35 32-36 g/dL Red Cell Distribution Width 14.7 H 10.0-14.5 % Platelet Count 214 130-400 10^3/uL Mean Platelet Volume 10.0 9.0-12.2 fL Immature Granulocyte % (Auto) 2 % Neutrophils (%) (Auto) 43 42-75 % Lymphocytes (%) (Auto) 48 H 12-44 % Monocytes (%) (Auto) 6 0-12 % Eosinophils (%) (Auto) 0 0-10 % Basophils (%) (Auto) 1 0-10 % Neutrophils # (Auto) 2.7 1.8-7.8 10^3/uL Lymphocytes # (Auto) 3.0 1.0-4.0 10^3/uL Monocytes # (Auto) 0.3 0.0-1.0 10^3/uL Eosinophils # (Auto) 0.0 0.0-0.3 10^3/uL Basophils # (Auto) 0.0 0.0-0.1 10^3/uL Immature Granulocyte # (Auto) 0.2 H 0.0-0.1 10^3/uL Erythrocyte Sedimentation Rate > 140 H 0-30 MM/HR Sodium Level 129 L 135-145 MMOL/L Potassium Level 3.9 3.6-5.0 MMOL/L Chloride Level 96 L 98-107 MMOL/L Carbon Dioxide Level 25 21-32 MMOL/L Anion Gap 8 5-14 MMOL/L Blood Urea Nitrogen 13 7-18 MG/DL Creatinine 0.74 0.60-1.30 MG/DL Estimat Glomerular Filtration Rate 84 BUN/Creatinine Ratio 18 Glucose Level 104 70-105 MG/DL Calcium Level 8.9 8.5-10.1 MG/DL Corrected Calcium 9.4 8.5-10.1 MG/DL Total Bilirubin 0.5 0.1-1.0 MG/DL Aspartate Amino Transf (AST/SGOT) 28 5-34 U/L Alanine Aminotransferase (ALT/SGPT) 60 H 0-55 U/L Alkaline Phosphatase 70 40-136 U/L C-Reactive Protein High Sensitivity 18.32 H 0.00-0.50 MG/DL Total Protein 6.5 6.4-8.2 GM/DL Albumin 3.4 3.2-4.5 GM/DL Lactic Acid Level 0.58 0.50-2.00 MMOL/L (CHANEL,JENNIFER K DO) My Orders Orders - CHANEL,JENNIFER K DO Lactic Acid Analyzer (10/31/22 17:53) Blood Culture (10/31/22 17:53) Ed Iv/Invasive Line Start (10/31/22 17:53) Ns Iv 1000 Ml (Sodium Chloride 0.9%) (10/31/22 18:00) Cefepime Injection (Maxipime Injection) (10/31/22 18:00) Monitor-Rhythm Ecg Trace Only (10/31/22 17:59) Knee, Left, 3 Views (10/31/22 18:00) Vancomycin Injection (Vancomycin Injecti (10/31/22 18:45) Fentanyl Inj (Sublimaze Injection) (10/31/22 19:00) (CHANELSHARIA Gutierrez DO) Medications Given in ED Current Medications Medications Dose Ordered Sig/Josephine Route Start Time Stop Time Status Last Admin Dose Admin Cefepime HCl 1000 mg/Sodium Chloride 50 ml @ 100 mls/hr ONCE ONCE IV 10/31/22 18:00 10/31/22 18:29 DC 10/31/22 18:28 100 MLS/HR Fentanyl Citrate 50 mcg ONCE ONCE IVP 10/31/22 19:00 10/31/22 19:01 DC 10/31/22 19:00 50 MCG (CHANELSHARIA Gutierrez DO) Vital Signs/I&O 10/31/22 10/31/22 10/31/22 17:06 18:31 19:00 Temp 37.2 36.9 36.9 Pulse 115 Resp 20 B/P (MAP) 122/65 (84) Pulse Ox 94 O2 Delivery Room Air (CHANELSHARIA K DO) Blood Pressure Mean: 84 Progress Progress Note : Progress Note 1800--ASSUMED CARE OF PT FROM DR. FERRER AT SHIFT CHANGE, LAB PENDING. PT EXAMINED AND FINDINGS ARE SAME DR. FERRER EXAM, EXCEPT KNEE HAS MILD DIFFUSE ERYTHEMA TO IT AT THIS TIME. KNEE IS SIGNIFICANTLY SWOLLEN, AND SHE HAS SEVERE PAIN WITH SLIGHTEST MOVEMENT. PT HAS AN APPOINTMENT TOMORROW MORNING WITH HER NEWSWRITER PT STATES SHE TOOK 2 TRAMADOL JUST BEFORE SHE CAME HERE AND IT HAS HELPED ALOT, STATES HER KNEE DOES NOT REALLY HURT NOW. SHE DOES HAVE SIGNIFICANT PAIN WITH ANY MOVEMENT, HOWEVER. PT HAS BEEN PRESCRIBED METFORMIN IN THE PAST FOR WEIGHT LOSS, PT AND BOTH STATE THAT SHE IS NOT DIABETIC, AND SHE HAS NOT TAKEN IT FOR 2 MONTHS. LAST PRESCRIBED IN AUGUST OF THIS YEAR. LABS INCLUDING CBC, CMP, CRP, SED RATE, LACTIC ACID, BLOOD CULTURES ORDERED XRAYS OF KNEE ORDERED. PERTINENT LAB FINDINGS: NA 129; LACTIC ACID NORMAL AT 0.58, CRP 18.39, SED RATE >140 XRAY IS UNREMARKABLE GIVEN: -IV FLUIDS -CEFEPIME + VANCOMYCIN -FENTANYL FOR PAIN FOCUS EXAM AT 1930: DOES NOT MEET SEPTIC CRITERIA. EXAM UNCHANGED. SUSPECTED SOURCE--LEFT KNEE JOINT NO DETERIORATION IN PT'S CONDITION DURING ER STAY VITALS ON ARRIVAL: TEMP 37.2, HR 115, BP 122/65, RR 20, O2 SAT 94% ON ROOM AIR VITALS AT TIME OF TRANSFER: TEMP REVIEWED PRIOR RECORDS INCLUDING ER VISITS, ADMITS/H&P'S/CONSULTS/DISCHARGE SUMMARIES, TESTS/PROCEDURES DISCUSSED TEST RESULTS WITH PT AND , AND NEED FOR TRANSFER, AND THEY ARE AGREEABLE TO PLAN (JENNIFER BUCHANAN DO) Diagnostic Imaging Comments XRAYS LEFT KNEE--PER RADIOLOGIST REPORT AT 1820 COMPARISON: None. FINDINGS: Left total knee arthroplasty is seen in good position without complications. Possible knee effusion and soft tissue swelling about the knee. IMPRESSION: 1: Left total knee arthroplasty is seen with no complications. 2: There is no fracture. Reviewed: Reviewed by Me (JENNIFER BUCHANAN DO) Departure Communication (Admissions) 1824--SPOKE WITH DR. YU, HOSPITALIST, SHE ADVISES TO CONTACT DR. NELSON, ORTHOPEDIC SURGEON 1829--SPOKE WITH DR. NELSON, HE ADVISES TO SEND PT TO DR. SHANNAN OTT, WHO DID HER ORIGINAL SURGERY (JENNIFER BUCHANAN DO) Impression Primary Impression: Septic joint of left knee joint Departure-Patient Inst. Referrals: PASCUAL ALARCON DO (PCP) Primary Care Physician JUWAN ALARCON, JENNIFER (Family) Primary Care Physician NATHANAEL FERRER MD Oct 31, 2022 17:20 JENNIFER BUCHANAN DO Oct 31, 2022 17:53
[2022-10-31 17:42] LABS: BASOPHILS % (AUTO) 1 % (0-10); EOSINOPHILS % (AUTO) 0 % (0-10); HEMATOCRIT 30 % (35-52); HEMOGLOBIN 10.2 g/dL (11.5-16.0); LYMPHOCYTES % (AUTO) 48 % (12-44); MEAN CORPUSCULAR HEMOGLOBIN 32 pg (25-34); MEAN CORPUSCULAR HGB CONC 35 g/dL (32-36); MEAN CORPUSCULAR VOLUME 92 fL (80-99); MONOCYTES # (AUTO) 0.3 10^3/uL (0.0-1.0); MONOCYTES % (AUTO) 6 % (0-12); NEUTROPHILS # (AUTO) 2.7 10^3/uL (1.8-7.8); NEUTROPHILS % (AUTO) 43 % (42-75); PLATELET COUNT 214 10^3/uL (130-400); WHITE BLOOD COUNT 6.2 10^3/uL (4.3-11.0)
[2022-10-31 17:51] LABS: ALBUMIN 3.4 GM/DL (3.2-4.5); POTASSIUM 3.9 MMOL/L (3.6-5.0)
[2022-10-31 17:53] LABS: CALCIUM 8.9 MG/DL (8.5-10.1)
[2022-10-31 17:54] LABS: TOTAL PROTEIN 6.5 GM/DL (6.4-8.2)
[2022-10-31 17:56] LABS: BILIRUBIN,TOTAL 0.5 MG/DL (0.1-1.0)
[2022-10-31 17:58] LABS: CREATININE SERUM 0.74 MG/DL (0.60-1.30)
[2022-10-31 18:00] LABS: ERYTHROCYTE SEDIMENTATION RATE > 140 MM/HR (0-30)
[2022-10-31] MEDS ORDERED: CEFEPIME INJECTION 1,000 MG in NS (IVPB) 50 ML IV ONE (18:00)
[2022-10-31] MEDS ORDERED: NS IV 1000 ML 1,000 ML IV SCH (18:00)
--- NOTE | 2022-10-31 18:17 | Diagnostic Imaging Report ---
CLINICAL INDICATIONS: Patient with knee pain. EXAM: X-ray of the left knee, 2 views. COMPARISON: None. FINDINGS: Left total knee arthroplasty is seen in good position without complications. Possible knee effusion and soft tissue swelling about the knee. IMPRESSION: 1: Left total knee arthroplasty is seen with no complications. 2: There is no fracture. Dictated by: Dictated on workstation # [id number]
[2022-10-31] MEDS ORDERED: fentaNYL INJ 100 MCG/2 ML AMP IVP ONE (19:00)
[2022-10-31] MEDS: VANCOMYCIN INJECTION 1,000 MG in NS (IVPB) 250 ML IV SCH ×2 (19:01→19:32)
[2022-10-31 22:00] VITALS: BP 116/61
== END 2022-10-31 22:02 | disposition short-term general hospital (02) ==
LOC: EDUNIT# 17:01 → ER 17:03
DX: M00.862 Arthritis due to other bacteria, left knee (principal); I48.91 Unspecified atrial fibrillation; G47.33 Obstructive sleep apnea (adult) (pediatric); Z96.652 Presence of left artificial knee joint; Z87.891 Personal history of nicotine dependence; Z79.01 Long term (current) use of anticoagulants; Z79.899 Other long term (current) drug therapy; Z99.89 Dependence on other enabling machines and devices
CPT/HCPCS: 36415; 73562; 80053; 83605; 85025; 85652; 86141; 87040; 93041